=== PATIENT | male | born 1940 | race Caucasian/White ===

== ENCOUNTER 2023-02-11 08:00 | Outpatient (OUT) | payer OTHER, SELFPAY ==
[2023-02-11 08:20] VITALS: BP 144/79; PULSE 82; RESP 18; TEMP 36.8; O2SAT 98
[2023-02-11] MEDS: MITOMYCIN 40 MG in WATER FOR INJECTION,STERILE 20 ML 20 MG INTRAVESIC (08:45)
--- NOTE | 2023-02-11 09:05 | PC.NURSE ---
0820: Pt. to amb. for bladder instillation of Mitomycin. Denies any adverse reactions from previous instillations. Relays voiding without difficulty and no burning or irritation. VSS. Using sterile technique, #16Fr lutz catheter inserted into bladder with immediate return of clear yellow urine. Pt. tolerated with minimal c/o pain. 300cc clear yellow urine drained from bladder. 0845: Drainage bag removed from lutz. CSTD plug placed into catheter. Mitomycin, 40mg instilled into bladder via lutz cath. after dual verification with Jessica Sanchez RN. Instructed pt. to turn side to side and front to back every 15min x 1.5hrs. Pt. relays understanding.
--- NOTE | 2023-02-11 09:45 | PC.NURSE ---
0930: Pt. cont. to deny c/o or needs. No burning to perineum. Cont. to turn every 15min as instructed.
--- NOTE | 2023-02-11 10:00 | PC.NURSE ---
Patient without c/o. Cont. to deny burning or irritation in perineum.
[2023-02-11 10:38] VITALS: BP 153/80; PULSE 78; RESP 18; TEMP 36.6
--- NOTE | 2023-02-11 10:42 | PC.NURSE ---
1030: Treatment completed. Drainage bag re-connected to lutz cath. 400cc pale purple tinged urine drained from bladder. Lutz cath removed. Pt. tolerated without c/o. No redness or irritation observed to perineum. Pt. without c/o pain, n/v or dyspnea. 1038: VSS. Pt. reminded to follow at home instructions post treatment. Pt. denies questions. D/c'd amb. to home.
== END 2023-02-11 08:01 | disposition home or self-care (01) ==
LOC: INF 02-12 11:45
PROVIDERS: Visit Provider Urology
DX: Z85.51 Personal history of malignant neoplasm of bladder (principal)
CPT/HCPCS: 51700; J9280

== ENCOUNTER 2023-03-11 12:00 | Outpatient (OUT) | payer OTHER, SELFPAY | END 2023-03-11 12:01 | disposition home or self-care (01) | LOC: PST 03-12 19:26 | PROVIDERS: Visit Provider Urology | DX: Z01.818 Encounter for other preprocedural examination (principal); Z85.51 Personal history of malignant neoplasm of bladder ==

== ENCOUNTER 2023-03-12 11:23 | Outpatient (OUT) | payer OTHER, SELFPAY | END 2023-03-12 11:24 | disposition home or self-care (01) | LOC: PST 11:24 | PROVIDERS: Visit Provider Urology | DX: Z01.818 Encounter for other preprocedural examination (principal); Z85.51 Personal history of malignant neoplasm of bladder; D49.4 Neoplasm of unspecified behavior of bladder; K21.9 Gastro-esophageal reflux disease without esophagitis; Z86.73 Personal history of transient ischemic attack (TIA), and cerebral infarction without residual deficits; I10 Essential (primary) hypertension; Z79.01 Long term (current) use of anticoagulants; I25.10 Atherosclerotic heart disease of native coronary artery without angina pectoris ==

== ENCOUNTER 2023-04-01 07:51 | Outpatient (OUT) | payer OTHER, SELFPAY ==
--- NOTE | 2023-04-01 07:59 | XR_ITS ---
[address] [address] Patient Name: GERTRUDIS PÉREZ MRN: [id number] date: 1940 Sex: M Assigned Patient Location: [facility] Current Patient Location: [facility] Accession/Order Number: [id number] Exam Date: 04/01/2023 08:48 Report Date: 04/01/2023 09:04 At the request of: SYLVESTER LOVE Procedure: XR chest 2V EXAM: CHEST 2 VIEWS HISTORY: PRE OP EXAM TECHNIQUE: PA and lateral views chest. COMPARISON: None. FINDINGS: The lungs are clear. There is no focal lung consolidation, pleural effusion or pneumothorax. Pulmonary vasculature is within normal limits. There are coronary artery bypass grafting changes. Heart size within normal limits. XR/XR chest 2V IMPRESSION: 1. No acute cardiopulmonary disease. Electronically authenticated by: MEREDITH DEL CID Date: 04/01/2023 09:04
--- NOTE | 2023-04-01 07:59 | ECG_ITS ---
[facility] Test Date: 2023-04-01 Pat Name: Nilesh Bell Department: Room: - Gender: Male [employer]: : 1940 Requested By: Order Number: [id number] Reading MD: SHANELL PACHECO Measurements Intervals [place] Rate: 68 P: 12 ND: 178 QRS: -5 QRSD: 94 T: 53 QT: 380 QTc: 406 Interpretive Statements SINUS RHYTHM No previous ECG available for comparison Electronically Signed On 04-02-2023 6:57:12 EDT by SHANELL PACHECO
--- NOTE | 2023-04-01 08:45 | PM.PRESUREVA ---
History of Present Illness History of Present Illness Chief complaint: bladder tumor Narrative: Patient presents for preadmission testing. Please see HPI from Dr. Zaldivar dated 03/23/2023. Review of Systems ROS Narrative Please see ROS from Dr. Zaldivar dated 03/23/2023. [facility] Medical History (Updated 04/01/23 @ 08:21 by Shantel Mascorro NP) Surgical History (Updated 04/01/23 @ 08:21 by Shantel Mascorro NP) Social History (Updated 03/12/23 @ 10:26 by Jyoti Malik RN) Previous occupational history: [employer] (RETIRED) Known occupational exposures/hazards: No Highest level of school completed/degree received: high school graduate Meds Home Medications and Allergies Home Medications Medication Instructions Recorded Confirmed Type ACETAMINOPHEN/ASPIRIN/CAFFIENE 1 cap PO BID PRN headache 03/11/23 04/01/23 History aspirin 81 mg chewable tablet 81 mg PO DAILY 03/11/23 04/01/23 History atorvastatin 80 mg tablet 80 mg PO QPM 03/11/23 04/01/23 History famotidine 20 mg tablet 20 mg PO DAILY 03/11/23 04/01/23 History finasteride 5 mg tablet 5 mg PO DAILY 03/11/23 04/01/23 History lisinopril 20 1 tab PO DAILY 03/11/23 History mg-hydrochlorothiazide 12.5 mg tablet montelukast 10 mg tablet 10 mg PO DAILY 03/11/23 04/01/23 History olopatadine 0.1 % eye drops 1 drp ophthalmic (eye) BID 03/11/23 04/01/23 History solifenacin 10 mg tablet 10 mg PO DAILY 03/11/23 History tamsulosin 0.4 mg capsule 0.4 mg PO DAILY 03/11/23 04/01/23 History celecoxib 200 mg capsule (Celebrex) 200 mg PO BID 04/01/23 04/01/23 History multivitamin (Multiple Vitamins 1 tab PO DAILY 04/01/23 04/01/23 History tablet) Allergies Allergy/AdvReac Type Severity Reaction Status Date / Time metoprolol Allergy Intermediate ITCHING Verified 03/11/23 12:43 Exam Narrative Exam Narrative: Constitutional: Awake, alert, comfortable, well-appearing, nontoxic, interactive, vital signs as charted Head: Normocephalic, atraumatic Neck: Supple, normal appearance, normal range of motion, no meningeal signs, no lymphadenopathy Respiratory: No respiratory distress, breath sounds clear Cardiovascular: Regular rate and rhythm, strong and regular heart tones Abdomen: Nontender, normal bowel sounds, soft, no CVA tenderness Musculoskeletal: Normal gait, no swelling or edema Skin: No rashes or induration, scattered multiple mole-like lesions, only visible skin inspected Neuro: No neurological deficits, normal sensation Psychiatric: Oriented ?3, normal affect Assessment and Plan Assessment and Plan (1) Bladder cancer: (2) Bladder tumor: Plan Cystoscopy, TURBT scheduled with Dr. Zaldivar 04/08/2023.
[2023-04-01 09:01] LABS: INR 0.97; Partial Thromboplastin Time 27.5 sec (22.3-36.2); Prothrombin Time 10.3 sec (9.0-11.6)
[2023-04-01 09:06] LABS: Anion Gap 12.8; BUN Creatinine Ratio 10.4; Calcium 9.2 mg/dL (8.5-10.1); Carbon Dioxide 27.2 mmol/L (21.0-32.0); Chloride 104 mmol/L (98-107); Estimated GFR (African America 57 (>=60); Estimated GFR (Non-African Ame 47 (>=60); Glucose 122 mg/dL (74-106); Sodium 140 mmol/L (136-145)
[2023-04-01 09:31] LABS: Basophils Percent Auto 0.5 % (0.2-2.0); Eosinophils Absolute Auto 0.3 10^3/uL (0.0-0.7); Eosinophils Percent Auto 4.5 % (0.9-7.0); Hematocrit 44.5 % (42.0-54.0); Immature Granulocytes Abs Auto 0.01 10^3/uL (0.00-0.03); Immature Granulocytes Pct Auto 0.2 % (0.0-0.5); Lymphocytes Absolute Auto 0.8 10^3/uL (1.2-3.8); Lymphocytes Percent Auto 13.6 % (20.5-60.0); Mean Corpuscular HGB Conc 33.7 g/dL (29.9-35.2); Mean Corpuscular Hemoglobin 30.1 pg (25.9-34.0); Mean Corpuscular Volume 89.2 fL (80.0-94.0); Mean Platelet Volume 12.4 fL (9.5-13.5); Monocytes Absolute Auto 0.7 10^3/uL (0.3-0.8); Monocytes Percent Auto 11.9 % (1.7-12.0); Neutrophils Absolute Auto 3.8 10^3/uL (1.4-6.5); Neutrophils Percent Auto 69.3 % (43.0-75.0); Platelet Count 154 10^3/uL (150-450); Red Blood Count 4.99 10^6/uL (4.70-6.10); Red Cell Distribution Width 13.2 % (11.0-15.0); White Blood Count 5.5 10^3/uL (4.0-11.0)
== END 2023-04-01 07:52 | disposition home or self-care (01) ==
PROVIDERS: Visit Provider Urology
DX: Z01.810 Encounter for preprocedural cardiovascular examination (principal); Z01.812 Encounter for preprocedural laboratory examination; D49.4 Neoplasm of unspecified behavior of bladder; Z85.51 Personal history of malignant neoplasm of bladder; K21.9 Gastro-esophageal reflux disease without esophagitis; I10 Essential (primary) hypertension; Z86.73 Personal history of transient ischemic attack (TIA), and cerebral infarction without residual deficits; Z79.01 Long term (current) use of anticoagulants; I25.10 Atherosclerotic heart disease of native coronary artery without angina pectoris
CPT/HCPCS: 71046; 80048; 85025; 85610; 85730; 93005; G0463

== ENCOUNTER 2023-04-08 12:30 | Day surgery (SDC) | payer OTHER, SELFPAY ==
[2023-04-01 08:39] VITALS: BP 127/71; PULSE 79; RESP 14; TEMP 36.3; O2SAT 97; BMI 28.0
[2023-04-08] VITALS (14 sets, daily range): BP systolic 127–166; BP diastolic 55–92; PULSE 74–90; RESP 10–23; TEMP 36.4–36.5; O2SAT 96–99
[2023-04-08] MEDS: LACTATED RINGER'S SOLUTION 1,000 ML 50 ML IV (13:14)
[2023-04-08] MEDS: CEFAZOLIN SODIUM/DEXTROSE,ISO 1 GM/50 ML IV.SOLN IV (16:53)
--- NOTE | 2023-04-08 17:45 | PM.URSON ---
Urology Surgery Operative Note Operative Note Procedure Date: 04/08/23 Time Out Performed: yes Pre-op Diagnosis: bladder lesions Post-op Diagnosis: same as pre-op Procedures performed: #1. Cystoscopy. #2. Transurethral resection of bladder lesions approximately 3 cm. Anesthesia: GETA Primary Surgeon: Everton Zaldivar Complications: non- Estimated blood loss (mL): 5 Findings: several raised fleshy lesions adjacent to prior resection site floor and near the left ureter. Specimens: bladder lesions. 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 Due to the world shortage of bacille Calmette-Andry treatments he underwent several mitomycin-C intravesical treatments. On recent surveillance cystoscopy some fleshy raised tumors were noted adjacent to prior resection site. his recent fish and cytology were negative.He now presents for transurethral resection of tthese lesions. He has signed an informed consent for these procedures after all the risks were explained to him in great detail. Detailed description of Procedure: The patient was brought to the operating room and placed on the operating room table in the supine position. SCDs were placed on the lower extremities and turned on and functioning during the entire case. Timeout was done by all parties in the room. We all agreed upon the patient's identification and the planned procedures for this patient. Genn. anesthesia was then administered. The patient was then repositioned into the modified dorsal lithotomy position. All pressure points were satisfactorily padded. Genitalia were sterilely prepped and draped in usual fashion.I started by passing the 26 [place] Olympus resectoscope with the standard bipolar loop electrode per urethra and into the bladder. He had a penile urethral stricture but I was able to get the scope through this. Panendoscopy in the bladder revealed the previously noted fleshy raised lesions on the floor of the bladder lateral and proximal to the left UO. I uniformly and deeply resected these and the tissue was sent for permanent sections. The resection beds were then fulgurated with the bipolar loop. On the back wall there were several mucosal abnormalities with the vascular components. These were not raised. I simply coagulated these. The rest of the bladder looked fine. There was no bleeding from the resection sites. All the tumor pieces were removed and sent for permanent sections. The scope was then removed. I elected not to place a Ingram catheter due to the patient's strong desire not to go home with 1. The anesthetic was then reversed. He was then transferred to a [facility] bed and wheeled to PACU in stable condition.
== END 2023-04-08 18:47 | disposition home or self-care (01) ==
PROVIDERS: Visit Provider Urology
PROC: (CPT 52235; principal; 2023-04-08 13:50)
DX: N32.9 Bladder disorder, unspecified (principal); Z85.51 Personal history of malignant neoplasm of bladder; K21.9 Gastro-esophageal reflux disease without esophagitis; Z86.73 Personal history of transient ischemic attack (TIA), and cerebral infarction without residual deficits; I10 Essential (primary) hypertension; Z79.01 Long term (current) use of anticoagulants; I25.10 Atherosclerotic heart disease of native coronary artery without angina pectoris; N30.90 Cystitis, unspecified without hematuria; I71.40 Abdominal aortic aneurysm, without rupture, unspecified; E78.5 Hyperlipidemia, unspecified; R35.1 Nocturia; R33.9 Retention of urine, unspecified; R39.198 Other difficulties with micturition; N40.1 Benign prostatic hyperplasia with lower urinary tract symptoms; Z95.1 Presence of aortocoronary bypass graft; Z79.82 Long term (current) use of aspirin; Z79.899 Other long term (current) drug therapy; R39.11 Hesitancy of micturition; N35.919 Unspecified urethral stricture, male, unspecified site
CPT/HCPCS: 52235; 36415; 88307; J2704

== ENCOUNTER 2023-09-07 07:48 | Outpatient (OUT) | payer OTHER, SELFPAY ==
--- NOTE | 2023-09-07 08:47 | PM.PRESUREVA ---
History of Present Illness History of Present Illness Chief complaint: bladder tumor, history of bladder cancer Narrative: Patient presents for preadmission testing. The patient states he has a history of bladder cancer and a bladder tumor, he had a TURBT done here and March. He states he does have nocturia and incomplete emptying with difficulty starting stream. He denies abdominal pain, nausea, vomiting, fever, or any other complaints. Review of Systems ROS Narrative REVIEW OF SYSTEMS: Negative except as stated in HPI, ten or more systems reviewed. Constitutional: No fever , chills, weakness ENT: No sore throat or epistaxis Cardiovascular: No edema, chest pain, palpitations, or activity intolerance Respiratory: No shortness of breath, cough, or wheezing Musculoskeletal: No joint pain or swelling Gastrointestinal: No abdominal pain, constipation, diarrhea, or vomiting Genitourinary: No dysuria or hematuria Neurological: No numbness, tingling, weakness, or headache Psychiatric: No mood changes PFSH PFSH Medical History (Updated 04/08/23 @ 12:53 by Jade Plaza) Bladder tumor ?D49.4 - Neoplasm of unspecified behavior of bladder (ICD-10) High cholesterol ?E78.00 - Pure hypercholesterolemia, unspecified (ICD-10) Urinary hesitancy ?R39.11 - Hesitancy of micturition (ICD-10) Nocturia ?R35.1 - Nocturia (ICD-10) Coronary arteriosclerosis ?I25.10 - Atherosclerotic heart disease of [place] coronary artery without angina pectoris (ICD-10) AAA (abdominal aortic aneurysm) ?I71.40 - Abdominal aortic aneurysm, without rupture, unspecified (ICD-10) BPH (benign prostatic hyperplasia) ?N40.0 - Benign prostatic hyperplasia without lower urinary tract symptoms (ICD-10) GERD (gastroesophageal reflux disease) ?K21.9 - Gastro-esophageal reflux disease without esophagitis (ICD-10) HTN (hypertension) ?I10 - Essential (primary) hypertension (ICD-10) CAD (coronary artery disease) ?I25.10 - Atherosclerotic heart disease of [place] coronary artery without angina pectoris (ICD-10) TIA (transient ischemic attack) ?G45.9 - Transient cerebral ischemic attack, unspecified (ICD-10) Bladder cancer ?C67.9 - Malignant neoplasm of bladder, unspecified (ICD-10) Surgical History (Updated 09/07/23 @ 08:21 by Shantel Mascorro NP) H/O cystoscopy (04/08/23) ?Z98.890 - Other specified postprocedural states (ICD-10) S/P cataract extraction and insertion of intraocular lens ?Z98.49 - Cataract extraction status, unspecified eye (ICD-10) ?Z96.1 - Presence of intraocular lens (ICD-10) History of colonoscopy ?Z98.890 - Other specified postprocedural states (ICD-10) H/O cystoscopy ?Z98.890 - Other specified postprocedural states (ICD-10) Hx of CABG ?Z95.1 - Presence of aortocoronary bypass graft (ICD-10) History of transurethral resection of bladder tumor (TURBT) ?Z98.890 - Other specified postprocedural states (ICD-10) ?Z86.03 - Personal history of neoplasm of uncertain behavior (ICD-10) Social History (Updated 04/08/23 @ 12:52 by Jade Plaza) Within the past year, how often did you have a drink containing alcohol: never Score interpretation: A score less than 4 is consistent with normal alcohol consumption. Smoking status: Former smoker Non-prescribed substance use: denies use Previous occupational history: [employer] (RETIRED) Known occupational exposures/hazards: No Highest level of school completed/degree received: high school graduate Meds Home Medications and Allergies Home Medications Medication Instructions Recorded Confirmed Type aspirin 81 mg chewable tablet 81 mg PO DAILY 03/11/23 09/07/23 History atorvastatin 80 mg tablet 80 mg PO QPM 03/11/23 09/07/23 History famotidine 20 mg tablet 20 mg PO DAILY 03/11/23 09/07/23 History finasteride 5 mg tablet 5 mg PO DAILY 03/11/23 09/07/23 History montelukast 10 mg tablet 10 mg PO DAILY 03/11/23 09/07/23 History tamsulosin 0.4 mg capsule 0.4 mg PO DAILY 03/11/23 09/07/23 History multivitamin (Multiple Vitamins 1 tab PO DAILY 04/01/23 09/07/23 History tablet) lisinopril 20 mg tablet 20 mg PO DAILY 04/08/23 09/07/23 History prednisone 20 mg tablet mg 09/07/23 History Allergies Allergy/AdvReac Type Severity Reaction Status Date / Time metoprolol Allergy Intermediate ITCHING Verified 09/07/23 08:22 Exam Narrative Exam Narrative: Constitutional: Awake, alert, comfortable, well-appearing, nontoxic, interactive, vital signs as charted Head: Normocephalic, atraumatic Neck: Supple, normal appearance, normal range of motion, no meningeal signs, no lymphadenopathy Respiratory: No respiratory distress, breath sounds clear Cardiovascular: Regular rate and rhythm, strong and regular heart tones Abdomen: Nontender, normal bowel sounds, soft, no CVA tenderness Musculoskeletal: Normal gait, no swelling or edema Skin: No rashes or induration, multiple scattered mole-like lesions, only visible skin inspected Neuro: No neurological deficits, normal sensation Psychiatric: Oriented ?3, normal affect Assessment and Plan Assessment and Plan (1) Bladder tumor: (2) Bladder cancer: Plan Cystoscopy, bilateral ureteroscopy, TURBT scheduled with Dr. Zaldivar 09/16/2023.
[2023-09-07 09:03] LABS: Basophils Absolute Auto 0.1 10^3/uL (0.0-0.1); Basophils Percent Auto 0.5 % (0.2-2.0); Eosinophils Absolute Auto 0.3 10^3/uL (0.0-0.7); Eosinophils Percent Auto 3.3 % (0.9-7.0); Hematocrit 37.6 % (42.0-54.0); Hemoglobin 12.1 g/dL (14.0-18.0); Immature Granulocytes Abs Auto 0.04 10^3/uL (0.00-0.03); Immature Granulocytes Pct Auto 0.4 % (0.0-0.5); Lymphocytes Absolute Auto 0.8 10^3/uL (1.2-3.8); Mean Corpuscular HGB Conc 32.2 g/dL (29.9-35.2); Mean Corpuscular Hemoglobin 29.7 pg (25.9-34.0); Mean Corpuscular Volume 92.4 fL (80.0-94.0); Mean Platelet Volume 11.7 fL (9.5-13.5); Monocytes Absolute Auto 1.1 10^3/uL (0.3-0.8); Monocytes Percent Auto 11.8 % (1.7-12.0); Neutrophils Absolute Auto 7.3 10^3/uL (1.4-6.5); Platelet Count 199 10^3/uL (150-450); Red Blood Count 4.07 10^6/uL (4.70-6.10); Red Cell Distribution Width 13.3 % (11.0-15.0); White Blood Count 9.6 10^3/uL (4.0-11.0)
[2023-09-07 09:29] LABS: INR 0.95; Partial Thromboplastin Time 25.7 sec (22.3-36.2); Prothrombin Time 10.1 sec (9.0-11.6)
[2023-09-07 12:12] LABS: Anion Gap 12.3; BUN Creatinine Ratio 16.2; Calcium 8.9 mg/dL (8.5-10.1); Carbon Dioxide 29.3 mmol/L (21.0-32.0); Chloride 103 mmol/L (98-107); Estimated GFR (African America >60 (>=60); Estimated GFR (Non-African Ame 50 (>=60); Glucose 116 mg/dL (74-106); Potassium 3.6 mmol/L (3.5-5.1); Sodium 141 mmol/L (136-145)
== END 2023-09-07 07:49 | disposition home or self-care (01) ==
LOC: PST 07:48
PROVIDERS: Visit Provider Urology
DX: Z01.812 Encounter for preprocedural laboratory examination (principal); Z01.818 Encounter for other preprocedural examination
CPT/HCPCS: 80048; 85025; 85610; 85730; G0463

== ENCOUNTER 2023-09-16 07:07 | Day surgery (SDC) | payer OTHER, SELFPAY ==
[2023-09-07 08:33] VITALS: BP 129/65; PULSE 76; RESP 16; TEMP 36.3; O2SAT 100; BMI 28.5
[2023-09-16] VITALS (11 sets, daily range): BP systolic 88–148; BP diastolic 49–76; PULSE 77–90; RESP 9–21; TEMP 36.2–36.4; O2SAT 96–100; BMI 28.7
--- OUTSIDE RECORDS SUMMARY | 2023-09-16 07:09 | XMS_ITS | CCD ---
Author Name Unknown Address [address] [place] [address] Organization [facility] Care Team Providers Care Counter Helper Name Role Phone BRIANASHAYLEE ANDERSON Primary Care Physician ZALDIVAR ., DR PHAN Admitting Unavailable ZALDIVAR ., DR PHAN Attending Unavailable MISC, DR AVILA Primary Care Unavailable ZALDIVAR ., DR PHAN Consulting Unavailable ZALDIVAR ., DR PHAN Admitting Unavailable ZALDIVAR ., DR PHAN Attending Unavailable REQUEST, NONE LISTED Primary Care Unavaila ble ZALDIVAR ., DR PHAN Consulting Unavailable REQUEST, NONE LISTED Primary Care Unavaila ble KADEN ., LILY Admitting Unavailable KADEN ., LILY Attending Unavailable SNEADS, DR JESSENIA Voss Consulting Unavailable BROWN, JESSENIA Consulting Unavailable KADEN ., LILY Consulting Unavailable ANKUR, WENDY Consulting Unavailable ZALDIVAR ., DR PHAN Admitting Unavailable ZALDIVAR ., DR PHAN Attending Unavailable REQUEST, NONE LISTED Primary Care Unavaila ble ZALDIVAR ., DR PHAN Consulting Unavailable COOPER, MARLENE Consulting Unavailable BROWN, JESSENIA Consulting Unavailable ZALDIVAR ., DR PHAN Admitting Unavailable ZALDIVAR ., DR PHAN Attending Unavailable REQUEST, NONE LISTED Primary Care Unavaila ble ZALDIVAR ., DR PHAN Consulting Unavailable HIGUERA, ALAN Consulting Unavailable GEMBUS, NICOLAS Consulting Unavailable ZALDIVAR ., DR PHAN Admitting Unavailable ZALDIVAR ., DR PHAN Attending Unavailable ZALDIVAR ., DR PHAN Consulting Unavailable MISC, DR AVILA Primary Care Unavailable ZALDIVAR, Everton White Attending Unavailable ZALDIVAR, Everton White Admitting Unavailable LURDESKAREN LACKEY Attending Unavailable LURDESKAREN Admitting Unavailable ZALDIVAR, Everton White Attending Unavailable LURDES, KAREN Chris Attending Unavailable LURDES, KAREN Chris Attending Unavailable ZALDIVAR, Everton White Attending Unavailable ZALDIVAR, Everton White Attending Unavailable ZALDIVARSHANELL Attending Unavailable ZALDIVAR, Everton White Attending Unavailable ZALDIVAR, Everton White Attending Unavailable ZALDIVAR, Everton White Attending Unavailable ZALDIVAR, Everton R Attending Unavailable ZALDIVAR, Everton R Attending Unavailable ZALDIVAR, Everton R Admitting Unavailable ZALDIVAR, Everton R Attending Unavailable ZALDIVAR, Everton R Attending Unavailable ZALDIVAR, Everton R Attending Unavailable ZALDIVAR, Everton R Attending Unavailable ZALDIVAR, Everton R Attending Unavailable ZALDIVAR, Everton R Attending Unavailable LURDES, KAREN E Attending Unavailable LURDES, KAREN E Attending Unavailable LURDES, KAREN E Attending Unavailable ZALDIVAR, Everton R Attending Unavailable ZALDIVAR, Everton R Attending Unavailable LURDES, KAREN E Attending Unavailable LURDES, KAREN E Attending Unavailable LURDES, KAREN E Attending Unavailable LURDES, KAREN E Attending Unavailable ZALDIVAR, Everton R Attending Unavailable ZALDIVAR, Everton R Attending Unavailable LURDES, AKREN E Admitting Unavailable LURDES, KAREN E Attending Unavailable Allergies Allergy Classification Reported Allergen(s) Allergy Type Date of Onset Reaction(s) Facility (18 sources) Metoprolol; Translations: [metoprolol] Drug Allergy 0 Itching (finding) [facility] (1 source) Metoprolol Drug Allergy [facility] Rep[facility] Medications Current Medications Medication Drug Class(es) Dates Sig (Normalized) Sig (Original) acetaminophen 194 mg / aspirin 227 mg / caffeine 33 mg oral tablet (10 sources) Platelet Aggregation Inhibitor, Nonsteroidal Anti-inflammatory Drug, Central Nervous System Stimulant, Methylxanthine Start: 07-20-2022 acetaminophen/a spirin/caffeine 194 mg-227 mg-33 mg oral tablet Refill(s) 0, ORAL Start Date: 07/20/22 Status: Ordered aspirin 81 mg chewable tablet (17 sources) Platelet Aggregation Inhibitor, Nonsteroidal Anti-inflammatory Drug Start: 07-20-2022 cephalexin 500 mg oral capsule (2 sources) Cephalosporin Antibacterial Start: 09-22-2022 End: 10-02-2022 take 1 capsule by mouth every twelve hours Keflex 500 mg Cap 500 mg = 1 cap(s), Oral, q12hr, X 10 day(s), # 20 cap(s), Refills(s) 0, Pharmacy: [id number], 167, cm, 08/31/22 15:00:00 EST, Height/Length Dosing, 84, kg, 08/31/22 15:00:00 EST, Weight Dosing Start Date: 09/22/22 Stop Date: 2/10/23 Status: Ordered famotidine 20 mg oral tablet (17 sources) Histamine-2 Receptor Antagonist Start: 07-20-2022 finasteride 5 mg oral tablet (17 sources) 5-alpha Reductase Inhibitor Start: 07-20-2022 hydroCHLOROthiazide 12.5 mg / lisinopril 20 mg oral tablet (17 sources) Thiazide Diuretic, Angiotensin Converting Enzyme Inhibitor Start: 07-20-2022 hydrochlorothia zide-lisinopril 12.5 mg-20 mg Tab Refill(s) 0, ORAL, 3 Refill(s) Start Date: 07/20/22 Status: Ordered montelukast 10 mg oral tablet (17 sources) Leukotriene Receptor Antagonist Start: 07-20-2022 olopatadine 1 mg/ml ophthalmic solution (17 sources) Histamine-1 Receptor Inhibitor Start: 07-20-2022 olopatadine ophthalmic 0.1% solution Refill(s) 0, BOTH EYES, 11 Refill(s) Start Date: 07/20/22 Status: Ordered solifenacin succinate 10 mg oral tablet (7 sources) Cholinergic Muscarinic Antagonist Start: 08-31-2022 solifenacin 10 mg Tab Refills(s) 0 Start Date: 08/31/22 Status: Ordered tamsulosin hydrochloride 0.4 mg oral capsule (17 sources) alpha-Adrenergic Kenji Start: 07-20-2022 Completed/Discontinued Medications Medication Drug Class(es) Dates Sig (Normalized) Sig (Original) atorvastatin 80 mg oral tablet (17 sources) HMG-CoA Reductase Inhibitor Start: 07-20-2022 ciprofloxacin 500 mg oral tablet (12 sources) Quinolone Antimicrobial Start: 06-29-2023 take 1 tablet by mouth once daily Cipro 500 mg Tab 500 mg = 1 tab(s), Oral, Daily, Take 1 tablet the day before the procedure and 1 tablet after the procedure, # 7 tab(s), Refills(s) 0, Pharmacy: [id number], 167, cm, 06/29/23 9:15:00 EST, Height/Length Dosing, 83, kg, 06/29/23 9:15:00 EST, Weight Dosing Start Date: 06/29/23 Status: Ordered Start: 03-12-2023 take 1 tablet by marylin th once daily Cipro 500 mg Tab 500 mg = 1 tab(s), Oral, Daily, Take 1 tablet the day before the procedure and 1 tablet after the procedure, # 6 tab(s), Refills(s) 0, Pharmacy: [id number], 167, cm, 08/31/22 15:00:00 EST, Height/Length Dosing, 84, kg, 08/31/22 15:00:0... Start Date: 03/12/23 Status: Ordered Start: 11-13-2022 take 1 tablet by marylin once daily Cipro 500 mg Tab 500 mg = 1 tab(s), Oral, Daily, Take 1 tablet the day before the procedure and 1 tablet after the procedure, # 6 tab(s), Refills(s) 0, Pharmacy: [id number], 167, cm, 08/31/22 15:00:00 EST, Height/Length Dosing, 84, kg, 08/31/22 15:00:0... Start Date: 11/13/22 Status: Ordered Start: 07-20-2022 take 1 tablet by [facility] daily Cipro 500 mg Tab 500 mg = 1 tab(s), Oral, Daily, Take 1 tablet the day before the procedure and 1 tablet after the procedure, # 2 tab(s), Refills(s) 0, Pharmacy: [id number], 172, cm, 07/20/22 14:37:00 EST, Height/Length Dosing, 84, kg, 07/20/22 14:37:0... 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] Onset: 04-23-2022 07-20-2022 Chronic Cancer of bladder (14 sources) Malignant neoplasm of bladder, unspecified; Translations: [Malignant tumor of urinary bladder] Onset: 09-02-2022 Chronic Cancer of bladder (11 sources) History of malignant neoplasm of bladder; Translations: [Personal history of malignant neoplasm of bladder] Onset: 09-29-2022 Episodic Cancer; other and unspecified primary (11 sources) H/O: malignant neoplasm 11-23-2022 Episodic Coronary atherosclerosis and other heart disease (18 sources) Coronary arteriosclerosis; Translations: [Atherosclerotic heart disease of [place] coronary artery without angina pectoris] Onset: 12-01-2022 07-20-2022 Chronic Disorders of lipid metabolism (20 sources) Hyperlipidemia; Translations: [Hyperlipidemia, unspecified] Onset: 12-01-2022 07-20-2022 Chronic Esophageal disorders (18 sources) Gastroesophageal reflux disease; Translations: [Gastro-esophageal reflux disease without esophagitis] Onset: 12-01-2022 07-20-2022 Chronic Essential hypertension (18 sources) Hypertensive disorder; Translations: [Essential (primary) hypertension] Onset: 12-01-2022 07-20-2022 Chronic Genitourinary symptoms and ill-defined conditions (4 sources) Encounter for fitting and adjustment of urinary device; Translations: [END FITTING AND ADJUST URINARY DEVICE] Onset: 09-28-2022 Chronic Genitourinary symptoms and ill-defined conditions (20 sources) Splitting of urinary stream; Translations: [Splitting of urinary stream] Onset: 07-20-2022 Episodic Hyperplasia of prostate (20 sources) Benign prostatic hypertrophy without outflow obstruction; Translations: [Benign prostatic hyperplasia without lower urinary tract symptoms] Onset: 07-20-2022 Chronic Neoplasms of unspecified nature or uncertain behavior (7 sources) Neoplasm of unspecified behavior of bladder; Translations: [Neoplasm of uncertain behavior of bladder] Onset: 08-20-2022 Episodic Occlusion or stenosis of precerebral arteries (17 sources) Carotid artery stenosis 07-20-2022 Chronic Other aftercare (1 source) 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; Translations: [HALF-WAY CURRENT USE OF ASPIRIN] Onset: 12-01-2022 Episodic Other aftercare (1 source) 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) 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 therapy; Translations: [OTH HALF-WAY CURRENT DRUG THERAPY] Onset: 12-01-2022 Episodic Other circulatory disease (1 source) Personal history of transient ischemic attack (TIA), and cerebral infarction without residual deficits; Translations: [PERS HX TIA AND CI NO RESID DEFICIT] Onset: 12-01-2022 Episodic Other diseases of bladder and urethra (1 source) Other specified disorders of bladder; Translations: [OTHER SPECIFIED DISORDERS BLADDER] Onset: 09-29-2022 Chronic Other diseases of bladder and urethra (4 sources) Male urethral stricture; Translations: [Unspecified urethral stricture, male, unspecified site] Onset: 03-23-2023 Episodic Other diseases of bladder and urethra (9 sources) Urethral stricture 03-23-2023 Episodic Screening and history of mental health and substance abuse codes (1 source) Personal history of nicotine dependence; Translations: [PERSONAL HISTORY OF NICOTINE DEPEND] Onset: 12-01-2022 Episodic Transient cerebral ischemia (17 sources) Transient cerebral ischemia 07-20-2022 Chronic Unclassified (1 source) CONTACT W/AND (SUSP) EXPOS COVID-19; Translations: [CONTACT W/AND (SUSP) EXPOS COVID-19] Onset: 08-20-2022 Urinary tract infections (8 sources) Urinary tract infectious disease; Translations: [Urinary tract infection, site not specified] Onset: 06-08-2023 Episodic Past or Other Problems Problem Classification Problem Date Documented Da te Episodic/Chronic Abdominal pain (3 sources) Unspecified abdominal pain; Translations: [UNSPECIFIED ABDOMINAL PAIN] Onset: 04-22-2022 Episodic Coronary atherosclerosis and other heart disease (1 source) Presence of aortocoronary bypass graft; Translations: [PRESENCE AORTOCORONARY BYPASS GRAFT] Onset: 09-29-2022 Episodic Other aftercare (1 source) [facility] (current) use of anticoagulants; Translations: [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 USE ANTICOAGULANTS] Onset: 08-20-2022 Episodic Other diseases of bladder and urethra (1 source) Unspecified urethral stricture, male, meatal; Translations: [UNSP URETHRAL STRICTURE MALE MEATAL] Onset: 09-02-2022 Episodic Other diseases of kidney and ureters (1 source) Cyst of kidney, acquired; Translations: [CYST OF KIDNEY ACQUIRED] Onset: 04-23-2022 Episodic Pancreatic disorders (not diabetes) (1 source) Acute pancreatitis without necrosis or infection, unspecified; Translations: [ACUTE PANCREATITIS WO NECRS/INF UNS] Onset: 04-23-2022 Episodic Results Test Name Value Interpretation Reference Range Facil ity Consent for Procedure/Surger yon 08-26-2023 Consent for Procedure/Surger y [id number]. [id number] [facility] Physician Referralon 023 Physician Referral [id number] 0TIFF Normal [facility] UroVysion Fish and Urine Cyt o ([facility])on 08-06-2023 [facility] UC Revision Information Invalid Interpretation Code [facility] Comment on above: Result Comment: Correction Reason -[ Carter Sharma, 08/06/23 - 07:54 ] Corrected report issued to update PMS/PWS. The diagnosis remains unchanged. Correction Notes - Performed By: #### [id number] ####[facility] [id number] [place] [address] Reminderson 08-03-2023 Reminders - From: Brianna Rivero To: FIDELINA - Hola Zaldivar; Cc: Brianna Rivero; Sent: 08/03/2023 09:40:42 EST Show up: 10/22/2023 09:40:00 EST Subject: cysto/fish/cytol Due Date/Time: 11/08/2023 09:40:00 EDT Reminder/Recall Patient is having TURBT/Ureter on 09/16/23. He will be due in November 2023 for cysto/fish/cytol (3 mo bt ck) Normal [facility] Consent for Procedure/Surger yon 07-29-2023 Consent for Procedure/Surger y [id number] 0TIFF Normal [facility] Ambulatory Visit Summaryon 1 09-28-2022 Ambulatory Visit Summary GERTRUDIS PÉREZ :1940 Visit Date:07/28/2023 Ambulatory Visit Instructions Your Diagnosis History of bladder cancer Bladder neoplasm of uncertain malignant potential BPH with urinary obstruction Incomplete bladder emptying Urethral stricture Your Care Team Attending Physician - IVAN GAO, Everton White Primary Care Physician - SHAYLEE WARREN MD This Is Your Medications List Contact prescribing physician if questions or concerns aspirin (aspirin 81 mg Chew Tab) atorvastatin (atorvastatin 80 mg Tab) ciprofloxacin (Cipro 500 mg Tab) famotidine (famotidine 20 mg Tab) finasteride (finasteride 5 mg Tab) hydrochlorothiazide-li sinopril (hydrochlorothiazide-l isinopril 12.5 mg-20 mg Tab) montelukast (montelukast 10 mg Tab) olopatadine ophthalmic (olopatadine ophthalmic 0.1% solution) tamsulosin (tamsulosin 0.4 mg Cap) Procedures Performed Cystoscopy (07/28/2023), TURBT - Transurethral resection of bladder tumor (04/08/2023), Cystoscopy (03/23/2023), 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 (08/20/2022), CABG - Coronary artery bypass graft (2017). Discharge Vitals Heart Rate (Peripheral) 70 Respiratory Rate 16 Blood Pressure 129/78 Height 167 cm Height 66 in Weight 83 kg Weight 182.6 lb BMI 29.76 What to do next You Need to Schedule the Following Appointments Follow Up with IVAN GAO, COLLINS De When: Where: [facility] [address], [place] [address]- Medications What How Much When Instructions Unchanged aspirin (aspirin 81 mg Chew Tab) 81 Unknown, CHEWABLE/ ORAL Contact prescribing physician if questions or concerns Unchanged atorvastatin (atorvastatin 80 mg Tab) 80 Unknown, ORAL, 3 Refill(s) Contact prescribing physician if questions or concerns Unchanged ciprofloxacin (Cipro 500 mg Tab) 1 Tablets By Mouth Every day Take 1 tablet the day before the procedure and 1 tablet after the procedure Contact prescribing physician if questions or concerns Unchanged famotidine (famotidine 20 mg Tab) 20 Unknown, ORAL, 3 Refill(s) Contact prescribing physician if questions or concerns Unchanged finasteride (finasteride 5 mg Tab) 5 Unknown, ORAL, 3 Refill(s) Contact prescribing physician if questions or concerns Unchanged hydrochlorothiazide-li sinopril (hydrochlorothiazide-l isinopril 12.5 mg-20 mg Tab) ORAL, 3 Refill(s) Contact prescribing physician if questions or concerns Unchanged montelukast (montelukast 10 mg Tab) 10 Unknown, ORAL, 3 Refill(s) Contact prescribing physician if questions or concerns Unchanged olopatadine ophthalmic (olopatadine ophthalmic 0.1% solution) BOTH EYES, 11 Refill(s) Contact prescribing physician if questions or concerns Unchanged tamsulosin (tamsulosin 0.4 mg Cap) 0.8 Unknown, ORAL, 3 Refill(s) Contact prescribing physician if questions or concerns Medications and Immunizations Administered Given lidocaine Top 2% Gel w/Appl 6 mL, 6 mL, Topical. For: History of bladder cancer, BPH with urinary obstruction, Incomplete bladder emptying, Urethral stricture Allergies metoprolol (Itching) Problems Ongoing - Any problem that you are currently receiving treatment for. Abdominal aortic aneurysm Bladder cancer Bladder neoplasm of uncertain malignant potential BPH with urinary obstruction Carotid artery stenosis Coronary arteriosclerosis Difficulty urinating Gastroesophageal reflux disease History of bladder cancer Hyperlipidemia Hyperlipidemia Hypertensive disorder Incomplete bladder emptying Intermittent urinary stream Nocturia Transient cerebral ischemia Urethral stricture Urinary hesitancy UTI (urinary tract infection) Patient Survey You may receive a survey via text or e-mail asking about your office visit. Please share your experience with us by completing your survey. We appreciate your feedback and thank you for choosing us for your care. Education Materials Cancer Screening for Men A cancer screening is a test or exam that checks for cancer. Your health care provider will recommend specific cancer screenings based on your age, medical history (including risk factors), and family history of cancer. Work with your health care provider to create a cancer screening schedule that protects your health. Who should have screening? All men should be considered for screening of certain cancers, including colorectal cancer, prostate cancer, lung cancer, and skin cancer. Your health care provider may recommend screenings for other types of cancer if: ? You had cancer before. ? You have a family member with cancer. ? You have abnormal genes that could increase the risk of cancer. ? You have risk factors for certain cancers, such as current or past use of tobacco products, or being overweight. When you should be screened for cancer depends on: ? Your age. ? Your medical history and your family's medical history. ? Certain lifes (more content not included)... Normal [facility] Patient Educationon 07-28-20 Patient Education Oncology Cancer Screening for Men A cancer screening is a test or exam that checks for cancer. Your health care provider will recommend specific cancer screenings based on your age, medical history (including risk factors), and family history of cancer. Work with your health care provider to create a cancer screening schedule that protects your health. Who should have screening? All men should be considered for screening of certain cancers, including colorectal cancer, prostate cancer, lung cancer, and skin cancer. Your health care provider may recommend screenings for other types of cancer if: ? You had cancer before. ? You have a family member with cancer. ? You have abnormal genes that could increase the risk of cancer. ? You have risk factors for certain cancers, such as current or past use of tobacco products, or being overweight. When you should be screened for cancer depends on: ? Your age. ? Your medical history and your family's medical history. ? Certain lifestyle factors, such as smoking or other use of tobacco products. ? Environmental exposure, such as to asbestos. How is screening done? Colorectal cancer All adults should have screenings starting at age 45 and continuing until age 75. Your health care provider may recommend screening before age 45. You will have tests every 1?10 years, depending on your results and the type of screening test. People at increased risk should start screening at an earlier age. Talk with your health care provider about which screening test is right for you and how often you should be screened. Colorectal cancer screening looks for cancer or for growths called polyps that often form before cancer starts. Tests to look for cancer or polyps include: ? Colonoscopy or flexible sigmoidoscopy. For these procedures, a flexible tube with a small camera is inserted into the rectum. ? CT colonography. This test uses X-rays and a contrast dye to check the colon for polyps. If a polyp is found, you may need to have a colonoscopy so the polyp can be located and removed. Tests to look for cancer in the stool (feces) include: ? Guaiac-based fecal occult blood test (FOBT). This test can find blood in stool. It can be done at home with a kit. ? Fecal immunochemical test (FIT). This test can find blood in stool. For this test, you will need to collect stool samples at home. ? Stool DNA test. This test looks for blood in stool and any changes in DNA that can lead to colon cancer. For this test, you will need to collect a stool sample at home and send it to a lab. Prostate cancer Prostate cancer screening for men with average risk may start at age 50. Men with risk factors may need to be screened earlier, at ages 40?45. Talk with your health care provider about whether screening is right for you and, if so, how often you should be screened. Prostate cancer screening is done with blood tests and a digital rectal exam. During this exam, a health care provider uses a gloved finger to check prostate size. You may need to be screened for prostate cancer if: ? You have risk factors for prostate cancer, such as being or having a close family member with prostate cancer. ? You have had gene changes or a genetic condition that was passed on to you from a parent (inherited). These gene changes or genetic conditions include BRCA1 or BRCA2 gene mutations or Damon syndrome. ? You have symptoms of prostate cancer, such as problems urinating or problems getting or keeping an erection (erectile dysfunction). When you have been screened for prostate cancer, future screening may be recommended based on the results of your blood tests. Lung cancer Lung cancer screening is done with a CT scan that looks for abnormal changes in the lungs. Discuss lung cancer screening with your health care provider if you are 50?80 years old and if any of the following apply to you: ? You currently smoke. ? You used to smoke heavily. ? You have a smoking history of 1 pack of cigarettes a day for 20 years or 2 packs a day for 10 years. ? You have quit smoking within the past 15 years. You may need to be screened every year if you smoke heavily or if you used to smoke. Skin cancer Skin cancer screening is done by checking the skin for unusual moles or spots and any changes in existing moles. Your health care provider should check your skin for signs of skin cancer at every physical exam. You should check your skin every month and tell your health care provider right away if anything looks unusual. Men with a [id number] risk for skin cancer may want to see a senior quality assurance specialist (environmental projects advisor) for an annual body check. What are the benefits of screening? Cancer screening is done to look for cancer in the very early stages, before it spreads and becomes harder to treat and before you would start to notice symptoms. Finding cancer early improves the chances of successful treatment. It ma (more content not included)... Normal [facility] Reminderson 07-28-2023 Reminders - From: Brianna Rivero To: FIDELINA - Hola Zaldivar; Sent: 10/05/2022 09:54:26 EST Show up: 05/23/2023 09:54:00 EDT Subject: Cysto/ureter Due Date/Time: 06/14/2023 09:54:00 EDT Reminder/Recall Pt will need Cysto, Ureter Jul 2023 Patient sched for 09/16/23 Cysto/Ureter/TURBT (gen) at [facility] Normal [facility] UroVysion Fish and Urine Cyt o ([facility])on 07-28-2023 [facility] Method of Extraction Voided Normal [facility] Comment on above: Performed By: #### [id number] ####[facility] [id number] [place] [address] [facility] Number of Jars 1 Invalid Interpretation Code [facility] Comment on above: Performed By: #### [id number] ####[facility] [id number] [facility] [place] [address] [facility] Specimen Urine Normal [facility] Comment on above: Performed By: #### [id number] ####[facility] [address] [place] [address] UVUC Type of Service Technical Only Normal [facility] Comment on above: Performed By: #### [id number] ####[facility] [id number] [facility] [place] [address] Urology Office/Clinic Noteon 07-28-2023 Urology Office/Clinic Note Chief Complaint personal hx of bladder cancer HPI Staff Cysto ABX TAKEN, fish/cytol History of Present Illness Tests reviewed: reviewed I have reviewed the previous health record information and history for this patient from Dr. Zaldivar. I have reviewed and verified the staff HPI to be accurate for this encounter. There have been no associated fever, chills, flank pain, or blood in the urine. Denies any urinary infections since last encounter. Review of Systems PHQ Score Initial Depression Screen Score: 0 SCORE ROS - Provider Constitutional: denies weight loss, denies hot flashes. Eyes: denies eye problems. Gastrointestinal: denies nausea, denies vomiting. Cardiovascular: denies chest pain or angina. Integumentary: no dryness Musculoskeletal: denies musculoskeletal symptoms. ENMT: denies otolaryngeal symptoms. Respiratory: no shortness of breath. Heme/Lymph: denies easy bleeding tendency, denies easy bruising tendency. Psychiatric: no confusion, no anxiety. Genitourinary: See HPI. Physical Exam Vitals & Measurements HR: 70(Peripheral) RR: 16 BP: 129/78 HT: 66 in HT: 167 cm WT: 83 kg WT: 182.6 lb BMI: 29.76 General Appearance: alert, no distress, well nourished, well developed male. Genitourinary: normal scrotum, normal testes, normal urethra, normal epididymis, normal vas deferens/spermatic cord. Flank Pain: none. Bladder: nonpalpable. Procedure Operative Information Anesthesia Type: Local Procedure: Local Cystoscopy Complications: None Surgical risks, benefits, details of the procedure have been explained to the patient. Full informed consent has been obtained. Intraoperative Information Prepped: Patient is brought back to the endoscopy suite. Patient is placed in supine position. Patient prepped in the usual fashion with Betadine solution. 2% Xylocaine Jelly is placed per Urethra. After waiting several minutes, the Cystoscope is introduced. The Urethra is: Normal The Prostatic Urethra is: _Trilobar obstruction, large high median lobe. The Bladder: _On the anterior wall and R wall are sheets of red raised lesions >4 cm. L side good. Trabeculated: Moderate (2) The Ureteral orifices: Show efflux of clear urine Specimens Removed: Voided specimen sent for FISH and Cytology test Removal: Cystoscope is removed. The patient tolerated it well. Postoperative Information Patient is discharged home with antibiotic coverage. Follow up arranged. Assessment/Plan 1. History of bladder cancer (Z85.51: Personal history of malignant neoplasm of bladder) Original TURBT 08/20/22 - High-grade, noninvasive papillary urothelial carcinoma. S/P Mitomycin 09/28/22 and 10/26/22, 01/14/23 and 02/11/23. Cysto 03/23/23 - Several tiny minimally raised peach colored lesions on the lateral floors bilaterally adjacent to prior resection sites plus there is a 2 cm sheet of small papillary TCC tumors on the back L wall. S/P TURBT 04/08/23 - Bladder mucosa with cystitis and reactive atypia. Neg for malignancy. S/P BCG #6/6 07/05/23. Pt had IO cysto to check for bladder tumor recurrence without complications today. Pt took prophylactic abx prior to procedure. Will send voided specimen for FISH/cytol and call pt if positive. Cysto today was positive for bladder tumor recurrence. 2. Bladder neoplasm of uncertain malignant potential (D41.4: Neoplasm of uncertain behavior of bladder) See procedure section. Will schedule Cysto, URS with TURBT. The procedure risks, benefits, details, and treatment alternatives have been discussed with the patient. These include bleeding -- sometimes to the point of hemorrhaging, infection, risk of bladder perforation, recurrence of bladder tumor in 60-70% of patients, need for indwelling catheter for a variable amount of time, as well as the rare risk of needing an open operation to repair the bladder, among others. Additional therapy as well as follow-up bladder evaluation will most likely be required. Full informed consent has been obtained. Will order General anesthesia. 3. BPH with urinary obstruction (N40.1: Benign prostatic hyperplasia with lower urinary tract symptoms) Cysto 03/23/23 - Trilobar obstruction, large high median lobe. Moderate trabeculation. Taking Tamsulosin and Finasteride 5 mg qd. 4. Incomplete bladder emptying (R33.9: Retention of urine, unspecified) PVR (cc): 07/20/22 - 173 09/14/22 - 179 04/20/23 - 201 5. Urethral stricture (N35.919: Unspecified urethral stricture, male, unspecified site) Cysto 03/23/23 - Minor stricture in penile urethra. Follow-up With When Contact Information Everton ZALDIVAR MD, URL [facility] [address], [place] [address]- Additional Instructions: schedule Cysto, URS with TURBT Patient Education Cancer Screening for Men I, Mayra Moy, personally scribed for Dr. Zaldivar on 07/28/2023 08:08:56. . Documentation recorded by the scribe (more content not included)... Normal [facility] Comment on above: Result Comment: Electronically Signed By : Everton ZALDIVAR MD\.br\Date and Time Signed: 07/28/23 08:11 EST\.br\Electronically Co-Signed By: Mayra Moy\.br\Date and Time Co-Signed: 07/28/23 08:09 EST Urology Office/Clinic Noteon 07-06-2023 Urology Office/Clinic Note Chief Complaint BCG #6 of 6 HPI Staff PRW pt Here today for BCG #6 of 6 (FULL DOSE) DX: Hx of Bladder Cancer, BPH & Incomplete Bladder Emptying S/p TURBT 04/08/23 *Taking Tamsulosin 0.4 mg BID and Finasteride 5 mg QD History of Present Illness staff HPI reviewed and agree. Review of Systems PHQ Score Initial Depression Screen Score: 0 no fever, chills, malaise, myalgia. no rash/lesions. no chest pain, palpitations, or SOB. no abdominal pain, nausea, vomiting. no unilateral calf swelling, redness, pain Physical Exam Vitals & Measurements HT: 66 in HT: 167 cm WT: 83 kg WT: 182.6 lb BMI: 29.76 General: nontoxic, NAD Mouth: moist mucosa Lungs: normal respiratory effort Cardio: regular rate, good distal perfusion Abdomen: nondistended, no suprapubic distention or tenderness, no CVA tenderness Neurologic: Grossly normal Skin: No rashes or suspicious lesions Procedure The patient was placed in the appropriate position and under sterile conditions, the urethra is catheterized with a 14 Fr straight catheter and the bladder is emptied. 60 cc of sterile 0.9 NS with one vial of ROMY BCG was placed into the bladder and the straight catheter was removed. The patient will hold the solution in the bladder for two hours, turning every fifteen minutes 1/4 turn to allow coating of the bladder surface. The patient should call the office or present to the Emergency Department for development of fever, chills, or flu-like symptoms. Symptoms such as urinary frequency, urgency, and other bladder irritation symptoms are expected. Assessment/Plan Dr. Zaldivar pt 1. History of bladder cancer (Z85.51: Personal history of malignant neoplasm of bladder) Original TURBT 08/20/22 - High-grade, noninvasive papillary urothelial carcinoma. Mitomycin 09/28/22 and 10/26/22, 01/14/23 and 02/11/23. Cysto 11/30/22 - neg, minor stricture in penile urethra. FISH/cytol 03/12/23 - neg. Cysto 03/23/23 - Several tiny minimally raised peach colored lesions on the lateral floors bilaterally adjacent to prior resection sites plus there is a 2 cm sheet of small papillary TCC tumors on the back L wall. S/p TURBT 04/08/23 - bladder mucosa with cystitis and reactive atypia. Neg for malignancy. [1] UA today negative for blood and infection (trace leuks). Denies UTI sxs. Pt received BCG #6 of 6 (full dose) today wo complications. 2. BPH with urinary obstruction (N40.1: Benign prostatic hyperplasia with lower urinary tract symptoms) Cysto 03/23/23 - Trilobar obstruction, large high median lobe. Moderate trabeculation. [2] Taking Tamsulosin 0.4 mg BID and Finasteride 5 mg QD. [3] 3. Incomplete bladder emptying (R33.9: Retention of urine, unspecified) PVR (cc): 07/20/22 - 173 09/14/22 - 179 04/20/23 - 201 [4] 4. Urethral stricture (N35.919: Unspecified urethral stricture, male, unspecified site) Cysto 03/23/23 - Minor stricture in penile urethra. [5] Follow up for cysto 08/02/23 or sooner if needed. Pt understands and agrees with plan. Follow-up With When Contact Information LURDES ROBISON, KAREN Chris, URL [address] [place] [address] [phone] Additional Instructions: has cysto 08/02/23 Patient Education Bladder Cancer Documentation recorded by the ariane Rick accurately reflects the services(s) I performed and decisions made by me. Authenticated by Karen Chatman PA-C on 07/05/2023 22:21:40. ICassi, personally scribed for Karen Chatman PA-C on 06/29/2023 09:21:13. . Problem List/Past Medical History Ongoing Abdominal aortic aneurysm Bladder cancer BPH with urinary obstruction Carotid artery stenosis Coronary arteriosclerosis Difficulty urinating Gastroesophageal reflux disease History of bladder cancer Hyperlipidemia Hyperlipidemia Hypertensive disorder Incomplete bladder emptying Intermittent urinary stream Nocturia Transient cerebral ischemia Urethral stricture Urinary hesitancy UTI (urinary tract infection) Historical No qualifying data Procedure/Surgical History TURBT - Transurethral resection of bladder tumor (04/08/2023), Cystoscopy (03/23/2023), 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 (08/20/2022), CABG - Coronary artery bypass graft (2016). Medications aspirin 81 mg Chew Tab atorvastatin 80 mg Tab famotidine 20 mg Tab finasteride 5 mg Tab hydrochlorothiazide-li sinopril 12.5 mg-20 mg Tab montelukast 10 mg Tab olopatadine ophthalmic 0.1% solution tamsulosin 0.4 mg Cap Allergies metoprolol (Itching) Social History Tobacco Never (less than 100 in lifetime) Tobacco Use:. Never Smokeless Tobacco Use:. Cigarettes, Stopped age 71 Years. Household tobacco concerns: No. Yes, 06/15/2023 Family History Family history is negative Immunizations Vaccine Date Status Comments BCG 06/29/2023 Given BCG 06/29/2023 Given BCG 06/29/2023 Given BCG 06/22/2023 Given BC (more content not included)... Normal [facility] Comment on above: Result Comment: Electronically Signed By : KAREN CHATMAN PA-C\.br\Date and Time Signed: 07/05/23 22:21 EST\.br\Electronically Co-Signed By: Cassi Rick\.br\Date and Time Co-Signed: 06/29/23 09:22 EST Ambulatory Visit Summaryon 1 08-29-2022 Ambulatory Visit Summary GERTRUDIS PÉREZ :1940 Visit Date:06/29/2023 Ambulatory Visit Instructions Your Diagnosis History of bladder cancer BPH with urinary obstruction Incomplete bladder emptying Urethral stricture Tests Performed Urnls Dip Stick Auto w/o Microscopy POC 52619 Your Care Team Attending Physician - KAREN CHATMAN PA-C Primary Care Physician - SHAYLEE WARREN MD This Is Your Medications List Contact prescribing physician if questions or concerns aspirin (aspirin 81 mg Chew Tab) atorvastatin (atorvastatin 80 mg Tab) famotidine (famotidine 20 mg Tab) finasteride (finasteride 5 mg Tab) hydrochlorothiazide-li sinopril (hydrochlorothiazide-l isinopril 12.5 mg-20 mg Tab) montelukast (montelukast 10 mg Tab) olopatadine ophthalmic (olopatadine ophthalmic 0.1% solution) tamsulosin (tamsulosin 0.4 mg Cap) Procedures Performed TURBT - Transurethral resection of bladder tumor (04/08/2023), Cystoscopy (03/23/2023), 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 (08/20/2022), CABG - Coronary artery bypass graft (2017). Discharge Vitals Height 167 cm Height 66 in Weight 83 kg Weight 182.6 lb BMI 29.76 What to do next Scheduled Follow-Up Appointments Wednesday 7:45 AM EST With: IVAN GAO, Everton White Where: [facility] Sal[facility] Patient Educationon 06-29-20 Patient Education Oncology Bladder Cancer Bladder cancer is a condition where abnormal tissue (a tumor) grows in the bladder. The bladder is the organ that holds urine. Two tubes (ureters) carry urine from the kidneys to the bladder. The bladder wall is made of layers of tissue. Cancer that spreads through these layers of the bladder wall becomes more difficult to treat. What increases the risk? The following factors may make you more likely to develop this condition: ? Smoking. ? Working where there are risks (occupational exposures), such as working with rubber, leather, clothing fabric, dyes, chemicals, or paint. ? Being 55 years of age or older. ? Being male. ? Having long-term bladder inflammation. ? Having a history of cancer. This includes: ? A family history of bladder cancer. ? Having had bladder cancer before. ? Having had certain treatments for cancer before, such as: ? Medicines to kill cancer cells (chemotherapy). ? Strong X-ray beams or high-energy capsules to kill cancer cells and shrink tumors (radiation therapy). ? Having been exposed to arsenic. This is a poisonous substance. What are the signs or symptoms? Early symptoms of this condition include: ? Blood in your urine. ? Pain when urinating. ? Infections of your urinary system (urinary tract infections or UTIs) that happen often. ? Having to urinate sooner or more often than normal. Late symptoms of this condition include: ? Not being able to urinate. ? Pain on one side of your lower back. ? Loss of appetite. ? Weight loss. ? Tiredness (fatigue). ? Swelling in your feet. ? Bone pain. How is this diagnosed? This condition is diagnosed based on: ? Your medical history. ? A physical exam. ? Lab tests, such as urine tests. ? Imaging tests. ? Your symptoms. You may also have other tests or procedures, such as: ? A cystoscopy. This involves putting a narrow tube into your urethra. The urethra is the organ that carries urine from your bladder to the outside of your body. This procedure is done to view the lining of your bladder for tumors. ? A biopsy. This involves removing a tissue sample to look at under a microscope to check for cancer. Blood tests or imaging tests may be needed. These show how far into the bladder wall cancer has grown, and if cancer has spread to any other parts of your body. Tests may include: ? CT scan. ? MRI. ? Bone scan. ? X-ray. How is this treated? Your health care provider may recommend one or more types of treatment based on the stage of your cancer. The most common treatments are: ? Surgery to remove the cancer. Types of surgeries include: ? Removing a tumor on the inside wall of the bladder (transurethral resection). ? Removing the bladder (cystectomy). ? Radiation therapy. This is often combined with chemotherapy. ? Chemotherapy. ? Immunotherapy. This uses medicines to help your body's disease-fighting system (immune system) destroy cancer cells. Follow these instructions at home: ? Take uymh-eqm-prkdybh and prescription medicines only as told by your health care provider. ? If you were prescribed an antibiotic medicine, take it as told by your health care provider. Do not stop using the antibiotic even if you start to feel better. ? Eat a healthy diet. Some treatments might affect your appetite. ? Do not use any products that contain nicotine or tobacco. These products include cigarettes, chewing tobacco, and vaping devices, such as e-cigarettes. If you need help quitting, ask your health care provider. ? Consider joining a support group. This may help you learn to deal with the stress of having bladder cancer. ? Tell your cancer care team if you develop side effects. Your team may be able to recommend ways to get relief. ? Keep all follow-up visits. This is important. Where to find more information ? [place] [employer] (ACS): cancer.org ? National Cancer [place] (NCI): cancer.gov Contact a health care provider if: ? You have symptoms of a UTI. These include: ? Fever. ? Chills. ? Weakness. ? Muscle aches. ? Pain in your abdomen. ? Urge to urinate that is stronger and happens more often than normal. ? Burning in the bladder or urethra when you urinate. Get help right away if: ? There is blood in your urine. ? You cannot urinate. ? You have severe pain or other symptoms that do not go away. Summary ? Bladder cancer is a condition where tumors grow in the bladder. ? Diagnosis is based on your medical history, a physical exam, lab tests, imaging tests, and your symptoms. ? Your health care provider may recommend one or more types of treatment based on the stage of your cancer. ? Consider joining a support group. This may help you learn to deal with the stress of having bladder cancer. This information is not intended to replace advice given to you by your health care provider. Make sure you discuss any questions you have wi (more content not included)... Normal [facility] Ambulatory Visit Summaryon 1 Ambulatory Visit Summary GERTRUDIS PÉREZ :1940 Visit Date:06/22/2023 Ambulatory Visit Instructions Your Diagnosis Bladder cancer Tests Performed Urnls Dip Stick Auto w/o Microscopy POC 29622 Your Care Team Attending Physician - KAREN CHATMAN PA-C Primary Care Physician - SHAYLEE WARREN MD This Is Your Medications List Contact prescribing physician if questions or concerns aspirin (aspirin 81 mg Chew Tab) atorvastatin (atorvastatin 80 mg Tab) famotidine (famotidine 20 mg Tab) finasteride (finasteride 5 mg Tab) hydrochlorothiazide-li sinopril (hydrochlorothiazide-l isinopril 12.5 mg-20 mg Tab) montelukast (montelukast 10 mg Tab) olopatadine ophthalmic (olopatadine ophthalmic 0.1% solution) tamsulosin (tamsulosin 0.4 mg Cap) Procedures Performed TURBT - Transurethral resection of bladder tumor (04/08/2023), Cystoscopy (03/23/2023), 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 (08/20/2022), CABG - Coronary artery bypass graft (2016). Discharge Vitals Heart Rate (Peripheral) 72 Respiratory Rate 16 Blood Pressure 146/70 Height 167 cm Height 66 in Weight 83 kg Weight 182.6 lb BMI 29.76 What to do next Scheduled Follow-Up Appointments Wednesday 9:15 AM EST With: KAREN CHATMAN PA-C Where: [facility] [place] [address] [place] [address]- \.br\ You Need to Schedule the Following Appointments\.br\ Follow Up with KAREN CHATMAN PA-C, URL When: \.br\ Comments:\.br\ BCG #6/6 on 06/29/23\.br\ Where:\.br\ [address]br\ [place] [address]\.br\ [id number]\.br\ Medications\.br\ What When Instructions\.br\ Unchanged aspirin (aspirin 81 mg Chew Tab) 81 Unknown, CHEWABLE/ ORAL Contact prescribing physician if questions or concerns \.br\ Unchanged atorvastatin (atorvastatin 80 mg Tab) 80 Unknown, ORAL, 3 Refill(s) Contact prescribing physician if questions or concerns \.br\ Unchanged famotidine (famotidine 20 mg Tab) 20 Unknown, ORAL, 3 Refill(s) Contact prescribing physician if questions or concerns \.br\ Unchanged finasteride (finasteride 5 mg Tab) 5 Unknown, ORAL, 3 Refill(s) Contact prescribing physician if questions or concerns \.br\ Unchanged hydrochlorothiazide -lisinopril (hydrochlorothiazid e-lisinopril 12.5 mg-20 mg Tab) ORAL, 3 Refill(s) Contact prescribing physician if questions or concerns \.br\ Unchanged montelukast (montelukast 10 mg Tab) 10 Unknown, ORAL, 3 Refill(s) Contact prescribing physician if questions or concerns \.br\ Unchanged olopatadine ophthalmic (olopatadine ophthalmic 0.1% solution) BOTH EYES, 11 Refill(s) Contact prescribing physician if questions or concerns \.br\ Unchanged tamsulosin (tamsulosin 0.4 mg Cap) 0.8 Unknown, ORAL, 3 Refill(s) Contact prescribing physician if questions or concerns \.br\ Test Results\.br\ Urnls Dip Stick Auto w/o Microscopy POC 95994 (06/22/2023)\.br\ Bilirubin Urine Dipstick - Negative\.br\ Blood Urine Dipstick - Negative\.br\ Glucose Urine Dipstick - Negative\.br\ Ketones Urine Dipstick - Negative\.br\ Leukocytes Urine Dipstick - Trace\.br\ Nitrite Urine Dipstick - Negative\.br\ Protein Urine Dipstick - Negative\.br\ Specific Vale Urine Dipstick - 1.015\.br\ Urine Appearance Urine Dipstick - Clear\.br\ Urine Color Urine Dipstick - Yellow\.br\ Urobilinogen Urine Dipstick - Normal 0.2-1 EU/dl\.br\ pH Urine Dipstick - 7\.br\ Medications and Immunizations Administered\.br\ Given\.br\ Romy BCG Live (for intravesical use), 50 mg, IntraVesical. For: Bladder cancer\.br\ BCG, IntraVesical\.br\ Allergies\.br\ metoprolol (Itching)\.br\ Problems\.br\ Ongoing - Any problem that you are currently receiving treatment for.\.br\ Abdominal aortic aneurysm\.br\ Bladder cancer\.br\ BPH with urinary obstruction\.br\ Carotid artery stenosis\.br\ Coronary arteriosclerosis\.b r\ Difficulty urinating\.br\ Gastroesophageal reflux disease\.br\ History of bladder cancer\.br\ Hyperlipidemia\.br\ Hyperlipidemia\.br\ Hypertensive disorder\.br\ Incomplete bladder emptying\.br\ Intermittent urinary stream\.br\ Nocturia\.br\ Transient cerebral ischemia\.br\ Urethral stricture\.br\ Urinary hesitancy\.br\ UTI (urinary tract infection)\.br\ Patient Survey\.br\ You may receive a survey via text or e-mail asking about your office visit. Please share your experience with us by completing your survey. We appreciate your feedback and thank you for choosing us for your care.\.br\ Education Materials\.br\ Bladder Cancer\.br\ \.br\ Bladder cancer is a condition where abnormal tissue (a tumor) grows in the bladder. The bladder is the organ that holds urine. Two tubes (ureters) carry urine from the kidneys to the bladder.\.br\ The bladder wall is made of layers of tissue. Cancer that spreads through these layers of the bladder wall becomes more difficult to treat.\.br\ What increases the risk?\.br\ The following factors may make you more likely to develop this condition:\.br\ ? \.br\ Smoking.\.br\ ? \.br\ Working where there are risks (occupational exposures), such as working with rubber, leather, clothing fabric, dyes, chemicals, or paint.\.br\ ? \.br\ Being 55 years of age or older.\.br\ ? \.br\ Being male.\.br\ ? \.br\ Having long-term bladder inflammation.\.br\ ? \.br\ Having a history of cancer. This includes:\.br\ ? \.br\ A family history of bladder cancer.\.br\ ? \.br\ Having had bladder cancer before.\.br\ ? \.br\ Having had certain treatments for cancer before, such as:\.br\ ? \.br\ Medicines to kill cancer cells (chemotherapy).\.br \ ? \.br\ Strong X-ray beams or high-energy capsules to kill cancer cells and shrink tumors (radiation therapy).\.br\ ? \.br\ Having been exposed to arsenic. This is a poisonous substance.\.br\ What are the signs or symptoms?\.br\ Early symptoms of this condition include:\.br\ ? \.br\ Blood in your urine.\.br\ ? \.br\ Pain when urinating.\.br\ ? \.br\ Infections of your urinary system (urinary tract infections or UTIs) that happen often.\.br\ ? \.br\ Having to urinate sooner or more often than normal.\.br\ Late symptoms of this condition include:\.br\ ? \.br\ Not being able to urinate.\.br\ ? \.br\ Pain on one side of your lower back.\.br\ ? \.br\ Loss of appetite.\.br\ ? \.br\ Weight loss.\.br\ ? \.br\ Tiredness (fatigue).\.br\ ? \.br\ Swelling in your feet.\.br\ ? \.br\ Bone pain.\.br\ How is this diagnosed?\.br\ This condition is diagnosed based on:\.br\ ? \.br\ Your medical history.\.br\ ? \.br\ A physical exam.\.br\ ? \.br\ Lab tests, such as urine tests.\.br\ ? \.br\ Imaging tests.\.br\ ? \.br\ Your symptoms.\.br\ You may also have other tests or procedures, such as:\.br\ ? \.br\ A cystoscopy. This involves putting a narrow tube into your urethra. The urethra is the organ that carries urine from your bladder to the outside of your body. This procedure is done to view the lining of your bladder for tumors.\.br\ ? \.br\ A biopsy. This involves removing a tissue sample to look at under a microscope to check for cancer.\.br\ Blood tests or imaging tests may be needed. These show how far into the bladder wall cancer has grown, and if cancer has spread to any other parts of your body. Tests may include:\.br\ ? \.br\ CT scan.\.br\ ? \.br\ MRI.\.br\ ? \.br\ Bone scan.\.br\ ? \.br\ X-ray.\.br\ How is this treated?\.br\ Your health care provider may recommend one or more types of treatment based on the stage of your cancer. The most common treatments are:\.br\ ? \.br\ Surgery to remove the cancer. Types of surgeries include:\.br\ ? \.br\ Removing a tumor on the inside wall of the bladder (transurethral resection).\.br\ ? \.br\ Removing the bladder (cystectomy).\.br\ ? \.br\ Radiation therapy. This is often combined with chemotherapy.\.br\ ? \.br\ Chemotherapy.\.br\ ? \.br\ Immunotherapy. This uses medicines to help your body's disease-fighting system (immune system) destroy cancer cells.\.br\ Follow these instructions at home:\.br\ ? \.br\ Take cdgz-ohm-ljjdnde and prescription medicines only as told by your health care provider.\.br\ ? \.br\ If you were prescribed an antibiotic medicine, take it as told by your health care provider. Do not stop using the antibiotic even if you start to feel better.\.br\ ? \.br\ Eat a healthy diet. Some treatments might affect your appetite.\.br\ ? \.br\ Do not use any products that contain nicotine or tobacco. These products include cigarettes, chewing tobacco, and vaping devices, such as e-cigarettes. If you need help quitting, [facility] Patient Educationon 06-22-20 23 Patient Education Oncology Bladder Cancer Bladder cancer is a condition where abnormal tissue (a tumor) grows in the bladder. The bladder is the organ that holds urine. Two tubes (ureters) carry urine from the kidneys to the bladder. The bladder wall is made of layers of tissue. Cancer that spreads through these layers of the bladder wall becomes more difficult to treat. What increases the risk? The following factors may make you more likely to develop this condition: ? Smoking. ? Working where there are risks (occupational exposures), such as working with rubber, leather, clothing fabric, dyes, chemicals, or paint. ? Being 55 years of age or older. ? Being male. ? Having long-term bladder inflammation. ? Having a history of cancer. This includes: ? A family history of bladder cancer. ? Having had bladder cancer before. ? Having had certain treatments for cancer before, such as: ? Medicines to kill cancer cells (chemotherapy). ? Strong X-ray beams or high-energy capsules to kill cancer cells and shrink tumors (radiation therapy). ? Having been exposed to arsenic. This is a poisonous substance. What are the signs or symptoms? Early symptoms of this condition include: ? Blood in your urine. ? Pain when urinating. ? Infections of your urinary system (urinary tract infections or UTIs) that happen often. ? Having to urinate sooner or more often than normal. Late symptoms of this condition include: ? Not being able to urinate. ? Pain on one side of your lower back. ? Loss of appetite. ? Weight loss. ? Tiredness (fatigue). ? Swelling in your feet. ? Bone pain. How is this diagnosed? This condition is diagnosed based on: ? Your medical history. ? A physical exam. ? Lab tests, such as urine tests. ? Imaging tests. ? Your symptoms. You may also have other tests or procedures, such as: ? A cystoscopy. This involves putting a narrow tube into your urethra. The urethra is the organ that carries urine from your bladder to the outside of your body. This procedure is done to view the lining of your bladder for tumors. ? A biopsy. This involves removing a tissue sample to look at under a microscope to check for cancer. Blood tests or imaging tests may be needed. These show how far into the bladder wall cancer has grown, and if cancer has spread to any other parts of your body. Tests may include: ? CT scan. ? MRI. ? Bone scan. ? X-ray. How is this treated? Your health care provider may recommend one or more types of treatment based on the stage of your cancer. The most common treatments are: ? Surgery to remove the cancer. Types of surgeries include: ? Removing a tumor on the inside wall of the bladder (transurethral resection). ? Removing the bladder (cystectomy). ? Radiation therapy. This is often combined with chemotherapy. ? Chemotherapy. ? Immunotherapy. This uses medicines to help your body's disease-fighting system (immune system) destroy cancer cells. Follow these instructions at home: ? Take kmtp-coz-bpknpxd and prescription medicines only as told by your health care provider. ? If you were prescribed an antibiotic medicine, take it as told by your health care provider. Do not stop using the antibiotic even if you start to feel better. ? Eat a healthy diet. Some treatments might affect your appetite. ? Do not use any products that contain nicotine or tobacco. These products include cigarettes, chewing tobacco, and vaping devices, such as e-cigarettes. If you need help quitting, ask your health care provider. ? Consider joining a support group. This may help you learn to deal with the stress of having bladder cancer. ? Tell your cancer care team if you develop side effects. Your team may be able to recommend ways to get relief. ? Keep all follow-up visits. This is important. Where to find more information ? [place] [employer] (ACS): cancer.org ? National Cancer [place] (NCI): cancer.gov Contact a health care provider if: ? You have symptoms of a UTI. These include: ? Fever. ? Chills. ? Weakness. ? Muscle aches. ? Pain in your abdomen. ? Urge to urinate that is stronger and happens more often than normal. ? Burning in the bladder or urethra when you urinate. Get help right away if: ? There is blood in your urine. ? You cannot urinate. ? You have severe pain or other symptoms that do not go away. Summary ? Bladder cancer is a condition where tumors grow in the bladder. ? Diagnosis is based on your medical history, a physical exam, lab tests, imaging tests, and your symptoms. ? Your health care provider may recommend one or more types of treatment based on the stage of your cancer. ? Consider joining a support group. This may help you learn to deal with the stress of having bladder cancer. This information is not intended to replace advice given to you by your health care provider. Make sure you discuss any questions you have wi (more content not included)... Normal Mohamud [facility] Urology Office/Clinic Noteon 06-22-2023 Urology Office/Clinic Note Chief Complaint BCG #5 of 6 HPI Staff PRW pt Here today for BCG #5 of 6 (FULL DOSE) DX: Hx of Bladder Cancer, BPH & Incomplete Bladder Emptying S/p TURBT 04/08/23 *Taking Tamsulosin 0.4 mg BID and Finasteride 5 mg QD History of Present Illness staff HPI reviewed and agree. Review of Systems PHQ Score Initial Depression Screen Score: 0 no fever, chills, malaise, myalgia. no rash/lesions. no chest pain, palpitations, or SOB. no abdominal pain, nausea, vomiting. no unilateral calf swelling, redness, pain Physical Exam Vitals & Measurements HR: 72(Peripheral) RR: 16 BP: 146/70 HT: 66 in HT: 167 cm WT: 83 kg WT: 182.6 lb BMI: 29.76 General: nontoxic, NAD Mouth: moist mucosa Lungs: normal respiratory effort Cardio: regular rate, good distal perfusion Abdomen: nondistended, no suprapubic distention or tenderness, no CVA tenderness Neurologic: Grossly normal Skin: No rashes or suspicious lesions Procedure The patient was placed in the appropriate position and under sterile conditions, the urethra is catheterized with a 14 Fr straight catheter and the bladder is emptied. 60 cc of sterile 0.9 NS with one vial of ROMY BCG was placed into the bladder and the straight catheter was removed. The patient will hold the solution in the bladder for two hours, turning every fifteen minutes 1/4 turn to allow coating of the bladder surface. The patient should call the office or present to the Emergency Department for development of fever, chills, or flu-like symptoms. Symptoms such as urinary frequency, urgency, and other bladder irritation symptoms are expected. Assessment/Plan Dr. Zaldivar pt 1. Bladder cancer (C67.9: Malignant neoplasm of bladder, unspecified) Original TURBT 08/20/22 - High-grade, noninvasive papillary urothelial carcinoma. Mitomycin 09/28/22 and 10/26/22, 01/14/23 and 02/11/23. Cysto 11/30/22 - neg, minor stricture in penile urethra. FISH/cytol 03/12/23 - neg. Cysto 03/23/23 - Several tiny minimally raised peach colored lesions on the lateral floors bilaterally adjacent to prior resection sites plus there is a 2 cm sheet of small papillary TCC tumors on the back L wall. S/p TURBT 04/08/23 - bladder mucosa with cystitis and reactive atypia. Neg for malignancy. UA today negative for blood and infection (trace leuks). Denies UTI sxs. Pt received BCG #5 of 6 (full dose) today wo complications. Follow up for BCG #6/6 in 1 wk or sooner if needed. Pt understands and agrees with plan. Follow-up With When Contact Information LURDES ROBISON, KAREN Chris, URL [address] [place] [address] [phone] Additional Instructions: BCG #6/6 on 06/29/23 Patient Education Bladder Cancer Documentation recorded by the ariane Rick accurately reflects the services(s) I performed and decisions made by me. Authenticated by Karen Chatman PA-C on 06/22/2023 09:51:04. Cassi Whitten, personally scribed for Karen Chatman PA-C on 06/22/2023 09:44:39. . Problem List/Past Medical History Ongoing Abdominal aortic aneurysm Bladder cancer BPH with urinary obstruction Carotid artery stenosis Coronary arteriosclerosis Difficulty urinating Gastroesophageal reflux disease History of bladder cancer Hyperlipidemia Hyperlipidemia Hypertensive disorder Incomplete bladder emptying Intermittent urinary stream Nocturia Transient cerebral ischemia Urethral stricture Urinary hesitancy UTI (urinary tract infection) Historical No qualifying data Procedure/Surgical History TURBT - Transurethral resection of bladder tumor (04/08/2023), Cystoscopy (03/23/2023), 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 (08/20/2022), CABG - Coronary artery bypass graft (2017). Medications aspirin 81 mg Chew Tab atorvastatin 80 mg Tab famotidine 20 mg Tab finasteride 5 mg Tab hydrochlorothiazide-li sinopril 12.5 mg-20 mg Tab montelukast 10 mg Tab olopatadine ophthalmic 0.1% solution tamsulosin 0.4 mg Cap Allergies metoprolol (Itching) Social History Tobacco Never (less than 100 in lifetime) Tobacco Use:. Never Smokeless Tobacco Use:. Cigarettes, Stopped age 71 Years. Household tobacco concerns: No. Yes, 06/15/2023 Family History Family history is negative Immunizations Vaccine Date Status Comments BCG 06/22/2023 Given BCG 06/15/2023 Given BCG 06/08/2023 Given BCG 05/25/2023 Given influenza virus vaccine, inactivated 05/22/2023 Recorded BCG 05/18/2023 Given SARS-CoV-2 (COVID-19) [id number] 08/29/2022 Recorded SARS-CoV-2 (COVID-19) mRNA-1273 vaccine 02/14/2022 Recorded SARS-CoV-2 (COVID-19) mRNA-1273 vaccine 08/05/2021 Recorded SARS-CoV-2 (COVID-19) mRNA-1273 vaccine 11/18/2020 Recorded 2022-07-20: [id number] SARS-CoV-2 (COVID-19) mRNA-1273 vaccine 10/18/2020 Recorded 2022-07-20: [id number] Lab Results Ambulatory Point of Care Results Bilirubin Urine Dipstick: Negative (06/22/23 09:02 (more content not included)... Normal [facility] Comment on above: Result Comment: Electronically Signed By : KAREN CHATMAN PA-C\.br\Date and Time Signed: 06/22/23 09:51 EDT\.br\Electronically Co-Signed By: Cassi Rick\.br\Date and Time Co-Signed: 06/22/23 09:45 EDT Ambulatory Visit Summaryon 1 Ambulatory Visit Summary GERTRUDIS PÉREZ :1940 Visit Date:06/15/2023 Ambulatory Visit Instructions Your Diagnosis Bladder cancer UTI (urinary tract infection) Tests Performed Urnls Dip Stick Auto w/o Microscopy POC 20341 Your Care Team Attending Physician - KAREN CHATMAN PA-C Primary Care Physician - SHAYLEE WARREN MD This Is Your Medications List Contact prescribing physician if questions or concerns aspirin (aspirin 81 mg Chew Tab) atorvastatin (atorvastatin 80 mg Tab) famotidine (famotidine 20 mg Tab) finasteride (finasteride 5 mg Tab) hydrochlorothiazide-li sinopril (hydrochlorothiazide-l isinopril 12.5 mg-20 mg Tab) montelukast (montelukast 10 mg Tab) olopatadine ophthalmic (olopatadine ophthalmic 0.1% solution) tamsulosin (tamsulosin 0.4 mg Cap) Procedures Performed TURBT - Transurethral resection of bladder tumor (04/08/2023), Cystoscopy (03/23/2023), 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 (08/20/2022), CABG - Coronary artery bypass graft (2016). Discharge Vitals Heart Rate (Peripheral) 82 Respiratory Rate 16 Blood Pressure 130/82 Height 167 cm Height 66 in Weight 83 kg Weight 182.6 lb BMI 29.76 What to do next Scheduled Follow-Up Appointments Wednesday 9:00 AM EDT With: KAREN CHATMAN PA-C Where: [facility] Invalid Interpretation Code [address] [place] [address] [place] [address]- \.br\ Wednesday 9:00 AM EST \.br\ With:\.br\ Where: [facility] Patient Educationon 06-15-20 Patient Education Oncology Bladder Cancer Bladder cancer is a condition where abnormal tissue (a tumor) grows in the bladder. The bladder is the organ that holds urine. Two tubes (ureters) carry urine from the kidneys to the bladder. The bladder wall is made of layers of tissue. Cancer that spreads through these layers of the bladder wall becomes more difficult to treat. What increases the risk? The following factors may make you more likely to develop this condition: ? Smoking. ? Working where there are risks (occupational exposures), such as working with rubber, leather, clothing fabric, dyes, chemicals, or paint. ? Being 55 years of age or older. ? Being male. ? Having long-term bladder inflammation. ? Having a history of cancer. This includes: ? A family history of bladder cancer. ? Having had bladder cancer before. ? Having had certain treatments for cancer before, such as: ? Medicines to kill cancer cells (chemotherapy). ? Strong X-ray beams or high-energy capsules to kill cancer cells and shrink tumors (radiation therapy). ? Having been exposed to arsenic. This is a poisonous substance. What are the signs or symptoms? Early symptoms of this condition include: ? Blood in your urine. ? Pain when urinating. ? Infections of your urinary system (urinary tract infections or UTIs) that happen often. ? Having to urinate sooner or more often than normal. Late symptoms of this condition include: ? Not being able to urinate. ? Pain on one side of your lower back. ? Loss of appetite. ? Weight loss. ? Tiredness (fatigue). ? Swelling in your feet. ? Bone pain. How is this diagnosed? This condition is diagnosed based on: ? Your medical history. ? A physical exam. ? Lab tests, such as urine tests. ? Imaging tests. ? Your symptoms. You may also have other tests or procedures, such as: ? A cystoscopy. This involves putting a narrow tube into your urethra. The urethra is the organ that carries urine from your bladder to the outside of your body. This procedure is done to view the lining of your bladder for tumors. ? A biopsy. This involves removing a tissue sample to look at under a microscope to check for cancer. Blood tests or imaging tests may be needed. These show how far into the bladder wall cancer has grown, and if cancer has spread to any other parts of your body. Tests may include: ? CT scan. ? MRI. ? Bone scan. ? X-ray. How is this treated? Your health care provider may recommend one or more types of treatment based on the stage of your cancer. The most common treatments are: ? Surgery to remove the cancer. Types of surgeries include: ? Removing a tumor on the inside wall of the bladder (transurethral resection). ? Removing the bladder (cystectomy). ? Radiation therapy. This is often combined with chemotherapy. ? Chemotherapy. ? Immunotherapy. This uses medicines to help your body's disease-fighting system (immune system) destroy cancer cells. Follow these instructions at home: ? Take vjui-rhp-tpqfohk and prescription medicines only as told by your health care provider. ? If you were prescribed an antibiotic medicine, take it as told by your health care provider. Do not stop using the antibiotic even if you start to feel better. ? Eat a healthy diet. Some treatments might affect your appetite. ? Do not use any products that contain nicotine or tobacco. These products include cigarettes, chewing tobacco, and vaping devices, such as e-cigarettes. If you need help quitting, ask your health care provider. ? Consider joining a support group. This may help you learn to deal with the stress of having bladder cancer. ? Tell your cancer care team if you develop side effects. Your team may be able to recommend ways to get relief. ? Keep all follow-up visits. This is important. Where to find more information ? [place] [employer] (ACS): cancer.org ? National Cancer [place] (NCI): cancer.gov Contact a health care provider if: ? You have symptoms of a UTI. These include: ? Fever. ? Chills. ? Weakness. ? Muscle aches. ? Pain in your abdomen. ? Urge to urinate that is stronger and happens more often than normal. ? Burning in the bladder or urethra when you urinate. Get help right away if: ? There is blood in your urine. ? You cannot urinate. ? You have severe pain or other symptoms that do not go away. Summary ? Bladder cancer is a condition where tumors grow in the bladder. ? Diagnosis is based on your medical history, a physical exam, lab tests, imaging tests, and your symptoms. ? Your health care provider may recommend one or more types of treatment based on the stage of your cancer. ? Consider joining a support group. This may help you learn to deal with the stress of having bladder cancer. This information is not intended to replace advice given to you by your health care provider. Make sure you discuss any questions you have wi (more content not included)... Normal [facility] Urology Office/Clinic Noteon 06-15-2023 Urology Office/Clinic Note Chief Complaint BCG #4 of 6 HPI Staff PRW pt Here today for BCG #4 of 6 (FULL DOSE) DX: Hx of Bladder Cancer, BPH & Incomplete Bladder Emptying S/p TURBT 04/08/23 *Taking Tamsulosin 0.4 mg BID and Finasteride 5 mg QD Denies any urinary symptoms at this time. History of Present Illness staff HPI reviewed and agree. Review of Systems PHQ Score Initial Depression Screen Score: 0 no fever, chills, malaise, myalgia. no rash/lesions. no chest pain, palpitations, or SOB. no abdominal pain, nausea, vomiting. no unilateral calf swelling, redness, pain Physical Exam Vitals & Measurements HR: 82(Peripheral) RR: 16 BP: 130/82 HT: 66 in HT: 167 cm WT: 83 kg WT: 182.6 lb BMI: 29.76 General: nontoxic, NAD Mouth: moist mucosa Lungs: normal respiratory effort Cardio: regular rate, good distal perfusion Abdomen: nondistended, no suprapubic distention or tenderness, no CVA tenderness Neurologic: Grossly normal Skin: No rashes or suspicious lesions Procedure The patient was placed in the appropriate position and under sterile conditions, the urethra is catheterized with a 14 Fr straight catheter and the bladder is emptied. 30 cc of sterile 0.9 NS with one vial of ROMY BCG was placed into the bladder and the straight catheter was removed. The patient will hold the solution in the bladder for two hours, turning every fifteen minutes 1/4 turn to allow coating of the bladder surface. The patient should call the office or present to the Emergency Department for development of fever, chills, or flu-like symptoms. Symptoms such as urinary frequency, urgency, and other bladder irritation symptoms are expected. Assessment/Plan Dr. Zaldivar pt 1. Bladder cancer (C67.9: Malignant neoplasm of bladder, unspecified) Original TURBT 08/20/22 - High-grade, noninvasive papillary urothelial carcinoma. Mitomycin 09/28/22 and 10/26/22, 01/14/23 and 02/11/23. Cysto 11/30/22 - neg, minor stricture in penile urethra. FISH/cytol 03/12/23 - neg. Cysto 03/23/23 - Several tiny minimally raised peach colored lesions on the lateral floors bilaterally adjacent to prior resection sites plus there is a 2 cm sheet of small papillary TCC tumors on the back L wall. S/p TURBT 04/08/23 - bladder mucosa with cystitis and reactive atypia. Neg for malignancy. Pt received BCG #4 of 6 (full dose) today w/o complications. Follow up in 1 week for BCG #5 of 6. 2. UTI (urinary tract infection) (N39.0: Urinary tract infection, site not specified) UA today negative for infection, trace leuks. Denies any UTI sx. Follow-up With When Contact Information LURDES ROBISON, KAREN Chris, URL [address] [place] [address] Additional Instructions: 1 week for BCG #5 of 6 Patient Education Bladder Cancer Documentation recorded by the ariane Glovre accurately reflects the services(s) I performed and decisions made by me. Authenticated by Karen Chatman PA-C on 06/15/2023 09:33:21. I, Amy Glover, personally scribed for Karen Chatman PA-C on 06/15/2023 09:23:39. . Problem List/Past Medical History Ongoing Abdominal aortic aneurysm Bladder cancer BPH with urinary obstruction Carotid artery stenosis Coronary arteriosclerosis Difficulty urinating Gastroesophageal reflux disease History of bladder cancer Hyperlipidemia Hyperlipidemia Hypertensive disorder Incomplete bladder emptying Intermittent urinary stream Nocturia Transient cerebral ischemia Urethral stricture Urinary hesitancy UTI (urinary tract infection) Historical No qualifying data Procedure/Surgical History TURBT - Transurethral resection of bladder tumor (04/08/2023), Cystoscopy (03/23/2023), 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 (08/20/2022), CABG - Coronary artery bypass graft (2016). Medications aspirin 81 mg Chew Tab atorvastatin 80 mg Tab famotidine 20 mg Tab finasteride 5 mg Tab hydrochlorothiazide-li sinopril 12.5 mg-20 mg Tab montelukast 10 mg Tab olopatadine ophthalmic 0.1% solution tamsulosin 0.4 mg Cap Allergies metoprolol (Itching) Social History Tobacco Never (less than 100 in lifetime) Tobacco Use:. Never Smokeless Tobacco Use:. Cigarettes, Stopped age 71 Years. Household tobacco concerns: No. Yes, 06/15/2023 Family History Family history is negative Immunizations Vaccine Date Status Comments BCG 06/15/2023 Given BCG 06/08/2023 Given BCG 05/25/2023 Given influenza virus vaccine, inactivated 05/22/2023 Recorded BCG 05/18/2023 Given SARS-CoV-2 (COVID-19) [id number].[id number] 08/29/2022 Recorded SARS-CoV-2 (COVID-19) mRNA-1273 vaccine 02/14/2022 Recorded SARS-CoV-2 (COVID-19) mRNA-1273 vaccine 08/05/2021 Recorded SARS-CoV-2 (COVID-19) mRNA-1273 vaccine 11/18/2020 Recorded 2022-07-20: [id number] SARS-CoV-2 (COVID-19) mRNA-1273 vaccine 10/18/2020 Recorded 2022-07-20: [id number] Lab Results Ambulatory Point of C (more content not included)... Normal [facility] Comment on above: Result Comment: Electronically Signed By : KAREN CHATMAN PA-C\.br\Date and Time Signed: 06/15/23 09:33 EDT\.br\Electronically Co-Signed By: Amy Glover\.br\Date and Time Co-Signed: 06/15/23 09:23 EDT Ambulatory Visit Summaryon 1 Ambulatory Visit Summary GERTRUDIS PÉREZ :1940 Visit Date:06/08/2023 Ambulatory Visit Instructions Your Diagnosis Bladder cancer Tests Performed Urnls Dip Stick Auto w/o Microscopy POC 26934 Your Care Team Attending Physician - KAREN CHATMAN PA-C Primary Care Physician - SHAYLEE WARREN MD This Is Your Medications List Contact prescribing physician if questions or concerns aspirin (aspirin 81 mg Chew Tab) atorvastatin (atorvastatin 80 mg Tab) famotidine (famotidine 20 mg Tab) finasteride (finasteride 5 mg Tab) hydrochlorothiazide-li sinopril (hydrochlorothiazide-l isinopril 12.5 mg-20 mg Tab) montelukast (montelukast 10 mg Tab) olopatadine ophthalmic (olopatadine ophthalmic 0.1% solution) tamsulosin (tamsulosin 0.4 mg Cap) Procedures Performed TURBT - Transurethral resection of bladder tumor (04/08/2023), Cystoscopy (03/23/2023), 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 (08/20/2022), CABG - Coronary artery bypass graft (2017). Discharge Vitals Height 167 cm Height 66 in Weight 83 kg Weight 182.6 lb BMI 29.76 What to do next Scheduled Follow-Up Appointments Wednesday 9:15 AM EDT With: KAREN CHATMAN PA-C [facility]: [facility] [facility] Invalid Interpretation Code [address] [place] [address] [place] [address]- \.br\ Wednesday 9:15 AM EST \.br\ With: KAREN CHATMAN PA-C\.br\ Where: [facility] Nurse Consultation Noteon Nurse Consultation Note Reason for Visit BCG #3 of 6 (FULL DOSE)167 Physical Exam Vitals & Measurements HT: 66 in HT: 167 cm WT: 83 kg WT: 182.6 lb BMI: 29.76 Assessment/Plan 1. Bladder cancer (C67.9: Malignant neoplasm of bladder, unspecified) Medications aspirin 81 mg Chew Tab atorvastatin 80 mg Tab famotidine 20 mg Tab finasteride 5 mg Tab hydrochlorothiazide-li sinopril 12.5 mg-20 mg Tab montelukast 10 mg Tab olopatadine ophthalmic 0.1% solution tamsulosin 0.4 mg Cap Allergies metoprolol (Itching) Immunizations Vaccine Date Status Comments BCG 06/08/2023 Given BCG 05/25/2023 Given BCG 05/18/2023 Given SARS-CoV-2 (COVID-19) [id number] 08/29/2022 Recorded SARS-CoV-2 (COVID-19) mRNA-1273 vaccine 02/14/2022 Recorded SARS-CoV-2 (COVID-19) mRNA-1273 vaccine 08/05/2021 Recorded SARS-CoV-2 (COVID-19) mRNA-1273 vaccine 11/18/2020 Recorded 2022-07-20: [id number] SARS-CoV-2 (COVID-19) mRNA-1273 vaccine 10/18/2020 Recorded 2022-07-20: [id number] Lab Results Ambulatory Point of Care Results Bilirubin Urine Dipstick: Negative (06/08/23 09:17:00) Blood Urine Dipstick: Negative (06/08/23 09:17:00) Glucose Urine Dipstick: Negative (06/08/23 09:17:00) Ketones Urine Dipstick: Negative (06/08/23 09:17:00) Leukocytes Urine Dipstick: Negative (06/08/23 09:17:00) Nitrite Urine Dipstick: Negative (06/08/23 09:17:00) Protein Urine Dipstick: Negative (06/08/23 09:17:00) Specific Vale Urine Dipstick: 1.020 (06/08/23 09:17:00) Urine Appearance Urine Dipstick: Clear (06/08/23 09:17:00) Urine Color Urine Dipstick: Yellow (06/08/23 09:17:00) Urobilinogen Urine Dipstick: Normal 0.2-1 EU/dl (06/08/23:17:00) pH Urine Dipstick: 7 (06/08/23 09:17:00) Normal [facility] Patient Educationon 06-08-20 Patient Education Oncology Bladder Cancer Bladder cancer is a condition where abnormal tissue (a tumor) grows in the bladder. The bladder is the organ that holds urine. Two tubes (ureters) carry urine from the kidneys to the bladder. The bladder wall is made of layers of tissue. Cancer that spreads through these layers of the bladder wall becomes more difficult to treat. What increases the risk? The following factors may make you more likely to develop this condition: ? Smoking. ? Working where there are risks (occupational exposures), such as working with rubber, leather, clothing fabric, dyes, chemicals, or paint. ? Being 55 years of age or older. ? Being male. ? Having long-term bladder inflammation. ? Having a history of cancer. This includes: ? A family history of bladder cancer. ? Having had bladder cancer before. ? Having had certain treatments for cancer before, such as: ? Medicines to kill cancer cells (chemotherapy). ? Strong X-ray beams or high-energy capsules to kill cancer cells and shrink tumors (radiation therapy). ? Having been exposed to arsenic. This is a poisonous substance. What are the signs or symptoms? Early symptoms of this condition include: ? Blood in your urine. ? Pain when urinating. ? Infections of your urinary system (urinary tract infections or UTIs) that happen often. ? Having to urinate sooner or more often than normal. Late symptoms of this condition include: ? Not being able to urinate. ? Pain on one side of your lower back. ? Loss of appetite. ? Weight loss. ? Tiredness (fatigue). ? Swelling in your feet. ? Bone pain. How is this diagnosed? This condition is diagnosed based on: ? Your medical history. ? A physical exam. ? Lab tests, such as urine tests. ? Imaging tests. ? Your symptoms. You may also have other tests or procedures, such as: ? A cystoscopy. This involves putting a narrow tube into your urethra. The urethra is the organ that carries urine from your bladder to the outside of your body. This procedure is done to view the lining of your bladder for tumors. ? A biopsy. This involves removing a tissue sample to look at under a microscope to check for cancer. Blood tests or imaging tests may be needed. These show how far into the bladder wall cancer has grown, and if cancer has spread to any other parts of your body. Tests may include: ? CT scan. ? MRI. ? Bone scan. ? X-ray. How is this treated? Your health care provider may recommend one or more types of treatment based on the stage of your cancer. The most common treatments are: ? Surgery to remove the cancer. Types of surgeries include: ? Removing a tumor on the inside wall of the bladder (transurethral resection). ? Removing the bladder (cystectomy). ? Radiation therapy. This is often combined with chemotherapy. ? Chemotherapy. ? Immunotherapy. This uses medicines to help your body's disease-fighting system (immune system) destroy cancer cells. Follow these instructions at home: ? Take gmwv-qtx-zpiiler and prescription medicines only as told by your health care provider. ? If you were prescribed an antibiotic medicine, take it as told by your health care provider. Do not stop using the antibiotic even if you start to feel better. ? Eat a healthy diet. Some treatments might affect your appetite. ? Do not use any products that contain nicotine or tobacco. These products include cigarettes, chewing tobacco, and vaping devices, such as e-cigarettes. If you need help quitting, ask your health care provider. ? Consider joining a support group. This may help you learn to deal with the stress of having bladder cancer. ? Tell your cancer care team if you develop side effects. Your team may be able to recommend ways to get relief. ? Keep all follow-up visits. This is important. Where to find more information ? [place] [employer] (ACS): cancer.org ? National Cancer [place] (NCI): cancer.gov Contact a health care provider if: ? You have symptoms of a UTI. These include: ? Fever. ? Chills. ? Weakness. ? Muscle aches. ? Pain in your abdomen. ? Urge to urinate that is stronger and happens more often than normal. ? Burning in the bladder or urethra when you urinate. Get help right away if: ? There is blood in your urine. ? You cannot urinate. ? You have severe pain or other symptoms that do not go away. Summary ? Bladder cancer is a condition where tumors grow in the bladder. ? Diagnosis is based on your medical history, a physical exam, lab tests, imaging tests, and your symptoms. ? Your health care provider may recommend one or more types of treatment based on the stage of your cancer. ? Consider joining a support group. This may help you learn to deal with the stress of having bladder cancer. This information is not intended to replace advice given to you by your health care provider. Make sure you discuss any questions you have wi (more content not included)... Normal [facility] Urology Office/Clinic Noteon 06-08-2023 Urology Office/Clinic Note Chief Complaint BCG #3 of 6 (FULL DOSE)167 HPI Staff PRW pt Here today for BCG #3 of 6 (FULL DOSE) DX: Hx of Bladder Cancer, BPH & Incomplete Bladder Emptying S/p TURBT 04/08/23 *Taking Tamsulosin 0.4 mg BID and Finasteride 5 mg QD Last weeks dose was postponed due to UTI. Pt was started on Keflex therapy. When finalized results came back pt was switched to Levaquin 250mg x5days therapy. Took last pill this morning. History of Present Illness staff HPI reviewed and agree. Review of Systems PHQ Score Initial Depression Screen Score: 0 no fever, chills, malaise, myalgia. no rash/lesions. no chest pain, palpitations, or SOB. no abdominal pain, nausea, vomiting. no unilateral calf swelling, redness, pain Physical Exam Vitals & Measurements HT: 66 in HT: 167 cm WT: 83 kg WT: 182.6 lb BMI: 29.76 General: nontoxic, NAD Mouth: moist mucosa Lungs: normal respiratory effort Cardio: regular rate, good distal perfusion Abdomen: nondistended, no suprapubic distention or tenderness, no CVA tenderness Neurologic: Grossly normal Skin: No rashes or suspicious lesions Procedure The patient was placed in the appropriate position and under sterile conditions, the urethra is catheterized with a 14 Fr straight catheter and the bladder is emptied. 30 cc of sterile 0.9 NS with one vial of ROMY BCG was placed into the bladder and the straight catheter was removed. The patient will hold the solution in the bladder for two hours, turning every fifteen minutes 1/4 turn to allow coating of the bladder surface. The patient should call the office or present to the Emergency Department for development of fever, chills, or flu-like symptoms. Symptoms such as urinary frequency, urgency, and other bladder irritation symptoms are expected. Assessment/Plan Dr. Zaldivar pt 1. Bladder cancer (C67.9: Malignant neoplasm of bladder, unspecified) Original TURBT 08/20/22 - High-grade, noninvasive papillary urothelial carcinoma. Mitomycin 09/28/22 and 10/26/22, 01/14/23 and 02/11/23. Cysto 11/30/22 - neg, minor stricture in penile urethra. FISH/cytol 03/12/23 - neg. Cysto 03/23/23 - Several tiny minimally raised peach colored lesions on the lateral floors bilaterally adjacent to prior resection sites plus there is a 2 cm sheet of small papillary TCC tumors on the back L wall. S/p TURBT 04/08/23 - bladder mucosa with cystitis and reactive atypia. Neg for malignancy. Pt received BCG #3 of 6 (full dose) today wo complications. Ordered: BCG, 50 mg, IntraVesical, Once, Stop date 06/08/23 9:46:00 EDT, Routine, Start date 06/08/23 9:46:00 EDT, 06/08/23 9:46:00 EDT E&M of Est. Patient Low 20-29 Min 38887 Urnls Dip Stick Auto w/o Microscopy POC 85039 2. UTI (urinary tract infection) (N39.0: Urinary tract infection, site not specified) Last weeks dose was postponed due to UTI. Pt was started on Keflex therapy. When finalized results came back pt was switched to Levaquin 250mg x5days therapy. Took last pill this morning. UA today negative for infection. Denies any UTI sx. Ordered: E&M of Est. Patient Low 20-29 Min 90988 Orders: levofloxacin, 250 mg = 1 tab(s), Oral, q24hr, X 5 day(s), # 5 tab(s), Refills(s) 0, Pharmacy: [facility], 167, cm, 06/01/23 9:14:00 EDT, Height/Length Dosing, 83, kg, 06/01/23 9:14:00 EDT, Weight Dosing Follow up for BCG #4/6 in 1 week or sooner if needed. Pt understands and agrees with plan. Follow-up With When Contact Information LURDES ROBISON, KAREN Chris, URL [address] [facility] [place] [address] [phone] Additional Instructions: BCG #4/6 on 06/15/23 Patient Education Bladder Cancer Documentation recorded by the ariane Rick accurately reflects the services(s) I performed and decisions made by me. Authenticated by Karen Chatman PA-C on 06/08/2023 10:27:24. ICassi, personally scribed for Karen Chatman PA-C on 06/08/2023 09:51:17. . Problem List/Past Medical History Ongoing Abdominal aortic aneurysm Bladder cancer BPH with urinary obstruction Carotid artery stenosis Coronary arteriosclerosis Difficulty urinating Gastroesophageal reflux disease History of bladder cancer Hyperlipidemia Hyperlipidemia Hypertensive disorder Incomplete bladder emptying Intermittent urinary stream Nocturia Transient cerebral ischemia Urethral stricture Urinary hesitancy UTI (urinary tract infection) Historical No qualifying data Procedure/Surgical History TURBT - Transurethral resection of bladder tumor (04/08/2023), Cystoscopy (03/23/2023), 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 (08/20/2022), CABG - Coronary artery bypass graft (2017). Medications aspirin 81 mg Chew Tab atorvastatin 80 mg Tab famotidine 20 mg Tab finasteride 5 mg Tab hydrochlorothiazide-li sinopril 12.5 mg-20 mg Tab montelukast 10 mg Tab olopatadine ophthalmic 0.1% solution tamsulosin 0 (more content not included)... Normal [facility] Comment on above: Result Comment: Electronically Signed By : KAREN CHATMAN PA-C\.br\Date and Time Signed: 06/08/23 10:27 EDT\.br\Electronically Co-Signed By: Cassi Rick\.br\Date and Time Co-Signed: 06/08/23 09:51 EDT C Urineon 06-03-2023 Bacteria identified Cx Nom (U) Microbiology PROCEDURE: Urine Culture [R1] SOURCE: U CleanCatch BODY SITE: COLLECTED DATE/TIME: 06/01/2023 09:36 EDT RECEIVED DATE/TIME: 06/01/2023 19:39 EDT START DATE/TIME: 06/01/2023 19:39 EDT FREE TEXT SOURCE: KAREN CHATMAN PA-C, PA-C, JENNIFER E FINAL REPORTS Final Report [] Verified Date/Time: 06/03/2023 10:41 EDT >100,000 cfu/ml Enterococcus faecalis SUSCEPTIBILITY RESULTS __ LEGEND: S=Susceptible, N/R=Not Reported, Blank=Data not available, or drug not advisable or tested, I=Intermediate, ESBL=Extended spectrum beta-lactamase, R=Resistant, TFG=Thymidine-dependen t strain, MYLA=Beta-lactamase positive, ROSANNA=mcg/m;(mg/L), S*=Predicted susceptible interp, R*=Predicted resistant interp Entfaeca Antibiotic ROSANNA Dilutn ROSANNA Interp Ampicillin <=2 S Ciprofloxacin <=1 S Daptomycin <=1 S Levofloxacin <=1 S Linezolid <=2 S Nitrofurantoin <=32 S Penicillin 2 S Rifampin <=1 S Tetracycline >8 R Vancomycin 1 S Performing Locations R1: This test was performed at: [facility], [address] [place] [address], [facility]- , , [facility] Comment on above: Performed By: #### [id number] #### [facility] [address] [place] [address] Ambulatory Visit Summaryon 1 Ambulatory Visit Summary GERTRUDIS PÉREZ :1940 Visit Date:06/01/2023 Ambulatory Visit Instructions Your Diagnosis UTI (urinary tract infection) Bladder cancer Tests Performed Urnls Dip Stick Auto w/o Microscopy POC 93713 Your Care Team Attending Physician - KAREN CHATMAN PA-C Primary Care Physician - SHAYLEE WARREN MD This Is Your Medications List cephalexin (Keflex 500 mg Cap) Contact prescribing physician if questions or concerns aspirin (aspirin 81 mg Chew Tab) atorvastatin (atorvastatin 80 mg Tab) famotidine (famotidine 20 mg Tab) finasteride (finasteride 5 mg Tab) hydrochlorothiazide-li sinopril (hydrochlorothiazide-l isinopril 12.5 mg-20 mg Tab) montelukast (montelukast 10 mg Tab) olopatadine ophthalmic (olopatadine ophthalmic 0.1% solution) tamsulosin (tamsulosin 0.4 mg Cap) Procedures Performed TURBT - Transurethral resection of bladder tumor (04/08/2023), Cystoscopy (03/23/2023), 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 (08/20/2022), CABG - Coronary artery bypass graft (2017). Discharge Vitals Height 167 cm Height 66 in Weight 83 kg Weight 182.6 lb BMI 29.76 What to do next Scheduled Follow-Up Appointments Wednesday 9:15 AM EDT With: KRAEN CHATMAN PA-C Where: [facility] Invalid Interpretation Code [address] [place] [address]- \.br\ Wednesday 9:00 AM EDT \.br\ With: KAREN CHATMAN PA-C\.br\ Where: [facility] Patient Educationon 06-01-20 23 Patient Education Oncology Bladder Cancer Bladder cancer is a condition where abnormal tissue (a tumor) grows in the bladder. The bladder is the organ that holds urine. Two tubes (ureters) carry urine from the kidneys to the bladder. The bladder wall is made of layers of tissue. Cancer that spreads through these layers of the bladder wall becomes more difficult to treat. What increases the risk? The following factors may make you more likely to develop this condition: ? Smoking. ? Working where there are risks (occupational exposures), such as working with rubber, leather, clothing fabric, dyes, chemicals, or paint. ? Being 55 years of age or older. ? Being male. ? Having long-term bladder inflammation. ? Having a history of cancer. This includes: ? A family history of bladder cancer. ? Having had bladder cancer before. ? Having had certain treatments for cancer before, such as: ? Medicines to kill cancer cells (chemotherapy). ? Strong X-ray beams or high-energy capsules to kill cancer cells and shrink tumors (radiation therapy). ? Having been exposed to arsenic. This is a poisonous substance. What are the signs or symptoms? Early symptoms of this condition include: ? Blood in your urine. ? Pain when urinating. ? Infections of your urinary system (urinary tract infections or UTIs) that happen often. ? Having to urinate sooner or more often than normal. Late symptoms of this condition include: ? Not being able to urinate. ? Pain on one side of your lower back. ? Loss of appetite. ? Weight loss. ? Tiredness (fatigue). ? Swelling in your feet. ? Bone pain. How is this diagnosed? This condition is diagnosed based on: ? Your medical history. ? A physical exam. ? Lab tests, such as urine tests. ? Imaging tests. ? Your symptoms. You may also have other tests or procedures, such as: ? A cystoscopy. This involves putting a narrow tube into your urethra. The urethra is the organ that carries urine from your bladder to the outside of your body. This procedure is done to view the lining of your bladder for tumors. ? A biopsy. This involves removing a tissue sample to look at under a microscope to check for cancer. Blood tests or imaging tests may be needed. These show how far into the bladder wall cancer has grown, and if cancer has spread to any other parts of your body. Tests may include: ? CT scan. ? MRI. ? Bone scan. ? X-ray. How is this treated? Your health care provider may recommend one or more types of treatment based on the stage of your cancer. The most common treatments are: ? Surgery to remove the cancer. Types of surgeries include: ? Removing a tumor on the inside wall of the bladder (transurethral resection). ? Removing the bladder (cystectomy). ? Radiation therapy. This is often combined with chemotherapy. ? Chemotherapy. ? Immunotherapy. This uses medicines to help your body's disease-fighting system (immune system) destroy cancer cells. Follow these instructions at home: ? Take dhuu-dpa-tcbikgn and prescription medicines only as told by your health care provider. ? If you were prescribed an antibiotic medicine, take it as told by your health care provider. Do not stop using the antibiotic even if you start to feel better. ? Eat a healthy diet. Some treatments might affect your appetite. ? Do not use any products that contain nicotine or tobacco. These products include cigarettes, chewing tobacco, and vaping devices, such as e-cigarettes. If you need help quitting, ask your health care provider. ? Consider joining a support group. This may help you learn to deal with the stress of having bladder cancer. ? Tell your cancer care team if you develop side effects. Your team may be able to recommend ways to get relief. ? Keep all follow-up visits. This is important. Where to find more information ? [place] [employer] (ACS): cancer.org ? National Cancer [place] (NCI): cancer.gov Contact a health care provider if: ? You have symptoms of a UTI. These include: ? Fever. ? Chills. ? Weakness. ? Muscle aches. ? Pain in your abdomen. ? Urge to urinate that is stronger and happens more often than normal. ? Burning in the bladder or urethra when you urinate. Get help right away if: ? There is blood in your urine. ? You cannot urinate. ? You have severe pain or other symptoms that do not go away. Summary ? Bladder cancer is a condition where tumors grow in the bladder. ? Diagnosis is based on your medical history, a physical exam, lab tests, imaging tests, and your symptoms. ? Your health care provider may recommend one or more types of treatment based on the stage of your cancer. ? Consider joining a support group. This may help you learn to deal with the stress of having bladder cancer. This information is not intended to replace advice given to you by your health care provider. Make sure you discuss any questions you have wi (more content not included)... Normal [facility] Urology Office/Clinic Noteon 06-01-2023 Urology Office/Clinic Note Chief Complaint BCG #3 of 6 HPI Staff PRW pt Here today for BCG #3 of 6 (FULL DOSE) DX: Hx of Bladder Cancer, BPH & Incomplete Bladder Emptying S/p TURBT 04/08/23 *Taking Tamsulosin 0.4 mg BID and Finasteride 5 mg QD Dysuria: Pt. states having mild burning with urination Incomplete bladder emptying: no Hematuria: UA shows trace today Frequency: no Urgency: not at this time Nocturia: 2-3x's Stream: Pt .states stream is so,so Post void dripping: Wearing pads/ Depends: no Urge incontinence: no Stress incontinence: no Incontinence without Sensory Awareness: no Abdominal pain:no Flank pain: Pt. states he has a bad back History of Present Illness staff HPI reviewed and agree. Review of Systems PHQ Score Initial Depression Screen Score: 0 no fever, chills, malaise, myalgia. no rash/lesions. no chest pain, palpitations, or SOB. no abdominal pain, nausea, vomiting. no unilateral calf swelling, redness, pain Physical Exam Vitals & Measurements HT: 66 in HT: 167 cm WT: 83 kg WT: 182.6 lb BMI: 29.76 General: nontoxic, NAD Mouth: moist mucosa Lungs: normal respiratory effort Cardio: regular rate, good distal perfusion Abdomen: nondistended, no suprapubic distention or tenderness, no CVA tenderness Neurologic: Grossly normal Skin: No rashes or suspicious lesions Assessment/Plan 1. UTI (urinary tract infection) (N39.0: Urinary tract infection, site not specified) Pt was to receive BCG #3 of 6 today, did not due to having burning while voiding and cloudy urine since last injection. Burning has not improved over the week and UA today shows large leuks compared to small last week. Will post pone BCG #3 of 6 for next week. Advised pt that we will send his UA for culture and send abx to his pharm today. Advised pt that if the culture requires a different abx then we will call him to inform him of switching the abx. -Will send UA for culture. -Will sched new appt for BCG #3 of 6. -Will send abx. Ordered: E&M of Est. Patient Low 20-29 Min [id number] 2. Bladder cancer (C67.9: Malignant neoplasm of bladder, unspecified) Original TURBT 08/20/22 - High-grade, noninvasive papillary urothelial carcinoma. Mitomycin 09/28/22 and 10/26/22. Cysto 11/30/22 neg. Minor stricture in penile urethra. Mitomycin 01/14/23 and 02/11/23. FISH/cytol 03/12/23 both neg. Cysto 03/23/23 - Several tiny minimally raised peach colored lesions on the lateral floors bilaterally adjacent to prior resection sites plus there is a 2 cm sheet of small papillary TCC tumors on the back L wall. S/p TURBT 04/08/23 - Path showed bladder mucosa with cystitis and reactive atypia. Neg for malignancy. Pt received BCG#2 of 6 on 05/25/23. Return next week for BCG #3. Ordered: E&M of Est. Patient Low 20-29 Min 71422 Urine Culture Urnls Dip Stick Auto w/o Microscopy POC 08316 Orders: cephalexin, 500 mg = 1 cap(s), Oral, q12hr, X 7 day(s), # 14 cap(s), Refills(s) 0, Pharmacy: [facility], 167, cm, 06/01/23 9:14:00 EDT, Height/Length Dosing, 83, kg, 06/01/23 9:14:00 EDT, Weight Dosing Follow up in 1 wk for BCG #3 of 6. All questions/concerns were discussed. Pt to call the office if _ encounters any issues prior. Pt acknowledges understanding. Follow-up With When Contact Information KAREN CHATMAN PA-C, URL In 1 week [address] [place] [address] Additional Instructions: for BCG #3 of 6 Patient Education Bladder Cancer I, Galina Urbano, personally scribed for Karen Chatman PA-C on 06/01/2023 09:39:57. . Documentation recorded by the scribgeorges Urbano accurately reflects the services(s) I performed and decisions made by me. Authenticated by Karen Chatman PA-C on 06/01/2023 09:49:34. Problem List/Past Medical History Ongoing Abdominal aortic aneurysm Bladder cancer BPH with urinary obstruction Carotid artery stenosis Coronary arteriosclerosis Difficulty urinating Gastroesophageal reflux disease History of bladder cancer Hyperlipidemia Hyperlipidemia Hypertensive disorder Incomplete bladder emptying Intermittent urinary stream Nocturia Transient cerebral ischemia Urethral stricture Urinary hesitancy Historical No qualifying data Procedure/Surgical History TURBT - Transurethral resection of bladder tumor (04/08/2023), Cystoscopy (03/23/2023), 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 (08/20/2022), CABG - Coronary artery bypass graft (2017). Medications aspirin 81 mg Chew Tab atorvastatin 80 mg Tab famotidine 20 mg Tab finasteride 5 mg Tab hydrochlorothiazide-li sinopril 12.5 mg-20 mg Tab montelukast 10 mg Tab olopatadine ophthalmic 0.1% solution tamsulosin 0.4 mg Cap Allergies metoprolol (Itching) Social History Tobacco Never (less than 100 in lifetime) Tobacco Use:. Never Smokeless Tobacco Use:. Cigarettes, Stopped age 71 Years. Household (more content not included)... [facility] Comment on above: Result Comment: Electronically Signed By : KAREN CHATMAN PA-C\.br\Date and Time Signed: 06/01/23 09:49 EDT\.br\Electronically Co-Signed By: Galina Urbano\.br\Date and Time Co-Signed: 06/01/23 09:40 EDT Reminderson 05-28-2023 Reminders - From: Brianna Rivero To: EU - Recalls [place]al[place]ar; Cc: Brianna Rivero; Sent: 09/14/2022 12:27:44 EST Show up: 10/21/2022 12:27:00 EST Subject: Cysto/FISH/cytol Due Date/Time: 11/09/2022 12:27:00 EDT Reminder/Recall Pt is due in November 2022 for 3 month cysto/FISH/cytol (bt ck) L/m on home machine.LG Patient scheduled for 11/30/22 at [facility]. he will be due in February 2023.LG Patient scheduled for 03/15/23. He will be due in May 2023.LG Patient getting BCG tx, LG Patient sched for cystp Aug 02 at [facility].LG Normal [facility] Patient Educationon 05-25-20 Patient Education Oncology Bladder Cancer Bladder cancer is a condition where abnormal tissue (a tumor) grows in the bladder. The bladder is the organ that holds urine. Two tubes (ureters) carry urine from the kidneys to the bladder. The bladder wall is made of layers of tissue. Cancer that spreads through these layers of the bladder wall becomes more difficult to treat. What increases the risk? The following factors may make you more likely to develop this condition: ? Smoking. ? Working where there are risks (occupational exposures), such as working with rubber, leather, clothing fabric, dyes, chemicals, or paint. ? Being 55 years of age or older. ? Being male. ? Having long-term bladder inflammation. ? Having a history of cancer. This includes: ? A family history of bladder cancer. ? Having had bladder cancer before. ? Having had certain treatments for cancer before, such as: ? Medicines to kill cancer cells (chemotherapy). ? Strong X-ray beams or high-energy capsules to kill cancer cells and shrink tumors (radiation therapy). ? Having been exposed to arsenic. This is a poisonous substance. What are the signs or symptoms? Early symptoms of this condition include: ? Blood in your urine. ? Pain when urinating. ? Infections of your urinary system (urinary tract infections or UTIs) that happen often. ? Having to urinate sooner or more often than normal. Late symptoms of this condition include: ? Not being able to urinate. ? Pain on one side of your lower back. ? Loss of appetite. ? Weight loss. ? Tiredness (fatigue). ? Swelling in your feet. ? Bone pain. How is this diagnosed? This condition is diagnosed based on: ? Your medical history. ? A physical exam. ? Lab tests, such as urine tests. ? Imaging tests. ? Your symptoms. You may also have other tests or procedures, such as: ? A cystoscopy. This involves putting a narrow tube into your urethra. The urethra is the organ that carries urine from your bladder to the outside of your body. This procedure is done to view the lining of your bladder for tumors. ? A biopsy. This involves removing a tissue sample to look at under a microscope to check for cancer. Blood tests or imaging tests may be needed. These show how far into the bladder wall cancer has grown, and if cancer has spread to any other parts of your body. Tests may include: ? CT scan. ? MRI. ? Bone scan. ? X-ray. How is this treated? Your health care provider may recommend one or more types of treatment based on the stage of your cancer. The most common treatments are: ? Surgery to remove the cancer. Types of surgeries include: ? Removing a tumor on the inside wall of the bladder (transurethral resection). ? Removing the bladder (cystectomy). ? Radiation therapy. This is often combined with chemotherapy. ? Chemotherapy. ? Immunotherapy. This uses medicines to help your body's disease-fighting system (immune system) destroy cancer cells. Follow these instructions at home: ? Take otpw-hxm-erdgwgn and prescription medicines only as told by your health care provider. ? If you were prescribed an antibiotic medicine, take it as told by your health care provider. Do not stop using the antibiotic even if you start to feel better. ? Eat a healthy diet. Some treatments might affect your appetite. ? Do not use any products that contain nicotine or tobacco. These products include cigarettes, chewing tobacco, and vaping devices, such as e-cigarettes. If you need help quitting, ask your health care provider. ? Consider joining a support group. This may help you learn to deal with the stress of having bladder cancer. ? Tell your cancer care team if you develop side effects. Your team may be able to recommend ways to get relief. ? Keep all follow-up visits. This is important. Where to find more information ? [place] [employer] (ACS): cancer.org ? National Cancer [place] (NCI): cancer.gov Contact a health care provider if: ? You have symptoms of a UTI. These include: ? Fever. ? Chills. ? Weakness. ? Muscle aches. ? Pain in your abdomen. ? Urge to urinate that is stronger and happens more often than normal. ? Burning in the bladder or urethra when you urinate. Get help right away if: ? There is blood in your urine. ? You cannot urinate. ? You have severe pain or other symptoms that do not go away. Summary ? Bladder cancer is a condition where tumors grow in the bladder. ? Diagnosis is based on your medical history, a physical exam, lab tests, imaging tests, and your symptoms. ? Your health care provider may recommend one or more types of treatment based on the stage of your cancer. ? Consider joining a support group. This may help you learn to deal with the stress of having bladder cancer. This information is not intended to replace advice given to you by your health care provider. Make sure you discuss any questions you have wi (more content not included)... Normal [facility] Urology Office/Clinic Noteon 05-25-2023 Urology Office/Clinic Note Chief Complaint BCG #2 of 6 HPI Staff PRW pt Here today for BCG #2 of 3 (FULL DOSE) DX: Hx of Bladder Cancer, BPH & Incomplete Bladder Emptying S/p TURBT 04/08/23 *Taking Tamsulosin 0.4 mg BID and Finasteride 5 mg QD. * Pt. states not changes since last visit. History of Present Illness staff HPI reviewed and agree. Review of Systems PHQ Score Initial Depression Screen Score: 0 no fever, chills, malaise, myalgia. no rash/lesions. no chest pain, palpitations, or SOB. no abdominal pain, nausea, vomiting. no unilateral calf swelling, redness, pain Physical Exam Vitals & Measurements HR: 70(Peripheral) RR: 16 BP: 133/66 HT: 66 in HT: 167 cm WT: 83 kg WT: 182.6 lb BMI: 29.76 General: nontoxic, NAD Mouth: moist mucosa Lungs: normal respiratory effort Cardio: regular rate, good distal perfusion Abdomen: nondistended, no suprapubic distention or tenderness, no CVA tenderness Neurologic: Grossly normal Skin: No rashes or suspicious lesions Procedure The patient was placed in the appropriate position and under sterile conditions, the urethra is catheterized with a 14 Fr straight catheter and the bladder is emptied. 30 cc of sterile 0.9 NS with one vial of ROMY BCG was placed into the bladder and the straight catheter was removed. The patient will hold the solution in the bladder for two hours, turning every fifteen minutes 1/4 turn to allow coating of the bladder surface. The patient should call the office or present to the Emergency Department for development of fever, chills, or flu-like symptoms. Symptoms such as urinary frequency, urgency, and other bladder irritation symptoms are expected. Assessment/Plan Prior Dr. Jaimes pt. 1. Bladder cancer (C67.9: Malignant neoplasm of bladder, unspecified) Original TURBT 08/20/22 - High-grade, noninvasive papillary urothelial carcinoma. Mitomycin 09/28/22 and 10/26/22. Cysto 11/30/22 neg. Minor stricture in penile urethra. Mitomycin 01/14/23 and 02/11/23. FISH/cytol 03/12/23 both neg. Cysto 03/23/23 - Several tiny minimally raised peach colored lesions on the lateral floors bilaterally adjacent to prior resection sites plus there is a 2 cm sheet of small papillary TCC tumors on the back L wall. S/p TURBT 04/08/23 - Path showed bladder mucosa with cystitis and reactive atypia. Neg for malignancy. UA today shows trace-intact blood and small leukocytes. Denies UTI sxs. Actually reports absolutely no sx since tx #1 last week. Advised that may change this week. Pt received BCG #2 of 6 (full dose) today wo complications. Orders: BCG, 50 mg, IntraVesical, Once, Stop date 05/25/23 9:25:00 EDT, Routine, Start date 05/25/23 9:25:00 EDT, 05/25/23 9:25:00 EDT Urnls Dip Stick Auto w/o Microscopy POC 61146 Follow up with BCG #3/6 in 1 week or sooner if needed. Pt understands and agrees with plan. Follow-up With When Contact Information LURDES ROBISON, KAREN Chris, URL [address] [place] [address] [phone] Additional Instructions: BCG #3/6 on 06/01/23 Patient Education Bladder Cancer Documentation recorded by the ariane Rick accurately reflects the services(s) I performed and decisions made by me. Authenticated by Karen Chatman PA-C on 05/25/2023 09:56:39. I, Cassi Rick, personally scribed for Karen Chatman PA-C on 05/25/2023 09:46:38. . Problem List/Past Medical History Ongoing Abdominal aortic aneurysm BPH with urinary obstruction Carotid artery stenosis Coronary arteriosclerosis Difficulty urinating Gastroesophageal reflux disease History of bladder cancer Hyperlipidemia Hyperlipidemia Hypertensive disorder Incomplete bladder emptying Intermittent urinary stream Nocturia Transient cerebral ischemia Urethral stricture Urinary hesitancy Historical No qualifying data Procedure/Surgical History TURBT - Transurethral resection of bladder tumor (04/08/2023), Cystoscopy (03/23/2023), 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 (08/20/2022), CABG - Coronary artery bypass graft (2017). Medications aspirin 81 mg Chew Tab atorvastatin 80 mg Tab famotidine 20 mg Tab finasteride 5 mg Tab hydrochlorothiazide-li sinopril 12.5 mg-20 mg Tab montelukast 10 mg Tab olopatadine ophthalmic 0.1% solution tamsulosin 0.4 mg Cap Allergies metoprolol (Itching) Social History Tobacco Never (less than 100 in lifetime) Tobacco Use:. Never Smokeless Tobacco Use:. Cigarettes, Stopped age 71 Years. Household tobacco concerns: No. Yes, 05/18/2023 Family History Family history is negative Immunizations Vaccine Date Status Comments BCG 05/25/2023 Given BCG 05/18/2023 Given SARS-CoV-2 (COVID-19) mRNAMUL.ORD![id number] 08/29/2022 Recorded SARS-CoV-2 (COVID-19) mRNA-1273 vaccine 02/14/2022 Recorded SARS-CoV-2 (COVID-19) mRNA-1273 vaccine 08/05/2021 Recorded SARS-CoV-2 (COVID-19) mRNA-1273 vaccine 11/18/2020 Recorded 2022-07-20: [id number] (more content not included)... [facility] Comment on above: Result Comment: Electronically Signed By : KAREN CHATMAN PA-C\.br\Date and Time Signed: 05/25/23 09:56 EDT\.br\Electronically Co-Signed By: Cassi Rick\.br\Date and Time Co-Signed: 05/25/23 09:46 EDT Consent for Procedure/Surger yon 05-20-2023 Consent for Procedure/Surger y [id number] 0CD:127 [facility] Ambulatory Visit Summaryon 0 05-18-2023 Ambulatory Visit Summary GERTRUDIS PÉREZ :1940 Visit Date:05/18/2023 Ambulatory Visit Instructions Your Diagnosis History of bladder cancer BPH with urinary obstruction Incomplete bladder emptying Urethral stricture Tests Performed Urnls Dip Stick Auto w/o Microscopy POC 10927 Your Care Team Attending Physician - KAREN CHATMAN PA-C Primary Care Physician - SHAYLEE WARREN MD This Is Your Medications List Contact prescribing physician if questions or concerns aspirin (aspirin 81 mg Chew Tab) atorvastatin (atorvastatin 80 mg Tab) famotidine (famotidine 20 mg Tab) finasteride (finasteride 5 mg Tab) hydrochlorothiazide-li sinopril (hydrochlorothiazide-l isinopril 12.5 mg-20 mg Tab) montelukast (montelukast 10 mg Tab) olopatadine ophthalmic (olopatadine ophthalmic 0.1% solution) tamsulosin (tamsulosin 0.4 mg Cap) Procedures Performed TURBT - Transurethral resection of bladder tumor (04/08/2023), Cystoscopy (03/23/2023), 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 (08/20/2022), CABG - Coronary artery bypass graft (2017). Discharge Vitals Heart Rate (Peripheral) 76 Respiratory Rate 16 Blood Pressure 135/67 Height 167 cm Height 66 in Weight 83 kg Weight 182.6 lb BMI 29.76 What to do next Scheduled Follow-Up Appointments Wednesday 9:15 AM EDT With: KAREN CHATMAN PA-C Where: [facility] Invalid Interpretation Code [address] [place] [address] [place] [address]- \.br\ Wednesday 9:15 AM EDT \.br\ With: KAREN CHATMAN PA-C\.br\ Where: [facility] Patient Educationon 05-18-20 Patient Education Urology Benign Prostatic Hyperplasia Benign prostatic hyperplasia (BPH) is an enlarged prostate gland that is caused by the normal aging process. The prostate may get bigger as a man gets older. The condition is not caused by cancer. The prostate is a walnut-sized gland that is involved in the production of semen. It is located in front of the rectum and below the bladder. The bladder stores urine. The urethra carries stored urine out of the body. An enlarged prostate can press on the urethra. This can make it harder to pass urine. The buildup of urine in the bladder can cause infection. Back pressure and infection may progress to bladder damage and kidney (renal) failure. What are the causes? This condition is part of the normal aging process. However, not all men develop problems from this condition. If the prostate enlarges away from the urethra, urine flow will not be blocked. If it enlarges toward the urethra and compresses it, there will be problems passing urine. What increases the risk? This condition is more likely to develop in men older than 50 years. What are the signs or symptoms? Symptoms of this condition include: ? Getting up often during the night to urinate. ? Needing to urinate frequently during the day. ? Difficulty starting urine flow. ? Decrease in size and strength of your urine stream. ? Leaking (dribbling) after urinating. ? Inability to pass urine. This needs immediate treatment. ? Inability to completely empty your bladder. ? Pain when you pass urine. This is more common if there is also an infection. ? Urinary tract infection (UTI). How is this diagnosed? This condition is diagnosed based on your medical history, a physical exam, and your symptoms. Tests will also be done, such as: ? A post-void bladder scan. This measures any amount of urine that may remain in your bladder after you finish urinating. ? A digital rectal exam. In a rectal exam, your health care provider checks your prostate by putting a lubricated, gloved finger into your rectum to feel the back of your prostate gland. This exam detects the size of your gland and any abnormal lumps or growths. ? An exam of your urine (urinalysis). ? A prostate specific antigen (PSA) screening. This is a blood test used to screen for prostate cancer. ? An ultrasound. This test uses sound waves to electronically produce a picture of your prostate gland. Your health care provider may refer you to a specialist in kidney and prostate diseases (urologist). How is this treated? Once symptoms begin, your health care provider will monitor your condition (active surveillance or watchful waiting). Treatment for this condition will depend on the severity of your condition. Treatment may include: ? Observation and yearly exams. This may be the only treatment needed if your condition and symptoms are mild. ? Medicines to relieve your symptoms, including: ? Medicines to shrink the prostate. ? Medicines to relax the muscle of the prostate. ? Surgery in severe cases. Surgery may include: ? Prostatectomy. In this procedure, the prostate tissue is removed completely through an open incision or with a laparoscope or robotics. ? Transurethral resection of the prostate (TURP). In this procedure, a tool is inserted through the opening at the tip of the penis (urethra). It is used to cut away tissue of the inner core of the prostate. The pieces are removed through the same opening of the penis. This removes the blockage. ? Transurethral incision (TUIP). In this procedure, small cuts are made in the prostate. This lessens the prostate's pressure on the urethra. ? Transurethral microwave thermotherapy (TUMT). This procedure uses microwaves to create heat. The heat destroys and removes a small amount of prostate tissue. ? Transurethral needle ablation (TUNA). This procedure uses radio frequencies to destroy and remove a small amount of prostate tissue. ? Interstitial laser coagulation (ILC). This procedure uses a laser to destroy and remove a small amount of prostate tissue. ? Transurethral electrovaporization (TUVP). This procedure uses electrodes to destroy and remove a small amount of prostate tissue. ? Prostatic urethral lift. This procedure inserts an implant to push the lobes of the prostate away from the urethra. Follow these instructions at home: ? Take ljec-fot-xxkmwgb and prescription medicines only as told by your health care provider. ? Monitor your symptoms for any changes. Contact your health care provider with any changes. ? Avoid drinking large amounts of liquid before going to bed or out in public. ? Avoid or reduce how much caffeine or alcohol you drink. ? Give yourself time when you urinate. ? Keep all follow-up visits. This is important. Contact a health care provider if: ? You have unexplained back pain. ? Your symptoms do not get better with treatment. ? You develop side effects from the medicine (more content not included)... Normal [facility] Urology Office/Clinic Noteon 05-18-2023 Urology Office/Clinic Note Chief Complaint BCG #1 of 6 HPI Staff PRW pt Here today for BCG #1 of 3 Consent has been signed. Pt has received instructions. History of bladder cancer S/p TURBT 04/08/23 BPH with urinary obstruction *Taking Tamsulosin 0.4 mg BID and Finasteride 5 mg QD. * Incompletely emptying bladder Denies pain/burning and blood in urine. History of Present Illness staff HPI reviewed and agree. Review of Systems PHQ Score Initial Depression Screen Score: 0 no fever, chills, malaise, myalgia. no rash/lesions. no chest pain, palpitations, or SOB. no abdominal pain, nausea, vomiting. no unilateral calf swelling, redness, pain Physical Exam Vitals & Measurements HR: 76(Peripheral) RR: 16 BP: 135/67 HT: 66 in HT: 167 cm WT: 83 kg WT: 182.6 lb BMI: 29.76 General: nontoxic, NAD Mouth: moist mucosa Lungs: normal respiratory effort Cardio: regular rate, good distal perfusion Abdomen: nondistended, no suprapubic distention or tenderness, no CVA tenderness Neurologic: Grossly normal Skin: No rashes or suspicious lesions Assessment/Plan PRW pt. 1. History of bladder cancer (Z85.51: Personal history of malignant neoplasm of bladder) Original TURBT 08/20/22 - High-grade, noninvasive papillary urothelial carcinoma. Mitomycin 09/28/22 and 10/26/22. Cysto 11/30/22 neg. Minor stricture in penile urethra. Mitomycin 01/14/23 and 02/11/23. FISH/cytol 03/12/23 both neg. Cysto 03/23/23 - Several tiny minimally raised peach colored lesions on the lateral floors bilaterally adjacent to prior resection sites plus there is a 2 cm sheet of small papillary TCC tumors on the back L wall. S/p TURBT 04/08/23 - Path showed bladder mucosa with cystitis and reactive atypia. Neg for malignancy. Pt received #1 BCG of 6 - full dose, today without complications. The patient was placed in the appropriate position and under sterile conditions, the urethra is catheterized with a 14 Fr straight catheter and the bladder is emptied. 50 cc of sterile 0.9 NS with one vial of ROMY BCG was placed into the bladder and the straight catheter was removed. The patient will hold the solution in the bladder for two hours, turning every fifteen minutes 1/4 turn to allow coating of the bladder surface. The patient should call the office or present to the Emergency Department for development of fever, chills, or flu-like symptoms. Symptoms such as urinary frequency, urgency, and other bladder irritation symptoms are expected. 2. BPH with urinary obstruction (N40.1: Benign prostatic hyperplasia with lower urinary tract symptoms) Cysto 03/23/23 - Trilobar obstruction, large high median lobe. Moderate trabeculation. Taking Tamsulosin 0.4 mg BID and Finasteride 5 mg QD. IPSS 14. UA today is negative for blood and infection. 3. Incomplete bladder emptying (R33.9: Retention of urine, unspecified) PVR (cc): 07/20/22 - 173 09/14/22 - 179 04/20/23 - 201 4. Urethral stricture (N35.919: Unspecified urethral stricture, male, unspecified site) Cysto 03/23/23 - Minor stricture in penile urethra. Follow-up With When Contact Information KAREN CHATMAN PA-C, URL In 1 week [address] [place] [address] Additional Instructions: #2 BCG of 6 - Full Dose Patient Education Benign Prostatic Hyperplasia I, Galina Urbano, personally scribed for Karen Chatman PA-C on 05/18/2023 10:37:03. . Documentation recorded by the scribgeorges Urbano accurately reflects the services(s) I performed and decisions made by me. Authenticated by Karen Chatman PA-C on 05/18/2023 11:11:15. Problem List/Past Medical History Ongoing Abdominal aortic aneurysm BPH with urinary obstruction Carotid artery stenosis Coronary arteriosclerosis Difficulty urinating Gastroesophageal reflux disease History of bladder cancer Hyperlipidemia Hyperlipidemia Hypertensive disorder Incomplete bladder emptying Intermittent urinary stream Nocturia Transient cerebral ischemia Urethral stricture Urinary hesitancy Historical No qualifying data Procedure/Surgical History TURBT - Transurethral resection of bladder tumor (04/08/2023), Cystoscopy (03/23/2023), 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 (08/20/2022), CABG - Coronary artery bypass graft (2017). Medications aspirin 81 mg Chew Tab atorvastatin 80 mg Tab famotidine 20 mg Tab finasteride 5 mg Tab hydrochlorothiazide-li sinopril 12.5 mg-20 mg Tab montelukast 10 mg Tab olopatadine ophthalmic 0.1% solution tamsulosin 0.4 mg Cap Allergies metoprolol (Itching) Social History Tobacco Never (less than 100 in lifetime) Tobacco Use:. Never Smokeless Tobacco Use:. Cigarettes, Stopped age 71 Years. Household tobacco concerns: No. Yes, 05/18/2023 Family History Family history is negative Immunizations Vaccine Date Status Comments BCG 05/18/2023 Given SARS-CoV-2 (COVID-19) mRNAMUL.ORD![id number] (more content not included)... [facility] Comment on above: Result Comment: Electronically Signed By : KAREN CHATMAN PA-Cbr\Date and Time Signed: 05/18/23 11:11 EDT\.br\Electronically Co-Signed By: Galina Urbanobr\Date and Time Co-Signed: 05/18/23 10:37 EDT Auth for Release of Medical Recordson 05-12-2023 Auth for Release of Medical Records [id number] CD:127 [facility] Screenson 04-22-2023 Screens [id number] 0CD:127 [facility] Pathology Noteon 04-21-2023 Pathology Note [id number] 0CD:127 [facility] Ambulatory Visit Summaryon 0 04-20-2023 Ambulatory Visit Summary GERTRUDIS PÉREZ :1940 Visit Date:04/20/2023 Ambulatory Visit Instructions Your Diagnosis History of bladder cancer BPH with urinary obstruction Incomplete bladder emptying Urethral stricture Tests Performed Urnls Dip Stick Auto w/o Microscopy POC 06594 Your Care Team Attending Physician - IVAN GAO, Everton White Primary Care Physician - SHAYLEE WARREN MD This Is Your Medications List Contact prescribing physician if questions or concerns APAP/ASA/caffeine (acetaminophen/aspirin /caffeine 194 mg-227 mg-33 mg oral tablet) aspirin (aspirin 81 mg Chew Tab) atorvastatin (atorvastatin 80 mg Tab) famotidine (famotidine 20 mg Tab) finasteride (finasteride 5 mg Tab) hydrochlorothiazide-li sinopril (hydrochlorothiazide-l isinopril 12.5 mg-20 mg Tab) montelukast (montelukast 10 mg Tab) olopatadine ophthalmic (olopatadine ophthalmic 0.1% solution) solifenacin (solifenacin 10 mg Tab) tamsulosin (tamsulosin 0.4 mg Cap) [Image Removed: STOP]Stop taking these medications ciprofloxacin (Cipro 500 mg Tab) Procedures Performed TURBT - Transurethral resection of bladder tumor (04/08/2023), Cystoscopy (03/23/2023), 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 (08/20/2022), CABG - Coronary artery bypass graft (2017). Discharge Vitals Temperature (Temporal Artery) 37.1 ?C Heart Rate (Peripheral) 78 Blood Pressure 132/88 Height 167 cm Height 66 in Weight 83.0 kg Weight 182.6 lb BMI 29.76 What to do next You Need to Schedule the Following Appointments Follow Up with IVAN GAO, COLLINS De When: Where: [facility] [address], [place] [address]- Medications What When Instructions Unchanged APAP/ ASA/ caffeine (acetaminophen/ aspirin/ caffeine 194 mg-227 mg-33 mg oral tablet) ORAL Contact prescribing physician if questions or concerns Unchanged aspirin (aspirin 81 mg Chew Tab) 81 Unknown, CHEWABLE/ ORAL Contact prescribing physician if questions or concerns Unchanged atorvastatin (atorvastatin 80 mg Tab) 80 Unknown, ORAL, 3 Refill(s) Contact prescribing physician if questions or concerns Unchanged famotidine (famotidine 20 mg Tab) 20 Unknown, ORAL, 3 Refill(s) Contact prescribing physician if questions or concerns Unchanged finasteride (finasteride 5 mg Tab) 5 Unknown, ORAL, 3 Refill(s) Contact prescribing physician if questions or concerns Unchanged hydrochlorothiazide-li sinopril (hydrochlorothiazide-l isinopril 12.5 mg-20 mg Tab) ORAL, 3 Refill(s) Contact prescribing physician if questions or concerns Unchanged montelukast (montelukast 10 mg Tab) 10 Unknown, ORAL, 3 Refill(s) Contact prescribing physician if questions or concerns Unchanged olopatadine ophthalmic (olopatadine ophthalmic 0.1% solution) BOTH EYES, 11 Refill(s) Contact prescribing physician if questions or concerns Unchanged solifenacin (solifenacin 10 mg Tab) Contact prescribing physician if questions or concerns Unchanged tamsulosin (tamsulosin 0.4 mg Cap) 0.8 Unknown, ORAL, 3 Refill(s) Contact prescribing physician if questions or concerns What How Much When Comments Stop Taking ciprofloxacin (Cipro 500 mg Tab) 1 Tablets By Mouth Every day Take 1 tablet the day before the procedure and 1 tablet after the procedure Test Results Urnls Dip Stick Auto w/o Microscopy POC 97125 (04/20/2023) Bilirubin Urine Dipstick - Negative Blood Urine Dipstick - 1+ Small Glucose Urine Dipstick - Negative Ketones Urine Dipstick - Negative Leukocytes Urine Dipstick - Trace Nitrite Urine Dipstick - Negative Protein Urine Dipstick - Negative Specific Vale Urine Dipstick - 1.010 Urine Appearance Urine Dipstick - Clear Urine Color Urine Dipstick - Yellow Urobilinogen Urine Dipstick - Normal 0.2-1 EU/dl pH Urine Dipstick - 6 Allergies metoprolol (Itching) Problems Ongoing - Any problem that you are currently receiving treatment for. Abdominal aortic aneurysm BPH with urinary obstruction Carotid artery stenosis Coronary arteriosclerosis Difficulty urinating Gastroesophageal reflux disease History of bladder cancer Hyperlipidemia Hyperlipidemia Hypertensive disorder Incomplete bladder emptying Intermittent urinary stream Nocturia Transient cerebral ischemia Urethral stricture Urinary hesitancy Education Materials Cancer Screening for Men A cancer screening is a test or exam that checks for cancer. Your health care provider will recommend specific cancer screenings based on your age, medical history (including risk factors), and family history of cancer. Work with your health care provider to create a cancer screening schedule that protects your health. Who should have screening? All men should be considered for screening of certain cancers, including colorectal cancer, prostate cancer, lung cancer, and skin cancer. Your health care provider may recommend screenings for other types of cancer if: ? You had can (more content not included)... Normal [facility] Ambulatory Visit Summary GERTRUDIS PÉREZ :1940 Visit Date:04/20/2023 Ambulatory Visit Instructions Your Diagnosis History of bladder cancer BPH with urinary obstruction Incomplete bladder emptying Urethral stricture Tests Performed Urnls Dip Stick Auto w/o Microscopy POC 03476 Your Care Team Attending Physician - IVAN GAO, Everton White Primary Care Physician - SHAYLEE WARREN MD This Is Your Medications List ciprofloxacin (Cipro 500 mg Tab) Contact prescribing physician if questions or concerns APAP/ASA/caffeine (acetaminophen/aspirin /caffeine 194 mg-227 mg-33 mg oral tablet) aspirin (aspirin 81 mg Chew Tab) atorvastatin (atorvastatin 80 mg Tab) famotidine (famotidine 20 mg Tab) finasteride (finasteride 5 mg Tab) hydrochlorothiazide-li sinopril (hydrochlorothiazide-l isinopril 12.5 mg-20 mg Tab) montelukast (montelukast 10 mg Tab) olopatadine ophthalmic (olopatadine ophthalmic 0.1% solution) solifenacin (solifenacin 10 mg Tab) tamsulosin (tamsulosin 0.4 mg Cap) Procedures Performed TURBT - Transurethral resection of bladder tumor (04/08/2023), Cystoscopy (03/23/2023), 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 (08/20/2022), CABG - Coronary artery bypass graft (2017). Discharge Vitals Temperature (Temporal Artery) 37.1 ?C Heart Rate (Peripheral) 78 Blood Pressure 132/88 Height 167 cm Height 66 in Weight 83.0 kg Weight 182.6 lb BMI 29.76 What to do next You Need to Schedule the Following Appointments Follow Up with IVAN GAO, COLLINS De When: Where: [facility] [address], [place] [address]- Medications What How Much When Instructions Unchanged ciprofloxacin (Cipro 500 mg Tab) 1 Tablets By Mouth Every day Take 1 tablet the day before the procedure and 1 tablet after the procedure Unchanged APAP/ ASA/ caffeine (acetaminophen/ aspirin/ caffeine 194 mg-227 mg-33 mg oral tablet) ORAL Contact prescribing physician if questions or concerns Unchanged aspirin (aspirin 81 mg Chew Tab) 81 Unknown, CHEWABLE/ ORAL Contact prescribing physician if questions or concerns Unchanged atorvastatin (atorvastatin 80 mg Tab) 80 Unknown, ORAL, 3 Refill(s) Contact prescribing physician if questions or concerns Unchanged famotidine (famotidine 20 mg Tab) 20 Unknown, ORAL, 3 Refill(s) Contact prescribing physician if questions or concerns Unchanged finasteride (finasteride 5 mg Tab) 5 Unknown, ORAL, 3 Refill(s) Contact prescribing physician if questions or concerns Unchanged hydrochlorothiazide-li sinopril (hydrochlorothiazide-l isinopril 12.5 mg-20 mg Tab) ORAL, 3 Refill(s) Contact prescribing physician if questions or concerns Unchanged montelukast (montelukast 10 mg Tab) 10 Unknown, ORAL, 3 Refill(s) Contact prescribing physician if questions or concerns Unchanged olopatadine ophthalmic (olopatadine ophthalmic 0.1% solution) BOTH EYES, 11 Refill(s) Contact prescribing physician if questions or concerns Unchanged solifenacin (solifenacin 10 mg Tab) Contact prescribing physician if questions or concerns Unchanged tamsulosin (tamsulosin 0.4 mg Cap) 0.8 Unknown, ORAL, 3 Refill(s) Contact prescribing physician if questions or concerns Test Results Urnls Dip Stick Auto w/o Microscopy POC 04392 (04/20/2023) Bilirubin Urine Dipstick - Negative Blood Urine Dipstick - 1+ Small Glucose Urine Dipstick - Negative Ketones Urine Dipstick - Negative Leukocytes Urine Dipstick - Trace Nitrite Urine Dipstick - Negative Protein Urine Dipstick - Negative Specific Vale Urine Dipstick - 1.010 Urine Appearance Urine Dipstick - Clear Urine Color Urine Dipstick - Yellow Urobilinogen Urine Dipstick - Normal 0.2-1 EU/dl pH Urine Dipstick - 6 Allergies metoprolol (Itching) Problems Ongoing - Any problem that you are currently receiving treatment for. Abdominal aortic aneurysm BPH with urinary obstruction Carotid artery stenosis Coronary arteriosclerosis Difficulty urinating Gastroesophageal reflux disease History of bladder cancer Hyperlipidemia Hyperlipidemia Hypertensive disorder Incomplete bladder emptying Intermittent urinary stream Nocturia Transient cerebral ischemia Urethral stricture Urinary hesitancy Education Materials Cancer Screening for Men A cancer screening is a test or exam that checks for cancer. Your health care provider will recommend specific cancer screenings based on your age, medical history (including risk factors), and family history of cancer. Work with your health care provider to create a cancer screening schedule that protects your health. Who should have screening? All men should be considered for screening of certain cancers, including colorectal cancer, prostate cancer, lung cancer, and skin cancer. Your health care provider may recommend screenings for other types of cancer if: ? You had cancer before. ? You have a family member with cancer. ? You have abnorma (more content not included)... Normal [facility] Patient Educationon 04-20-20 Patient Education Oncology Cancer Screening for Men A cancer screening is a test or exam that checks for cancer. Your health care provider will recommend specific cancer screenings based on your age, medical history (including risk factors), and family history of cancer. Work with your health care provider to create a cancer screening schedule that protects your health. Who should have screening? All men should be considered for screening of certain cancers, including colorectal cancer, prostate cancer, lung cancer, and skin cancer. Your health care provider may recommend screenings for other types of cancer if: ? You had cancer before. ? You have a family member with cancer. ? You have abnormal genes that could increase the risk of cancer. ? You have risk factors for certain cancers, such as current or past use of tobacco products, or being overweight. When you should be screened for cancer depends on: ? Your age. ? Your medical history and your family's medical history. ? Certain lifestyle factors, such as smoking or other use of tobacco products. ? Environmental exposure, such as to asbestos. How is screening done? Colorectal cancer All adults should have screenings starting at age 45 and continuing until age 75. Your health care provider may recommend screening before age 45. You will have tests every 1?10 years, depending on your results and the type of screening test. People at increased risk should start screening at an earlier age. Talk with your health care provider about which screening test is right for you and how often you should be screened. Colorectal cancer screening looks for cancer or for growths called polyps that often form before cancer starts. Tests to look for cancer or polyps include: ? Colonoscopy or flexible sigmoidoscopy. For these procedures, a flexible tube with a small camera is inserted into the rectum. ? CT colonography. This test uses X-rays and a contrast dye to check the colon for polyps. If a polyp is found, you may need to have a colonoscopy so the polyp can be located and removed. Tests to look for cancer in the stool (feces) include: ? Guaiac-based fecal occult blood test (FOBT). This test can find blood in stool. It can be done at home with a kit. ? Fecal immunochemical test (FIT). This test can find blood in stool. For this test, you will need to collect stool samples at home. ? Stool DNA test. This test looks for blood in stool and any changes in DNA that can lead to colon cancer. For this test, you will need to collect a stool sample at home and send it to a lab. Prostate cancer Prostate cancer screening for men with average risk may start at age 50. Men with risk factors may need to be screened earlier, at ages 40?45. Talk with your health care provider about whether screening is right for you and, if so, how often you should be screened. Prostate cancer screening is done with blood tests and a digital rectal exam. During this exam, a health care provider uses a gloved finger to check prostate size. You may need to be screened for prostate cancer if: ? You have risk factors for prostate cancer, such as being or having a close family member with prostate cancer. ? You have had gene changes or a genetic condition that was passed on to you from a parent (inherited). These gene changes or genetic conditions include BRCA1 or BRCA2 gene mutations or Damon syndrome. ? You have symptoms of prostate cancer, such as problems urinating or problems getting or keeping an erection (erectile dysfunction). When you have been screened for prostate cancer, future screening may be recommended based on the results of your blood tests. Lung cancer Lung cancer screening is done with a CT scan that looks for abnormal changes in the lungs. Discuss lung cancer screening with your health care provider if you are 50?80 years old and if any of the following apply to you: ? You currently smoke. ? You used to smoke heavily. ? You have a smoking history of 1 pack of cigarettes a day for 20 years or 2 packs a day for 10 years. ? You have quit smoking within the past 15 years. You may need to be screened every year if you smoke heavily or if you used to smoke. Skin cancer Skin cancer screening is done by checking the skin for unusual moles or spots and any changes in existing moles. Your health care provider should check your skin for signs of skin cancer at every physical exam. You should check your skin every month and tell your health care provider right away if anything looks unusual. Men with a axycwp-wjpa-wlhubp risk for skin cancer may want to see a senior quality assurance specialist (environmental projects advisor) for an annual body check. What are the benefits of screening? Cancer screening is done to look for cancer in the very early stages, before it spreads and becomes harder to treat and before you would start to notice symptoms. Finding cancer early improves the chances of successful treatment. It ma (more content not included)... Normal [facility] Urology Office/Clinic Noteon 04-20-2023 Urology Office/Clinic Note Chief Complaint S/p TURBT HPI Staff PO TURBT 04/08/23, review pathology report. Previous DX: BPH, difficulty urinating, HX of bladder cancer, incomplete bladder emptying, nocturia, urethral stricture, urinary hesitancy. *Tamsulosin 0.4mg BID not working at all and Finasteride 5mg qd. works well PVR today 201 IPSS today 14 Dysuria: _still l a little pain Incomplete bladder emptying: _he is not sure Hematuria: _denies visible blood Frequency: 6 times a day Urgency: _denies Nocturia: _3 times nightly Stream: start and stop, been off and on for a year and a half Leaking: _denies Post void dripping: denies Wearing pads/ Depends: denies Urge incontinence: denies Stress incontinence: denies Incontinence without Sensory Awareness: denies Abdominal pain: denies Flank pain: denies Sexual complaints: denies History of Present Illness Tests reviewed: reviewed UA, op note, path I have reviewed the previous health record information and history for this patient from Dr. Zaldivar. I have reviewed and verified the staff HPI to be accurate for this encounter. There have been no associated fever, chills, flank pain, or blood in the urine. Denies any urinary infections since last encounter. Review of Systems PHQ Score Initial Depression Screen Score: 0 ROS - Provider Constitutional: denies weight loss, denies hot flashes. Eyes: denies eye problems. Gastrointestinal: denies nausea, denies vomiting. Cardiovascular: denies chest pain or angina. Integumentary: no dryness Musculoskeletal: denies musculoskeletal symptoms. ENMT: denies otolaryngeal symptoms. Respiratory: no shortness of breath. Heme/Lymph: denies easy bleeding tendency, denies easy bruising tendency. Psychiatric: no confusion, no anxiety. Genitourinary: See HPI. Physical Exam Vitals & Measurements T: 37.1 ?C(Temporal Artery) HR: 78(Peripheral) BP: 132/88 HT: 66 in HT: 167 cm WT: 83.0 kg WT: 182.6 lb BMI: 29.76 General Appearance: alert, no distress, well nourished, well developed male. Genitourinary: normal scrotum, normal testes, normal urethra, normal epididymis, normal vas deferens/spermatic cord. Flank Pain: none. Bladder: nonpalpable. Assessment/Plan 1. History of bladder cancer (Z85.51: Personal history of malignant neoplasm of bladder) Original TURBT 08/20/22 - High-grade, noninvasive papillary urothelial carcinoma. Mitomycin 09/28/22 and 10/26/22. Last cysto 11/30/22 neg. Minor stricture in penile urethra. Mitomycin 01/14/23 and 02/11/23. FISH/cytol 03/12/23 both neg. Cysto 03/23/23 - Several tiny minimally raised peach colored lesions on the lateral floors bilaterally adjacent to prior resection sites plus there is a 2 cm sheet of small papillary TCC tumors on the back L wall. [1] S/p TURBT 04/08/23 - Path showed bladder mucosa with cystitis and reactive atypia. Neg for malignancy. UA today shows small blood and trace leuks. Expected after procedure, will cont to monitor for resolution with time and healing. Reviewed path with pt, no recurrence. Discussed maintenance BCG, has not had BCG before. Follow up after BCG below or sooner if needed. Pt understands and agrees with plan. -Schedule three BCGs. Then surveillance cysto in 3 mos, then another three BCGs. 2. BPH with urinary obstruction (N40.1: Benign prostatic hyperplasia with lower urinary tract symptoms) Cysto 03/23/23 - Trilobar obstruction, large high median lobe. [3] Moderate trabeculation. Taking Tamsulosin 0.4 mg BID and Finasteride 5 mg QD. IPSS 14. 3. Incomplete bladder emptying (R33.9: Retention of urine, unspecified) PVR (cc): 07/20/22 - 173 09/14/22 - 179 04/20/23 - 201 4. Urethral stricture (N35.919: Unspecified urethral stricture, male, unspecified site) Cysto 03/23/23 - Minor stricture in penile urethra. [2] Follow-up With When Contact Information IVAN GAO, Everton White, URL [facility] [address], [place] [address]- Additional Instructions: schedule three BCGs Patient Education Cancer Screening for Men I, Mayra Moy, personally scribed for Dr. Zaldivar on 04/20/2023 10:13:54. . Documentation recorded by the scribe, Mayra Moy, accurately reflects the services(s) I performed and decisions made by me. Authenticated by Dr. Zaldivar on 04/20/2023 10:18:46. Problem List/Past Medical History Ongoing Abdominal aortic aneurysm BPH with urinary obstruction Carotid artery stenosis Coronary arteriosclerosis Difficulty urinating Gastroesophageal reflux disease History of bladder cancer Hyperlipidemia Hyperlipidemia Hypertensive disorder Incomplete bladder emptying Intermittent urinary stream Nocturia Transient cerebral ischemia Urethral stricture Urinary hesitancy Historical No qualifying data Procedure/Surgical History TURBT - Transurethral resection of bladder tumor (04/08/2023), Cystoscopy (03/23/2023), Cystoscopy and (more content not included)... Normal [facility] Comment on above: Result Comment: Electronically Signed By : IVAN GAO, Everton White\.br\Date and Time Signed: 04/20/23 10:18 EDT\.br\Electronically Co-Signed By: Mayra Moy\.br\Date and Time Co-Signed: 04/20/23 10:14 EDT Pathology Noteon 04-16-2023 Pathology Note [id number] 0CD:127 [facility] Operative Reporton Operative Report [id number] 0CD:127 [facility] RAD - MISCon 04-05-2023 RAD - MISC [id number] 0CD:127 [facility] Consent for Procedure/Surger yon 03-24-2023 Consent for Procedure/Surger y [id number] 0CD:127 [facility] Consent for Procedure/Surger y [id number] 0CD:127 [facility] Ambulatory Visit Summaryon 0 03-23-2023 Ambulatory Visit Summary GERTRUDIS PÉREZ [place] :1940 Visit Date:03/23/2023 Ambulatory Visit Instructions Your Diagnosis Bladder cancer BPH (benign prostatic hyperplasia) Nocturia Urinary hesitancy Incomplete bladder emptying Urethral stricture Your Care Team Attending Physician - IVAN GAO, Everton White Primary Care Physician - SHAYLEE WARREN MD This Is Your Medications List ciprofloxacin (Cipro 500 mg Tab) Contact prescribing physician if questions or concerns APAP/ASA/caffeine (acetaminophen/aspirin /caffeine 194 mg-227 mg-33 mg oral tablet) aspirin (aspirin 81 mg Chew Tab) atorvastatin (atorvastatin 80 mg Tab) famotidine (famotidine 20 mg Tab) finasteride (finasteride 5 mg Tab) hydrochlorothiazide-li sinopril (hydrochlorothiazide-l isinopril 12.5 mg-20 mg Tab) montelukast (montelukast 10 mg Tab) olopatadine ophthalmic (olopatadine ophthalmic 0.1% solution) solifenacin (solifenacin 10 mg Tab) tamsulosin (tamsulosin 0.4 mg Cap) Procedures Performed Cystoscopy (03/23/2023), 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 (08/20/2022), CABG - Coronary artery bypass graft (2017). Discharge Vitals Heart Rate (Peripheral) 80 Respiratory Rate 16 Blood Pressure 129/81 Height 167 cm Height 66 in Weight 84.2 kg Weight 185.24 lb BMI 30.19 What to do next Scheduled Follow-Up Appointments Wednesday 8:00 AM EDT Where: [facility] Patient Educationon 03-23-20 Patient Education Oncology Transurethral Resection of Bladder Tumor, Care After The following information offers guidance on how to care for yourself after your procedure. Your health care provider may also give you more specific instructions. If you have problems or questions, contact your health care provider. What can I expect after the procedure? After the procedure, it is common to have: ? A small amount of blood or small blood clots in your urine for up to 2 weeks. ? Soreness or mild pain from your catheter. After your catheter is removed, you may have mild soreness, especially when urinating. ? A need to urinate often. ? Pain in your lower abdomen. Follow these instructions at home: Medicines ? Take gqus-[id number] and prescription medicines only as told by your health care provider. ? If you were prescribed an antibiotic medicine, take it as told by your health care provider. Do not stop taking the antibiotic even if you start to feel better. ? Ask your health care provider if the medicine prescribed to you: ? Requires you to avoid driving or using machinery. ? Can cause constipation. You may need to take these actions to prevent or treat constipation: ? Drink enough fluid to keep your urine pale yellow. ? Take [id number] or prescription medicines. ? Eat foods that are high in fiber, such as beans, whole grains, and fresh fruits and vegetables. ? Limit foods that are high in fat and processed sugars, such as fried or sweet foods. Activity ? If you were given a sedative during the procedure, it can affect you for several hours. Do not drive or operate machinery until your health care provider says that it is safe. ? Rest as told by your health care provider. ? Avoid sitting for a long time without moving. Get up to take short walks every 1?2 hours. This is important to improve blood flow and breathing. Ask for help if you feel weak or unsteady. ? Do not lift anything that is heavier than 10 lb (4.5 kg), or the limit that you are told, until your health care provider says that it is safe. ? Avoid intense physical activity for as long as told by your health care provider. ? Do not have sex until your health care provider approves. ? Return to your normal activities as told by your health care provider. Ask your health care provider what activities are safe for you. General instructions ? If you have a catheter, follow instructions from your health care provider about caring for your catheter and your drainage bag. ? Do not drink alcohol for as long as told by your health care provider. This is especially important if you are taking prescription pain medicines. ? Do not use any products that contain nicotine or tobacco. These products include cigarettes, chewing tobacco, and vaping devices, such as e-cigarettes. If you need help quitting, ask your health care provider. ? Wear compression stockings as told by your health care provider. These stockings help to prevent blood clots and reduce swelling in your legs. ? Keep all follow-up visits. This is important. ? You will need to be followed closely with regular checks of your bladder and urethra (cystoscopies) to make sure that the cancer does not come back. Contact a health care provider if: ? You have blood in your urine for more than 2 weeks. ? You become constipated. Signs of constipation may include: ? Having fewer than three bowel movements in a week. ? Difficulty having a bowel movement. ? Stools that are dry, hard, or larger than normal. ? You have a urinary catheter in place, and you have: ? Spasms or pain. ? Problems with your catheter or your catheter is blocked. ? Your catheter has been taken out but you are unable to urinate. ? You have signs of infection, such as: ? Fever or chills. ? Cloudy or bad-smelling urine. Get help right away if: ? You have severe abdominal pain that gets worse or does not improve with medicine. ? You have a lot of large blood clots in your urine. ? You develop swelling or pain in your leg. ? You have difficulty breathing. These symptoms may be an emergency. Get help right away. Call 911. ? Do not wait to see if the symptoms will go away. ? Do not drive yourself to the hospital. Summary ? After your procedure, it is common to have a small amount of blood or small blood clots in your urine, soreness or mild pain from your catheter, and pain in your lower abdomen. ? Take hrid-tlp-ukahkzs and prescription medicines only as told by your health care provider. ? Rest as told by your health care provider. Follow your health care provider's instructions about returning to normal activities. Ask what activities are safe for you. ? If you have a catheter, follow instructions from your health care provider about caring for your catheter and your drainage bag. This information is not intended to replace advice given to you by your health care pr (more content not included)... Normal [facility] Urology Office/Clinic Noteon 03-23-2023 Urology Office/Clinic Note Chief Complaint cysto HPI Staff Pt is here today for an IO Cysto. History of Present Illness Tests reviewed: reviewed FISH/cytol. I have reviewed the previous health record information and history for this patient from Dr. Zaldivar. I have reviewed and verified the staff HPI to be accurate for this encounter. There have been no associated fever, chills, flank pain, or blood in the urine. Denies any urinary infections since last encounter. Review of Systems PHQ Score Initial Depression Screen Score: 0 ROS - Provider Constitutional: denies weight loss, denies hot flashes. Eyes: denies eye problems. Gastrointestinal: denies nausea, denies vomiting. Cardiovascular: denies chest pain or angina. Integumentary: no dryness Musculoskeletal: denies musculoskeletal symptoms. ENMT: denies otolaryngeal symptoms. Respiratory: no shortness of breath. Heme/Lymph: denies easy bleeding tendency, denies easy bruising tendency. Psychiatric: no confusion, no anxiety. Genitourinary: See HPI. Physical Exam Vitals & Measurements HR: 80(Peripheral) RR: 16 BP: 129/81 HT: 66 in HT: 167 cm WT: 84.2 kg WT: 185.24 lb BMI: 30.19 General Appearance: alert, no distress, well nourished, well developed male. Genitourinary: normal scrotum, normal testes, normal urethra, normal epididymis, normal vas deferens/spermatic cord. Flank Pain: none. Bladder: nonpalpable. Procedure Operative Information Anesthesia Type: Local Procedure: Local Cystoscopy Complications: None Surgical risks, benefits, details of the procedure have been explained to the patient. Full informed consent has been obtained. Intraoperative Information Prepped: Patient is brought back to the endoscopy suite. Patient is placed in supine position. Patient prepped in the usual fashion with Betadine solution. 2% Xylocaine Jelly is placed per Urethra. After waiting several minutes, the Cystoscope is introduced. The Urethra is: _Minor stricture in penile urethra. The Prostatic Urethra is: _Trilobar obstruction, large high median lobe. The Bladder: _Several tiny minimally raised peach colored lesions on the lateral floors bilaterally adjacent to prior resection sites plus there is a 2 cm sheet of small papillary TCC tumors on the back L wall. Trabeculated: Moderate (2) The Ureteral orifices: Show efflux of clear urine Specimens Removed: None Removal: Cystoscope is removed. The patient tolerated it well. Postoperative Information Patient is discharged home with antibiotic coverage. Follow up arranged. Assessment/Plan 1. Bladder cancer (C67.9: Malignant neoplasm of bladder, unspecified) First TURBT 08/20/22 - High-grade, noninvasive papillary urothelial carcinoma. Mitomycin 09/28/22 and 10/26/22. Last cysto 11/30/22 neg. Minor stricture in penile urethra. Mitomycin 01/14/23 and 02/11/23. FISH/cytol 03/12/23 both neg. Pt had IO cysto to check for bladder tumor recurrence without complications today. Cysto today was positive for recurrence. -Will schedule Cysto with TURBT. The procedure risks, benefits, details, and treatment alternatives have been discussed with the patient. These include bleeding -- sometimes to the point of hemorrhaging, infection, risk of bladder perforation, recurrence of bladder tumor in 60-70% of patients, need for indwelling catheter for a variable amount of time, as well as the rare risk of needing an open operation to repair the bladder, among others. Additional therapy as well as follow-up bladder evaluation will most likely be required. Full informed consent has been obtained. Will order General anesthesia. -Six BCG txs after TURBT. 2. BPH (benign prostatic hyperplasia) (N40.0: Benign prostatic hyperplasia without lower urinary tract symptoms) Taking Tamsulosin 0.4 mg BID and Finasteride 5 mg QD. 3. Nocturia (R35.1: Nocturia) Stopped Vesicare at prior OV due to #4. 4. Urinary hesitancy (R39.11: Hesitancy of micturition) 5. Incomplete bladder emptying (R33.9: Retention of urine, unspecified) PVR (cc): 07/20/22 - 173 09/14/22 - 179 6. Urethral stricture (N35.919: Unspecified urethral stricture, male, unspecified site) Follow-up With When Contact Information Everton ZALDIVAR MD, [facility] [address], [place] [address]- Additional Instructions: schedule TURBT Patient Education Transurethral Resection of Bladder Tumor, Care After Transurethral Resection of Bladder Tumor IMayra, personally scribed for Dr. Zaldivar on 03/23/2023 08:18:29. . Documentation recorded by the scribe, Mayra Moy, accurately reflects the services(s) I performed and decisions made by me. Authenticated by Dr. Zaldivar on 03/23/2023 08:22:40. Problem List/Past Medical History Ongoing Abdominal aortic aneurysm Bladder cancer BPH (benign prostatic hyperplasia) Carotid artery stenosis Coronary arteriosclerosis Difficulty urinating Gas (more content not included)... Normal [facility] Comment on above: Result Comment: Electronically Signed By : Everton ZALDIVAR MD\.br\Date and Time Signed: 03/23/23 08:22 EDT\.br\Electronically Co-Signed By: Mayra Moy\.br\Date and Time Co-Signed: 03/23/23 08:18 EDT [facility] Fish and Urine Cyt o ([facility])on 03-19-2023 [facility] Diagnosis Info Invalid Interpretation Code [facility] Comment on above: Result Comment: A:Urine,Urine:Voided Diagnosis Summary - No evidence of high grade urothelial carcinoma identified. Adequate cellularity for evaluation. Diagnosis Summary - The [facility] FISH study detected normal copy numbers for chromosomes 3, 7, 17, and 9p21. 174 cells were analyzed in this evaluation. No evidence of aneuploidy for chromosomes 3, 7, or 17 or deletion of the 9p21 locus was found in cells present in this specimen. This test does not rule out the possibility of a low grade non-invasive papillary urothelial carcinoma. These findings should be correlated with cytology and cystoscopy results.* CPT 62326, 07536. Microscopic Notes - Microscopic Notes - Abnormal cells 9p21 deletions: Abnormal cells aneploid events: Total cells analyzed: 174 Hematuria: Gross Description Site ID:A color Yellow fixative Alcohol Received 90 mls of clear yellow fluid with the patient's name and, Urine on the vial. Electronically signed by : on: 03/18/2023 20:29:01 Performed By: #### [id number] #### [facility] [address] [place] [address] Ambulatory Visit Summaryon 0 03-12-2023 Ambulatory Visit Summary GERTRUDIS PÉREZ Salvador :1940 Visit Date:06/22/2022 Ambulatory Visit Instructions Your Care Team Primary Care Physician - SHAYLEE WARREN MD This Is Your Medications List APAP/ASA/caffeine (acetaminophen/aspirin /caffeine 194 mg-227 mg-33 mg oral tablet) aspirin (aspirin 81 mg Chew Tab) atorvastatin (atorvastatin 80 mg Tab) ciprofloxacin (Cipro 500 mg Tab) famotidine (famotidine 20 mg Tab) finasteride (finasteride 5 mg Tab) hydrochlorothiazide-li sinopril (hydrochlorothiazide-l isinopril 12.5 mg-20 mg Tab) montelukast (montelukast 10 mg Tab) olopatadine ophthalmic (olopatadine ophthalmic 0.1% solution) solifenacin (solifenacin 10 mg Tab) tamsulosin (tamsulosin 0.4 mg Cap) Procedures Performed 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 (08/20/2022), CABG - Coronary artery bypass graft (2017). Medications What How Much When Instructions New ciprofloxacin (Cipro 500 mg Tab) 1 Tablets By Mouth Every day Take 1 tablet the day before the procedure and 1 tablet after the procedure Pickup at [facility] Unchanged APAP/ ASA/ caffeine (acetaminophen/ aspirin/ caffeine 194 mg-227 mg-33 mg oral tablet) ORAL Unchanged aspirin (aspirin 81 mg Chew Tab) 81 Unknown, CHEWABLE/ ORAL Unchanged atorvastatin (atorvastatin 80 mg Tab) 80 Unknown, ORAL, 3 Refill(s) Unchanged famotidine (famotidine 20 mg Tab) 20 Unknown, ORAL, 3 Refill(s) Unchanged finasteride (finasteride 5 mg Tab) 5 Unknown, ORAL, 3 Refill(s) Unchanged hydrochlorothiazide-li sinopril (hydrochlorothiazide-l isinopril 12.5 mg-20 mg Tab) ORAL, 3 Refill(s) Unchanged montelukast (montelukast 10 mg Tab) 10 Unknown, ORAL, 3 Refill(s) Unchanged olopatadine ophthalmic (olopatadine ophthalmic 0.1% solution) BOTH EYES, 11 Refill(s) Unchanged solifenacin (solifenacin 10 mg Tab) Unchanged tamsulosin (tamsulosin 0.4 mg Cap) 0.8 Unknown, ORAL, 3 Refill(s) Pharmacy Information [facility]: [address] [place] [place] [id number] [phone] Allergies metoprolol (Itching) Problems Ongoing - Any problem that you are currently receiving treatment for. Abdominal aortic aneurysm BPH (benign prostatic hyperplasia) Carotid artery stenosis Coronary arteriosclerosis Difficulty urinating Gastroesophageal reflux disease History of bladder cancer Hyperlipidemia Hyperlipidemia Hypertensive disorder Incomplete bladder emptying Intermittent urinary stream Nocturia Transient cerebral ischemia Urinary hesitancy Normal [facility] Fish and Urine Cyt o ([facility])on 03-12-2023 [facility] Method of Extraction Voided Normal [facility] Comment on above: Performed By: #### [id number] #### [facility] [address] [place] [address] [facility] Number of Jars 1 Invalid Interpretation Code [facility] Comment on above: Performed By: #### [id number] #### [facility] [address] [place] [address] [facility] Specimen Urine Normal [facility] Comment on above: Performed By: #### [id number] #### [facility] [address] [place] [address] [facility] Type of Service Technical Only Normal [facility] Comment on above: Performed By: #### [id number] #### [facility] [address] [place] [address] Pre-Certification Formon Pre-Certificatio n Form [id number] CD:127 Normal [facility] Consent for Procedure/Surger yon 02-09-2023 Consent for Procedure/Surger y [id number]#1.0 0CD:127 [facility] Ambulatory Visit Summaryon 0 02-08-2023 Ambulatory Visit Summary GERTRUDIS PÉREZ Salvador :1940 Visit Date:02/08/2023 Ambulatory Visit Instructions Your Care Team Attending Physician - IVAN GAO, Everton White Primary Care Physician - BRIANA GAO, SHAYLEE This Is Your Medications List APAP/ASA/caffeine (acetaminophen/aspirin /caffeine 194 mg-227 mg-33 mg oral tablet) aspirin (aspirin 81 mg Chew Tab) atorvastatin (atorvastatin 80 mg Tab) ciprofloxacin (Cipro 500 mg Tab) famotidine (famotidine 20 mg Tab) finasteride (finasteride 5 mg Tab) hydrochlorothiazide-li sinopril (hydrochlorothiazide-l isinopril 12.5 mg-20 mg Tab) montelukast (montelukast 10 mg Tab) olopatadine ophthalmic (olopatadine ophthalmic 0.1% solution) solifenacin (solifenacin 10 mg Tab) tamsulosin (tamsulosin 0.4 mg Cap) Procedures Performed 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 (08/20/2022), CABG - Coronary artery bypass graft (2017). Medications What How Much When Instructions Unchanged APAP/ ASA/ caffeine (acetaminophen/ aspirin/ caffeine 194 mg-227 mg-33 mg oral tablet) ORAL Unchanged aspirin (aspirin 81 mg Chew Tab) 81 Unknown, CHEWABLE/ ORAL Unchanged atorvastatin (atorvastatin 80 mg Tab) 80 Unknown, ORAL, 3 Refill(s) Unchanged ciprofloxacin (Cipro 500 mg Tab) 1 Tablets By Mouth Every day Take 1 tablet the day before the procedure and 1 tablet after the procedure Unchanged famotidine (famotidine 20 mg Tab) 20 Unknown, ORAL, 3 Refill(s) Unchanged finasteride (finasteride 5 mg Tab) 5 Unknown, ORAL, 3 Refill(s) Unchanged hydrochlorothiazide-li sinopril (hydrochlorothiazide-l isinopril 12.5 mg-20 mg Tab) ORAL, 3 Refill(s) Unchanged montelukast (montelukast 10 mg Tab) 10 Unknown, ORAL, 3 Refill(s) Unchanged olopatadine ophthalmic (olopatadine ophthalmic 0.1% solution) BOTH EYES, 11 Refill(s) Unchanged solifenacin (solifenacin 10 mg Tab) Unchanged tamsulosin (tamsulosin 0.4 mg Cap) 0.8 Unknown, ORAL, 3 Refill(s) Allergies metoprolol (Itching) Problems Ongoing - Any problem that you are currently receiving treatment for. Abdominal aortic aneurysm BPH (benign prostatic hyperplasia) Carotid artery stenosis Coronary arteriosclerosis Difficulty urinating Gastroesophageal reflux disease History of bladder cancer Hyperlipidemia Hyperlipidemia Hypertensive disorder Incomplete bladder emptying Intermittent urinary stream Nocturia Transient cerebral ischemia Urinary hesitancy [facility] Ambulatory Visit Summaryon 0 01-12-2023 Ambulatory Visit Summary GERTRUDIS PÉREZ :1940 Visit Date:01/12/2023 Ambulatory Visit Instructions Your Diagnosis History of bladder cancer Tests Performed Urnls Dip Stick Auto w/o Microscopy POC 63542 Your Care Team Attending Physician - Everton ZALDIVAR MD Primary Care Physician - SHAYLEE WARREN MD This Is Your Medications List APAP/ASA/caffeine (acetaminophen/aspirin /caffeine 194 mg-227 mg-33 mg oral tablet) aspirin (aspirin 81 mg Chew Tab) atorvastatin (atorvastatin 80 mg Tab) ciprofloxacin (Cipro 500 mg Tab) famotidine (famotidine 20 mg Tab) finasteride (finasteride 5 mg Tab) hydrochlorothiazide-li sinopril (hydrochlorothiazide-l isinopril 12.5 mg-20 mg Tab) montelukast (montelukast 10 mg Tab) olopatadine ophthalmic (olopatadine ophthalmic 0.1% solution) solifenacin (solifenacin 10 mg Tab) tamsulosin (tamsulosin 0.4 mg Cap) Procedures Performed 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 (08/20/2022), CABG - Coronary artery bypass graft (2017). Medications What How Much When Instructions Unchanged APAP/ ASA/ caffeine (acetaminophen/ aspirin/ caffeine 194 mg-227 mg-33 mg oral tablet) ORAL Unchanged aspirin (aspirin 81 mg Chew Tab) 81 Unknown, CHEWABLE/ ORAL Unchanged atorvastatin (atorvastatin 80 mg Tab) 80 Unknown, ORAL, 3 Refill(s) Unchanged ciprofloxacin (Cipro 500 mg Tab) 1 Tablets By Mouth Every day Take 1 tablet the day before the procedure and 1 tablet after the procedure Unchanged famotidine (famotidine 20 mg Tab) 20 Unknown, ORAL, 3 Refill(s) Unchanged finasteride (finasteride 5 mg Tab) 5 Unknown, ORAL, 3 Refill(s) Unchanged hydrochlorothiazide-li sinopril (hydrochlorothiazide-l isinopril 12.5 mg-20 mg Tab) ORAL, 3 Refill(s) Unchanged montelukast (montelukast 10 mg Tab) 10 Unknown, ORAL, 3 Refill(s) Unchanged olopatadine ophthalmic (olopatadine ophthalmic 0.1% solution) BOTH EYES, 11 Refill(s) Unchanged solifenacin (solifenacin 10 mg Tab) Unchanged tamsulosin (tamsulosin 0.4 mg Cap) 0.8 Unknown, ORAL, 3 Refill(s) Test Results Urnls Dip Stick Auto w/o Microscopy POC 54612 (01/12/2023) Bilirubin Urine Dipstick - Negative Blood Urine Dipstick - Negative Glucose Urine Dipstick - Negative Ketones Urine Dipstick - Negative Leukocytes Urine Dipstick - Negative Nitrite Urine Dipstick - Negative Protein Urine Dipstick - Negative Specific Vale Urine Dipstick - <=1.005 Urine Appearance Urine Dipstick - Clear Urine Color Urine Dipstick - Yellow Urobilinogen Urine Dipstick - Normal 0.2-1 EU/dl pH Urine Dipstick - 5 Allergies metoprolol (Itching) Problems Ongoing - Any problem that you are currently receiving treatment for. Abdominal aortic aneurysm BPH (benign prostatic hyperplasia) Carotid artery stenosis Coronary arteriosclerosis Difficulty urinating Gastroesophageal reflux disease History of bladder cancer Hyperlipidemia Hyperlipidemia Hypertensive disorder Incomplete bladder emptying Intermittent urinary stream Nocturia Transient cerebral ischemia Urinary hesitancy Normal [facility] Consent for Procedure/Surger yon 01-11-2023 Consent for Procedure/Surger y [id number] 0CD:127 Normal [facility] Consent for Procedure/Surger y [id number] 0CD:127 Normal [facility] Operative Reporton Operative Report [id number] 0CD:127 Normal [facility] Fish and Urine Cyt o ([facility])on 11-30-2022 [facility] Diagnosis Info Invalid Interpretation Code [facility] Comment on above: Result Comment: A:Urine,Urine:Voided Diagnosis Summary - No evidence of high grade urothelial carcinoma identified. Adequate cellularity for evaluation. Diagnosis Summary - The [facility] FISH study detected normal copy numbers for chromosomes 3, 7, 17, and 9p21. 193 cells were analyzed in this evaluation. No evidence of aneuploidy for chromosomes 3, 7, or 17 or deletion of the 9p21 locus was found in cells present in this specimen. This test does not rule out the possibility of a low grade non-invasive papillary urothelial carcinoma. These findings should be correlated with cytology and cystoscopy results.* Microscopic Notes - Microscopic Notes - Abnormal cells 9p21 deletions: Abnormal cells aneploid events: Total cells analyzed: 193 Hematuria: Gross Description Site ID:A color Yellow fixative Alcohol Received 90 mls of clear yellow fluid with the patient's name and, Urine on the vial. Electronically signed by : on: 11/30/2022 09:12:13 Performed By: #### [id number] #### [facility] [address] [place] [address] Ambulatory Visit Summaryon 0 11-23-2022 Ambulatory Visit Summary GERTRUDIS PÉREZ :1940 Visit Date:11/23/2022 Ambulatory Visit Instructions Your Diagnosis History of bladder cancer Tests Performed Urnls Dip Stick Auto w/o Microscopy POC 08815 Your Care Team Attending Physician - SHANELL ZALDIVAR MD Primary Care Physician - SHAYLEE WARREN MD This Is Your Medications List APAP/ASA/caffeine (acetaminophen/aspirin /caffeine 194 mg-227 mg-33 mg oral tablet) aspirin (aspirin 81 mg Chew Tab) atorvastatin (atorvastatin 80 mg Tab) ciprofloxacin (Cipro 500 mg Tab) famotidine (famotidine 20 mg Tab) finasteride (finasteride 5 mg Tab) hydrochlorothiazide-li sinopril (hydrochlorothiazide-l isinopril 12.5 mg-20 mg Tab) montelukast (montelukast 10 mg Tab) olopatadine ophthalmic (olopatadine ophthalmic 0.1% solution) solifenacin (solifenacin 10 mg Tab) tamsulosin (tamsulosin 0.4 mg Cap) Procedures Performed 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 (08/20/2022), CABG - Coronary artery bypass graft (2017). Medications What How Much When Instructions Unchanged APAP/ ASA/ caffeine (acetaminophen/ aspirin/ caffeine 194 mg-227 mg-33 mg oral tablet) ORAL Unchanged aspirin (aspirin 81 mg Chew Tab) 81 Unknown, CHEWABLE/ ORAL Unchanged atorvastatin (atorvastatin 80 mg Tab) 80 Unknown, ORAL, 3 Refill(s) Unchanged ciprofloxacin (Cipro 500 mg Tab) 1 Tablets By Mouth Every day Take 1 tablet the day before the procedure and 1 tablet after the procedure Unchanged famotidine (famotidine 20 mg Tab) 20 Unknown, ORAL, 3 Refill(s) Unchanged finasteride (finasteride 5 mg Tab) 5 Unknown, ORAL, 3 Refill(s) Unchanged hydrochlorothiazide-li sinopril (hydrochlorothiazide-l isinopril 12.5 mg-20 mg Tab) ORAL, 3 Refill(s) Unchanged montelukast (montelukast 10 mg Tab) 10 Unknown, ORAL, 3 Refill(s) Unchanged olopatadine ophthalmic (olopatadine ophthalmic 0.1% solution) BOTH EYES, 11 Refill(s) Unchanged solifenacin (solifenacin 10 mg Tab) Unchanged tamsulosin (tamsulosin 0.4 mg Cap) 0.8 Unknown, ORAL, 3 Refill(s) Test Results Urnls Dip Stick Auto w/o Microscopy POC 79731 (11/23/2022) Bilirubin Urine Dipstick - Negative Blood Urine Dipstick - Negative Glucose Urine Dipstick - Negative Ketones Urine Dipstick - Negative Leukocytes Urine Dipstick - Negative Nitrite Urine Dipstick - Negative Protein Urine Dipstick - Negative Specific Vale Urine Dipstick - <=1.005 Urine Appearance Urine Dipstick - Clear Urine Color Urine Dipstick - Yellow Urobilinogen Urine Dipstick - Normal 0.2-1 EU/dl pH Urine Dipstick - 5.5 Allergies metoprolol (Itching) Problems Ongoing - Any problem that you are currently receiving treatment for. Abdominal aortic aneurysm BPH (benign prostatic hyperplasia) Carotid artery stenosis Coronary arteriosclerosis Difficulty urinating Gastroesophageal reflux disease History of bladder cancer Hyperlipidemia Hyperlipidemia Hypertensive disorder Incomplete bladder emptying Intermittent urinary stream Nocturia Transient cerebral ischemia Urinary hesitancy Normal [facility] Fish and Urine Cyt o ([facility])on 11-23-2022 [facility] Method of Extraction Voided Normal [facility] Comment on above: Performed By: #### [id number] #### [facility] [address] [place] [address] [facility] Number of Jars 1 Invalid Interpretation Code [facility] Comment on above: Performed By: #### [id number] #### [facility] [address] [place] [address] [facility] Specimen Urine Normal [facility] Comment on above: Performed By: #### [id number] #### [facility] [address] [place] [address] [facility] Type of Service Technical Only Normal [facility] Comment on above: Performed By: #### [id number] #### [facility] [address] [place] [address] Consent for Procedure/Surger yon 11-13-2022 Consent for Procedure/Surger y [id number] CD:127 Normal [facility] Operative Reporton 3 Operative Report [id number] 0CD:127 Normal [facility] C Urineon 09-24-2022 Bacteria identified Cx Nom (U) Microbiology PROCEDURE: Urine Culture [R1] SOURCE: U Random BODY SITE: COLLECTED DATE/TIME: 09/22/2022 15:54 EST RECEIVED DATE/TIME: 09/22/2022 18:24 EST START DATE/TIME: 09/22/2022 18:24 EST FREE TEXT SOURCE: IVAN GAO, Everton ZALDIVAR MD, Everton White FINAL REPORTS Final Report [] Verified Date/Time: 09/24/2022 11:24 EST 50,000 cfu/ml Pseudomonas aeruginosa SUSCEPTIBILITY RESULTS __ LEGEND: S=Susceptible, N/R=Not Reported, Blank=Data not available, or drug not advisable or tested, I=Intermediate, ESBL=Extended spectrum beta-lactamase, R=Resistant, TFG=Thymidine-dependen t strain, MYLA=Beta-lactamase positive, ROSANNA=mcg/m;(mg/L), S*=Predicted susceptible interp, R*=Predicted resistant interp PA Antibiotic ROSANNA Dilutn ROSANNA Interp Amikacin <=16 S Aztreonam <=4 S Cefepime <=2 S Ceftazidime <=1 S Ceftazidime/ <=8 S Avibactam Ciprofloxacin <=1 S Gentamicin <=4 S Levofloxacin <=2 S Meropenem <=1 S Piperacillin/ <=16 S Tazobactam Tobramycin <=4 S Performing Locations R1: This test was performed at: [facility], [address] [place] [address], [id number] , [place], Normal [facility] Comment on above: Performed By: #### [id number] ####[facility] [address] [place] [id number] Coding Summary.on 09-24-2022 Coding Summary. [id number] Gh 0bWw+PGhlYWQ+WG6UKDUaI 97ffHScnE7AK5wCXU9SOFX MUICBIB5LYS5cnLT4VYxqE 2VybiAv ApodyTUjRN70ZDm6TJO6jG nvMWekhJ8tmBFaP0b1SrZo MS81jS96QFzmSHZsLqT1Cb ZpbjsgbWFy M4liGjSrtTYcXjr+PHRhYm xlIHdpZHRoPScxMDAlJyBz pPacRG5wYb4tOLYcYYKxbD xhcHNlOiBj t7shSUYhGKxfTJ4phSayV0 TqzKH4VXWcj6h3Ak15cAD+ QBDyNFQ0zHehBAsri592Cp Tzk0nbXCO9 uKRsRXcdMMI2D74ho4J5ZL IrIQUcDOQ1eNE6vK7nmYkp biyqW5LziLTbSaY2WPM3qT OuyY1glZnz ccbaeM3pOfc+N08GMB5JGK PIYF2LMcm8G1BkPpkitEO+ ZY87MFIoYC79pSShkUAov4 zyiWv1EvTw UOKuSPE3sNvhZWqvp3HnPV JqX47phSTrr4Y2ATQguMey hEWfEfGotWX5lJ6jQMwxhe gxj5hywgbe Ipmug1amkb59dB57E48qDT krXWWiYES3YXHcPOYdpAtn lm0sbC2iJx6+OVljr6kee5 urzUz0NhWp ESOnjfPwdMbtHNF6b2ZjRo 93Y3ItfOqjq6XrObm0iq84 lCVkc5D4mSA6YVxiDUFqaR 1yPCscLsP1 BAQyTfVezP50bPZvEOiuKy 3mgJnqyZmvTE9jVDGiwzta RDJqzQ7wHRLsbQWqvGntWA 4wNTBpbjtm r488WpNeVMD7VGHyaIOmV6 QqbC6qWkFaISHzPFJgO7Hw aYAhQIqjJ640PFqaFfF8WJ KvuxXsE0Kn EVSzdVlsVoJ1b7H0Tf6Zf9 JevzyoARP5XBcuUGIaFmBp IeZbHgU8K4LqTjl0PQIggQ qfKK2sM0Ai FEAmdwrtxlhhoRO4AMUwYL KheH04bLBqBOexVc4ey6W4 u691NOCiWQTgvE91Ws2nyG ogMTBwdCBU sB1mttbrg1jrppyvEmMhCF NoUAm9CTl4CTPlfVnfTtVg YJL9YvX6TRM3gFPgmK9jgN jqbxogfH9j Oyc+C09xbV0wAKM7XND4fc xlPPAthgTpPC63YT34N4Ow PjwvdGFibGU+PGRpdiBzdH tcBJ9gIaNw z4vmt3HbXHfpT2PmAJFaLJ ogLha5KSIsROU2uBB1sH4l BJSyFPdte8W5qGD6X6Irzs Ndab8fz3rm NWAmOCpeS22ryRXhs8P4ZE YwqBG5EGUrbGxtFmCpyR87 Oyc+GCKuvNdws2NvOghvf4 cba1anxVy3 CdGiJTZhtvLdgZhiBVW8i4 XxVy64R77pGRifATBeNHNy QODkUYAkeBsoky0knU6yTh 8+PGNvbCB3 wPX3yV3lTZLiSiC0GIizL4 53VsMcxLOtCabfm3eem4po cBb1HlKqJIVoqeDhdHivVQ N3q8QvYc55 C75oODftVTWmZREfYOUrGU HgbDsqmm0ykL3dMp4+PC9j v2owbr82gA71cYM+PHRkIH Q1sTuyMTiy ELVowY5kVSqjEjT7MKDcMu XglD84jMBhTOxjFo6nuTis vYwxXT2tQZXsdioie759Hd Xml1gaQDTu aXQfUYviMAN5M47el5Z8XZ MqNBDhBNX3vQJ9fQ1qeXxj bjogbGVmdDsgdmVydGljYW qpTBfoQ899 IHRvcDsnPlBhdGllbnQgTm VcNPi9K4WaKok3NRKgqHmc OQ6tyTWfXMcaIu8zaQzhpH gkUU0qRQRq sebdx255QvQzb8tcYWMknT TzEPwqTMU2H96qx2W3ZSBt SJAwUWE7xUX3eI8udUoege ogbGVmdDsg rsVfvHfrBYbiTZijU084ZV RvcDsnPkJpcnRoIERhdGU6 JM11FI64uNMxo4W5bAZ5Z4 BhZGRpbmct osqngLM2QHEnRLOpgF99Lo 2kmUwmZb3wDHMaQOG8VVGe wHLwJ1VwbH9jCsWfPFAnON QfK1FbkUKj FEnmF318CUxoRvJ0WBZlie HqI1VgMZNxoWmrTkM6u4R0 Vw1WM5W3FD74FC53rDJpu2 W9iOO1V3Qs LTOullelhlqthAM1FIHtJR ImeX63Gc1vgWtvAx4aLYMw KHJ3LNRktAOlN6VgrV8tHf AjMDAwMDAw Z3SeiXXsDTqpO853OWphOy J1QBNjpiZrW7JpVEXmdKkr GdS9r5R5Wc0PWRx2CV99KX 82sCHdg3D8 fGZ7N4MrCBMrwynqqfxldC F8WERiVNBuiP82Oz8qyObh Rr2oLNVkCUM9PDDsiKIkZ2 VyxC8aRyAn NKUiDHCjJ5FipJCrSBcoW6 52XAmgQpC3YHSesbReX7Cn NJOkrZtrKaH3y7Q8Qc1OFF ByVZ49TPI3 oBE8QC54RR37G7DeWexaiD FibGU+PHRhYmxlIHdpZHRo ZTkqDBSyCcArpCeyGB2sHk 9yZGVyLWNv sZsybHOiGzCby9guNXVtCM ooXZ5ojSdsY6HwfWL5BVRi o1l4Si85Z70hT1SmdPN+PG LttCA7mMY9 aU3nCeYhYzW2WYbuX629Gh EtuDOsUmiyy0qgu8trpVx8 FpW0UOKrmeMjaDnvDTC7m5 QpHx66O76m IHdpZHRoPSIxNSUiIHZhbG rayb2ntC2dZv6+PGNvbCB3 zBV0fB5zBbKlOcB3ZVysP5 49InRvcCIv Hsokw8kvp5jhrVv9ZaAnUC OyppHcaJxgUAG9r2SeQa79 E8JboFzbe6XyJfi4pt98lE Aec5Z9uCG7 Z8IxPJBdefrlfKDssQjzSW 2aKEZmefveAUPeeK2kGYNm B8i2DtBqNvG1ZXlyV2Mhrb H7BPHvcXRe SIlvVOR8L46zy2Z5UKTkLE RuHGD8oDH9qS4xcXvjrcxu bGVmdDsgdmVydGljYWwtYW siU394SEUe rNgwZUFokM1vRQTjmGIddA dnLF0tBJBsscidDm3SNCEK FGKFBCnEDRASZVL7N9MfEj d2ILMtuIzy EX5asZMkJPgzSc2imBsxrV waYL7pHEUsxekoIBVghH4o VGPdcPQgvLukMS4bZIShvw tau989ZpNc XUL0XHCswDRdE6PziY1jYp AgOZUsUCUkG0SfrBOhMPwc S704ZXhrPvI3RZEnszVrC5 FsLWFsaWdu NiT4m3N6Lf4jCW6jHj7dWJ DkLD42MI08zUTpi7R7kGW9 D9WqHTYuldbzraexeDU1EJ YoOLPnmN99 zDCpYSodJf5xl6B1k313VH UxPGDqoZ06Pp2prPksKWWd oMNKyZ4czilwb5nyjjluTe AwMDAwMDt0 XVy8CIKkfMeqZnDvJFX0Hk K9OQO6xDQjdE0fxHpvhddt sZ9iAow+CHXiDNNjupJ7C2 MdMtz1LRPx xCiuGM5nxCWhLJciZm8yrC sghJunGP7zIRKgmkrlUKXf tX5cSYDyvKFdzRdpWS0iFV Thbulwy770 YiHmENU6BIDksVWaW4OqxP 1iZdEuNDZaHVLqB8EjcHYb LHtqL729GTunEnM3DEGmsm AkE0MjYLJd gWloDtJ2y3P6Jt6OXIcsUP 85NE02eBZru0B8tTW9S8Wm GJEmfwsoovqxvFW5ASTfEC TptM88rXQy VOstIr0gp8M8j757PAQdNS XgkG40Jq5bhOloXIKkkVCA vR3aujolg8lybmnhVcUfAR SmOHd3JBf2 LBUeaTenNwEmKIL6AfA0VR F0yPSmxM7hdVwyoycgpY2a Oyc+VGWlGAGqt4Mwq3FrBJ 34UH20Y4Ha PjwvdGFibGU+PHRhYmxlIH dpZHRoPScxMDAlJyBzdHls OC8wRn6dKMLgMYMdbMlqmX ZxEpHxb1zy NBDqSPjeJW5eaSolH7MthF J2DPMwo5o1Dz44U52lW4Pw dXA+WNVdjRK3xJE5pB1yAg JmFjA9HIpm P446JgLnyFXqDybyz1oar1 rbjSg7XvLnWALtpuWsiXpu ZOD7x5TpUj59I40gYWjhGY RoPSIyMCUi AEDglJxfcq1vwC2tQz4+PG KmiDJ5uWV1dR4wRfMgWpS9 OOmhP629YlGlcIWeVlkoK4 7lH1PsgSN+ KCDhMiq2BTZodNrnQB8anK KlSTmgUi1pKYM5NsAnCvNx SVdsH9FuJPLykzqtwkcsjQ O5CWGaXXTe yR47Gs5baFtrGe5yRUMdLX W9PVEorITaE2XfhP3kZnSy ZYVwTDZcW3YysHRyORfrA7 52LPlaYkY7 ZRGnxvFhO0PkBMIelFghHy K9c2Q2Vd3CiTmesMJwVD5n OuRkGAw1G4WdXwk1AWMsjE znEH0rmMDy FXufTf8zvQryaAiyLC2wCS Xnrzbsd741SgWnp3kxOPVb rPRoUBtfLMD3W71ft8G0QB MwMDAwMDA7 jNN9mN1gwJohouwtxLBhwI qlfiXkrZbkDVmcSXxxL921 FVUljLjhIdKOTaz7X3VqMc x1TEGjnAzw AA3mrSCfAFimHp7rgEslzL tnKD2kEALnodbzd742MlSx z5ljMMTkbBZeFTvySCT4O9 5bd2Q7GIYg MWAxHZM8nHT8fD8ulOofjs ogbGVmdDsgdmVydGljYWwt SOhzO412FMBunYkpIz8PZc t0P9KwHpv0 UBKkoIodIV7ydULaNSfiUs 2shEmplKmiYC6zMTFhoong e622OcIzy7roLQNjlEFrJL dfEPU8I82u t7S6XPWaMEYnPYC3oWQ1aA 1hbGlnbjogbGVmdDsgdmVy kTlkADucXQgoT514UUIimR snPlBheWVy OjwvdGQ+IK52ay27C6IcVy qlNmp6ARHeRYB6tVG9qW4f XMKeXIqvw5S4wFG0G0Zurb Iyuh9tl1xo YXBz (more content not included)... Normal [facility] Consent for Procedure/Surger yon 09-15-2022 Consent for Procedure/Surger y [id number] 0CD:127 [facility] Consent for Procedure/Surger y [id number] 0CD:127 Normal [facility] Consent for Procedure/Surger y [id number] 0CD:127 [facility] Urology Office/Clinic Noteon 09-14-2022 Urology Office/Clinic Note Chief Complaint S/P TURBT HPI Staff S/P TURBT done 08/20/22 Post Op catheter removed 08/27/22 in our office. Pt is here today to review pathology report. Has been having difficulty voiding since catheter was removed. Pain during urination. Gets the urge to void, then has to strain to get stream started. PVR today is 179ml States he is still taking Vesicare that was given after procedure. History of Present Illness Tests reviewed: reviewed UA I have reviewed the previous health record information and history for this patient from Dr. Zaldivar. I have reviewed and verified the staff HPI to be accurate for this encounter. There have been no associated fever, chills, flank pain, or blood in the urine. Denies any urinary infections since last encounter. Review of Systems PHQ Score Initial Depression Screen Score: 0 ROS - Provider Constitutional: denies weight loss, denies hot flashes. Eyes: denies eye problems. Gastrointestinal: denies nausea, denies vomiting. Cardiovascular: denies chest pain or angina. Integumentary: no dryness Musculoskeletal: denies musculoskeletal symptoms. ENMT: denies otolaryngeal symptoms. Respiratory: no shortness of breath. Heme/Lymph: denies easy bleeding tendency, denies easy bruising tendency. Psychiatric: no confusion, no anxiety. Genitourinary: denies dysuria, denies hematuria, denies discharge, denies urinary frequency, denies urinary hesitancy, denies nocturia, denies incontinence, denies genital sores, denies decreased libido, and denies erectile dysfunction. Physical Exam Vitals & Measurements HT: 66 in HT: 167 cm WT: 84 kg WT: 184.8 lb BMI: 30.12 General Appearance: alert, no distress, well nourished, well developed male. Genitourinary: normal scrotum, normal testes, normal urethra, normal epididymis, normal vas deferens/spermatic cord. Flank Pain: none. Bladder: nonpalpable. Assessment/Plan 1. BPH (benign prostatic hyperplasia) (N40.0: Benign prostatic hyperplasia without lower urinary tract symptoms) S/p Cysto done 08/20/2022 S/p TURBT done 08/20/2022 showed high-grade, noninvasive papillary urothelial carcinoma. The pathology report was reviewed with the patient in detail today. There is no evidence of malignancy and no further evaluation of the tissue removed is planned. All questions were answered and the report discussed in terms that the patient could understand. Pt to begin Mitomycin treatments for 2 months, every month. Pt to get a Cysto every 3 months for 2 yrs. Will schedule a stent removal. Pt is on Tamsulosin 0.4mg BID & Finasteride 5mg QD therapy. The risks and benefits for cystoscopy have been discussed. The risks include bleeding, infection, and irritation of the bladder and urinary channel, among others. The patient, after being informed of procedural details and after questions have been answered, wishes to proceed. Full informed consent has been obtained. Will order Local anesthesia. 2. Nocturia (R35.1: Nocturia) Gets up 3x/night to void. 3. Urinary hesitancy (R39.11: Hesitancy of micturition) Pt reports painful urination at night, difficulty starting stream. Pt to stop VESIcare. 4. Intermittent urinary stream (R39.13: Splitting of urinary stream) Pt reports intermittent stream. 5. Incomplete bladder emptying (R33.9: Retention of urine, unspecified) PVR today is 179mL. Pt reports having to walk around after voiding to be able to empty more. Follow-up With When Contact Information IVAN GAO, Everton White, [facility] [address], [place] [phone] Additional Instructions: schedule cysto Patient Education Benign Prostatic Hyperplasia I, Cassi Rick, personally scribed for Dr. Zaldivar on 08/31/2022 16:38:13. . Documentation recorded by the scribe, Cassi Rick, accurately reflects the services(s) I performed and decisions made by me. Authenticated by Dr. Zaldivar on 08/31/2022 16:41:02. Problem List/Past Medical History Ongoing Abdominal aortic aneurysm BPH (benign prostatic hyperplasia) Carotid artery stenosis Coronary arteriosclerosis Difficulty urinating Gastroesophageal reflux disease Hyperlipidemia Hyperlipidemia Hypertensive disorder Incomplete bladder emptying Intermittent urinary stream Nocturia Transient cerebral ischemia Urinary hesitancy Historical No qualifying data Procedure/Surgical History 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 (08/20/2022), CABG - Coronary artery bypass graft (2017). Medications acetaminophen/aspirin/ caffeine 194 mg-227 mg-33 mg oral tablet aspirin 81 mg Chew Tab atorvastatin 80 mg Tab famotidine 20 mg Tab finasteride 5 mg Tab hydrochlorothiazide-li sinopril 12.5 mg-20 mg Tab montelukast 10 mg Tab olopatadine ophthalmic 0.1% solution solifenacin 10 mg Tab tamsulosin 0.4 mg Cap Allergies metoprolol (Itching) Social History Tobacco Never (less than (more content not included)... Normal [facility] Comment on above: Result Comment: Electronically Signed By : Brianna Rivero\Date and Time Signed: 09/14/22 12:29 EST Ambulatory Visit Summaryon 0 08-31-2022 Ambulatory Visit Summary GERTRUDIS PÉREZ :1940 Visit Date:08/31/2022 Ambulatory Visit Instructions Your Diagnosis BPH (benign prostatic hyperplasia) Nocturia Urinary hesitancy Intermittent urinary stream Incomplete bladder emptying Tests Performed Urnls Dip Stick Auto w/o Microscopy POC 95620 Your Care Team Attending Physician - Everton ZALDIVAR MD Primary Care Physician - SHAYLEE WARREN MD This Is Your Medications List Contact prescribing physician if questions or concerns APAP/ASA/caffeine (acetaminophen/aspirin /caffeine 194 mg-227 mg-33 mg oral tablet) aspirin (aspirin 81 mg Chew Tab) atorvastatin (atorvastatin 80 mg Tab) famotidine (famotidine 20 mg Tab) finasteride (finasteride 5 mg Tab) hydrochlorothiazide-li sinopril (hydrochlorothiazide-l isinopril 12.5 mg-20 mg Tab) montelukast (montelukast 10 mg Tab) olopatadine ophthalmic (olopatadine ophthalmic 0.1% solution) solifenacin (solifenacin 10 mg Tab) tamsulosin (tamsulosin 0.4 mg Cap) Procedures Performed 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 (08/20/2022), CABG - Coronary artery bypass graft (2017). Discharge Vitals Height 167 cm Height 66 in Weight 84 kg Weight 184.8 lb BMI 30.12 What to do next You Need to Schedule the Following Appointments Follow Up with IVAN GAO, Everton White, [place] When: Comments: schedule cysto Where: [facility] [address] , [place] [phone] Medications What When Instructions Unchanged APAP/ ASA/ caffeine (acetaminophen/ aspirin/ caffeine 194 mg-227 mg-33 mg oral tablet) ORAL Contact prescribing physician if questions or concerns Unchanged aspirin (aspirin 81 mg Chew Tab) 81 Unknown, CHEWABLE/ ORAL Contact prescribing physician if questions or concerns Unchanged atorvastatin (atorvastatin 80 mg Tab) 80 Unknown, ORAL, 3 Refill(s) Contact prescribing physician if questions or concerns Unchanged famotidine (famotidine 20 mg Tab) 20 Unknown, ORAL, 3 Refill(s) Contact prescribing physician if questions or concerns Unchanged finasteride (finasteride 5 mg Tab) 5 Unknown, ORAL, 3 Refill(s) Contact prescribing physician if questions or concerns Unchanged hydrochlorothiazide-li sinopril (hydrochlorothiazide-l isinopril 12.5 mg-20 mg Tab) ORAL, 3 Refill(s) Contact prescribing physician if questions or concerns Unchanged montelukast (montelukast 10 mg Tab) 10 Unknown, ORAL, 3 Refill(s) Contact prescribing physician if questions or concerns Unchanged olopatadine ophthalmic (olopatadine ophthalmic 0.1% solution) BOTH EYES, 11 Refill(s) Contact prescribing physician if questions or concerns Unchanged solifenacin (solifenacin 10 mg Tab) Contact prescribing physician if questions or concerns Unchanged tamsulosin (tamsulosin 0.4 mg Cap) 0.8 Unknown, ORAL, 3 Refill(s) Contact prescribing physician if questions or concerns Test Results Urnls Dip Stick Auto w/o Microscopy POC 88121 (08/31/2022) Bilirubin Urine Dipstick - Negative Blood Urine Dipstick - 3+ Large Glucose Urine Dipstick - Negative Ketones Urine Dipstick - Negative Leukocytes Urine Dipstick - 3+ Large Nitrite Urine Dipstick - Positive Protein Urine Dipstick - 2+ (100 mg/dl) Specific Vale Urine Dipstick - 1.015 Urine Appearance Urine Dipstick - Cloudy Urine Color Urine Dipstick - Yellow Urobilinogen Urine Dipstick - Normal 0.2-1 EU/dl pH Urine Dipstick - 6 Allergies metoprolol (Itching) Problems Ongoing - Any problem that you are currently receiving treatment for. Abdominal aortic aneurysm BPH (benign prostatic hyperplasia) Carotid artery stenosis Coronary arteriosclerosis Difficulty urinating Gastroesophageal reflux disease Hyperlipidemia Hyperlipidemia Hypertensive disorder Incomplete bladder emptying Intermittent urinary stream Nocturia Transient cerebral ischemia Urinary hesitancy Education Materials Benign Prostatic Hyperplasia Benign prostatic hyperplasia (BPH) is an enlarged prostate gland that is caused by the normal aging process and not by cancer. The prostate is a walnut-sized gland that is involved in the production of semen. It is located in front of the rectum and below the bladder. The bladder stores urine and the urethra is the tube that carries the urine out of the body. The prostate may get bigger as a man gets older. An enlarged prostate can press on the urethra. This can make it harder to pass urine. The build-up of urine in the bladder can cause infection. Back pressure and infection may progress to bladder damage and kidney (renal) failure. What are the causes? This condition is part of a normal aging process. However, not all men develop problems from this condition. If the prostate enlarges away from the urethra, urine flow will not be blocked. If it enlarges toward the urethra and compresses it, there will be problems passing urine. What increases the risk? This condition is more (more content not included)... Normal [facility] Patient Educationon 08-31-19 Patient Education Urology Benign Prostatic Hyperplasia Benign prostatic hyperplasia (BPH) is an enlarged prostate gland that is caused by the normal aging process and not by cancer. The prostate is a walnut-sized gland that is involved in the production of semen. It is located in front of the rectum and below the bladder. The bladder stores urine and the urethra is the tube that carries the urine out of the body. The prostate may get bigger as a man gets older. An enlarged prostate can press on the urethra. This can make it harder to pass urine. The build-up of urine in the bladder can cause infection. Back pressure and infection may progress to bladder damage and kidney (renal) failure. What are the causes? This condition is part of a normal aging process. However, not all men develop problems from this condition. If the prostate enlarges away from the urethra, urine flow will not be blocked. If it enlarges toward the urethra and compresses it, there will be problems passing urine. What increases the risk? This condition is more likely to develop in men over the age of 50 years. What are the signs or symptoms? Symptoms of this condition include: ? Getting up often during the night to urinate. ? Needing to urinate frequently during the day. ? Difficulty starting urine flow. ? Decrease in size and strength of your urine stream. ? Leaking (dribbling) after urinating. ? Inability to pass urine. This needs immediate treatment. ? Inability to completely empty your bladder. ? Pain when you pass urine. This is more common if there is also an infection. ? Urinary tract infection (UTI). How is this diagnosed? This condition is diagnosed based on your medical history, a physical exam, and your symptoms. Tests will also be done, such as: ? A post-void bladder scan. This measures any amount of urine that may remain in your bladder after you finish urinating. ? A digital rectal exam. In a rectal exam, your health care provider checks your prostate by putting a lubricated, gloved finger into your rectum to feel the back of your prostate gland. This exam detects the size of your gland and any abnormal lumps or growths. ? An exam of your urine (urinalysis). ? A prostate specific antigen (PSA) screening. This is a blood test used to screen for prostate cancer. ? An ultrasound. This test uses sound waves to electronically produce a picture of your prostate gland. Your health care provider may refer you to a specialist in kidney and prostate diseases (urologist). How is this treated? Once symptoms begin, your health care provider will monitor your condition (active surveillance or watchful waiting). Treatment for this condition will depend on the severity of your condition. Treatment may include: ? Observation and yearly exams. This may be the only treatment needed if your condition and symptoms are mild. ? Medicines to relieve your symptoms, including: ? Medicines to shrink the prostate. ? Medicines to relax the muscle of the prostate. ? Surgery in severe cases. Surgery may include: ? Prostatectomy. In this procedure, the prostate tissue is removed completely through an open incision or with a laparoscope or robotics. ? Transurethral resection of the prostate (TURP). In this procedure, a tool is inserted through the opening at the tip of the penis (urethra). It is used to cut away tissue of the inner core of the prostate. The pieces are removed through the same opening of the penis. This removes the blockage. ? Transurethral incision (TUIP). In this procedure, small cuts are made in the prostate. This lessens the prostate's pressure on the urethra. ? Transurethral microwave thermotherapy (TUMT). This procedure uses microwaves to create heat. The heat destroys and removes a small amount of prostate tissue. ? Transurethral needle ablation (TUNA). This procedure uses radio frequencies to destroy and remove a small amount of prostate tissue. ? Interstitial laser coagulation (ILC). This procedure uses a laser to destroy and remove a small amount of prostate tissue. ? Transurethral electrovaporization (TUVP). This procedure uses electrodes to destroy and remove a small amount of prostate tissue. ? Prostatic urethral lift. This procedure inserts an implant to push the lobes of the prostate away from the urethra. Follow these instructions at home: ? Take kwtn-oie-dxqxuna and prescription medicines only as told by your health care provider. ? Monitor your symptoms for any changes. Contact your health care provider with any changes. ? Avoid drinking large amounts of liquid before going to bed or out in public. ? Avoid or reduce how much caffeine or alcohol you drink. ? Give yourself time when you urinate. ? Keep all follow-up visits as told by your health care provider. This is important. Contact a health care provider if: ? You have unexplained back pain. ? Your symptoms do not get better with treatment. ? You d (more content not included)... Normal [facility] CBC AUTO DIFFon 08-13-2022 BASO # 0.1 103/ul Normal 0.0-0.1 [facility] Comment on above: Performed By: #### CBC #### [facility] [address] [place] [address] Dr. Nina Jackson Basophils/100 WBC (Bld) 0.7 % Normal 0.2-2.0 [facility] Comment on above: Performed By: #### CBC #### [facility] [address] [place] [address] Dr. Nina Jackson EO # 0.4 103/ul Normal 0.0-0.7 [facility] Comment on above: Performed By: #### CBC #### [facility] [address] [place] [address] Dr. Nina Jackson Eosinophils/100 WBC (Bld) 5.0 % Normal 0.9-7.0 [facility] Comment on above: Performed By: #### CBC #### [facility] [address] [place] [address] Dr. Nina Jackson Erythrocyte distribution width (RBC) [Ratio] 13.0 % Normal 11.0-15.0 [facility] Comment on above: Performed By: #### CBC #### [facility] [address] [place] [address] Dr. Nina Jackson Hematocrit (Bld) [Volume fraction] 37.7 % Critically low 42.0-54.0 [facility] Comment on above: Performed By: #### CBC #### [facility] [address] [place] [address] Dr. Nina Jackson Hemoglobin (Bld) [Mass/Vol] 12.5 g/dL Critically low 14.0-18.0 [facility] Comment on above: Performed By: #### CBC #### [facility] [address] [place] [address] Dr. Nina Jackson IG # 0.02 10e3/ul Normal 0.00-0.03 [facility] Comment on above: Performed By: #### CBC #### [facility] [address] [place] [address] Dr. Nina Jackson IG % 0.3 % Normal 0.0-0.5 [facility] Comment on above: Performed By: #### CBC #### [facility] [address] [place] [address] Dr. Nina Jackson LYMPH # 1.2 103/ul Normal 1.2-3.8 [facility] Comment on above: Performed By: #### CBC #### [facility] [address] [place] [address] Dr. Nina Jackson Lymphocytes/100 WBC (Bld) 16.3 % Critically low 20.5-60.0 [facility] Comment on above: Performed By: #### CBC #### [facility] [address] [place] [address] Dr. Nina Jackson MANUAL DIFF REQ NO Normal [facility] Comment on above: Performed By: #### CBC #### [facility] [address] [place] [address] Dr. Nina Jackson MCH (RBC) [Entitic mass] 29.7 pg Normal 25.9-34.0 [facility] Comment on above: Performed By: #### CBC #### [facility] [address] [place] [address] Dr. Nina Jackson MCHC (RBC) [Mass/Vol] 33.2 g/dL Normal 29.9-35.2 [facility] Comment on above: Performed By: #### CBC #### [facility] [address] [address] [address] Nina Jackson MCV (RBC) [Entitic vol] 89.5 fL Normal 80.0-94.0 [facility] Comment on above: Performed By: #### CBC #### [facility] [address] [address] [address] Nina Jackson MONO # 0.9 103/ul Critically high 0.3-0.8 [facility] Comment on above: Performed By: #### CBC #### [facility] [address] [address] [address] Nina Jackson Monocytes/100 WBC (Bld) 12.2 % Critically high 1.7-12.0 [facility] Comment on above: Performed By: #### CBC #### [facility] [address] [place] [address] Dr. Nina Jackson NEUT # 4.7 103/ul Normal 1.4-6.5 [facility] Comment on above: Performed By: #### CBC #### [facility] [address] [place] [address] Dr. Nina Jackson Neutrophils/100 WBC (Bld) 65.5 % Normal 43.0-75.0 [facility] Comment on above: Performed By: #### CBC #### [facility] [address] [place] [address] Dr. Nina Jackson Platelet mean volume (Bld) [Entitic vol] 11.3 fL Normal 9.5-13.5 [facility] Comment on above: Performed By: #### CBC #### [facility] [address] [place] [address] Dr. Nina Jackson PLT 184 103/ul Normal 150-450 [facility] Comment on above: Performed By: #### CBC #### [facility] [address] [place] [address] Dr. Nina Jackson RBC 4.21 106/ul Critically low 4.70-6.10 [facility] Comment on above: Performed By: #### CBC #### [facility] [address] [place] [address] Dr. Nina Jackson WBC 7.2 103/ul Normal 4.0-11.0 [facility] Comment on above: Performed By: #### CBC #### [facility] [address] [place] [address] Dr. Nina Jackson Covid-19 PCR ([facility])on 07-24 SARS-CoV-2 (COVID-19) RNA CAROLINE+probe Ql (Unsp spec) Not detected Normal NOT DETECTED [facility] Comment on above: Result Comment: This test is not yet chuy roved or cleared by the [place] FDA. When there are no FDA-approved or cleared tests available, and other criteria are met, FDA can make tests available under an emergency access mechanism called an Emergency Use Authorization (EUA). The EUA for this test is supported by the [place] of Health and Human Service's (HHS's) declaration that circumstances exist to justify the emergency use of in vitro diagnostics for the detection and/or diagnosis of the virus that causes COVID-19. This EUA will remain in effect (meaning this test can be used) for the duration of the COVID-19 declaration justifying emergency of IVDs, unless it is terminated or revoked by FDA (after which the test may no longer be used). When diagnostic testing is negative, the possibility of a false negative should be considered in the context of a patient's recent exposures and the presence of clinical signs and symptoms consistent with SARS-CoV-2. Performed By: #### C VDTB #### [facility] [address] [place] [address] Dr. Nina Jackson PROF 14(COMP METB)on 022 Albumin [Mass/Vol] 3.5 g/dL Normal 3.4-5.0 [facility] Comment on above: Performed By: #### CMP #### [facility] [address] [place] [address] Dr. Nina Jackson Albumin/Globulin [Mass ratio] 1.0 {ratio} Normal [facility] Comment on above: Performed By: #### CMP #### [facility] [address] [place] [address] Dr. Nina Jackson ALP [Catalytic activity/Vol] 75 U/L Normal 46-116 [facility] Comment on above: Performed By: #### CMP #### [facility] [address] [place] [address] Dr. Nina Jackson ALT [Catalytic activity/Vol] 34 U/L Normal 16-63 [facility] Comment on above: Performed By: #### CMP #### [facility] [address] [place] [address] Dr. Nina Jackson Anion gap [Moles/Vol] 10.6 mmol/L Normal [facility] Comment on above: Performed By: #### CMP #### [facility] [address] [place] [address] Dr. Nina Jackson AST [Catalytic activity/Vol] 34 U/L Normal 15-37 [facility] Comment on above: Performed By: #### CMP #### [facility] [address] [place] [address] Dr. Nina Jackson Bilirubin [Mass/Vol] 0.3 mg/dL Normal 0.2-1.0 [facility] Comment on above: Performed By: #### CMP #### [facility] [address] [place] [address] Dr. Nina Jackson Calcium [Mass/Vol] 8.9 mg/dL Normal 8.5-10.1 [facility] Comment on above: Performed By: #### CMP #### [facility] [address] [place] [address] Dr. Nina Jackson Chloride [Moles/Vol] 102 mmol/L Normal 98-107 [facility] Comment on above: Performed By: #### CMP #### [facility] [address] [place] [address] Dr. Nina Jackson CO2 [Moles/Vol] 29.4 mmol/L Normal 21.0-32.0 [facility] Comment on above: Performed By: #### CMP #### [facility] [address] [place] [address] Dr. Nina Jackson Creatinine [Mass/Vol] 1.32 mg/dL Critically high 0.70-1.30 [facility] Comment on above: Performed By: #### CMP #### [facility] [address] [address] [address] Nina Jackson EGFR-AF ISRAELI >60 Normal >=60 [facility] Comment on above: Performed By: #### CMP #### [facility] [address] [place] [address] Dr. Nina Jackson EGFR-NON AF ISRAELI 52 mL/min/1.73m2 Critically low >=60 [facility] Comment on above: Performed By: #### CMP #### [facility] [address] [place] [address] Dr. Nina Jackson Globulin (S) [Mass/Vol] 3.6 g/dL Normal [facility] Comment on above: Performed By: #### CMP #### [facility] [address] [place] [address] Dr. Nina Jackson Glucose [Mass/Vol] 119 mg/dL Critically high 74-106 [facility] Comment on above: Performed By: #### CMP #### [facility] [address] [place] [address] Dr. Nina Jackson Potassium [Moles/Vol] 4.0 mmol/L Normal 3.5-5.1 [facility] Comment on above: Performed By: #### CMP #### [facility] [address] [place] [address] Dr. Nina Jackson Protein [Mass/Vol] 7.1 g/dL Normal 6.4-8.2 [facility] Comment on above: Performed By: #### CMP #### [facility] [address] [place] [address] Dr. Nina Jackson Sodium [Moles/Vol] 138 mmol/L Normal 136-145 [facility] Comment on above: Performed By: #### CMP #### [facility] [address] [place] [address] Dr. Nina Jackson Urea nitrogen [Mass/Vol] 17.0 mg/dL Normal 7.0-18.0 [facility] Comment on above: Performed By: #### CMP #### [facility] [address] [place] [address] Dr. Nina Jackson Urea nitrogen/Creatin ine [Mass ratio] 12.9 mg/mg Normal [facility] Comment on above: Performed By: #### CMP #### [facility] [address] [place] [address] Dr. Nina Jackson PROTIMEon 08-13-2022 INR Coag (PPP) [Relative time] 1.01 {INR} Normal [facility] Comment on above: Performed By: #### PT, PTT #### [facility] [address] [place] [address] Dr. Nina Jackson INR GUIDELINES SEE BELOW Normal [facility] Comment on above: Result Comment: DESIRED INR: 2.0 - 3.0 C ONDITIONS NOT LISTED BELOW 2.5 - 3.5 FOR PROSTHETIC HEART VALVE REPLACEMENT 2.5 - 3.5 RECURRENT THROMBOSIS Performed By: #### P T, PTT #### [facility] [address] [place] [address] Dr. Nina Jackson PT Coag (PPP) [Time] 10.9 s Normal 9.0-11.6 [facility] Comment on above: Performed By: #### PT, PTT #### [facility] [address] [place] [address] Dr. Nina Jackson PTTon 08-13-2022 aPTT Coag (Bld) [Time] 27.1 s Normal 22.3-36.2 [facility] Comment on above: Performed By: #### PT, PTT #### [facility] [address] [place] [address] Dr. Nina Jackson AMYLASEon 04-22-2022 Amylase [Catalytic activity/Vol] 38 U/L Normal 25-115 [facility] [place] Comment on above: Performed By: #### ERUR #### [facility] [address] [place] [address] Dr. Nina Jackson CARDIAC VIRAL ADMITon 022 CK [Catalytic activity/Vol] 160 U/L Normal 39-308 [facility] Comment on above: Performed By: #### ERUR #### [facility] [address] [place] [address] Dr. Nina Jackson CK.MB [Mass/Vol] 1.75 ng/mL Normal <=3.60 [facility] Comment on above: Performed By: #### ERUR #### [facility] [address] [place] [address] Dr. Nina Jackson HSTROP 11.7 pg/mL Normal 4.0-76.1 [facility] Comment on above: Result Comment: CUT-OFF POINTS HAVE BEEN ESTABLISHED BASED ON THE FOURTH UNIVERSAL DEFINITIONS OF MYOCARDIAL INFARCTION. THE UPPER REFERENCE LIMIT (URL) OF TROPONIN, DEFINED THE 99TH PERCENTILE OF cTnI DISTRIBUTION IN A REFERENCE POPULATION, HAS BEEN CONFIRMED THE DECISION THRESHOLD FOR CA DIAGNOSIS. Performed By: #### E RUR #### [facility] [address] [place] [address] Dr. Nina Jackson SHI 266 ng/mL Critically high 16-96 [facility] Comment on above: Performed By: #### ERUR #### [facility] [address] [place] [address] Dr. Nina Jackson CBC W MANUAL DIFFon 04-22-20 22 ATYPICAL LYMPH # Normal [facility] Comment on above: Performed By: #### ERUR #### [facility] [address] [place] [address] Dr. Nina Jackson ATYPICAL LYMPH % Normal [facility] Comment on above: Performed By: #### ERUR #### [facility] [address] [place] [address] Dr. Nina Jackson BAND # Normal 0.0-0.3 [facility] Comment on above: Performed By: #### ERUR #### [facility] [address] [place] [address] Dr. Nina Jackson BAND % Normal 0-5 [facility] Comment on above: Performed By: #### ERUR #### [facility] [address] [place] [address] Dr. Nina Jackson BASOM # 0.00 103/ul Normal 0.00-0.10 [facility] Comment on above: Performed By: #### ERUR #### [facility] [address] [place] [address] Dr. Nina Jackson BASOM % 0.0 % Critically low 0.2-2.0 [facility] Comment on above: Performed By: #### ERUR #### [facility] [address] [place] [address] Dr. Nina Jackson BLAST # Normal [facility] Comment on above: Performed By: #### ERUR #### [facility] [address] [place] [address] Dr. Nina Jackson BLAST % Normal [facility] Comment on above: Performed By: #### ERUR #### [facility] [address] [place] [address] Dr. Nina Jackson CORRECTED WBC Normal 4.0-11.0 [facility] Comment on above: Performed By: #### ERUR #### [facility] [address] [place] [address] Dr. Nina Jackson EOS # 0.00 103/ul Normal 0.00-0.70 [facility] Comment on above: Performed By: #### ERUR #### [facility] [address] [place] [address] Dr. Nina Jakcson EOS% 0.0 % Critically low 0.9-7.0 [facility] Comment on above: Performed By: #### ERUR #### [facility] [address] [place] [address] Dr. Nina Jackson HCT 38.7 % Critically low 42.0-54.0 [facility] Comment on above: Performed By: #### ERUR #### [facility] [address] [place] [address] Dr. Nina Jackson HGB 13.2 g/dl Critically low 14.0-18.0 [facility] Comment on above: Performed By: #### ERUR #### [facility] [address] [place] [address] Dr. Nina Jackson LYMPHM # 0.74 103/ul Critically low 1.20-3.80 [facility] Comment on above: Performed By: #### ERUR #### [facility] [address] [place] [address] Dr. Nina Jackson LYMPHM% 4.0 % Critically low 20.5-60.0 [facility] Comment on above: Performed By: #### ERUR #### [facility] [address] [place] [address] Dr. Nina Jackson MCH 30.8 pg Normal 25.9-34.0 [facility] Comment on above: Performed By: #### ERUR #### [facility] [address] [place] [address] Dr. Nina Jackson MCHC 34.1 g/dl Normal 29.9-35.2 [facility] Comment on above: Performed By: #### ERUR #### [facility] [address] [place] [address] Dr. Nina Jackson MCV 90.2 fL Normal 80.0-94.0 [facility] Comment on above: Performed By: #### ERUR #### [facility] [address] [place] [address] Dr. Nina Jackson METAMYELOCYTE # Normal [facility] Comment on above: Performed By: #### ERUR #### [facility] [address] [place] [address] Dr. Nina Jackson METAMYELOCYTE % Normal [facility] Comment on above: Performed By: #### ERUR #### [facility] [address] [place] [address] Dr. Nina Jackson MONOM# 1.84 103/ul Critically high 0.30-0.80 [facility] Comment on above: Performed By: #### ERUR #### [facility] [address] [place] [address] Dr. Nina Jackson MONOM% 10.0 % Normal 1.7-12.0 [facility] [place] Comment on above: Performed By: #### ERUR #### [facility] [address] [place] [address] Dr. Nina Jackson MPV 11.4 fL Normal 9.5-13.5 [facility] Comment on above: Performed By: #### ERUR #### [facility] [address] [place] [address] Dr. Nina Jackson MYELOCYTE # Normal [facility] Comment on above: Performed By: #### ERUR #### [facility] [address] [place] [address] Dr. Nina Jackson MYELOCYTE % Normal [facility] Comment on above: Performed By: #### ERUR #### [facility] [address] [place] [address] Dr. Nina Jackson NRBC Normal [facility] Comment on above: Performed By: #### ERUR #### [facility] [address] [place] [address] Dr. Nina Jackson PLT 172 103/ul Normal 150-450 [facility] Comment on above: Performed By: #### ERUR #### [facility] [address] [place] [address] Dr. Nina Jackson RBC 4.29 106/ul Critically low 4.70-6.10 [facility] Comment on above: Performed By: #### ERUR #### [facility] [address] [place] [address] Dr. Nina Jackson RDW 13.0 % Normal 11.0-15.0 [facility] Comment on above: Performed By: #### ERUR #### [facility] [address] [place] [address] Dr. Nina Jackson SEG # 15.82 103/ul Critically high 1.40-6.50 [facility] Comment on above: Performed By: #### ERUR #### [facility] [address] [place] [address] Dr. Nina Jackson SEG % 86.0 % Critically high 43.0-75.0 [facility] Comment on above: Performed By: #### ERUR #### [facility] [address] [place] [address] Dr. Nina Jackson WBC 18.4 103/ul Critically high 4.0-11.0 [facility] Comment on above: Performed By: #### ERUR #### [facility] [address] [place] [address] ABD/PELV W CONon 04-22-[address] ABD/PELV W CON EXAMINATION: CT ABD/PELV W CON HISTORY: UNSPECIFIED ABDOMINAL PAIN COMPARISON: None. TECHNIQUE: Axial CT images were obtained of the abdomen and pelvis without and with intravenous contrast. Multiplanar reconstructions were performed. Dose reduction techniques were achieved by using automated exposure control and/or adjustment of mA and/or kV according to patient size and/or use of iterative reconstruction technique. ABDOMEN/PELVIS FINDINGS: Lower Chest: Unremarkable. Liver: Normal enhancement and contour. Biliary/Gallbladder: Unremarkable. Pancreas: Mild fat stranding is present about the head of pancreas. There is no pancreatic ductal dilatation. No fluid collection is identified. Spleen: Unremarkable. Adrenal Glands: Unremarkable. Kidneys: Multiple small cysts are present in the kidneys bilaterally. No hydronephrosis identified. Calcifications at the renal hilum are likely vascular. Gastrointestinal/Perit oneum: No dilated loops of bowel. Moderate colonic diverticulosis is present. The appendix is unremarkable. No free air or free fluid. Vascular: Moderate scattered atherosclerotic calcifications are present. There is an infrarenal aortic aneurysm measuring 3.3 cm in diameter. Lymph Nodes: No enlarged lymph nodes by CT size criteria. Pelvic Organs: Unremarkable. Bladder: Unremarkable. Bones: No acute osseous abnormality. Moderate multilevel degenerative changes are present in the visualized spine. Soft tissues: Unremarkable. IMPRESSION: 1. Fat stranding present about the head of the pancreas, consistent with acute pancreatitis without complication. 2. Moderate colonic diverticulosis. 3. Infrarenal aortic aneurysm measuring 3.3 cm. Electronically authenticated by: WENDY PASCUAL Date: 2022-04-22 09:07 Normal [facility] ER URINE PROFILEon 2 Bilirubin Ql (U) Negative Normal NEGATIVE [facility] Comment on above: Performed By: #### ERUR #### [facility] [address] [place] [address] Dr. Nina Jackson Clarity (U) CLEAR Normal CLEAR [facility] Comment on above: Performed By: #### ERUR #### [facility] [address] [address] [address] Nina Jackson Color (U) LT. YELLOW Normal YELLOW [facility] Comment on above: Performed By: #### ERUR #### [facility] [address] [address] [address] Nina Jackson ERUAHD A micrscopic examination will be performed if indicated. Normal [facility] Comment on above: Performed By: #### ERUR #### [facility] [address] [place] [address] Dr. Nina Jackson Glucose Ql (U) Negative Normal NEGATIVE [facility] Comment on above: Performed By: #### ERUR #### [facility] [address] [place] [address] Dr. Nina Jackson Hemoglobin Ql (U) Negative Normal NEGATIVE [facility] Comment on above: Performed By: #### ERUR #### [facility] [address] [place] [address] Dr. Nina Jackson Ketones Ql (U) Negative Normal NEGATIVE [facility] Comment on above: Performed By: #### ERUR #### [facility] [address] [place] [address] Dr. Nina Jackson LEUKOCYTES Negative Normal NEGATIVE [facility] Comment on above: Performed By: #### ERUR #### [facility] [address] [place] [address] Dr. Nina Jackson Nitrite Ql (U) Negative Normal NEGATIVE [facility] Comment on above: Performed By: #### ERUR #### [facility] [address] [place] [address] Dr. Nina Jackson pH (U) 7.5 [pH] Normal 5-9 [facility] Comment on above: Performed By: #### ERUR #### [facility] [address] [place] [address] Dr. Nina Jackson SPEC GRAVITY 1.010 Normal 1.005-<=1.025 [facility] Comment on above: Performed By: #### ERUR #### [facility] [address] [place] [address] Dr. Nina Jackson UA PROTEIN Negative Normal NEGATIVE/ TRACE [facility] Comment on above: Performed By: #### ERUR #### [facility] [address] [place] [address] Dr. Nina Jackson UR MICRO IND NOT INDICATED Normal [facility] Comment on above: Performed By: #### ERUR #### [facility] [address] [place] [address] Dr. Nina Jackson Urobilinogen Qn (U) 0.2 {Kurtis'U}/dL Normal 0.2 - 1.0 [facility] Comment on above: Performed By: #### ERUR #### [facility] [address] [place] [address] Dr. Nina Jackson LACTATE/LACTIC ACIDon 2021 Lactate [Moles/Vol] 1.0 mmol/L Normal 0.4-1.9 [facility] Comment on above: Performed By: #### ERUR #### [facility] [address] [place] [address] Dr. Nina Jackson LIPASEon 04-22-2022 Lipase [Catalytic activity/Vol] 189.0 U/L Normal 73.0-393.0 [facility] Comment on above: Performed By: #### ERUR #### [facility] [address] [place] [address] Dr. Nina Jackson PROF 14(COMP METB)on 022 Albumin [Mass/Vol] 3.5 g/dL Normal 3.4-5.0 [facility] Comment on above: Performed By: #### ERUR #### [facility] [address] [place] [address] Dr. Nina Jackson Albumin/Globulin [Mass ratio] 0.9 {ratio} Normal [facility] Comment on above: Performed By: #### ERUR #### [facility] [address] [place] [address] Dr. Nina Jackson ALP [Catalytic activity/Vol] 79 U/L Normal 46-116 [facility] Comment on above: Performed By: #### ERUR #### [facility] [address] [place] [address] Dr. Nina Jackson ALT [Catalytic activity/Vol] 28 U/L Normal 16-63 [facility] Comment on above: Performed By: #### ERUR #### [facility] [address] [place] [address] Dr. Nina Jackson Anion gap [Moles/Vol] 13.8 mmol/L Normal [facility] Comment on above: Performed By: #### ERUR #### [facility] [address] [address] [address] Nina Jackson AST [Catalytic activity/Vol] 26 U/L Normal 15-37 [facility] Comment on above: Performed By: #### ERUR #### [facility] [address] [address] [address] Nina Jackson Bilirubin [Mass/Vol] 0.6 mg/dL Normal 0.2-1.0 [facility] Comment on above: Performed By: #### ERUR #### [facility] [address] [address] [address] Nina Jackson Calcium [Mass/Vol] 9.1 mg/dL Normal 8.5-10.1 [facility] Comment on above: Performed By: #### ERUR #### [facility] [address] [address] [address] Nina Jackson Chloride [Moles/Vol] 100 mmol/L Normal 98-107 [facility] Comment on above: Performed By: #### ERUR #### [facility] [address] [address] [address] Nina Jackson CO2 [Moles/Vol] 26.9 mmol/L Normal 21.0-32.0 [facility] Comment on above: Performed By: #### ERUR #### [facility] [address] [address] [address] Nina Jackson Creatinine [Mass/Vol] 1.34 mg/dL Critically high 0.70-1.30 [facility] Comment on above: Performed By: #### ERUR #### [facility] [address] [address] [address] Nina Jackson EGFR-AF ISRAELI >60 Normal >=60 [facility] Comment on above: Performed By: #### ERUR #### [facility] [address] [address] [address] Nina Jackson EGFR-NON AF ISRAELI 51 mL/min/1.73m2 Critically low >=60 [facility] Comment on above: Performed By: #### ERUR #### [facility] [address] [address] [address] Nina Jackson Globulin (S) [Mass/Vol] 3.9 g/dL Normal [facility] Comment on above: Performed By: #### ERUR #### [facility] [address] [address] [address] Nina Jackson Glucose [Mass/Vol] 140 mg/dL Critically high 74-106 [facility] Comment on above: Performed By: #### ERUR #### [facility] [address] [address] [address] Nina Jackson Potassium [Moles/Vol] 3.7 mmol/L Normal 3.5-5.1 [facility] Comment on above: Performed By: #### ERUR #### [facility] [address] [place] [address] Dr. Nina Jackson Protein [Mass/Vol] 7.4 g/dL Normal 6.4-8.2 [facility] Comment on above: Performed By: #### ERUR #### [facility] [address] [place] [address] Dr. Nina Jackson Sodium [Moles/Vol] 137 mmol/L Normal 136-145 [facility] Comment on above: Performed By: #### ERUR #### [facility] [address] [place] [address] Dr. Nina Jackson Urea nitrogen [Mass/Vol] 15.0 mg/dL Normal 7.0-18.0 [facility] Comment on above: Performed By: #### ERUR #### [facility] [address] [address] [address] Nina Jackson Urea nitrogen/Creatin ine [Mass ratio] 11.2 mg/mg Normal [facility] Comment on above: Performed By: #### ERUR #### [facility] [address] [place] [address] Dr. Nina Jackson US SINGLE QUAD RT UPPERon US SINGLE QUAD RT UPPER EXAMINATION: US SINGLE QUAD RT UPPER HISTORY: UNSPECIFIED ABDOMINAL PAIN COMPARISON: No relevant comparison available. FINDINGS: The visualized increase is prominent in size and slightly hyperechoic with no focal mass. The liver is normal in size, contour and echotexture. No focal solid mass. Hepatopedal flow in the main portal vein The gallbladder is normal in size. The wall measures 2.8 mm. 4 mm layering echogenic focus likely gallstone. Negative sonographic Cerda sign. Common bile duct measures 5 mm, normal. The right kidney measures 10.1 x 5.3 x 5.0 cm. Area of anechoic echogenicity measuring 2.7 cm, simple cyst. No hydronephrosis. IMPRESSION: Prominent echogenic pancreas, consider pancreatitis 4 mm gallstone without evidence of cholecystitis Electronically authenticated by: JESSENIA CORTES Date: 2022-04-22 10:55 Normal [facility] XR CHEST 1 Von 04-22-2022 XR CHEST 1 V EXAM: Chest x-ray. HISTORY: . UNSPECIFIED ABDOMINAL PAIN . COMPARISON: None. TECHNIQUE: Single view of the chest FINDINGS: Heart and vascularity are unremarkable. Lungs are expanded and free of focal infiltrates. Median sternotomy sutures are noted. IMPRESSION: No acute heart or lung disease identified. Electronically authenticated by: JESSENIA CUTLER Date: 2022-04-22 08:57 Normal [facility] Vital Signs Date Time Vital Sign Value Performing Clinician Facility 07-28-2023 07:42-0500 Blood Pressure Location Everton ZALDIVAR [facility] 07-28-2023 07:42-0500 Diastolic blood pressure 78 mm[Hg] Everton ZALDIVAR [facility] 07-28-2023 07:42-0500 Heart rate 70 /min Everton ZALDIVAR [facility] 07-28-2023 07:42-0500 Respiratory rate 16 /min Everton ZALDIVAR [facility] 07-28-2023 07:42-0500 Systolic blood pressure 129 mm[Hg] Everton ZALDIVAR [facility] 06-22-2023 08:53-0400 Blood Pressure Location KAREN LURDES [facility] 06-22-2023 08:53-0400 Diastolic blood pressure 70 mm[Hg] KAREN LURDES [facility] 06-22-2023 08:53-0400 Heart rate 72 /min KAREN LURDES [facility] 06-22-2023 08:53-0400 Respiratory rate 16 /min KAREN LURDES [facility] 06-22-2023 08:53-0400 Systolic blood pressure 146 mm[Hg] KAREN LURDES [facility] 06-15-2023 09:16-0400 Blood Pressure Location KAREN LURDES [facility] 06-15-2023 09:16-0400 Diastolic blood pressure 82 mm[Hg] KAREN LURDES [facility] 06-15-2023 09:16-0400 Heart rate 82 /min KAREN LURDES [facility] 06-15-2023 09:16-0400 Respiratory rate 16 /min KAREN LURDES [facility] 06-15-2023 09:16-0400 Systolic blood pressure 130 mm[Hg] KAREN LURDES [facility] 05-25-2023 09:03-0400 Blood Pressure Location KAREN LURDES [facility] 05-25-2023 09:03-0400 Diastolic blood pressure 66 mm[Hg] KAREN ORTEZRY [facility] 05-25-2023 09:03-0400 Heart rate 70 /min KAREN CHATMAN [facility] 05-25-2023 09:03-0400 Respiratory rate 16 /min KAREN CHATMAN [facility] 05-25-2023 09:03-0400 Systolic blood pressure 133 mm[Hg] KAREN LURDES [facility] 04-20-2023 09:26-0400 Blood Pressure Location Everton ZALDIVAR [facility] 04-20-2023 09:26-0400 Body temperature 98.78 [degF] Everton ZALDIVAR [facility] 04-20-2023 09:26-0400 Diastolic blood pressure 88 mm[Hg] Everton ZALDIVAR [facility] 04-20-2023 09:26-0400 Heart rate 78 /min Everton ZALDIVAR [facility] 04-20-2023 09:26-0400 Systolic blood pressure 132 mm[Hg] Everton ZALDIVAR [facility] 03-23-2023 07:21-0400 Blood Pressure Location Everton ZALDIVAR [facility] 03-23-2023 07:21-0400 Diastolic blood pressure 81 mm[Hg] Everton ZALDIVAR [facility] 03-23-2023 07:21-0400 Heart rate 80 /min Evertonmichelle ZALDIVAR [facility] 03-23-2023 07:21-0400 Respiratory rate 16 /min Everton ZALDIVAR [facility] 03-23-2023 07:21-0400 Systolic blood pressure 129 mm[Hg] Everton ZALDIVAR [facility] 07-20-2022 14:35-0500 Blood Pressure Location Evertonmichelle ZALDIVAR [facility] 07-20-2022 14:35-0500 Diastolic blood pressure 78 mm[Hg] Everton ZALDIVAR [facility] 07-20-2022 14:35-0500 Heart rate 68 /min Evertonmichelle ZALDIVAR [facility] 07-20-2022 14:35-0500 Respiratory rate 16 /min Everton ZALDIVAR [facility] 07-20-2022 14:35-0500 Systolic blood pressure 128 mm[Hg] Everton ZALDIVAR [facility] Encounters Encounter Date Encounter Type Care Provider Facility Start: 09-24-2023 ambulatory Everton Fraseri ty:[facility] [place] Start: 09-16-2023 ambulatory Everton Fraseri ty:[id number] Start: 07-28-2023 End: 07-29-2023 ambulatory Everton ZALDIVAR Facility:[facility] Start: 07-28-2023 End: 07-28-2023 Lab Drop off Everton ZALDIVAR [facility] Start: 07-28-2023 End: 07-29-2023 ambulatory Everton ZALDIVAR Facility:[facility] [place] Start: 07-28-2023 End: 07-28-2023 Patient encounter procedure Everton ZALDIVAR [facility] Start: 07-26-2023 ambulatory Everton ZALDIVAR Facili ty:[facility] [place] Start: 06-29-2023 End: 06-30-2023 ambulatory KAREN E LURDES Facility:[facility] Start: 06-29-2023 End: 06-29-2023 Patient encounter procedure KAREN E LURDES [facility] Start: 06-22-2023 End: 06-23-2023 ambulatory KAREN E LURDES Facility:[facility] Start: 06-22-2023 End: 06-22-2023 Patient encounter procedure KAREN E LURDES [facility] Start: 06-15-2023 End: 06-16-2023 ambulatory KAREN E LURDES [facility] Start: 06-15-2023 End: 06-15-2023 Patient encounter procedure [facility]AREN E LURDES [facility] Start: 06-08-2023 End: 06-09-2023 ambulatory KAREN E LURDES Facility:[facility] Start: 06-08-2023 End: 06-08-2023 Patient encounter procedure KAREN E LURDES [facility] Start: 06-01-2023 End: 06-02-2023 ambulatory KAREN E LURDES Facility:[facility] Start: 05-25-2023 End: 05-26-2023 ambulatory KAREN CHATMAN Facility:[facility] Start: 05-25-2023 End: 05-25-2023 Patient encounter procedure [facility]AREN CHATMAN [facility] Start: 05-18-2023 End: 05-19-2023 ambulatory KAREN CHATMAN Facility:[facility] Start: 05-11-2023 End: 05-12-2023 ambulatory KAREN E LURDES Facility:[facility] Start: 04-20-2023 End: 04-21-2023 ambulatory Everton White ZALDIVAR Facility:[facility] [place] Start: 04-20-2023 End: 04-20-2023 Patient encounter procedure Everton R ZALDIVAR [facility] Start: 04-14-2023 ambulatory Everton R ZALDIVAR Facili ty:[facility] [place] Start: 04-08-2023 End: 04-09-2023 ambulatory Everton R ZALDIVAR Facility:[id number] Start: 03-23-2023 End: 03-24-2023 ambulatory Everton R ZALDIVAR Facility:[facility] [place] Start: 03-23-2023 End: 03-23-2023 Patient encounter procedure Everton R ZALDIVAR [facility] Start: 03-15-2023 ambulatory Everton R ZALDIVAR Facili ty:[id number] Start: 03-12-2023 End: 03-13-2023 ambulatory Everton R ZALDIVAR Facility:[facility] Start: 03-12-2023 End: 03-13-2023 ambulatory Everton R ZALDIVAR Facility:[facility] [place] Start: 02-08-2023 End: 02-09-2023 ambulatory Everton R ZALDIVAR Facility:[facility] [place] Start: 02-08-2023 End: 02-08-2023 Patient encounter procedure Everton R ZALDIVAR [facility] Start: 01-12-2023 End: 01-13-2023 ambulatory Everton ZALDIVAR Facility:[facility] Start: 11-30-2022 End: 12-01-[address] EVERTON ZALDIVAR . Facility: Start: 11-23-2022 End: 11-24-2022 ambulatory SHANELL ZALDIVAR Facility:[facility] Start: 11-23-2022 End: 11-23-2022 Patient encounter procedure SHANELL ZALDIVAR [facility] Start: 10-26-2022 End: 10-26-[address] EVERTON ZALDIVAR . Facility: Start: 10-20-2022 End: 10-21-2022 ambulatory Everton ZALDIVAR Facility:[facility] Start: 10-20-2022 End: 10-20-2022 Patient encounter procedure [facility] Start: 09-28-2022 End: 09-29-[address] EVERTON ZALDIVAR . Facility: Start: 09-22-2022 End: 09-23-2022 ambulatory KAREN CHATMAN Facility:[facility] Start: 09-22-2022 End: 09-22-2022 Lab Drop off KAREN CHATMAN [facility] Start: 09-22-2022 End: 09-23-2022 ambulatory KAREN CHATMAN Facility:[facility] Start: 09-22-2022 End: 09-22-2022 Patient encounter procedure KAREN CHATMAN [facility] Start: 08-31-2022 End: 09-01-2022 ambulatory Everton ZALDIVAR Facility:[facility] Start: 08-27-2022 End: 08-27-2022 Patient encounter procedure Everton ZALDIVAR [facility] Start: 08-20-2022 Encounter for preprocedural laboratory examination DR EVERTON ZALDIVAR . [facility] Start: 08-20-2022 End: 08-20-[address] EVERTON ZALDIVAR . Facility:[facility] Start: 08-13-2022 End: 08-14-[address] EVERTON ZALDIVAR . Facility:[facility] Start: 08-13-2022 End: 08-14-2022 Encounter for preprocedural laboratory examination DR EVERTON ZALDIVAR . Facility:[facility] Start: 07-28-2022 End: 07-28-2022 Patient encounter procedure Everton ZALDIVAR [facility] Start: 07-20-2022 End: 07-20-2022 Patient encounter procedure Everton ZALDIVAR [facility] Start: 04-22-2022 End: 04-22-2022 ambulatory NONE LISTED REQUEST Facility:[facility] Procedures Date Procedure Procedure Detail Performing Clinician Start: 07-28-2023 Transurethral cystoscopy Everton ZALDIVAR Start: 04-08-2023 Transurethral resect ion of bladder neoplasm Everton ZALDIVAR Start: 03-23-2023 Cystoscopy Everton NELSON Start: 08-20-2022 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 KAREN CHATMAN Start: 08-23-2016 Coronary artery bypa ss graft Everton ZALDIVAR Immunizations Immunization Date Immunization Notes Care Provider Fa aj 06-29-2023 bacillus calmette-mookie vaccine KAREN CHATMAN [facility] 06-29-2023 bacillus calmette-mookie vaccine KAREN LURDES [facility] 06-22-2023 bacillus calmette-mookie vaccine KAREN LURDES [facility] 06-15-2023 bacillus calmette-mookie vaccine KAREN LURDES [facility] 06-08-2023 bacillus calmette-mookie vaccine KAREN LURDES [facility] 05-25-2023 bacillus calmette-mookie vaccine KAREN LURDES [facility] 05-22-2023 influenza virus vaccine, unspecified formulation KAREN LURDES [facility] 05-18-2023 bacillus calmette-mookie vaccine KAREN LURDES [facility] 08-29-2022 SARS-CoV-2 (COVID-19 ) [id number] Evertonmichelle ZALDIVAR [facility] 02-14-2022 SARS-CoV-2 (COVID-19 ) mRNA-1273 vaccine Everton ZALDIVAR [facility] 08-05-2021 SARS-CoV-2 (COVID-19 ) mRNA-1273 vaccine Everton ZALDIVAR [facility] 11-18-2020 SARS-CoV-2 (COVID-19 ) mRNA-1273 vaccine Everton ZALDIVAR [facility] Comment on above: Result Comment: 2021: [id number] 10-18-2020 SARS-CoV-2 (COVID-19 ) mRNA-9926 vaccine Everton ZALDIVAR [facility] Comment on above: Result Comment: 2021: [id number] Payers Date Payer Category Payer Unknown [id number] 1940 Unknown [id number] 2.16.84 0.1.538680.3.579.2.593 1940 Unknown [id number] 2.16.84 0.1.562997.3.579.2.593 1942 Unknown [id number] 2.16.84 0.1.670666.3.579.2.593 1942 Unknown [id number] 2.16.84 0.1.398625.3.579.2.593 1942 Unknown [id number] 2.16.84 0.1.808089.3.579.2.593 1942 Unknown [id number] 2.16.84 0.1.959321.3.579.2.593 1942 Unknown [id number] 2.16.8 40.1.849872.3.579.2.727 1942 Unknown [id number] 2.16.8 40.1.113871.3.579.2.727 1942 Unknown [id number] 2.16.8 40.1.494848.3.579.2.727 1942 Unknown [id number] 2.16.8 40.1.119817.3.579.2.727 1942 Unknown [id number] 2.16.8 40.1.431030.3.579.2.727 1942 Unknown [id number] 2.16.8 40.1.120351.3.579.2.727 1942 Unknown [id number] 2.16.8 40.1.451795.3.579.2.727 1942 Unknown [id number] 2.16.8 40.1.565612.3.579.2 1942 Unknown [id number] 2.16.8 40.1.175509.3.579.2 1942 Unknown [id number] 2.16.8 40.1.195800.3.579.2 1942 Unknown [id number] 2.16.8 40.1.899571.3.579.2 1942 Unknown [id number] 2.16.8 40.1.213942.3.579.2 1942 Unknown [id number] 2.16.8 40.1.632127.3.579.2 1942 Unknown [id number] 2.16.8 40.1.738543.3.579.2 1942 Unknown [id number] 2.16.8 40.1.222451.3.579.2 1942 Unknown [id number] 2.16.8 40.1.461006.3.579.2 1942 Unknown [id number] 2.16.8 40.1.573583.3.579.2 1942 Unknown [id number] 2.16.8 40.1.794355.3.579.2 1942 Unknown [id number] 2.16.8 40.1.264177.3.579.2 1942 Unknown [id number] 2.16.8 40.1.549259.3.579.2 1942 Unknown [id number] 2.16.8 40.1.671104.3.579.2 1942 Unknown [id number] 2.16.8 40.1.769857.3.579.2 1942 Unknown [id number] 2.16.8 40.1.635399.3.579.2.727 1942 Unknown [id number] 2.16.8 40.1.631997.3.579.2.727 1942 Unknown [id number] 2.16.8 40.1.593847.3.579.2.727 1942 Unknown [id number] 2.16.8 40.1.827665.3.579.2.727 1942 Unknown [id number] 2.16.8 40.1.095205.3.579.2.727 1942 Unknown [id number] 2.16.8 40.1.417687.3.579.2.727 1942 Unknown [id number] 2.16.8 40.1.600078.3.579.2.727 1942 Unknown [id number] 2.16.8 40.1.365587.3.579.2.727 Social History Date Type Detail Facility Start: 07-20-2022 End: 06-15-2023 Tobacco smoking status Never smoked tobacco (finding) [facility] Sex Assigned At Male [facility] Tobacco smoking status Never [facility] Functional Status Date Assessment Result Facility 07-28-2023 Functional Status N/A [facility] 06-29-2023 Functional Status N/A [facility] 06-22-2023 Functional Status N/A [facility] 06-15-2023 Functional Status N/A [facility] 06-08-2023 Functional Status N/A [facility] 05-25-2023 Functional Status N/A [facility] 04-20-2023 Functional Status N/A [facility] 03-23-2023 Functional Status N/A [facility] 07-20-2022 Functional Status N/A [facility] Clinical Notes 07-20-2022 to 07-28-2023 Note Date & Type Note Facility 07-28-2023 Evaluation + Plan note Diagnostic Tests [facility] 07/28/23 [facility] 07-28-2023 Hospital Discharge instructions Patient Education 07/28/2023 07:40:16 Cancer Screening for Men Cancer Screening for Men A cancer screening is a test or exam that checks for cancer. Your health care provider will recommend specific cancer screenings based on your age, medical history (including risk factors), and family history of cancer. Work with your health care provider to create a cancer screening schedule that protects your health. Who should have screening? All men should be considered for screening of certain cancers, including colorectal cancer, prostate cancer, lung cancer, and skin cancer. Your health care provider may recommend screenings for other types of cancer if: You had cancer before. You have a family member with cancer. You have abnormal genes that could increase the risk of cancer. You have risk factors for certain cancers, such as current or past use of tobacco products, or being overweight. When you should be screened for cancer depends on: Your age. Your medical history and your family's medical history. Certain lifestyle factors, such as smoking or other use of tobacco products. Environmental exposure, such as to asbestos. How is screening done? Colorectal cancer All adults should have screenings starting at age 45 and continuing until age 75. Your health care provider may recommend screening before age 45. You will have tests every 1 10 years, depending on your results and the type of screening test. People at increased risk should start screening at an earlier age. Talk with your health care provider about which screening test is right for you and how often you should be screened. Colorectal cancer screening looks for cancer or for growths called polyps that often form before cancer starts. Tests to look for cancer or polyps include: Colonoscopy or flexible sigmoidoscopy. For these procedures, a flexible tube with a small camera is inserted into the rectum. CT colonography. This test uses X-rays and a contrast dye to check the colon for polyps. If a polyp is found, you may need to have a colonoscopy so the polyp can be located and removed. Tests to look for cancer in the stool (feces) include: Guaiac-based fecal occult blood test (FOBT). This test can find blood in stool. It can be done at home with a kit. Fecal immunochemical test (FIT). This test can find blood in stool. For this test, you will need to collect stool samples at home. Stool DNA test. This test looks for blood in stool and any changes in DNA that can lead to colon cancer. For this test, you will need to collect a stool sample at home and send it to a lab. Prostate cancer Prostate cancer screening for men with average risk may start at age 50. Men with risk factors may need to be screened earlier, at ages 40 45. Talk with your health care provider about whether screening is right for you and, if so, how often you should be screened. Prostate cancer screening is done with blood tests and a digital rectal exam. During this exam, a health care provider uses a gloved finger to check prostate size. You may need to be screened for prostate cancer if: You have risk factors for prostate cancer, such as being or having a close family member with prostate cancer. You have had gene changes or a genetic condition that was passed on to you from a parent (inherited). These gene changes or genetic conditions include BRCA1 or BRCA2 gene mutations or Damon syndrome. You have symptoms of prostate cancer, such as problems urinating or problems getting or keeping an erection (erectile dysfunction). When you have been screened for prostate cancer, future screening may be recommended based on the results of your blood tests. Lung cancer Lung cancer screening is done with a CT scan that looks for abnormal changes in the lungs. Discuss lung cancer screening with your health care provider if you are 50 80 years old and if any of the following apply to you: You currently smoke. You used to smoke heavily. You have a smoking history of 1 pack of cigarettes a day for 20 years or 2 packs a day for 10 years. You have quit smoking within the past 15 years. You may need to be screened every year if you smoke heavily or if you used to smoke. Skin cancer Skin cancer screening is done by checking the skin for unusual moles or spots and any changes in existing moles. Your health care provider should check your skin for signs of skin cancer at every physical exam. You should check your skin every month and tell your health care provider right away if anything looks unusual. Men with a hyvsel-zpco-kahqiu risk for skin cancer may want to see a senior quality assurance specialist (environmental projects advisor) for an annual body check. What are the benefits of screening? Cancer screening is done to look for cancer in the very early stages, before it spreads and becomes harder to treat and before you would start to notice symptoms. Finding cancer early improves the chances of successful treatment. It may save your life. Where to find more information [place] [employer]: www.cancer.org Centers for Disease Control and Prevention: www.cdc.gov National Cancer [place]: www.cancer.gov Contact a health care provider if: You have concerns about any signs or symptoms of cancer. These may include: Skin problems. You may have: ?Moles of an unusual shape or color. ?Changes in existing moles. ?A sore on your skin that does not heal. Tiredness (fatigue) that does not go away. Losing weight without trying. Blood in your urine or stool. Problems with urination. You may have: ?Changes in urination habits. ?Painful urination. Painful ejaculation. Problems with coughing or breathing. These may include: ?Coughing or trouble breathing that does not go away. ?Coughing up blood. Frequent pain or cramping in your abdomen. Summary Your health care provider will recommend specific cancer screenings based on your age, medical history, and family history of cancer. Work with your health care provider to create a cancer screening schedule that protects your health. Finding cancer early improves the chances of successful treatment. It may save your life. Contact a health care provider if you have concerns about any signs or symptoms of cancer. This information is not intended to replace advice given to you by your health care provider. Make sure you discuss any questions you have with your health care provider. Document Revised: 01/05/2022 Document Reviewed: 07/05/2020 Else[employer] Patient Education 2022 [employer]. Follow Up Care 06/29/2023 13:41:58 With:IVAN GAO, Everton White, URL Address: [facility] [address] , [place] [address]- When: Unknown [facility] 06-29-2023 Hospital Discharge instructions Patient Education 06/29/2023 09:12:20 Bladder Cancer Bladder Cancer Bladder cancer is a condition where abnormal tissue (a tumor) grows in the bladder. The bladder is the organ that holds urine. Two tubes (ureters) carry urine from the kidneys to the bladder. The bladder wall is made of layers of tissue. Cancer that spreads through these layers of the bladder wall becomes more difficult to treat. What increases the risk? The following factors may make you more likely to develop this condition: Smoking. Working where there are risks (occupational exposures), such as working with rubber, leather, clothing fabric, dyes, chemicals, or paint. Being 55 years of age or older. Being male. Having long-term bladder inflammation. Having a history of cancer. This includes: ?A family history of bladder cancer. ?Having had bladder cancer before. ?Having had certain treatments for cancer before, such as: ?Medicines to kill cancer cells (chemotherapy). ?Strong X-ray beams or high-energy capsules to kill cancer cells and shrink tumors (radiation therapy). Having been exposed to arsenic. This is a poisonous substance. What are the signs or symptoms? Early symptoms of this condition include: Blood in your urine. Pain when urinating. Infections of your urinary system (urinary tract infections or UTIs) that happen often. Having to urinate sooner or more often than normal. Late symptoms of this condition include: Not being able to urinate. Pain on one side of your lower back. Loss of appetite. Weight loss. Tiredness (fatigue). Swelling in your feet. Bone pain. How is this diagnosed? This condition is diagnosed based on: Your medical history. A physical exam. Lab tests, such as urine tests. Imaging tests. Your symptoms. You may also have other tests or procedures, such as: A cystoscopy. This involves putting a narrow tube into your urethra. The urethra is the organ that carries urine from your bladder to the outside of your body. This procedure is done to view the lining of your bladder for tumors. A biopsy. This involves removing a tissue sample to look at under a microscope to check for cancer. Blood tests or imaging tests may be needed. These show how far into the bladder wall cancer has grown, and if cancer has spread to any other parts of your body. Tests may include: CT scan. MRI. Bone scan. X-ray. How is this treated? Your health care provider may recommend one or more types of treatment based on the stage of your cancer. The most common treatments are: Surgery to remove the cancer. Types of surgeries include: ?Removing a tumor on the inside wall of the bladder (transurethral resection). ?Removing the bladder (cystectomy). Radiation therapy. This is often combined with chemotherapy. Chemotherapy. Immunotherapy. This uses medicines to help your body's disease-fighting system (immune system) destroy cancer cells. Follow these instructions at home: Take dzco-cdj-pvobyjc and prescription medicines only as told by your health care provider. If you were prescribed an antibiotic medicine, take it as told by your health care provider. Do not stop using the antibiotic even if you start to feel better. Eat a healthy diet. Some treatments might affect your appetite. Do not use any products that contain nicotine or tobacco. These products include cigarettes, chewing tobacco, and vaping devices, such as e-cigarettes. If you need help quitting, ask your health care provider. Consider joining a support group. This may help you learn to deal with the stress of having bladder cancer. Tell your cancer care team if you develop side effects. Your team may be able to recommend ways to get relief. Keep all follow-up visits. This is important. Where to find more information [place] [employer] (ACS): cancer.org National Cancer [place] (NCI): cancer.gov Contact a health care provider if: You have symptoms of a UTI. These include: ?Fever. ?Chills. ?Weakness. ?Muscle aches. ?Pain in your abdomen. ?Urge to urinate that is stronger and happens more often than normal. ?Burning in the bladder or urethra when you urinate. Get help right away if: There is blood in your urine. You cannot urinate. You have severe pain or other symptoms that do not go away. Summary Bladder cancer is a condition where tumors grow in the bladder. Diagnosis is based on your medical history, a physical exam, lab tests, imaging tests, and your symptoms. Your health care provider may recommend one or more types of treatment based on the stage of your cancer. Consider joining a support group. This may help you learn to deal with the stress of having bladder cancer. This information is not intended to replace advice given to you by your health care provider. Make sure you discuss any questions you have with your health care provider. Document Revised: 07/20/2022 Document Reviewed: 07/20/2022 [employer] Patient Education 2022 [employer]. Follow Up Care 06/01/2023 09:37:12 With:KAREN CHATMAN PA-C, URL Address: [address] [place] [address] [phone] When: Unknown Comments:has cysto 08/02/23 [facility] 06-22-2023 Hospital Discharge instructions Patient Education 06/22/2023 09:44:20 Bladder Cancer Bladder Cancer Bladder cancer is a condition where abnormal tissue (a tumor) grows in the bladder. The bladder is the organ that holds urine. Two tubes (ureters) carry urine from the kidneys to the bladder. The bladder wall is made of layers of tissue. Cancer that spreads through these layers of the bladder wall becomes more difficult to treat. What increases the risk? The following factors may make you more likely to develop this condition: Smoking. Working where there are risks (occupational exposures), such as working with rubber, leather, clothing fabric, dyes, chemicals, or paint. Being 55 years of age or older. Being male. Having long-term bladder inflammation. Having a history of cancer. This includes: ?A family history of bladder cancer. ?Having had bladder cancer before. ?Having had certain treatments for cancer before, such as: ?Medicines to kill cancer cells (chemotherapy). ?Strong X-ray beams or high-energy capsules to kill cancer cells and shrink tumors (radiation therapy). Having been exposed to arsenic. This is a poisonous substance. What are the signs or symptoms? Early symptoms of this condition include: Blood in your urine. Pain when urinating. Infections of your urinary system (urinary tract infections or UTIs) that happen often. Having to urinate sooner or more often than normal. Late symptoms of this condition include: Not being able to urinate. Pain on one side of your lower back. Loss of appetite. Weight loss. Tiredness (fatigue). Swelling in your feet. Bone pain. How is this diagnosed? This condition is diagnosed based on: Your medical history. A physical exam. Lab tests, such as urine tests. Imaging tests. Your symptoms. You may also have other tests or procedures, such as: A cystoscopy. This involves putting a narrow tube into your urethra. The urethra is the organ that carries urine from your bladder to the outside of your body. This procedure is done to view the lining of your bladder for tumors. A biopsy. This involves removing a tissue sample to look at under a microscope to check for cancer. Blood tests or imaging tests may be needed. These show how far into the bladder wall cancer has grown, and if cancer has spread to any other parts of your body. Tests may include: CT scan. MRI. Bone scan. X-ray. How is this treated? Your health care provider may recommend one or more types of treatment based on the stage of your cancer. The most common treatments are: Surgery to remove the cancer. Types of surgeries include: ?Removing a tumor on the inside wall of the bladder (transurethral resection). ?Removing the bladder (cystectomy). Radiation therapy. This is often combined with chemotherapy. Chemotherapy. Immunotherapy. This uses medicines to help your body's disease-fighting system (immune system) destroy cancer cells. Follow these instructions at home: Take cxrz-fuy-jzmoipk and prescription medicines only as told by your health care provider. If you were prescribed an antibiotic medicine, take it as told by your health care provider. Do not stop using the antibiotic even if you start to feel better. Eat a healthy diet. Some treatments might affect your appetite. Do not use any products that contain nicotine or tobacco. These products include cigarettes, chewing tobacco, and vaping devices, such as e-cigarettes. If you need help quitting, ask your health care provider. Consider joining a support group. This may help you learn to deal with the stress of having bladder cancer. Tell your cancer care team if you develop side effects. Your team may be able to recommend ways to get relief. Keep all follow-up visits. This is important. Where to find more information [place] [employer] (ACS): cancer.org National Cancer [place] (NCI): cancer.gov Contact a health care provider if: You have symptoms of a UTI. These include: ?Fever. ?Chills. ?Weakness. ?Muscle aches. ?Pain in your abdomen. ?Urge to urinate that is stronger and happens more often than normal. ?Burning in the bladder or urethra when you urinate. Get help right away if: There is blood in your urine. You cannot urinate. You have severe pain or other symptoms that do not go away. Summary Bladder cancer is a condition where tumors grow in the bladder. Diagnosis is based on your medical history, a physical exam, lab tests, imaging tests, and your symptoms. Your health care provider may recommend one or more types of treatment based on the stage of your cancer. Consider joining a support group. This may help you learn to deal with the stress of having bladder cancer. This information is not intended to replace advice given to you by your health care provider. Make sure you discuss any questions you have with your health care provider. Document Revised: 07/20/2022 Document Reviewed: 07/20/2022 [employer] Patient Education 2022 [employer]. Follow Up Care 05/10/2023 10:08:09 With:KAREN CHATAMN PA-C, URL Address: [address] [place] [place] [address] [phone] When: Unknown Comments:BCG #/ on 06/29/23 [facility] 06-15-2023 Hospital Discharge instructions Patient Education 06/15/2023 09:07:50 Bladder Cancer Bladder Cancer Bladder cancer is a condition where abnormal tissue (a tumor) grows in the bladder. The bladder is the organ that holds urine. Two tubes (ureters) carry urine from the kidneys to the bladder. The bladder wall is made of layers of tissue. Cancer that spreads through these layers of the bladder wall becomes more difficult to treat. What increases the risk? The following factors may make you more likely to develop this condition: Smoking. Working where there are risks (occupational exposures), such as working with rubber, leather, clothing fabric, dyes, chemicals, or paint. Being 55 years of age or older. Being male. Having long-term bladder inflammation. Having a history of cancer. This includes: ?A family history of bladder cancer. ?Having had bladder cancer before. ?Having had certain treatments for cancer before, such as: ?Medicines to kill cancer cells (chemotherapy). ?Strong X-ray beams or high-energy capsules to kill cancer cells and shrink tumors (radiation therapy). Having been exposed to arsenic. This is a poisonous substance. What are the signs or symptoms? Early symptoms of this condition include: Blood in your urine. Pain when urinating. Infections of your urinary system (urinary tract infections or UTIs) that happen often. Having to urinate sooner or more often than normal. Late symptoms of this condition include: Not being able to urinate. Pain on one side of your lower back. Loss of appetite. Weight loss. Tiredness (fatigue). Swelling in your feet. Bone pain. How is this diagnosed? This condition is diagnosed based on: Your medical history. A physical exam. Lab tests, such as urine tests. Imaging tests. Your symptoms. You may also have other tests or procedures, such as: A cystoscopy. This involves putting a narrow tube into your urethra. The urethra is the organ that carries urine from your bladder to the outside of your body. This procedure is done to view the lining of your bladder for tumors. A biopsy. This involves removing a tissue sample to look at under a microscope to check for cancer. Blood tests or imaging tests may be needed. These show how far into the bladder wall cancer has grown, and if cancer has spread to any other parts of your body. Tests may include: CT scan. MRI. Bone scan. X-ray. How is this treated? Your health care provider may recommend one or more types of treatment based on the stage of your cancer. The most common treatments are: Surgery to remove the cancer. Types of surgeries include: ?Removing a tumor on the inside wall of the bladder (transurethral resection). ?Removing the bladder (cystectomy). Radiation therapy. This is often combined with chemotherapy. Chemotherapy. Immunotherapy. This uses medicines to help your body's disease-fighting system (immune system) destroy cancer cells. Follow these instructions at home: Take gbvg-hbv-mprrxdi and prescription medicines only as told by your health care provider. If you were prescribed an antibiotic medicine, take it as told by your health care provider. Do not stop using the antibiotic even if you start to feel better. Eat a healthy diet. Some treatments might affect your appetite. Do not use any products that contain nicotine or tobacco. These products include cigarettes, chewing tobacco, and vaping devices, such as e-cigarettes. If you need help quitting, ask your health care provider. Consider joining a support group. This may help you learn to deal with the stress of having bladder cancer. Tell your cancer care team if you develop side effects. Your team may be able to recommend ways to get relief. Keep all follow-up visits. This is important. Where to find more information [place] [employer] (ACS): cancer.org National Cancer [place] (NCI): cancer.gov Contact a health care provider if: You have symptoms of a UTI. These include: ?Fever. ?Chills. ?Weakness. ?Muscle aches. ?Pain in your abdomen. ?Urge to urinate that is stronger and happens more often than normal. ?Burning in the bladder or urethra when you urinate. Get help right away if: There is blood in your urine. You cannot urinate. You have severe pain or other symptoms that do not go away. Summary Bladder cancer is a condition where tumors grow in the bladder. Diagnosis is based on your medical history, a physical exam, lab tests, imaging tests, and your symptoms. Your health care provider may recommend one or more types of treatment based on the stage of your cancer. Consider joining a support group. This may help you learn to deal with the stress of having bladder cancer. This information is not intended to replace advice given to you by your health care provider. Make sure you discuss any questions you have with your health care provider. Document Revised: 07/20/2022 Document Reviewed: 07/20/2022 [employer] Patient Education 2022 [employer]. Follow Up Care 05/03/2023 14:47:16 With:KAREN CHATMAN PA-C, URL Address: [address] [place] [address] When: Unknown [facility] 06-08-2023 Hospital Discharge instructions Patient Education 06/08/2023 09:50:47 Bladder Cancer Bladder Cancer Bladder cancer is a condition where abnormal tissue (a tumor) grows in the bladder. The bladder is the organ that holds urine. Two tubes (ureters) carry urine from the kidneys to the bladder. The bladder wall is made of layers of tissue. Cancer that spreads through these layers of the bladder wall becomes more difficult to treat. What increases the risk? The following factors may make you more likely to develop this condition: Smoking. Working where there are risks (occupational exposures), such as working with rubber, leather, clothing fabric, dyes, chemicals, or paint. Being 55 years of age or older. Being male. Having long-term bladder inflammation. Having a history of cancer. This includes: ?A family history of bladder cancer. ?Having had bladder cancer before. ?Having had certain treatments for cancer before, such as: ?Medicines to kill cancer cells (chemotherapy). ?Strong X-ray beams or high-energy capsules to kill cancer cells and shrink tumors (radiation therapy). Having been exposed to arsenic. This is a poisonous substance. What are the signs or symptoms? Early symptoms of this condition include: Blood in your urine. Pain when urinating. Infections of your urinary system (urinary tract infections or UTIs) that happen often. Having to urinate sooner or more often than normal. Late symptoms of this condition include: Not being able to urinate. Pain on one side of your lower back. Loss of appetite. Weight loss. Tiredness (fatigue). Swelling in your feet. Bone pain. How is this diagnosed? This condition is diagnosed based on: Your medical history. A physical exam. Lab tests, such as urine tests. Imaging tests. Your symptoms. You may also have other tests or procedures, such as: A cystoscopy. This involves putting a narrow tube into your urethra. The urethra is the organ that carries urine from your bladder to the outside of your body. This procedure is done to view the lining of your bladder for tumors. A biopsy. This involves removing a tissue sample to look at under a microscope to check for cancer. Blood tests or imaging tests may be needed. These show how far into the bladder wall cancer has grown, and if cancer has spread to any other parts of your body. Tests may include: CT scan. MRI. Bone scan. X-ray. How is this treated? Your health care provider may recommend one or more types of treatment based on the stage of your cancer. The most common treatments are: Surgery to remove the cancer. Types of surgeries include: ?Removing a tumor on the inside wall of the bladder (transurethral resection). ?Removing the bladder (cystectomy). Radiation therapy. This is often combined with chemotherapy. Chemotherapy. Immunotherapy. This uses medicines to help your body's disease-fighting system (immune system) destroy cancer cells. Follow these instructions at home: Take grwj-ukm-tzitkbt and prescription medicines only as told by your health care provider. If you were prescribed an antibiotic medicine, take it as told by your health care provider. Do not stop using the antibiotic even if you start to feel better. Eat a healthy diet. Some treatments might affect your appetite. Do not use any products that contain nicotine or tobacco. These products include cigarettes, chewing tobacco, and vaping devices, such as e-cigarettes. If you need help quitting, ask your health care provider. Consider joining a support group. This may help you learn to deal with the stress of having bladder cancer. Tell your cancer care team if you develop side effects. Your team may be able to recommend ways to get relief. Keep all follow-up visits. This is important. Where to find more information [place] [employer] (ACS): cancer.org National Cancer [place] (NCI): cancer.gov Contact a health care provider if: You have symptoms of a UTI. These include: ?Fever. ?Chills. ?Weakness. ?Muscle aches. ?Pain in your abdomen. ?Urge to urinate that is stronger and happens more often than normal. ?Burning in the bladder or urethra when you urinate. Get help right away if: There is blood in your urine. You cannot urinate. You have severe pain or other symptoms that do not go away. Summary Bladder cancer is a condition where tumors grow in the bladder. Diagnosis is based on your medical history, a physical exam, lab tests, imaging tests, and your symptoms. Your health care provider may recommend one or more types of treatment based on the stage of your cancer. Consider joining a support group. This may help you learn to deal with the stress of having bladder cancer. This information is not intended to replace advice given to you by your health care provider. Make sure you discuss any questions you have with your health care provider. Document Revised: 07/20/2022 Document Reviewed: 07/20/2022 [employer] Patient Education 2022 [employer]. Follow Up Care 05/03/2023 14:45:53 With:LURDES ROBISON, KAREN Chris, URL Address: [address] [place] [address] [phone] When: Unknown Comments:BCG #4/6 on 06/15/23 [facility] 05-25-2023 Hospital Discharge instructions Patient Education 05/25/2023 09:43:33 Bladder Cancer Bladder Cancer Bladder cancer is a condition where abnormal tissue (a tumor) grows in the bladder. The bladder is the organ that holds urine. Two tubes (ureters) carry urine from the kidneys to the bladder. The bladder wall is made of layers of tissue. Cancer that spreads through these layers of the bladder wall becomes more difficult to treat. What increases the risk? The following factors may make you more likely to develop this condition: Smoking. Working where there are risks (occupational exposures), such as working with rubber, leather, clothing fabric, dyes, chemicals, or paint. Being 55 years of age or older. Being male. Having long-term bladder inflammation. Having a history of cancer. This includes: ?A family history of bladder cancer. ?Having had bladder cancer before. ?Having had certain treatments for cancer before, such as: ?Medicines to kill cancer cells (chemotherapy). ?Strong X-ray beams or high-energy capsules to kill cancer cells and shrink tumors (radiation therapy). Having been exposed to arsenic. This is a poisonous substance. What are the signs or symptoms? Early symptoms of this condition include: Blood in your urine. Pain when urinating. Infections of your urinary system (urinary tract infections or UTIs) that happen often. Having to urinate sooner or more often than normal. Late symptoms of this condition include: Not being able to urinate. Pain on one side of your lower back. Loss of appetite. Weight loss. Tiredness (fatigue). Swelling in your feet. Bone pain. How is this diagnosed? This condition is diagnosed based on: Your medical history. A physical exam. Lab tests, such as urine tests. Imaging tests. Your symptoms. You may also have other tests or procedures, such as: A cystoscopy. This involves putting a narrow tube into your urethra. The urethra is the organ that carries urine from your bladder to the outside of your body. This procedure is done to view the lining of your bladder for tumors. A biopsy. This involves removing a tissue sample to look at under a microscope to check for cancer. Blood tests or imaging tests may be needed. These show how far into the bladder wall cancer has grown, and if cancer has spread to any other parts of your body. Tests may include: CT scan. MRI. Bone scan. X-ray. How is this treated? Your health care provider may recommend one or more types of treatment based on the stage of your cancer. The most common treatments are: Surgery to remove the cancer. Types of surgeries include: ?Removing a tumor on the inside wall of the bladder (transurethral resection). ?Removing the bladder (cystectomy). Radiation therapy. This is often combined with chemotherapy. Chemotherapy. Immunotherapy. This uses medicines to help your body's disease-fighting system (immune system) destroy cancer cells. Follow these instructions at home: Take eylm-uei-xahqlun and prescription medicines only as told by your health care provider. If you were prescribed an antibiotic medicine, take it as told by your health care provider. Do not stop using the antibiotic even if you start to feel better. Eat a healthy diet. Some treatments might affect your appetite. Do not use any products that contain nicotine or tobacco. These products include cigarettes, chewing tobacco, and vaping devices, such as e-cigarettes. If you need help quitting, ask your health care provider. Consider joining a support group. This may help you learn to deal with the stress of having bladder cancer. Tell your cancer care team if you develop side effects. Your team may be able to recommend ways to get relief. Keep all follow-up visits. This is important. Where to find more information [place] [employer] (ACS): cancer.org National Cancer [place] (NCI): cancer.gov Contact a health care provider if: You have symptoms of a UTI. These include: ?Fever. ?Chills. ?Weakness. ?Muscle aches. ?Pain in your abdomen. ?Urge to urinate that is stronger and happens more often than normal. ?Burning in the bladder or urethra when you urinate. Get help right away if: There is blood in your urine. You cannot urinate. You have severe pain or other symptoms that do not go away. Summary Bladder cancer is a condition where tumors grow in the bladder. Diagnosis is based on your medical history, a physical exam, lab tests, imaging tests, and your symptoms. Your health care provider may recommend one or more types of treatment based on the stage of your cancer. Consider joining a support group. This may help you learn to deal with the stress of having bladder cancer. This information is not intended to replace advice given to you by your health care provider. Make sure you discuss any questions you have with your health care provider. Document Revised: 07/20/2022 Document Reviewed: 07/20/2022 [employer] Patient Education 2022 [employer]. Follow Up Care 05/03/2023 14:43:06 With:LURDES ROBISON, KAREN Chris, URL Address: [address] [place] [address] [phone] When: Unknown Comments:BCG #3/6 on 06/01/23 [facility] 04-20-2023 Hospital Discharge instructions Patient Education 04/20/2023 10:12:02 Cancer Screening for Men Cancer Screening for Men A cancer screening is a test or exam that checks for cancer. Your health care provider will recommend specific cancer screenings based on your age, medical history (including risk factors), and family history of cancer. Work with your health care provider to create a cancer screening schedule that protects your health. Who should have screening? All men should be considered for screening of certain cancers, including colorectal cancer, prostate cancer, lung cancer, and skin cancer. Your health care provider may recommend screenings for other types of cancer if: You had cancer before. You have a family member with cancer. You have abnormal genes that could increase the risk of cancer. You have risk factors for certain cancers, such as current or past use of tobacco products, or being overweight. When you should be screened for cancer depends on: Your age. Your medical history and your family's medical history. Certain lifestyle factors, such as smoking or other use of tobacco products. Environmental exposure, such as to asbestos. How is screening done? Colorectal cancer All adults should have screenings starting at age 45 and continuing until age 75. Your health care provider may recommend screening before age 45. You will have tests every 1 10 years, depending on your results and the type of screening test. People at increased risk should start screening at an earlier age. Talk with your health care provider about which screening test is right for you and how often you should be screened. Colorectal cancer screening looks for cancer or for growths called polyps that often form before cancer starts. Tests to look for cancer or polyps include: Colonoscopy or flexible sigmoidoscopy. For these procedures, a flexible tube with a small camera is inserted into the rectum. CT colonography. This test uses X-rays and a contrast dye to check the colon for polyps. If a polyp is found, you may need to have a colonoscopy so the polyp can be located and removed. Tests to look for cancer in the stool (feces) include: Guaiac-based fecal occult blood test (FOBT). This test can find blood in stool. It can be done at home with a kit. Fecal immunochemical test (FIT). This test can find blood in stool. For this test, you will need to collect stool samples at home. Stool DNA test. This test looks for blood in stool and any changes in DNA that can lead to colon cancer. For this test, you will need to collect a stool sample at home and send it to a lab. Prostate cancer Prostate cancer screening for men with average risk may start at age 50. Men with risk factors may need to be screened earlier, at ages 40 45. Talk with your health care provider about whether screening is right for you and, if so, how often you should be screened. Prostate cancer screening is done with blood tests and a digital rectal exam. During this exam, a health care provider uses a gloved finger to check prostate size. You may need to be screened for prostate cancer if: You have risk factors for prostate cancer, such as being or having a close family member with prostate cancer. You have had gene changes or a genetic condition that was passed on to you from a parent (inherited). These gene changes or genetic conditions include BRCA1 or BRCA2 gene mutations or Damon syndrome. You have symptoms of prostate cancer, such as problems urinating or problems getting or keeping an erection (erectile dysfunction). When you have been screened for prostate cancer, future screening may be recommended based on the results of your blood tests. Lung cancer Lung cancer screening is done with a CT scan that looks for abnormal changes in the lungs. Discuss lung cancer screening with your health care provider if you are 50 80 years old and if any of the following apply to you: You currently smoke. You used to smoke heavily. You have a smoking history of 1 pack of cigarettes a day for 20 years or 2 packs a day for 10 years. You have quit smoking within the past 15 years. You may need to be screened every year if you smoke heavily or if you used to smoke. Skin cancer Skin cancer screening is done by checking the skin for unusual moles or spots and any changes in existing moles. Your health care provider should check your skin for signs of skin cancer at every physical exam. You should check your skin every month and tell your health care provider right away if anything looks unusual. Men with a cemmuh-hhkd-aofhek risk for skin cancer may want to see a senior quality assurance specialist (environmental projects advisor) for an annual body check. What are the benefits of screening? Cancer screening is done to look for cancer in the very early stages, before it spreads and becomes harder to treat and before you would start to notice symptoms. Finding cancer early improves the chances of successful treatment. It may save your life. Where to find more information [place] [employer]: www.cancer.org Centers for Disease Control and Prevention: www.cdc.gov National Cancer [place]: www.cancer.gov Contact a health care provider if: You have concerns about any signs or symptoms of cancer. These may include: Skin problems. You may have: ?Moles of an unusual shape or color. ?Changes in existing moles. ?A sore on your skin that does not heal. Tiredness (fatigue) that does not go away. Losing weight without trying. Blood in your urine or stool. Problems with urination. You may have: ?Changes in urination habits. ?Painful urination. Painful ejaculation. Problems with coughing or breathing. These may include: ?Coughing or trouble breathing that does not go away. ?Coughing up blood. Frequent pain or cramping in your abdomen. Summary Your health care provider will recommend specific cancer screenings based on your age, medical history, and family history of cancer. Work with your health care provider to create a cancer screening schedule that protects your health. Finding cancer early improves the chances of successful treatment. It may save your life. Contact a health care provider if you have concerns about any signs or symptoms of cancer. This information is not intended to replace advice given to you by your health care provider. Make sure you discuss any questions you have with your health care provider. Document Revised: 01/05/2022 Document Reviewed: 07/05/2020 [employer] Patient Education 2022 [employer]. Follow Up Care 03/23/2023 08:32:37 With:IVAN GAO, Everton White, URL Address: [facility] [address] [place] [address]- When: Unknown [facility] 03-23-2023 Hospital Discharge instructions Patient Education 03/23/2023 08:18:17 Transurethral Resection of Bladder Tumor, Care After Transurethral Resection of Bladder Tumor, Care After The following information offers guidance on how to care for yourself after your procedure. Your health care provider may also give you more specific instructions. If you have problems or questions, contact your health care provider. What can I expect after the procedure? After the procedure, it is common to have: A small amount of blood or small blood clots in your urine for up to 2 weeks. Soreness or mild pain from your catheter. After your catheter is removed, you may have mild soreness, especially when urinating. A need to urinate often. Pain in your lower abdomen. Follow these instructions at home: Medicines Take vxhs-hvu-bmwucwr and prescription medicines only as told by your health care provider. If you were prescribed an antibiotic medicine, take it as told by your health care provider. Do not stop taking the antibiotic even if you start to feel better. Ask your health care provider if the medicine prescribed to you: ?Requires you to avoid driving or using machinery. ?Can cause constipation. You may need to take these actions to prevent or treat constipation: ?Drink enough fluid to keep your urine pale yellow. ?Take nwwh-bss-ortcfoh or prescription medicines. ?Eat foods that are high in fiber, such as beans, whole grains, and fresh fruits and vegetables. ?Limit foods that are high in fat and processed sugars, such as fried or sweet foods. Activity If you were given a sedative during the procedure, it can affect you for several hours. Do not drive or operate machinery until your health care provider says that it is safe. Rest as told by your health care provider. Avoid sitting for a long time without moving. Get up to take short walks every 1 2 hours. This is important to improve blood flow and breathing. Ask for help if you feel weak or unsteady. Do not lift anything that is heavier than 10 lb (4.5 kg), or the limit that you are told, until your health care provider says that it is safe. Avoid intense physical activity for as long as told by your health care provider. Do not have sex until your health care provider approves. Return to your normal activities as told by your health care provider. Ask your health care provider what activities are safe for you. General instructions If you have a catheter, follow instructions from your health care provider about caring for your catheter and your drainage bag. Do not drink alcohol for as long as told by your health care provider. This is especially important if you are taking prescription pain medicines. Do not use any products that contain nicotine or tobacco. These products include cigarettes, chewing tobacco, and vaping devices, such as e-cigarettes. If you need help quitting, ask your health care provider. Wear compression stockings as told by your health care provider. These stockings help to prevent blood clots and reduce swelling in your legs. Keep all follow-up visits. This is important. ?You will need to be followed closely with regular checks of your bladder and urethra (cystoscopies) to make sure that the cancer does not come back. Contact a health care provider if: You have blood in your urine for more than 2 weeks. You become constipated. Signs of constipation may include: ?Having fewer than three bowel movements in a week. ?Difficulty having a bowel movement. ?Stools that are dry, hard, or larger than normal. You have a urinary catheter in place, and you have: ?Spasms or pain. ?Problems with your catheter or your catheter is blocked. Your catheter has been taken out but you are unable to urinate. You have signs of infection, such as: ?Fever or chills. ?Cloudy or bad-smelling urine. Get help right away if: You have severe abdominal pain that gets worse or does not improve with medicine. You have a lot of large blood clots in your urine. You develop swelling or pain in your leg. You have difficulty breathing. These symptoms may be an emergency. Get help right away. Call 911. Do not wait to see if the symptoms will go away. Do not drive yourself to the hospital. Summary After your procedure, it is common to have a small amount of blood or small blood clots in your urine, soreness or mild pain from your catheter, and pain in your lower abdomen. Take ztpk-exy-pbjbzlc and prescription medicines only as told by your health care provider. Rest as told by your health care provider. Follow your health care provider's instructions about returning to normal activities. Ask what activities are safe for you. If you have a catheter, follow instructions from your health care provider about caring for your catheter and your drainage bag. This information is not intended to replace advice given to you by your health care provider. Make sure you discuss any questions you have with your health care provider. Document Revised: 08/14/2022 Document Reviewed: 08/14/2022 [employer] Patient Education 2022 [employer]. 03/23/2023 08:18:15 Transurethral Resection of Bladder Tumor Transurethral Resection of Bladder Tumor Transurethral resection of a bladder tumor is the removal (resection) of cancerous tissue (tumor) from the inside wall of the bladder. The bladder is the organ that holds urine. The tumor is removed through the tube that carries urine out of the body (urethra). In a transurethral resection, a thin telescope with a light, a tiny camera, and an electric cutting edge (resectoscope) is passed through the urethra. In men, the opening of the urethra is at the end of the penis. In women, it is just above the opening of the vagina. Tell a health care provider about: Any allergies you have. All medicines you are taking, including vitamins, herbs, eye drops, creams, and tzlq-mpv-dfugkzj medicines. Any problems you or family members have had with anesthetic medicines. Any bleeding problems you have. Any surgeries you have had. Any medical conditions you have, including recent urinary tract infections. Whether you are or may be . What are the risks? Generally, this is a safe procedure. However, problems may occur, including: Infection. Bleeding. Allergic reactions to medicines. Damage to nearby structures or organs. Difficulty urinating from blockage of the urethra or not being able to urinate (urinary retention). Deep vein thrombosis. This is a blood clot that can develop in your leg. Recurring cancer. What happens before the procedure? When to stop eating and drinking Follow instructions from your health care provider about what you may eat and drink before your procedure. These may include: 8 hours before your procedure ?Stop eating most foods. Do not eat meat, fried foods, or fatty foods. ?Eat only light foods, such as toast or crackers. ?All liquids are okay except energy drinks and alcohol. 6 hours before your procedure ?Stop eating. ?Drink only clear liquids, such as water, clear fruit juice, black coffee, plain tea, and sports drinks. ?Do not drink energy drinks or alcohol. 2 hours before your procedure ?Stop drinking all liquids. ?You may be allowed to take medicines with small sips of water. Medicines Ask your health care provider about: Changing or stopping your regular medicines. This is especially important if you are taking diabetes medicines or blood thinners. Taking medicines such as aspirin and ibuprofen. These medicines can thin your blood. Do not take these medicines unless your health care provider tells you to take them. Taking mktv-avr-crratxz medicines, vitamins, herbs, and supplements. General instructions If you will be going home right after the procedure, plan to have a responsible adult: ?Take you home from the hospital or clinic. You will not be allowed to drive. ?Care for you for the time you are told. Ask your health care provider what steps will be taken to help prevent infection. These steps may include: ? Washing skin with a germ-killing soap. ? Taking antibiotic medicine. Do not use any products that contain nicotine or tobacco for at least 4 weeks before the procedure. These products include cigarettes, chewing tobacco, and vaping devices, such as e-cigarettes. If you need help quitting, ask your health care provider. What happens during the procedure? An IV will be inserted into one of your veins. You will be given one or more of the following: ?A medicine to help you relax (sedative). ?A medicine that is injected into your spine to numb the area below and slightly above the injection site (spinal anesthetic). ?A medicine that is injected into an area of your body to numb everything below the injection site (regional anesthetic). ?A medicine to make you fall asleep (general anesthetic). Your legs will be placed in foot rests (stirrups) to open your legs and bend your knees. The resectoscope will be passed through your urethra and into your bladder. The part of your bladder with the tumor will be resected by the cutting edge of the resectoscope. Fluid will be passed to rinse out the cut tissues (irrigation). The resectoscope will then be taken out. A small, thin tube (catheter) will be passed through your urethra and into your bladder. The catheter will drain urine into a bag outside of your body. The procedure may vary among health care providers and hospitals. What happens after the procedure? Your blood pressure, heart rate, breathing rate, and blood oxygen level will be monitored until you leave the hospital or clinic. You may continue to receive fluids and medicines through an IV. You will be given pain medicine to relieve pain. You will have a catheter to drain your urine. ?The amount of urine will be measured. If you have blood in your urine, your bladder may be rinsed out by passing fluid through your catheter. You will be encouraged to walk as soon as you can. You may have to wear compression stockings. These stockings help to prevent blood clots and reduce swelling in your legs. If you were given a sedative during the procedure, it can affect you for several hours. Do not drive or operate machinery until your health care provider says that it is safe. Summary Transurethral resection of a bladder tumor is the removal (resection) of a cancerous growth (tumor) on the inside wall of the bladder. To do this procedure, your health care provider uses a thin telescope with a light, a tiny camera, and an electric cutting edge (resectoscope) that is guided to your bladder through your urethra. The part of your bladder that is affected by the tumor will be resected by the cutting edge of the resectoscope. A catheter will be passed through your urethra and into your bladder. The catheter will drain urine into a bag outside of your body. If you will be going home right after the procedure, plan to have a responsible adult take you home from the hospital or clinic. You will not be allowed to drive. This information is not intended to replace advice given to you by your health care provider. Make sure you discuss any questions you have with your health care provider. Document Revised: 08/14/2022 Document Reviewed: 08/14/2022 [employer] Patient Education 2022 [employer]. Follow Up Care 03/15/2023 11:06:53 With:IVAN GAO, Everton White, URL Address: [facility] [address] , [place] [address]- When: Unknown [facility] 11-23-2022 Evaluation + Plan note Diagnostic Tests [facility]roVysion Fish [facility] Urine Cyto ([facility]) 11/23/22 [facility] 09-22-2022 Evaluation + Plan note Diagnostic Tests PendingUrine Culture 09/22/22 [facility] 08-14-2022 Note EXAM: XR CHEST 2 V HISTORY: . Pre-surgery evaluation . COMPARISON: 04/22/2022 TECHNIQUE: Frontal and lateral chest FINDINGS: Heart and vascularity are unremarkable. There is hyperexpansion of lungs and flattening in hemidiaphragms suggesting COPD. Lungs are free of focal infiltrates. Median sternotomy sutures are noted. No acute bony normality is appreciated. IMPRESSION: No acute heart or lung disease identified. Electronically authenticated by: JESSENIA CUTLER Date: 2022-08-13 22:42 [facility] [place] 07-28-2022 Hospital Discharge instructions Patient Education 07/28/2022 15:09:58 EU - Cystoscopy Discharge Instructions (CUSTOM) Cystoscopy Voiding after the procedure: there may be some pain, burning, urgency, frequency and blood tinged urine following the procedure. These symptoms usually resolve within 2-5 days. Drink the amount of fluid it takes to keep the urine pink to yellow or clear in color. Drinking enough water and fluids will help to ease any discomfort after your procedure. If you are having problems that seem out of the ordinary, please call. If unable to contact your physician and you feel it is an emergency, go to the nearest emergency room or call 911 Diet you may resume your normal diet. Activity you may resume your normal activities Call if you have a fever over 100 degrees. Follow Up Care 07/20/2022 16:22:07 With:Everton ZALDIVAR Address: [facility] [address], [place] [address]- [facility] (1) When: Unknown Comments:Office will call to schedule follow up [facility] 07-28-2022 Evaluation + Plan note Extrac paulie from: Title:Urology Progress Note Author:Jake ZALDIVAR MD Date:07/28/22 Impression and Plan Impression: #1. This gentleman seems to have bladder lesions which are likely bladder cancer. 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 2. 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 He is obstructed urodynamically and endoscopically. Plan: #1. We will get him scheduled for cystoscopy and transurethral resection of bladder tumors and a subsequent TURP. [facility]11-28-2022 Hospital Discharge instructions Patient Education 07/20/2022 16:09:10 Transurethral Resection of the Prostate Transurethral Resection of the Prostate Transurethral resection of the prostate (TURP) is the removal (resection) of part of the gland thatproduces semen (prostate gland). This procedure is done to treat benign prostatic hyperplasia (BPH). BPH is an abnormal, noncancerous (benign) increase in the number of cells that make up the prostate tissue. BPH causes the prostate to get bigger. The enlarged prostate can push against or block thetube that drains urine from the bladder out of the body (urethra). BPH can affect normal urine flowby causing bladder infections, difficulty controlling bladder function, and difficulty emptying thebladder. The goal of TURP is to remove enough prostate tissue to allow for a normal flow of urine. The procedure will allow you to empty your bladder more completely when you urinate so that you can urinate less often. In a transurethral resection, a thin telescope with a light, a tiny camera, and an electric cuttingedge (resectoscope) is passed through the urethra and into the prostate. The opening of the urethrais at the end of the penis. Tell a health care provider about: Any allergies you have. All medicines you are taking, including vitamins, herbs, eye drops, creams, and jydf-oxl-absswhi medicines. Any problems you or family members have had with anesthetic medicines. Any blood disorders you have. Any surgeries you have had. Any medical conditions you have. Any prostate infections you have had. What are the risks? Generally, this is a safe procedure. However, problems may occur, including: Infection. Bleeding. Allergic reactions to medicines. Damage to other structures or organs, such as: ?The urethra. ?The bladder. ?Muscles that surround the prostate. Difficulty getting an erection. Inability to control when you urinate (incontinence). Scarring, which may cause problems with urine flow. What happens before the procedure? Medicines Ask your health care provider about: Changing or stopping your regular medicines. This is especially important if you are taking diabetes medicines or blood thinners. Taking medicines such as aspirin and ibuprofen. These medicines can thin your blood. Do not take these medicines unless your health care provider tells you to take them. Taking xygl-aiz-lfavmfx medicines, vitamins, herbs, and supplements. Eating and drinking Follow instructions from your health care provider about eating and drinking, which may include: 8 hours before the procedure stop eating heavy meals or foods, such as meat, fried foods, or fatty foods. 6 hours before the procedure stop eating light meals or foods, such as toast or cereal. 6 hours before the procedure stop drinking milk or drinks that contain milk. 2 hours before the procedure stop drinking clear liquids. Staying hydrated Follow instructions from your health care provider about hydration, which may include: Up to 2 hours before the procedure you may continue to drink clear liquids, such as water, clear fruit juice, black coffee, and plain tea. General instructions You may have a physical exam. You may have a blood or urine sample taken. Ask your health care provider what steps will be taken to help prevent infection. These may include: ?Washing skin with a germ-killing soap. ?Taking antibiotic medicine. Plan to have someone take you home from the hospital or clinic. You may not be able to drive for upto 10 days after your procedure. Plan to have a responsible adult care for you for at least 24 hours after you leave the hospital orclinic. This is important. What happens during the procedure? An IV will be inserted into one of your veins. You will be given one or more of the following: ?A medicine to help you relax (sedative). ?A medicine to make you fall asleep (general anesthetic). ?A medicine that is injected into your spine to numb the area below and slightly above the injection site (spinal anesthetic). Your legs will be placed in foot rests (stirrups) so that your legs are apart and your knees are bent. The resectoscope will be passed through your urethra to your prostate. Parts of your prostate will be resected using the cutting edge of the resectoscope. The resectoscope will be removed. A small, thin tube (catheter) will be passed through your urethra and into your bladder. The catheter will drain urine into a bag outside of your body. ?Fluid may be passed through the catheter to keep the catheter open. The procedure may vary among health care providers and hospitals. What happens after the procedure? Your blood pressure, heart rate, breathing rate, and blood oxygen level will be monitored until youleave the hospital or clinic. You may continue to receive fluids and medicines through an IV. You may have some pain. Pain medicine will be available to help you. You will have a catheter draining your urine. ?You may have blood in your urine. Your catheter may be kept in until your urine is clear. ?Your urinary drainage will be monitored. If necessary, your bladder may be rinsed out (irrigated) through your catheter. You will be encouraged to walk around as soon as possible. You may have to wear compression stockings. These stockings help prevent blood clots and reduce swelling in your legs. Do not drive for 24 hours if you were given a sedative during your procedure. Summary Transurethral resection of the prostate (TURP) is the removal (resection) of part of the gland thatproduces semen (prostate gland). The goal of this procedure is to remove enough prostate tissue to allow for a normal flow of urine. Follow instructions from your health care provider about taking medicines and about eating and drinking before the procedure. This information is not intended to replace advice given to you by your health care provider. Make sure you discuss any questions you have with your health care provider. Document Released: 08/09/2006 Document Revised: 11/29/2019 Document Reviewed: 05/10/2019 [employer] Patient Education 2020 [employer]. 07/20/2022 16:09:10 Transurethral Resection of the Prostate Transurethral Resection of the Prostate Transurethral resection of the prostate (TURP) is the removal (resection) of part of the gland thatproduces semen (prostate gland). This procedure is done to treat benign prostatic hyperplasia (BPH). BPH is an abnormal, noncancerous (benign) increase in the number of cells that make up the prostate tissue. BPH causes the prostate to get bigger. The enlarged prostate can push against or block thetube that drains urine from the bladder out of the body (urethra). BPH can affect normal urine flowby causing bladder infections, difficulty controlling bladder function, and difficulty emptying thebladder. The goal of TURP is to remove enough prostate tissue to allow for a normal flow of urine. The procedure will allow you to empty your bladder more completely when you urinate so that you can urinate less often. In a transurethral resection, a thin telescope with a light, a tiny camera, and an electric cuttingedge (resectoscope) is passed through the urethra and into the prostate. The opening of the urethrais at the end of the penis. Tell a health care provider about: Any allergies you have. All medicines you are taking, including vitamins, herbs, eye drops, creams, and sslv-zto-yhhaswu medicines. Any problems you or family members have had with anesthetic medicines. Any blood disorders you have. Any surgeries you have had. Any medical conditions you have. Any prostate infections you have had. What are the risks? Generally, this is a safe procedure. However, problems may occur, including: Infection. Bleeding. Allergic reactions to medicines. Damage to other structures or organs, such as: ?The urethra. ?The bladder. ?Muscles that surround the prostate. Difficulty getting an erection. Inability to control when you urinate (incontinence). Scarring, which may cause problems with urine flow. What happens before the procedure? Medicines Ask your health care provider about: Changing or stopping your regular medicines. This is especially important if you are taking diabetes medicines or blood thinners. Taking medicines such as aspirin and ibuprofen. These medicines can thin your blood. Do not take these medicines unless your health care provider tells you to take them. Taking eihs-rzn-uvergzi medicines, vitamins, herbs, and supplements. Eating and drinking Follow instructions from your health care provider about eating and drinking, which may include: 8 hours before the procedure stop eating heavy meals or foods, such as meat, fried foods, or fatty foods. 6 hours before the procedure stop eating light meals or foods, such as toast or cereal. 6 hours before the procedure stop drinking milk or drinks that contain milk. 2 hours before the procedure stop drinking clear liquids. Staying hydrated Follow instructions from your health care provider about hydration, which may include: Up to 2 hours before the procedure you may continue to drink clear liquids, such as water, clear fruit juice, black coffee, and plain tea. General instructions You may have a physical exam. You may have a blood or urine sample taken. Ask your health care provider what steps will be taken to help prevent infection. These may include: ?Washing skin with a germ-killing soap. ?Taking antibiotic medicine. Plan to have someone take you home from the hospital or clinic. You may not be able to drive for upto 10 days after your procedure. Plan to have a responsible adult care for you for at least 24 hours after you leave the hospital orclinic. This is important. What happens during the procedure? An IV will be inserted into one of your veins. You will be given one or more of the following: ?A medicine to help you relax (sedative). ?A medicine to make you fall asleep (general anesthetic). ?A medicine that is injected into your spine to numb the area below and slightly above the injection site (spinal anesthetic). Your legs will be placed in foot rests (stirrups) so that your legs are apart and your knees are bent. The resectoscope will be passed through your urethra to your prostate. Parts of your prostate will be resected using the cutting edge of the resectoscope. The resectoscope will be removed. A small, thin tube (catheter) will be passed through your urethra and into your bladder. The catheter will drain urine into a bag outside of your body. ?Fluid may be passed through the catheter to keep the catheter open. The procedure may vary among health care providers and hospitals. What happens after the procedure? Your blood pressure, heart rate, breathing rate, and blood oxygen level will be monitored until youleave the hospital or clinic. You may continue to receive fluids and medicines through an IV. You may have some pain. Pain medicine will be available to help you. You will have a catheter draining your urine. ?You may have blood in your urine. Your catheter may be kept in until your urine is clear. ?Your urinary drainage will be monitored. If necessary, your bladder may be rinsed out (irrigated) through your catheter. You will be encouraged to walk around as soon as possible. You may have to wear compression stockings. These stockings help prevent blood clots and reduce swelling in your legs. Do not drive for 24 hours if you were given a sedative during your procedure. Summary Transurethral resection of the prostate (TURP) is the removal (resection) of part of the gland thatproduces semen (prostate gland). The goal of this procedure is to remove enough prostate tissue to allow for a normal flow of urine. Follow instructions from your health care provider about taking medicines and about eating and drinking before the procedure. This information is not intended to replace advice given to you by your health care provider. Make sure you discuss any questions you have with your health care provider. Document Released: 08/09/2006 Document Revised: 11/29/2019 Document Reviewed: 05/10/2019 [employer] Patient Education 2020 [employer] 07/20/2022 15:43:46 Benign Prostatic Hyperplasia Benign Prostatic Hyperplasia Benign prostatic hyperplasia (BPH) is an enlarged prostate gland that is caused by the normal agingprocess and not by cancer. The prostate is a walnut-sized gland that is involved in the production of semen. It is located in front of the rectum and below the bladder. The bladder stores urine and the urethra is the tube that carries the urine out of the body. The prostate may get bigger as a man gets older. An enlarged prostate can press on the urethra. This can make it harder to pass urine. The build-up of urine in the bladder can cause infection. Back pressure and infection may progress to bladder damage and kidney (renal) failure. What are the causes? This condition is part of a normal aging process. However, not all men develop problems from this condition. If the prostate enlarges away from the urethra, urine flow will not be blocked. If it enlarges toward the urethra and compresses it, there will be problems passing urine. What increases the risk? This condition is more likely to develop in men over the age of 50 years. What are the signs or symptoms? Symptoms of this condition include: Getting up often during the night to urinate. Needing to urinate frequently during the day. Difficulty starting urine flow. Decrease in size and strength of your urine stream. Leaking (dribbling) after urinating. Inability to pass urine. This needs immediate treatment. Inability to completely empty your bladder. Pain when you pass urine. This is more common if there is also an infection. Urinary tract infection (UTI). How is this diagnosed? This condition is diagnosed based on your medical history, a physical exam, and your symptoms. Tests will also be done, such as: A post-void bladder scan. This measures any amount of urine that may remain in your bladder after you finish urinating. A digital rectal exam. In a rectal exam, your health care provider checks your prostate by putting a lubricated, gloved finger into your rectum to feel the back of your prostate gland. This exam detects the size of your gland and any abnormal lumps or growths. An exam of your urine (urinalysis). A prostate specific antigen (PSA) screening. This is a blood test used to screen for prostate cancer. An ultrasound. This test uses sound waves to electronically produce a picture of your prostate gland. Your health care provider may refer you to a specialist in kidney and prostate diseases (urologist). How is this treated? Once symptoms begin, your health care provider will monitor your condition (active surveillance or watchful waiting). Treatment for this condition will depend on the severity of your condition. Treatment may include: Observation and yearly exams. This may be the only treatment needed if your condition and symptoms are mild. Medicines to relieve your symptoms, including: ?Medicines to shrink the prostate. ?Medicines to relax the muscle of the prostate. Surgery in severe cases. Surgery may include: ?Prostatectomy. In this procedure, the prostate tissue is removed completely through an open incision or with a laparoscope or robotics. ?Transurethral resection of the prostate (TURP). In this procedure, a tool is inserted through the opening at the tip of the penis (urethra). It is used to cut away tissue of the inner core of the prostate. The pieces are removed through the same opening of the penis. This removes the blockage. ?Transurethral incision (TUIP). In this procedure, small cuts are made in the prostate. This lessens the prostate's pressure on the urethra. ?Transurethral microwave thermotherapy (TUMT). This procedure uses microwaves to create heat. The heat destroys and removes a small amount of prostate tissue. ?Transurethral needle ablation (TUNA). This procedure uses radio frequencies to destroy and remove a small amount of prostate tissue. ?Interstitial laser coagulation (ILC). This procedure uses a laser to destroy and remove a small amount of prostate tissue. ?Transurethral electrovaporization (TUVP). This procedure uses electrodes to destroy and remove a small amount of prostate tissue. ?Prostatic urethral lift. This procedure inserts an implant to push the lobes of the prostate away from the urethra. Follow these instructions at home: Take lccu-eed-mhzqkfs and prescription medicines only as told by your health care provider. Monitor your symptoms for any changes. Contact your health care provider with any changes. Avoid drinking large amounts of liquid before going to bed or out in public. Avoid or reduce how much caffeine or alcohol you drink. Give yourself time when you urinate. Keep all follow-up visits as told by your health care provider. This is important. Contact a health care provider if: You have unexplained back pain. Your symptoms do not get better with treatment. You develop side effects from the medicine you are taking. Your urine becomes very dark or has a bad smell. Your lower abdomen becomes distended and you have trouble passing your urine. Get help right away if: You have a fever or chills. You suddenly cannot urinate. You feel lightheaded, or very dizzy, or you faint. There are large amounts of blood or clots in the urine. Your urinary problems become hard to manage. You develop moderate to severe low back or flank pain. The flank is the side of your body between the ribs and the hip. These symptoms may represent a serious problem that is an emergency. Do not wait to see if the symptoms will go away. Get medical help right away. Call your local emergency services (911 in the [place] Do not drive yourself to the hospital. Summary Benign prostatic hyperplasia (BPH) is an enlarged prostate that is caused by the normal aging process and not by cancer. An enlarged prostate can press on the urethra. This can make it hard to pass urine. This condition is part of a normal aging process and is more likely to develop in men over the age of 50 years. Get help right away if you suddenly cannot urinate. This information is not intended to replace advice given to you by your health care provider. Make sure you discuss any questions you have with your health care provider. Document Released: 08/09/2006 Document Revised: 07/04/2019 Document Reviewed: 09/13/2017 [employer] Patient Education [employer] Follow Up Care 06/22/2022 16:05:07 With:Everton ZALDIVAR MD, URL Address: [facility] [address], [place] [address]- When: Unknown [facility] evaluation + Plan note Future Appointments Appointment Date:07/22/2022 10:45:00 AM Scheduled Provider: Location:[facility] Appointment Type:Urology CALL PAT FT Appointment Date:07/28/2022 02:30:00 PM Scheduled Provider: Location:[facility] Appointment Type:Urology FT Appointment Date:07/29/2022 09:30:00 AM Scheduled Provider: Location:[facility] Appointment Type:Urology FT [facility] evaluation + Plan note Future Appointments Appointment Date:08/31/2022 03:00:00 PM Scheduled Provider:Everton ZALDIVAR MD Location:[facility] Appointment Type:URO Office Visit [facility] Evaluation + Plan note Future Appointments Appointment Date:04/14/2023 08:00:00 AM Scheduled Provider: Location:[facility] Appointment Type:URO Nurse Visit Appointment Date:04/20/2023 09:45:00 AM Scheduled Provider:Everton ZALDIVAR MD Location:[facility] Appointment Type:URO Office Visit [facility] Evaluation + Plan note Future Appointments Appointment Date:06/28/2023 11:45:00 AM Scheduled Provider: Location:[facility] Appointment Type:URO Nurse Visit [facility] Evaluation + Plan note Future Appointments Appointment Date:06/01/2023 09:15:00 AM Scheduled Provider:KAREN CHATMAN PA-C [facility] Appoint[facility] Type:URO Office Visit Appointment Date:06/08/2023 09:15:00 AM Scheduled Provider:KAREN CHATMAN PA-C [facility] Appointment Type:URO Office Visit Appointment Date:06/15/2023 09:15:00 AM Scheduled Provider:KAREN CHATMAN PA-C [facility] Appointment Type:URO Office Visit Appointment Date:06/22/2023 09:00:00 AM Scheduled Provider:KAREN CHATMAN PA-C Location[facility] Appointment Type:URO Office Visit Appointment Date:06/28/2023 11:45:00 AM Scheduled Provider: Location:[facility] Appointment Type:URO Nurse Visit [facility] evaluation + Plan note Future Appointments Appointment Date:06/15/2023 09:15:00 AM Scheduled Provider:KAREN CHATMAN PA-C [facility] Appointment Type:URO Office Visit Appointment Date:06/22/2023 09:00:00 AM Scheduled Provider:KAREN CHATMAN PA-C Location[facility] Appointment Type:URO Office Visit Appointment Date:06/29/2023 09:15:00 AM Scheduled Provider:KAREN CHATMAN PA-C Location:[facility] Appointment Type:URO Office Visit Appointment Date:07/05/2023 09:00:00 AM Scheduled Provider: Location:[facility] Appointment Type:URO Nurse Visit [facility] evaluation + Plan note Future Appointments Appointment Date:06/22/2023 09:00:00 AM Scheduled Provider:KAREN CHATMAN PA-C Location[facility] Appointment Type:URO Office Visit Appointment Date:06/29/2023 09:15:00 AM Scheduled Provider:KAREN CHATMAN PA-C [facility] Appoint[facility] Type:URO Office Visit Appointment Date:07/26/2023 09:00:00 AM Scheduled Provider: Location:[facility] Appointment Type:URO Nurse Visit [facility] evaluation + Plan note Future Appointments Appointment Date:06/29/2023 09:15:00 AM Scheduled Provider:KAREN CHATMAN PA-C [facility] Appointment Type:URO Office Visit Appointment Date:07/26/2023 09:00:00 AM Scheduled Provider: Location:[facility] Appointment Type:URO Nurse Visit [facility] evaluation + Plan note Future Appointments Appointment Date:07/28/2023 07:45:00 AM Scheduled Provider:Everton ZALDIVAR MD Location:[facility] [place] Appointment Type:URO Procedure 15 min [facility] Hospital course Narrative No data available for this section [facility] Hospital Discharge instructions No data available for this section [facility] Progress note No data available for this section [facility] Summary Purpose Family History No Family History Records Found No data available for this section No data available for this section No data available for this section No data available for this section No data available for this section No data available for this section No data available for this section No Family History Records Found Advance Directives No Advanced Directives Records FoundNo Advanced Directives Records Found Additional Source Comments Patient Care team informatio n (unrecognized section and content) Personnel Name: SHAYLEE WARREN MD Address: Address: [address] [facility] [place] [address]- [place] Personnel Name: SHAYLEE WARREN MD Address: Address: [address] [facility] [place] [address]- [place] Personnel Name: SHAYLEE WARREN MD Address: Address: [address] [facility] [place] [address]- [place] Personnel Name: SHAYLEE WARREN MD Address: Address: [address] [place] [place] [address]- [place] Personnel Name: SHAYLEE WARREN MD Address: Address: [address] [place] [place] [address]- [place] Personnel Name: SHAYLEE WARREN MD Address: Address: [address] [place] [place] [address]- [place] Personnel Name: SHAYLEE WARREN MD Address: Address: [address] [place] [place] [address]- [place] Personnel Name: SHAYLEE WARREN MD Address: Address: [address] [place] [place] [address]- [place] Personnel Name: SHAYLEE WARREN MD Address: Address: [address] [place] [place] [address]- [place] Personnel Name: SHAYLEE WARREN MD Address: Address: [address] [facility] [place] [address]- [place] Personnel Name: SHAYLEE WARREN MD Address: Address: [address] [place] [place] [address]- [place] Personnel Name: SHAYLEE WARREN MD Address: Address: [address] [facility] [place] [address]- [place] Personnel Name: SHAYLEE WARREN MD Address: Address: [address] [place] [place] [address]- [place] Personnel Name: SHAYLEE WARREN MD Address: Address: [address] [place] [place] [address]- [place] Personnel Name: HSAYLEE WARREN MD Address: Address: [address] [facility] [place] [address]- [place] Personnel Name: SHAYLEE WARREN MD Address: Address: [address] [place] [address]- Personnel Name: SHAYLEE WARREN MD Address: Address: [address] [place] [address]- (unrecognized sect ion and content) No Status Records FoundNo Status Records Found INFORMATION SOURCE (unrecogn ized section and content) DATE CREATED AUTHOR 01/02/2023 [facility] DATE CREATED AUTHOR AUTHOR'S ORGANIZ ATION 08/27/2023 [facility] FOR RECORDS PERTAINING TO PATIENTS WHO ARE OR HAVE BEEN ENROLLED IN A CHEMICAL DEPENDENCY/SUBSTANCEABUSE PROGRAM, SOME INFORMATION MAY BE OMITTED. This clinical summary was aggregated from multiple sources. Caution should be exercised in using it in the provision of clinical care. This summary normalizes information from multiple sources, and as a consequence, information in this document may materially change the coding, format and clinical context of patient data. In addition, data may be omitted in some cases. CLINICAL DECISIONS SHOULD BE BASED ON THE PRIMARY CLINICAL RECORDS. [employer] provides no warranty or guarantee of the accuracy or completeness of information in this document.
[2023-09-16] MEDS: LACTATED RINGER'S SOLUTION 1,000 ML 50 ML IV (07:53)
[2023-09-16] MEDS: CEFAZOLIN SODIUM/DEXTROSE,ISO 1 GM/50 ML IV.SOLN IV (08:34)
--- NOTE | 2023-09-16 09:43 | FL_ITS ---
[facility] [place] [id number] Patient Name: GERTRUDIS PÉREZ MRN: [id number] date: 1940 Sex: M Assigned Patient Location: [facility] Current Patient Location: [facility] Accession/Order Number: [id number] Exam Date: 09/16/2023 09:00 Report Date: 09/17/2023 13:48 At the request of: SYLVESTER LOVE Procedure: FL fluoroscopy <1hr NON-READ EXAM: FL fluoroscopy <1hr NON-READ HISTORY: TECHNIQUE: FINDINGS: Please see Operative Report. Electronically authenticated by: RADIOLOGIST NO Date: 09/17/2023 13:48
--- NOTE | 2023-09-16 09:44 | PM.URSON ---
Urology Surgery Operative Note Operative Note Procedure Date: 09/16/23 Time Out Performed: yes Pre-op Diagnosis: History of high-grade bladder cancer; recurrent bladder tumors. Post-op Diagnosis: same as pre-op Procedures performed: 1. Cystoscopy. 2. Transurethral resection of bladder tumors approximately 3 cm. 3. Fulguration of sheets of tiny tumors. 4. Bilateral rigid ureteral dilation. 5. Bilateral ureteroscopy. 6. Bilateral pyeloscopy. 7. Bilateral renal washings for cytology. Anesthesia: GETA Primary Surgeon: Everton Zaldivar Complications: None Estimated blood loss (mL): 5 Findings: 1. Sheets of tiny papillary tumors on left lateral wall. 2. No evidence of ureteral or renal tumors. Specimens: 1. Bladder tumors. 2. Bilateral renal washings for cytology Drains: None Indications for Procedures: This gentleman has a history of high-grade TCC of the bladder. He has undergone intravesical BCG and mitomycin. He was found to have recurrences on cystoscopy. He now presents for cystoscopy, TURBT, bilateral ureteroscopy pyeloscopy and possible biopsy. He has signed an informed consent after all risks were explained. Detailed description of Procedure: The patient was brought to the operating room and placed on the operating room table in the supine position. SCDs were placed on the lower extremities and turned on and functioning during the entire case. Timeout was done by all parties in the room. We all agreed upon the patient's identification and the planned procedures for this patient. Genn. anesthesia was then administered. The patient was then repositioned into the modified dorsal lithotomy position. All pressure points were satisfactorily padded. Genitalia were sterilely prepped and draped in usual fashion. I started by passing a 26 [employer] Olympus resectoscope with a standard bipolar loop electrode per urethra and into the bladder. The anterior urethra was normal. Prostatic urethra showed bilobar hypertrophy. Panendoscopy in the bladder showed sheets of tiny papillary tumors on the left wall lateral to the UO and extending towards the bladder neck. I elected to resect some of these and send tissue for pathology. I uniformly and deeply resected a few centimeters of tumor. The resection bed was coagulated. The rest of the sheets of papillary tumors were coagulated with the loop electrode. The tissue was extracted and sent for permanent sections. The rest of the bladder showed no evidence of any tumors or lesions. The resectoscope was removed. I then passed a [address] [employer] Olympus cystoscope per urethra and into the bladder. I then passed a Glidewire through the scope and up the left ureter into the kidney. The distal ureter was rigidly dilated with the 8 [address] Luc[employer] dilator. The scope was then removed. I then passed a flexible ureteroscope over the wire and ascended up the ureter. There is no evidence of tumor within the ureter. I then entered the kidney and did pyeloscopy. The wire was removed. I looked into the upper mid and lower pole calyces. I found no evidence of tumor or stone. I then did a renal wash and the specimen was extracted and sent for cytology. An exact similar maneuver was done on the right side. No evidence of ureteral or renal tumors was found that side either. After the wash was sent the scope was removed. The cystoscope was passed back into the bladder and the bladder was drained of its contents. The scope was then removed. The anesthetic was then reversed. He was then transferred to a [facility] bed and wheeled to PACU in stable condition.
--- NOTE | 2023-09-16 10:49 | PC.NURSE ---
Up to bathroom and voided bloody urine without clots without difficulty
== END 2023-09-16 11:02 | disposition home or self-care (01) ==
PROVIDERS: Visit Provider Urology
PROC: (CPT 52234; principal; 2023-09-16 08:30)
DX: Z85.51 Personal history of malignant neoplasm of bladder (principal); I10 Essential (primary) hypertension; Z79.01 Long term (current) use of anticoagulants; I25.10 Atherosclerotic heart disease of native coronary artery without angina pectoris; I71.40 Abdominal aortic aneurysm, without rupture, unspecified; F41.1 Generalized anxiety disorder; K21.9 Gastro-esophageal reflux disease without esophagitis; Z86.73 Personal history of transient ischemic attack (TIA), and cerebral infarction without residual deficits; Z95.1 Presence of aortocoronary bypass graft; Z79.899 Other long term (current) drug therapy; N40.1 Benign prostatic hyperplasia with lower urinary tract symptoms; R39.14 Feeling of incomplete bladder emptying; R35.1 Nocturia; E78.00 Pure hypercholesterolemia, unspecified; Z87.891 Personal history of nicotine dependence
CPT/HCPCS: 52234; 52351; 36415; 76000; 88305; J0690; J1100; J2405; J2704; J3010

== ENCOUNTER 2024-02-18 07:49 | Outpatient (OUT) | payer OTHER, SELFPAY ==
--- NOTE | 2024-02-18 08:01 | ECG_ITS ---
[facility] Test Date: 2024-02-18 Pat Name: GERTRUDIS PÉREZ Department: Room: - Gender: Male [employer]ist: : 1940 Requested By: SYLVESTER LOVE Order Number: [id number] Reading MD: SHANELL PACHECO Measurements Intervals [place]rigan Rate: 65 P: 35 VT: 168 QRS: -5 QRSD: 105 T: 56 QT: 382 QTc: 397 Interpretive Statements SINUS RHYTHM Compared to ECG 04/01/2023 08:28:53 No significant changes Electronically Signed On 02-19-2024 7:39:15 EDT by SHANELL PACHECO
--- OUTSIDE RECORDS SUMMARY | 2024-02-18 08:08 | XMS_ITS | CCD ---
Author Organization [facility] CliniSyfl Care Team Providers Care Retail Product Advisor Name Role Phone SHAYLEE WARREN Primary Care Physician [phone] IVAN ., DR PHAN Admitting Unavailable ZALDIVAR ., [...] Admitting Unavailable KADEN ., LILY Attending Unavailable WESTON, DR JESSENIA Voss Consulting Unavailable BROWN, JESSENIA Consulting Unavailable KADEN ., LILY Consulting Unavailable ANKUR, WENDY Consulting Unavailable ZALDIVAR ., DR PHAN Admitting Unavailable ZALDIVAR ., DR PHAN Attending Unavailable REQUEST, DR NONE LISTED Primary Care Unavaila ble ZALDIVAR [...] Unavailable MISC, DR AVILA Primary Care Unavailable JR Av Regalado Primary Care Provider MD Sylvester Zaldivar Attending Provider Av Regalado Primary Care Unavailable Sylvester Zaldivar Attending Unavailable Sylvester Zaldivar Admitting Unavailable LURDESKAREN Attending Unavailable LURDES, KAREN Chris Attending Unavailable LURDESKAREN Attending Unavailable LURDES, KAREN Chris Attending Unavailable ZALDIVARSylvester Attending Unavailable ZALDIVAR, Sylvester White Attending Unavailable ZALDIVAR, Sylvester White Attending Unavailable LURDESKAREN Attending Unavailable ZALDIVAR, Sylvester R Attending Unavailable ZALDIVAR, Sylvester R Attending Unavailable LURDES, KAREN Chris Attending Unavailable ZALDIVAR, Sylvester R Attending Unavailable ZALDIVAR, Sylvester R Attending Unavailable ZALDIVAR, Sylvester R Attending Unavailable ZALDIVAR, Sylvester R Attending Unavailable ZALDIVAR, Sylvester R Admitting Unavailable ZALDIVAR, Sylvester R Attending Unavailable ZALDIVAR, Sylvester R Admitting Unavailable ZALDIVAR, Sylvester R Attending Unavailable ZALDIVAR, Sylvester R Attending Unavailable ZALDIVAR, Sylvester R Attending Unavailable LURDES, KAREN Chris Attending Unavailable LURDES, KAREN Chris Admitting Unavailable ZALDIVAR, Sylvester R Attending Unavailable ZALDIVAR, Sylvester R Admitting Unavailable ZALDIVAR, Sylvester R Attending Unavailable ZALDIVAR, Sylvester R Attending Unavailable ZALDIVAR, Sylvester R Attending Unavailable ZALDIVAR, Sylvester R Attending Unavailable LURDES, KAREN Chris Attending Unavailable LURDES, KAREN Chris Attending Unavailable Allergies Allergy Classification Reported Allergen(s) Allergy Type Date of Onset Reaction(s) Facility Metoprolol (1 source) Metoprolol; Translations: [metoprolol] Drug Allergy 0 Itching (finding) [facility] (20 sources) Metoprolol; Translations: [metoprolol] Drug Allergy 0 Itching (finding) [facility] (1 source) Metoprolol Drug Allergy [facility] Repository Medications Current Medications Medication Drug Class(es) Dates Sig (Normalized) Sig (Original) acetaminophen 194 mg / aspirin 227 mg / caffeine 33 mg oral tablet (10 sources) Platelet Aggregation Inhibitor, Nonsteroidal Anti-inflammatory Drug, Central Nervous System Stimulant, Methylxanthine Start: 07-20-2022 acetaminophen/a spirin/caffeine 194 mg-227 mg-33 mg oral tablet Refill(s) 0, ORAL Start Date: 07/20/22 Status: Ordered aspirin 81 mg chewable tablet (20 sources) Platelet Aggregation Inhibitor, Nonsteroidal Anti-inflammatory Drug Start: 07-20-2022 cephalexin 500 mg oral capsule (2 sources) Cephalosporin Antibacterial Start: 09-22-2022 End: 10-02-2022 take 1 capsule by mouth every twelve hours Keflex 500 mg Cap 500 mg = 1 cap(s), Oral, q12hr, X 10 day(s), # 20 cap(s), Refills(s) 0, Pharmacy: [id number], 167, cm, 08/31/22 15:00:00 EST, Height/Length Dosing, 84, kg, 08/31/22 15:00:00 EST, Weight Dosing Start Date: 09/22/22 Stop Date: 10/02/22 Status: Ordered famotidine 20 mg oral tablet (20 sources) Histamine-2 Receptor Antagonist Start: 07-20-2022 finasteride 5 mg oral tablet (20 sources) 5-alpha Reductase Inhibitor Start: 07-20-2022 hydroCHLOROthiazide 12.5 mg / lisinopril 20 mg oral tablet (20 sources) Thiazide Diuretic, Angiotensin Converting Enzyme Inhibitor Start: 07-20-2022 hydrochlorothia zide-lisinopril 12.5 mg-20 mg Tab Refill(s) 0, ORAL, 3 Refill(s) Start Date: 07/20/22 Status: Ordered montelukast 10 mg oral tablet (20 sources) Leukotriene Receptor Antagonist Start: 07-20-2022 olopatadine 1 mg/ml ophthalmic solution (17 sources) Histamine-1 Receptor Inhibitor Start: 07-20-2022 olopatadine ophthalmic 0.1% solution Refill(s) 0, BOTH EYES, 11 Refill(s) Start Date: 07/20/22 Status: Ordered solifenacin succinate 10 mg oral tablet (7 sources) Cholinergic Muscarinic Antagonist Start: 08-31-2022 solifenacin 10 mg Tab Refills(s) 0 Start Date: 08/31/22 Status: Ordered tamsulosin hydrochloride 0.4 mg oral capsule (20 sources) alpha-Adrenergic Kenji Start: 07-20-2022 Completed/Discontinued Medications Medication Drug Class(es) Dates Sig (Normalized) Sig (Original) atorvastatin 80 mg oral tablet (20 sources) HMG-CoA Reductase Inhibitor Start: 07-20-2022 ciprofloxacin 500 mg oral tablet (12 sources) Quinolone Antimicrobial Start: 06-29-2023 take 1 tablet by mouth once daily Cipro 500 mg Tab 500 mg = 1 tab(s), Oral, Daily, Take 1 tablet the day before the procedure and 1 tablet after the procedure, # 7 tab(s), Refills(s) 0, Pharmacy: [id number], 167, cm, 06/29/23 9:15:00 EST, Height/Length Dosing, 83, kg, 06/29/23 9:15:00 EST, Weight Dosing Start Date: 06/29/23 Status: Ordered Start: 03-12-2023 take 1 tablet by marylin once daily Cipro 500 mg Tab 500 mg = 1 tab(s), Oral, Daily, Take 1 tablet the day before the procedure and 1 tablet after the procedure, # 6 tab(s), Refills(s) 0, Pharmacy: [id number], 167, cm, 08/31/22 15:00:00 EST, Height/Length Dosing, 84, kg, 08/31/22 15:00:0... Start Date: 03/12/23 Status: Ordered Start: 11-13-2022 take 1 tablet by marylin once daily Cipro 500 mg Tab 500 mg = 1 tab(s), Oral, Daily, Take 1 tablet the day before the procedure and 1 tablet after the procedure, # 6 tab(s), Refills(s) 0, Pharmacy: [id number], 167, cm, 08/31/22 15:00:00 EST, Height/Length Dosing, 84, kg, 08/31/22 15:00:0... Start Date: 11/13/22 Status: Ordered Start: 07-20-2022 take 1 tablet by [facility] once daily Cipro 500 mg Tab 500 mg = 1 tab(s), Oral, Daily, Take 1 tablet the day before the procedure and 1 tablet after the procedure, # 2 tab(s), Refills(s) 0, Pharmacy: [id number], 172, cm, 07/20/22 14:37:00 EST, Height/Length Dosing, 84, kg, 07/20/22 14:37:0... 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] Onset: 04-23-2022 07-20-2022 Chronic Cancer of bladder (17 sources) Malignant neoplasm of bladder, unspecified; Translations: [Malignant tumor of urinary bladder] Onset: 09-02-2022 Chronic Cancer of bladder (13 sources) History of malignant neoplasm of bladder; Translations: [Personal history of malignant neoplasm of bladder] Onset: 09-29-2022 Episodic Cancer; other and unspecified primary (14 sources) H/O: malignant neoplasm 11-23-2022 Episodic Coronary atherosclerosis and other heart disease (20 sources) Coronary arteriosclerosis; Translations: [Atherosclerotic heart disease of [place] coronary artery without angina pectoris] Onset: 12-01-2022 07-20-2022 Chronic Disorders of lipid metabolism (20 sources) Hyperlipidemia; Translations: [Hyperlipidemia, unspecified] Onset: 12-01-2022 07-20-2022 Chronic Esophageal disorders (20 sources) Gastroesophageal reflux disease; Translations: [Gastro-esophageal reflux disease without esophagitis] Onset: 12-01-2022 07-20-2022 Chronic Essential hypertension (20 sources) Hypertensive disorder; Translations: [Essential (primary) hypertension] [...] Neoplasms of unspecified nature or uncertain behavior (11 sources) Neoplasm of unspecified behavior of bladder; Translations: [Neoplasm of uncertain behavior of bladder] Onset: 08-20-2022 Episodic Occlusion or stenosis of precerebral arteries (20 sources) Carotid artery stenosis 07-20-2022 Chronic Other aftercare (1 source) prison (current) use of aspirin; Translations: [STORE 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 CURRENT USE OF ASPIRIN] Onset: 12-01-2022 Episodic Other aftercare (1 source) Other extermination supervisor (current) drug therapy; Translations: [OTH PENITENTIARY CURRENT DRUG THERAPY] Onset: 12-01-2022 Episodic Other circulatory disease (1 source) Personal history of transient ischemic attack (TIA), and cerebral infarction without residual deficits; Translations: [PERS HX TIA AND CI NO RESID DEFICIT] Onset: 12-01-2022 Episodic Other diseases of bladder and urethra (1 source) Other specified disorders of bladder; Translations: [OTHER SPECIFIED DISORDERS BLADDER] Onset: 09-29-2022 Chronic Other diseases of bladder and urethra (6 sources) Male urethral stricture; Translations: [Unspecified urethral stricture, male, unspecified site] Onset: 03-23-2023 Episodic Other diseases of bladder and urethra (12 sources) Urethral stricture 03-23-2023 Episodic Screening and history of mental health and substance abuse codes (1 source) Personal history of nicotine dependence; Translations: [PERSONAL HISTORY OF NICOTINE DEPEND] Onset: 12-01-2022 Episodic Transient cerebral ischemia (20 sources) Transient cerebral ischemia 07-20-2022 Chronic Unclassified (1 source) CONTACT W/AND (SUSP) EXPOS COVID-19; Translations: [CONTACT W/AND (SUSP) EXPOS COVID-19] Onset: 08-20-2022 Urinary tract infections (11 sources) Urinary tract infectious disease; Translations: [Urinary [...] Onset: 09-29-2022 Episodic Other aftercare (1 source) prison (current) use of anticoagulants; Translations: [STORE TEAM MEMBER CURRNT USE ANTICOAGULANTS] Onset: 08-20-2022 Episodic Other [...] Name Value Interpretation Reference Range Facil ity Physician Referralon 024 Physician Referral [id number] TIFF Normal [facility] UroVysion Fish and Urine Cyt o ([facility])on 02-01-2024 UVFISH & UC Diagnosis Info Invalid Interpretation Code [facility] Comment on above: Result Comment: A:Urine,Urine:Voided Diagnosis Summary - Diagnosis Summary - The UroVysion FISH study detected a positive profile. UroVysion FISH evaluates chromosomes 3, 7, 17, and 9p21 for aneuploid and deletion events associated with urothelial cell carcinoma. 153 cells were analyzed in this evaluation. Evidence of aneuploidy in at least 25 cells were found. These findings should be correlated with cytology and cystoscopy results.* Microscopic Notes - Microscopic Notes - Abnormal cells 9p21 deletions: 0 Abnormal cells aneploid events: 25 Total cells analyzed: 153 Hematuria: Gross Description Site ID:A color Yellow fixative Alcohol Received 100 mls of clear yellow fluid with the patient's name and, Urine on the vial. Electronically signed by : on: 02/01/2024 15:51:27 Performed By: #### 1 [id number] #### [facility] [address] [place] [address] Consent for Procedure/Surger yon 01-28-2024 Consent for Procedure/Surger y [id number] 0TIFF Normal [facility] Consent for Procedure/Surger yon 01-27-2024 Consent for Procedure/Surger y [id number] TIFF Normal [facility] Ambulatory Visit Summaryon 0 01-26-2024 Ambulatory Visit Summary NILESH PÉREZ Marshall :1940 Visit Date:01/26/2024 Ambulatory Visit Instructions Your Diagnosis History of bladder cancer BPH with urinary obstruction Incomplete bladder emptying Urethral stricture Bladder neoplasm of uncertain malignant potential Your Care Team Attending Physician - IVAN GAO, Sylvester White Primary Care Physician - BRIANA GAO, SHAYLEE This Is Your Medications List Contact prescribing physician if questions or concerns aspirin (aspirin 81 mg Chew Tab) atorvastatin (atorvastatin 80 mg Tab) famotidine (famotidine 20 mg Tab) finasteride (finasteride 5 mg Tab) hydrochlorothiazide-li sinopril (hydrochlorothiazide-l isinopril 12.5 mg-20 mg Tab) montelukast (montelukast 10 mg Tab) tamsulosin (tamsulosin 0.4 mg Cap) Procedures Performed Flexible cystoscopy (01/26/2024), TURBT - Transurethral resection of bladder tumor (09/16/2023), Cystoscopy (07/28/2023), TURBT - Transurethral resection of bladder tumor (04/08/2023), Cystoscopy (03/23/2023), 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 (08/20/2022), CABG - Coronary artery bypass graft (2017). Discharge Vitals Temperature (Temporal Artery) 37 ?C Heart Rate (Peripheral) 69 Respiratory Rate 16 Blood Pressure 137/66 Height 167 cm Height 66 in Weight 83 kg Weight 182.6 lb BMI 29.76 What to do next Scheduled Follow-Up Appointments Wednesday 9:45 AM EDT With: IVAN GAO, Sylvester White Where: [facility] Patient Educationon 01-26-20 Patient Education Oncology Cancer Screening for Men [...] if anything looks unusual. Men with a [id number] risk for skin cancer may want to see a retail service specialist (supervisor pre wave) for an annual body check. What are the benefits of screening? Cancer screening is done to look for cancer in the very early stages, before it spreads and becomes harder to treat and before you would start to notice symptoms. Finding cancer early improves the chances of successful treatment. It ma (more content not included)... Normal [facility] UroVysion Fish and Urine Cyt o ([facility])on 01-26-2024 [facility] Method of Extraction Voided Normal [facility] Comment on above: Performed By: #### [id number] #### [facility] [address] [place] [address] [facility] Number of Jars 1 Invalid Interpretation Code [facility] Comment on above: Performed By: #### [id number] #### [facility] [address] [place] [address] [facility] Specimen Urine Normal [facility] Comment on above: Performed By: #### [id number] #### [facility] [address] [place] [address] [facility] Type of Service Technical Only Normal [facility] Comment on above: Performed By: #### [id number] #### [facility] [address] [place] [address] Urology Office/Clinic Noteon 01-26-2024 Urology Office/Clinic Note Chief Complaint personal hx of bladder cancer HPI Staff Cysto ABX TAKEN, fish/cytol History of Present Illness Tests reviewed: reviewed original path I have reviewed the previous health [...] HPI. Physical Exam Vitals & Measurements T: 37 ?C(Temporal Artery) HR: 69(Peripheral) RR: 16 BP: 137/66 HT: 66 in HT: 167 cm WT: [...] obstruction, large high median lobe. The Bladder: _Back L wall there is a patch of 3-4 cm of papillary TCC appearing lesions, red and raised, Trabeculated: Moderate (2), no tics. The Ureteral orifices: Show efflux of clear urine Specimens Removed: Voided specimen sent for FISH and Cytology test Removal: Cystoscope is removed. The patient tolerated it well. Postoperative Information Patient is discharged home with antibiotic coverage. Follow up arranged. Assessment/Plan 1. History of bladder cancer (Z85.51: Personal history of malignant neoplasm of bladder) S/p original TURBT 08/20/22 - High-grade, noninvasive papillary urothelial carcinoma. S/p Mitomycin 09/28/22 and 10/26/22, 01/14/23 and 02/11/23. S/p TURBT 04/08/23 - Neg for malignancy. Bladder mucosa with cystitis and reactive atypia. S/p BCG #6/6 07/05/23. S/p cysto, TURBT and renal washings 09/16/23 - Neg for malignancy. Pt had IO cysto to check for bladder tumor recurrence without complications today. Pt took prophylactic abx prior to procedure. Will send voided specimen for FISH/cytol and call pt if positive. 2. BPH with urinary obstruction (N40.1: Benign prostatic hyperplasia with lower urinary tract symptoms) Taking Tamsulosin 0.8 mg qd and Finasteride 5 mg qd. 3. Incomplete bladder emptying (R33.9: Retention of urine, unspecified) PVR (cc): 07/20/22 - 173 09/14/22 - 179 04/20/23 - 201 4. Urethral stricture (N35.919: Unspecified urethral stricture, male, unspecified site) S/p cysto 03/23/23 - Minor stricture in penile urethra. 5. Bladder neoplasm of uncertain malignant potential (D41.4: Neoplasm of uncertain behavior of bladder) See procedure section. Will schedule Cysto with TURBT. The procedure risks, [...] has been obtained. Will order General anesthesia. Follow-up With When Contact Information IVAN GAO, Sylvester White, URL [facility] [address], [place] [address]- Additional Instructions: schedule TURBT Patient Education Cancer Screening for Men I, Mayra Moy, personally scribed for Dr. Zaldivar on 01/26/2024 07:56:53. . Documentation recorded by the scribe, Mayra Moy, accurately reflects the services(s) I performed and decisions made by me. Authenticated by Dr. Zaldivar on 01/26/2024 08:02:11. Problem List/Past Medical History Ongoing Abdominal aortic aneurysm Bladder cancer Bladd (more content not included)... Normal [facility] Comment on above: Result Comment: Electronically Signed By : Sylvester ZALDIVAR MD R\.br\Date and Time Signed: 01/26/24 08:02 EDT\.br\Electronically Co-Signed By: Mayra Moy\.br\Date and Time Co-Signed: 01/26/24 07:58 EDT Reminderson 12-09-2023 Reminders - From: Brianna Rivero To: [facility] - Recalls Ivan; Sent: 12/09/2023 14:25:15 EDT Show up: 02/21/2024 14:25:00 EDT Subject: Cysto/FISH/cytol Due Date/Time: 03/13/2024 14:25:00 EDT Reminder/Recall Patient needs Cysto/fish/cytol in Apr 2024, 3 month Normal [facility] Reminders - From: Brianna Rivero To: [facility] - Recalldwaine Zaldivar; Cc: Brianna Rivero; Sent: 08/03/2023 09:40:42 EST Show up: 10/22/2023 09:40:00 EST Subject: cysto/fish/cytol Due Date/Time: 11/08/2023 09:40:00 EDT Reminder/Recall Patient is having TURBT/Ureter on 09/16/23. He will be due in November 2023 for cysto/fish/cytol (3 mo bt ck) Patient due in December 2023.LG Patient sched for 6/5/24 in [facility]. LG Normal [facility] Pathology Noteon 10-14-2023 Pathology Note [id number] 0TIFF Normal [facility] Patient Educationon 09-24-19 Patient Education Nutrition BMI for Adults What is BMI? Body mass index (BMI) is a number that is calculated from a person's weight and height. BMI can help estimate how much of a person's weight is composed of fat. BMI does not measure body fat directly. Rather, it is an alternative to procedures that directly measure body fat, which can be difficult and expensive. BMI can help identify people who may be at higher risk for certain medical problems. What are BMI measurements used for? BMI is used as a screening tool to identify possible weight problems. It helps determine whether a person is obese, overweight, a healthy weight, or underweight. BMI is useful for: ? Identifying a weight problem that may be related to a medical condition or may increase the risk for medical problems. ? Promoting changes, such as changes in diet and exercise, to help reach a healthy weight. BMI screening can be repeated to see if these changes are working. How is BMI calculated? BMI involves measuring your weight in relation to your height. Both height and weight are measured, and the BMI is calculated from those numbers. This can be done either in [place] or metric measurements. Note that charts and online BMI calculators are available to help you find your BMI quickly and easily without having to do these calculations yourself. To calculate your BMI in [place] measurements: 1. Measure your weight in pounds (lb). 2. Multiply the number of pounds by 703. ? For example, for a person who weighs 180 lb, multiply that number by 703, which equals 126,540. 3. Measure your height in inches. Then multiply that number by itself to get a measurement called inches squared. ? For example, for a person who is 70 inches tall, the inches squared measurement is 70 inches x 70 inches, which equals 4,900 inches squared. 4. Divide the total from step 2 (number of lb x 703) by the total from step 3 (inches squared): 126,540 ? 4,900 = 25.8. This is your BMI. To calculate your BMI in metric measurements: 1. Measure your weight in kilograms (kg). 2. Measure your height in meters (m). Then multiply that number by itself to get a measurement called meters squared. ? For example, for a person who is 1.75 m tall, the meters squared measurement is 1.75 m x 1.75 m, which is equal to 3.1 meters squared. 3. Divide the number of kilograms (your weight) by the meters squared number. In this example: 70 ? 3.1 = 22.6. This is your BMI. What do the results mean? BMI charts are used to identify whether you are underweight, normal weight, overweight, or obese. The following guidelines will be used: ? Underweight: BMI less than 18.5. ? Normal weight: BMI between 18.5 and 24.9. ? Overweight: BMI between 25 and 29.9. ? Obese: BMI of 30 or above. Keep these notes in mind: ? Weight includes both fat and muscle, so someone with a muscular build, such as an athlete, may have a BMI that is higher than 24.9. In cases like these, BMI is not an accurate measure of body fat. ? To determine if excess body fat is the cause of a BMI of 25 or higher, further assessments may need to be done by a health care provider. ? BMI is usually interpreted in the same way for men and women. Where to find more information For more information about BMI, including tools to quickly calculate your BMI, go to these websites: ? Centers for Disease Control and Prevention: www.cdc.gov ? [place] [employer]: www.heart.org ? National Heart, Lung, and Blood [place]: www.nhlbi.nih.gov Summary ? Body mass index (BMI) is a number that is calculated from a person's weight and height. ? BMI may help estimate how much of a person's weight is composed of fat. BMI can help identify those who may be at higher risk for certain medical problems. ? BMI can be measured using [place] measurements or metric measurements. ? BMI charts are used to identify whether you are underweight, normal weight, overweight, or obese. This information is not intended to replace advice given to you by your health care provider. Make sure you discuss any questions you have with your health care provider. Document Revised: 05/01/2020 Document Reviewed: 03/08/2020 [employer] Patient Education ? 2022 [employer]. Martin Mohamud [facility] Urology Office/Clinic Noteon 09-24-2023 Urology Office/Clinic Note Chief Complaint S/P TURBT HPI Staff S/P TURBT & Renal washings 09/16/23 DX: HX of Bladder Cancer, Bladder Neoplasm, BPH, Incomplete Bladder Emptying & Urethral Stricture *Tamsulosin 0.4mg & Finasteride 5mg qd therapy FISH/Cytology 07/28/23 Recall in for 3m bt ck November 2023. Pt did not give urine specimen. Did have some visible blood in urine a couple days post op. Denies current pain/burning. Denies all urinary complaints at this time. History of Present Illness Tests reviewed: reviewed UA & path. I have reviewed the previous health record [...] HPI. Physical Exam Vitals & Measurements HR: 68(Peripheral) RR: 16 BP: 128/72 HT: 66 in HT: 167 cm WT: 83 kg WT: 182.6 lb BMI: 29.76 General Appearance: alert, no distress, well nourished, well developed male. Assessment/Plan No UA provided today. 1. History of bladder cancer (Z85.51: Personal history of malignant neoplasm of bladder) Original TURBT 08/20/22 - High-grade, noninvasive papillary urothelial carcinoma. S/p Mitomycin 09/28/22 and 10/26/22, 01/14/23 and 02/11/23. Cysto 03/23/23 - Several tiny minimally raised peach colored lesions on the lateral floors bilaterally adjacent to prior resection sites plus there is a 2 cm sheet of small papillary TCC tumors on the back L wall. S/p TURBT 04/08/23 - Bladder mucosa with cystitis and reactive atypia. Neg for malignancy. S/p BCG #6/6 07/05/23. S/p cysto 07/28/23 - on the anterior wall and R wall are sheets of red raised lesions >4 cm. No abnormalities noted on L side. FISH normal, see comments. Cytology atypia, inconclusive. S/p cysto, TURBT and renal washings 09/16/23. Renal washing path: reveals multiple urothelial clusters, compatible with the effect of instrumentation, urinary tract inflammation or infection, stone related injury, or low-grade urothelial neoplasm. However, urothelial neoplasm is favored in this case, because of the often crowded and cellular clusters with occasionally noted urothelial cell atypia. In addition, at least 1 large atypical urothelial cell is also identified, and cannot completely exclude possibility of ioge7domkm malignancy requiring clinical correlations. TURBT path: follicular cystitis with overlying urothelial atypia, reactive vs urothelial dysplasia. Path report findings explained to pt. Neg for recurrence. -Recall placed for 3 months bt check due 11/2023 -BCG #3 in 6 months 2. BPH with urinary obstruction (N40.1: Benign prostatic hyperplasia with lower urinary tract symptoms) Cysto 03/23/23 - Trilobar obstruction, large high median lobe. Moderate trabeculation. Recent Cysto 07/28/23 shows trilobar obstruction, large high median lobe. Taking Tamsulosin and Finasteride 5 mg qd. 3. Incomplete bladder emptying (R33.9: Retention of urine, unspecified) PVR (cc): 07/20/22 - 173 09/14/22 - 179 04/20/23 - 201 4. Urethral stricture (N35.919: Unspecified urethral stricture, male, unspecified site) Cysto 03/23/23 - Minor stricture in penile urethra. Follow-up With When Contact Information IVAN GAO, Sylvester White, URL [address] [place] [address]- Additional Instructions: Bt check 11/2023 Patient Education BMI for Adults I, Amy Glover, personally scribed for Dr. Zaldivar on 09/24/2023 11:24:55. . Documentation recorded by the scribaries, Amy Glover, accurately reflects the services(s) I performed and decisions made by me. Authenticated by Dr. Zaldivar on 09/24/2023 11:27:18. 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 Normal [facility] Comment on above: Result Comment: Electronically Signed By : Sylvester ZALDIVAR MD\.br\Date and Time Signed: 09/24/23 11:27 EST\.br\Electronically Co-Signed By: Amy Glover.br\Date and Time Co-Signed: 09/24/23 11:25 EST Pathology Noteon 09-23-2023 Pathology Note [id number]#1.0 0TIFF Normal [facility] Pathology Note [id number]#1.0 0TIFF [facility] Pathology Note [id number]#1.0 0TIFF Normal [facility] Operative Reporton Operative Report [id number]#1.00 TIFF Normal [facility] Pathology Noteon 09-20-2023 Pathology Note [id number]#1.0 0TIFF [facility] RAD - MISCon 09-20-2023 RAD - MISC [id number]#1.00 TIFF Normal [facility] Branden 09-16-2023 L Specimen: [id number] Received: 09/16/23 Status: MARCELLUS Hooks Num: [id number] Spec Type: Cytology Subm Dr: Sylvester Zaldivar MD Tissues: A WASHING (RIGHT RENAL) B WASHING (LEFT RENAL) Procedures: Gross/Micro L4/2, Cyto Prepstain/2, PAPSTN/2 Age/ Patient Sex Location Account Attending Physician Nilesh Pérez 83/M LABELL [id number] Sylvester Zaldivar MD SPEC NUM: [id number] RECD: 09/16/23 STATUS: MARCELLUS HOOKS NUM: [id number] LEANA: 09/16/[address]: Sylvester Zaldivar MD ENTERED: 09/16/23 [facility] DR: SPEC TYPE: Cytology DEPT: [facility] ENTERED BY: [id number] RECV BY: [id number] ORDERED: Gross/Micro L4/2, Cyto Prepstain/2, PAPSTN/2 ORDERED: Gross/Micro L4/2, Cyto Prepstain/2, PAPSTN/2 Pathological Diagnosis A, Right renal wash fluid, cytology: - Satisfactory for assessment - Multiple urothelial clusters, compatible with the effect of instrumentation, urinary tract inflammation or infection, stone related injury, or low-grade urothelial neoplasm - However, urothelial neoplasm is favored in this case, because of the often crowded and cellular clusters with occasionally noted urothelial cell atypia - In addition, at least 1 large atypical urothelial cell is also identified, and cannot completely exclude possibility of high-grade malignancy requiring clinical correlations A, Left renal wash fluid, cytology: - Satisfactory for assessment - Multiple urothelial clusters, compatible with the effect of instrumentation, urinary tract inflammation or infection, stone related injury, or low-grade urothelial neoplasm - However, urothelial neoplasm is also favored in this case, because of the often crowded and cellular clusters with occasionally noted urothelial cell atypia requiring clinical correlations ---- Specimen: [id number] Received: 09/16/23 Status: TAMMYMatias Hooks Num: [id number] Spec Type: Cytology Subm Dr: Sylvester Zaldivar MD Tissues: A WASHING (RIGHT RENAL) B WASHING (LEFT RENAL) Procedures: Gross/Micro L4/2, Cyto Prepstain/2, PAPSTN/2 ---- Patient: Nilesh Pérez [id number] (Continued) ---- Specimen: [id number] Received: 09/16/23 (Continued) Signed (signature on file) Aron Jackson MD 09/22/23 1359 ---- Specimen: [id number] Received: 09/16/23 Status: TAMMYMatias Langeq Num: [id number] Spec Type: Cytology Subm Dr: Sylvester Zaldivar MD Tissues: A WASHING (RIGHT RENAL) B WASHING (LEFT RENAL) Procedures: Gross/Micro L4/2, Cyto Prepstain/2, PAPSTN/2 ---- Patient: Nilesh Pérez Marshall [id number] (Continued) ---- Specimen: [id number] Received: 09/16/23-2782 (Continued) Clinical Information Bladder tumors and /or lesions Gross Description Received is A.(Right) 5 ml very pale pink slightly cloudy unfixed fluid said to have been obtained as Right renal wash. Thin prep is prepared for microscopic examination.(CC/nh) Received is B. (Left) 5 ml colorless slightly cloudy unfixed fluid said to have been obtained as Left renal wash. ThinPrep is prepared for microscopic examination. (CC/nh) Microscopic Description Microscopic examinations are performed CPT Codes 75383 x 2 ---- ---- Specimen: [id number] Received: 09/16/23 Status: MARCELLUS Hooks Num: [id number] Spec Type: Cytology Subm Dr: Sylvester Zaldivar MD Tissues: A WASHING (RIGHT RENAL) B WASHING (LEFT RENAL) Procedures: Gross/Micro L4/2, Cyto Prepstain/2, PAPSTN/2 ---- Patient: Nilesh Pérez [id number] (Continued) ---- Signed (signature on file) Aron Jackson MD 09/22/23 1359 [facility] L Specimen: [id number] Received: 09/16/23 Status: MARCELLUS Hooks Num: [id number] Spec Type: Surgical Subm Dr: Sylvester Zaldivar MD Tissues: A Urinary Bladder - biopsy (BLADDER TUMOR) Procedures: HE/2, Gross/Micro L4 Age/ Patient Sex Location Account Attending Physician Nilesh Pérez 83/M LABELL [id number] Sylvester Zaldivar MD SPEC NUM: [id number] RECD: 09/16/23 STATUS: MARCELLUS HOOKS NUM: [id number] LEANA: 09/16/[address]: Sylvester Zaldivar MD ENTERED: 09/16/[address]: Ty Mendez SPEC TYPE: Surgical DEPT: [facility] ORDERED: HE/2, Gross/Micro L4 ORDERED: 2, Gross/Micro L4 Pathological Diagnosis Bladder tumor, biopsy: Follicular cystitis with overlying urothelial atypia, reactive vs. urothelial dysplasia. - Follow up is recommended. Clinical Information Bladder tumors and/or lesions Gross Description Received fresh labeled with the patient's name, date of and bladder tumor is one shannon tissue fragment, 0.9 x 0.2 x 0.1 cm. Entirely submitted in one cassette labeled A1. CPT Codes 67737 ---- ---- Specimen: [id number] Received: 09/16/23 Status: MARCELLUS Neva Num: [id number] Spec Type: Surgical Subm Dr: Sylvester Zaldivar MD Tissues: A Urinary Bladder - biopsy (BLADDER TUMOR) Procedures: BECKIE, Gross/Micro L4 ---- Patient: Nilesh Pérez [id number] (Continued) ---- Signed (signature on file) Janessa Castillo MD 09/18/23 1151 [facility] Lab Reportson 09-09-2023 Lab Reports [id number]#1.0 0TIFF Normal [facility] Lab Reports [id number]#1.0 0TIFF Normal [facility] Lab Reports [id number]#1.0 0TIFF [facility] Consent for Procedure/Surger yon 08-26-2023 Consent for Procedure/Surger y [id number]#1. 00TIFF [facility] Physician Referralon 023 Physician Referral [id number]#1.0 0TIFF [facility] UroVysion Fish and Urine Cyt o ([facility])on 08-06-2023 UV[facility] & UC Revision Information Invalid Interpretation Code [facility] Comment on above: Result Comment: Correction Reason -[ Carter Sharma, 08/06/23 - 07:54 ] Corrected report issued to update PMS/PWS. The diagnosis remains unchanged. Correction Notes - Performed By: #### [id number] ####[facility] [address] [place] [address] Consent for Procedure/Surger yon 07-29-2023 Consent for Procedure/Surger y [id number]#1.0 0TIFF [facility] Ambulatory Visit Summaryon 1 09-28-2022 Ambulatory Visit Summary NILESH PÉREZ :1940 Visit Date:07/28/2023 Ambulatory Visit Instructions Your Diagnosis History of bladder cancer Bladder neoplasm of uncertain malignant potential BPH with urinary obstruction Incomplete bladder emptying Urethral stricture Your Care Team Attending Physician - IVAN GAO, Sylvester White Primary Care Physician - SHAYLEE WARREN [...] graft (2016). Discharge Vitals Heart Rate (Peripheral) 70 Respiratory Rate 16 Blood Pressure 129/78 Height 167 cm Height 66 in Weight 83 kg Weight 182.6 lb BMI 29.76 What to do next You Need to Schedule the Following Appointments Follow Up with IVAN GAO, Sylvester White, URL When: Where: [facility] [address], [place] [address]- Medications What How Much When Instructions Unchanged [...] Certain lifes (more content not included)... Normal [facility] Patient Educationon 07-28-20 Patient Education Oncology Cancer [...] if anything looks unusual. Men with a kqnwnz-yenn-dcvkfb risk for skin cancer may want to see a retail service specialist (supervisor pre wave) for an annual body check. What are the benefits of screening? Cancer screening is done to look for cancer in the very early stages, before it spreads and becomes harder to treat and before you would start to notice symptoms. Finding cancer early improves the chances of successful treatment. It ma (more content not included)... Normal [facility] UroVysion Fish and Urine Cyt o ([facility])on 07-28-2023 [facility] Method of Extraction Voided Normal [facility] Comment on above: Performed By: #### [id number] ####[facility] [address] [facility] [place] [address] [facility] Number of Jars 1 Invalid Interpretation Code [facility] Comment on above: Performed By: #### [id number] ####[facility] [address] [place] [address] [facility] Specimen Urine Normal [facility] Comment on above: Performed By: #### [id number] ####[facility] [address] [place] [address] [facility] Type of Service Technical Only Normal [facility] Comment on above: Performed By: #### [id number] ####[facility] [address] [place] [address] Urology Office/Clinic Noteon 07-28-2023 Urology Office/Clinic Note [...] penile urethra. Follow-up With When Contact Information Sylvester ZALDIVAR MD, URL [facility] [address] [place] [address]- Additional Instructions: schedule Cysto, URS with TURBT Patient Education Cancer Screening for Men I, Mayra Moy, personally scribed for Dr. Zaldivar on 07/28/2023 08:08:56. . Documentation recorded by the scribe (more content not included)... Normal [facility] Comment on above: Result Comment: Electronically Signed By : Sylvester ZALDIVAR MD\.br\Date and Time Signed: 07/28/23 08:11 EST\.br\Electronically Co-Signed By: Mayra Moy.br\Date and Time Co-Signed: 07/28/23 08:09 EST Urology Office/Clinic Noteon 07-05-2023 Urology Office/Clinic Note Chief Complaint BCG #6 [...] Contact Information LURDES ROBISON, KAREN Chris, URL [address] [place] [place] [address] [phone] Additional Instructions: has cysto 08/02/23 Patient Education Bladder Cancer Documentation recorded by the ariane Rick accurately reflects the services(s) I performed and decisions made by me. Authenticated by Karen Chatman PA-C on 07/05/2023 22:21:40. Cassi Whitten, personally scribed for Karen Chatman [...] Given BC (more content not included)... Normal [facility] Comment on above: Result Comment: Electronically Signed By : KAREN CHATMAN PA-C\.br\Date and Time Signed: 07/05/23 22:21 EST\.br\Electronically Co-Signed By: Cassi Rick\.br\Date and Time Co-Signed: 06/29/23 09:22 EST Ambulatory Visit Summaryon 1 08-29-2022 Ambulatory Visit Summary NILESH PÉREZ :1940 Visit Date:06/29/2023 Ambulatory Visit Instructions Your Diagnosis History of bladder cancer BPH with urinary obstruction Incomplete bladder emptying Urethral stricture Tests Performed Urnls Dip Stick Auto w/o Microscopy POC 66490 Your Care Team Attending Physician - KAREN [...] Wednesday 7:45 AM EST With: IVAN GAO, Sylvester White Where: [facility] Elbert Salazar [facility] Patient Educationon 06-29-20 23 Patient Education Oncology Bladder Cancer Bladder [...] Follow these instructions at home: ? Take xccq-kcs-lovxtiq and prescription medicines only as told by [...] important. Where to find more information ? [place] [employer] Society (ACS): cancer.org ? National Cancer [place] (NCI): cancer.gov Contact a health care provider [...] have wi (more content not included)... Normal [facility] Ambulatory Visit Summaryon 1 Ambulatory Visit Summary NILESH PÉREZ :1940 Visit Date:06/22/2023 Ambulatory Visit Instructions Your Diagnosis Bladder cancer Tests Performed Urnls Dip Stick Auto w/o Microscopy POC 15742 Your Care Team Attending Physician - LURDES ROBISON, KAREN Chris Primary Care Physician - SHAYLEE WARREN MD [...] KAREN CHATMAN PA-C [facility] [address] [place] [address]- \.br\ You Need to Schedule the Following Appointments\.br\ Follow Up with KAREN CHATMAN PA-C, URL When: \.br\ Comments:\.br\ BCG #6/6 on 06/29/23\.br\ Where:\.br\ [address]br\ [place] [address]\.br\ [id number]\.br\ Medications\.br\ What When Instructions\.br\ Unchanged aspirin (aspirin [...] Urnls Dip Stick Auto w/o Microscopy POC 23693 (06/22/2023)\.br\ Bilirubin Urine Dipstick - Negative\.br\ Blood Urine Dipstick - Negative\.br\ Glucose Urine Dipstick - Negative\.br\ Ketones Urine Dipstick - Negative\.br\ Leukocytes Urine Dipstick - Trace\.br\ Nitrite Urine Dipstick - Negative\.br\ Protein Urine Dipstick - Negative\.br\ Specific Eunice Urine Dipstick - 1.015\.br\ Urine Appearance Urine [...] these instructions at home:\.br\ ? \.br\ Take qpqf-yym-kzptgjw and prescription medicines only as told by [...] as e-cigarettes. If you need help quitting, marshall [facility] Patient Educationon 06-22-20 23 Patient Education Oncology [...] Follow these instructions at home: ? Take gira-rmu-kqnrtdh and prescription medicines only as told by [...] important. Where to find more information ? [place] [employer] (ACS): cancer.org ? National Cancer [place] (NCI): cancer.gov Contact a health care provider [...] wi (more content not included)... Normal [facility] Urology Office/Clinic Noteon 06-22-2023 Urology Office/Clinic Note [...] Contact Information LURDES ROBISON, KAREN Chris, URL [address] [place] [address] [phone] Additional Instructions: BCG #6/6 on 06/29/23 Patient Education Bladder Cancer Documentation recorded by the ariane Rick accurately reflects the services(s) I performed and decisions made by me. Authenticated by Karen Chatman PA-C on 06/22/2023 09:51:04. ICassi, personally scribed for Karen Chatman PA-C [...] 05/22/2023 Recorded BCG 05/18/2023 Given SARS-CoV-2 (COVID-19) mRNAMUL.ORD![id number] 08/29/2022 Recorded SARS-CoV-2 (COVID-19) mRNA-1273 vaccine 02/14/2022 Recorded SARS-CoV-2 (COVID-19) mRNA-1273 vaccine 08/05/2021 Recorded SARS-CoV-2 (COVID-19) mRNA-1273 vaccine 11/18/2020 Recorded 2022-07-20: TPV75 SARS-CoV-2 (COVID-19) mRNA-1273 vaccine 10/18/2020 Recorded 2022-07-20: TPV75 Lab Results Ambulatory Point of Care Results Bilirubin Urine Dipstick: Negative (06/22/23 09:02 (more content not included)... Normal [facility] Comment on above: Result Comment: Electronically Signed By : KAREN CHATMAN PA-C\.br\Date and Time Signed: 06/22/23 09:51 EDT\.br\Electronically Co-Signed By: Cassi Rick\.br\Date and Time Co-Signed: 06/22/23 09:45 EDT Ambulatory Visit Summaryon 1 Ambulatory Visit Summary NILESH PÉREZ :1940 Visit Date:06/15/2023 Ambulatory Visit Instructions Your Diagnosis Bladder cancer UTI (urinary tract infection) Tests Performed Urnls Dip Stick Auto w/o Microscopy POC 32766 Your Care Team Attending Physician - KAREN [...] KAREN CHATMAN PA-C Where: [facility] Invalid Interpretation Code [address] [place] [address]- \.br\ Wednesday 9:00 AM EST \.br\ With:\.br\ Where: [facility] Patient Educationon 06-15-20 Patient Education Oncology Bladder [...] Follow these instructions at home: ? Take rkyy-mnz-xtwxnvc and prescription medicines only as told by [...] important. Where to find more information ? [place] [employer] Cancer Society (ACS): cancer.org ? National Cancer [place] (NCI): cancer.gov Contact a health care provider [...] have wi (more content not included)... Normal [facility] Urology Office/Clinic Noteon 06-15-2023 Urology Office/Clinic [...] Contact Information LURDES ROBISON, KAREN Chris, URL [address] [place] [address] Additional Instructions: 1 week for BCG #5 of 6 Patient Education Bladder Cancer Documentation recorded by the ariane Glover accurately reflects the services(s) I performed and [...] 05/22/2023 Recorded BCG 05/18/2023 Given SARS-CoV-2 (COVID-19) mRNAMUL.ORD![id number] 08/29/2022 Recorded SARS-CoV-2 (COVID-19) mRNA-1273 vaccine 02/14/2022 Recorded SARS-CoV-2 (COVID-19) mRNA-1273 vaccine 08/05/2021 Recorded SARS-CoV-2 (COVID-19) mRNA-1273 vaccine 11/18/2020 Recorded 2022-07-20: TPV75 SARS-CoV-2 (COVID-19) mRNA-1273 vaccine 10/18/2020 Recorded 2022-07-20: TPV75 Lab Results Ambulatory Point of C (more content not included)... Normal [facility] Comment on above: Result Comment: Electronically Signed By : KAREN CHATMAN PA-C\.br\Date and Time Signed: 06/15/23 09:33 EDT\.br\Electronically Co-Signed By: Amy Glover\.br\Date and Time Co-Signed: 06/15/23 09:23 EDT Ambulatory Visit Summaryon 1 Ambulatory Visit Summary NILESH PÉREZ :1940 Visit Date:06/08/2023 Ambulatory Visit Instructions Your Diagnosis Bladder cancer Tests Performed Urnls Dip Stick Auto w/o Microscopy POC 19317 Your Care Team Attending Physician - KAREN [...] KAREN CHATMAN PA-C Where: [facility] Invalid Interpretation Code [address] [place] [address]- \.br\ Wednesday 9:15 AM EST \.br\ With: KAREN CHATMAN PA-C\.br\ Where: [facility] Nurse Consultation Noteon Nurse Consultation Note Reason [...] 05/25/2023 Given BCG 05/18/2023 Given SARS-CoV-2 (COVID-19) mRNAMUL.ORD![id number] 08/29/2022 Recorded SARS-CoV-2 (COVID-19) mRNA-1273 vaccine 02/14/2022 [...] Protein Urine Dipstick: Negative (06/08/23 09:17:00) Specific Eunice Urine Dipstick: 1.020 (06/08/23 09:17:00) Urine Appearance Urine Dipstick: Clear (06/08/23 09:17:00) Urine Color Urine Dipstick: Yellow (06/08/23 09:17:00) Urobilinogen Urine Dipstick: Normal 0.2-1 EU/dl (06/08/23 09:17:00) pH Urine Dipstick: 7 (06/08/23 09:17:00) Normal [facility] Patient Educationon 06-08-20 Patient Education Oncology [...] Follow these instructions at home: ? Take woez-hhj-hhbonit and prescription medicines only as told by [...] important. Where to find more information ? [place] [employer] Society (ACS): cancer.org ? National Cancer [place] (NCI): cancer.gov Contact a health care provider [...] have wi (more content not included)... Normal [facility] Urology Office/Clinic Noteon 06-08-2023 Urology Office/Clinic [...] E&M of Est. Patient Low 20-29 Min 02574 Urnls Dip Stick Auto w/o Microscopy POC 36413 2. UTI (urinary tract infection) (N39.0: Urinary tract infection, site not specified) Last weeks dose was postponed due to UTI. Pt was started on Keflex therapy. When finalized results came back pt was switched to Levaquin 250mg x5days therapy. Took last pill this morning. UA today negative for infection. Denies any UTI sx. Ordered: E&M of Est. Patient Low 20-29 Min 49544 Orders: levofloxacin, 250 mg = 1 tab(s), Oral, q24hr, X 5 day(s), # 5 tab(s), Refills(s) 0, Pharmacy: [facility], 167, cm, 06/01/23 9:14:00 EDT, Height/Length Dosing, 83, kg, 06/01/23 9:14:00 EDT, Weight Dosing Follow up for BCG #4/6 in 1 week or sooner if needed. Pt understands and agrees with plan. Follow-up With When Contact Information LURDES ROBISON, KAREN Chris, URL [address] [facility] [place] [address] [phone] Additional Instructions: BCG #4/6 on 06/15/23 Patient [...] tamsulosin 0 (more content not included)... Normal [facility] Comment on above: Result Comment: Electronically [...] Locations R1: This test was performed at: [facility], [address] [place] [address], [facility]- , , [facility] Comment on above: Performed By: #### [id number] ####[facility] [address] [place] [address] Ambulatory Visit Summaryon 1 Ambulatory Visit Summary NILESH PÉREZ :1940 Visit Date:06/01/2023 Ambulatory Visit Instructions Your Diagnosis UTI (urinary tract infection) Bladder cancer Tests Performed Urnls Dip Stick Auto w/o Microscopy POC 32794 Your Care Team Attending Physician - KAREN [...] KAREN CHATMAN PA-C Where: [facility] Invalid Interpretation Code [address] [place] [address] [place] [address]- \.br\ Wednesday 9:00 AM EDT \.br\ With: KAREN CHATMAN PA-C\.br\ Where: [facility] Patient Educationon 06-01-20 23 Patient Education Oncology [...] Follow these instructions at home: ? Take qvaj-qni-cbdndqm and prescription medicines only as told by [...] important. Where to find more information ? [employer] (ACS): cancer.org ? National Cancer [place] (NCI): cancer.gov Contact a health care provider [...] have wi (more content not included)... Normal [facility] Urology Office/Clinic Noteon 06-01-2023 Urology Office/Clinic [...] E&M of Est. Patient Low 20-29 Min 86416 2. Bladder cancer (C67.9: Malignant neoplasm of [...] E&M of Est. Patient Low 20-29 Min 28431 Urine Culture Urnls Dip Stick Auto w/o Microscopy POC 27649 Orders: cephalexin, 500 mg = 1 cap(s), Oral, q12hr, X 7 day(s), # 14 cap(s), Refills(s) 0, Pharmacy: [facility], 167, cm, 06/01/23 9:14:00 EDT, Height/Length Dosing, 83, kg, 06/01/23 9:14:00 EDT, Weight Dosing Follow up in 1 wk for BCG #3 of 6. All questions/concerns were discussed. Pt to call the office if _ encounters any issues prior. Pt acknowledges understanding. Follow-up With When Contact Information KAREN CHATMAN PA-C, URL In 1 week [address] [place] [address] Additional Instructions: for BCG #3 of 6 Patient Education Bladder Cancer I, Galina Urbano, personally scribed for Karen Chatman PA-C on 06/01/2023 09:39:57. . Documentation recorded by the scribaries Urbano accurately reflects the services(s) I performed [...] Years. Household (more content not included)... Normal [facility] Comment on above: Result Comment: Electronically Signed By : KAREN CHATMAN PA-C\.br\Date and Time Signed: 06/01/23 09:49 EDT\.br\Electronically Co-Signed By: Galina Urbano\.br\Date and Time Co-Signed: 06/01/23 09:40 EDT Patient Educationon 05-25-20 Patient Education Oncology Bladder [...] Follow these instructions at home: ? Take rbhn-zzf-sjlxoxl and prescription medicines only as told by [...] important. Where to find more information ? [place] [employer] (ACS): cancer.org ? National Cancer [place] (NCI): cancer.gov Contact a health care provider [...] wi (more content not included)... Normal [facility] Urology Office/Clinic Noteon 05-25-2023 Urology Office/Clinic Note [...] Urnls Dip Stick Auto w/o Microscopy POC 05772 Follow up with BCG #3/6 in 1 week or sooner if needed. Pt understands and agrees with plan. Follow-up With When Contact Information KAREN CHATMAN PA-C, URL [address] [place] [address] [phone] Additional Instructions: BCG #3/6 on 06/01/23 Patient Education Bladder Cancer Documentation recorded by the ariane Rick accurately reflects the services(s) I performed and decisions made by me. Authenticated by Karen Chatman PA-C on 05/25/2023 09:56:39. ICassi, personally scribed for Karen Chatman PA-C [...] 05/25/2023 Given BCG 05/18/2023 Given SARS-CoV-2 (COVID-19) [id number] 08/29/2022 Recorded SARS-CoV-2 (COVID-19) mRNA-1273 vaccine 02/14/2022 Recorded SARS-CoV-2 (COVID-19) mRNA-1273 vaccine 08/05/2021 Recorded SARS-CoV-2 (COVID-19) mRNA-1273 vaccine 11/18/2020 Recorded 2022-07-20: [id number] (more content not included)... Normal [facility] Comment on above: Result Comment: Electronically Signed By : KAREN CHATMAN PA-C\.br\Date and Time Signed: 05/25/23 09:56 EDT\.br\Electronically Co-Signed By: Cassi Rick\.br\Date and Time Co-Signed: 05/25/23 09:46 EDT Consent for Procedure/Surger yon 05-20-2023 Consent for Procedure/Surger y [id number] 0CD:127 Normal [facility] Ambulatory Visit Summaryon 0 05-18-2023 Ambulatory Visit Summary NILESH PÉREZ :1940 Visit Date:05/18/2023 Ambulatory Visit Instructions Your Diagnosis History of bladder cancer BPH with urinary obstruction Incomplete bladder emptying Urethral stricture Tests Performed Urnls Dip Stick Auto w/o Microscopy POC 59919 Your Care Team Attending Physician - KAREN [...] graft (2016). Discharge Vitals Heart Rate (Peripheral) 76 Respiratory Rate 16 Blood Pressure 135/67 Height 167 cm Height 66 in Weight 83 kg Weight 182.6 lb BMI 29.76 What to do next Scheduled Follow-Up Appointments Wednesday 9:15 AM EDT With: KARNE CHATMAN PA-C Where: [facility] Invalid Interpretation Code [address] [place] [address]- \.br\ Wednesday 9:15 AM EDT \.br\ With: KAREN CHATMAN PA-C\.br\ Where: [facility] Patient Educationon 05-18-20 23 Patient Education Urology Benign Prostatic Hyperplasia Benign [...] Follow these instructions at home: ? Take kzwj-zkf-wqhvkaz and prescription medicines only as told by [...] the medicine (more content not included)... Normal [facility] Urology Office/Clinic Noteon 05-18-2023 Urology Office/Clinic Note [...] CHATMAN PA-C, URL In 1 week [address] [place] [address] Additional Instructions: #2 BCG of 6 - Full Dose Patient Education Benign Prostatic Hyperplasia Galina Whitten, personally scribed for Karen Chatman PA-C on 05/18/2023 10:37:03. . Documentation recorded by the scribaries Urbano accurately reflects the services(s) I performed [...] (COVID-19) [id number] (more content not included)... Normal [facility] Comment on above: Result Comment: Electronically Signed By : KAREN CHATMAN PA-C\.br\Date and Time Signed: 05/18/23 11:11 EDT\.br\Electronically Co-Signed By: Galina Urbano\.br\Date and Time Co-Signed: 05/18/23 10:37 EDT Auth for Release of Medical Recordson 05-12-2023 Auth for Release of Medical Records [id number] CD:127 Normal [facility] Screenson 04-22-2023 Screens [id number] 0CD:127 Normal [facility] Pathology Noteon 04-21-2023 Pathology Note [id number] 0CD:127 [facility] Ambulatory Visit Summaryon 0 04-20-2023 Ambulatory Visit Summary NILESH PÉREZ :1940 Visit Date:04/20/2023 Ambulatory Visit Instructions Your Diagnosis History of bladder cancer BPH with urinary obstruction Incomplete bladder emptying Urethral stricture Tests Performed Urnls Dip Stick Auto w/o Microscopy POC 64077 Your Care Team Attending Physician - Sylvester ZALDIVAR MD Primary Care Physician - SHAYLEE [...] Following Appointments Follow Up with IVAN GAO, Sylvester White, [place] When: Where: [facility] [address] [place] [address]- Medications What When Instructions Unchanged APAP/ ASA/ [...] Urnls Dip Stick Auto w/o Microscopy POC 21128 (04/20/2023) Bilirubin Urine Dipstick - Negative Blood Urine Dipstick - 1+ Small Glucose Urine Dipstick - Negative Ketones Urine Dipstick - Negative Leukocytes Urine Dipstick - Trace Nitrite Urine Dipstick - Negative Protein Urine Dipstick - Negative Specific Eunice Urine Dipstick - 1.010 Urine Appearance Urine [...] had can (more content not included)... Normal [facility] Ambulatory Visit Summary NILESH PÉREZ :1940 Visit Date:04/20/2023 Ambulatory Visit Instructions Your Diagnosis History of bladder cancer BPH with urinary obstruction Incomplete bladder emptying Urethral stricture Tests Performed Urnls Dip Stick Auto w/o Microscopy POC 42165 Your Care Team Attending Physician - Sylvester ZALDIVAR MD Primary Care Physician - SHAYLEE [...] Following Appointments Follow Up with IVAN GAO, Sylvester White, [place] When: Where: [facility] [address], [place] [address]- Medications What How Much When Instructions Unchanged [...] Urnls Dip Stick Auto w/o Microscopy POC 66199 (04/20/2023) Bilirubin Urine Dipstick - Negative Blood Urine Dipstick - 1+ Small Glucose Urine Dipstick - Negative Ketones Urine Dipstick - Negative Leukocytes Urine Dipstick - Trace Nitrite Urine Dipstick - Negative Protein Urine Dipstick - Negative Specific Eunice Urine Dipstick - 1.010 Urine Appearance Urine [...] have abnorma (more content not included)... Normal [facility] Patient Educationon 04-20-20 Patient Education Oncology [...] if anything looks unusual. Men with a yymvkr-ejzm-qhcuud risk for skin cancer may want to see a retail service specialist (supervisor pre wave) for an annual body check. What are the benefits of screening? Cancer screening is done to look for cancer in the very early stages, before it spreads and becomes harder to treat and before you would start to notice symptoms. Finding cancer early improves the chances of successful treatment. It ma (more content not included)... Normal [facility] Urology Office/Clinic Noteon 04-20-2023 Urology Office/Clinic [...] urethra. [2] Follow-up With When Contact Information Sylvester ZALDIVAR MD, URL [facility] [address], [place] [address]- Additional Instructions: schedule three BCGs Patient Education Cancer Screening for Men I, Mayra Moy, personally scribed for Dr. Zaldivar on 04/20/2023 10:13:54. . Documentation recorded by the scribeMyara, accurately reflects the services(s) I performed and [...] (03/23/2023), Cystoscopy and (more content not included)... [facility] Comment on above: Result Comment: Electronically Signed By : Sylvester ZALDIVAR MD\.br\Date and Time Signed: 04/20/23 10:18 EDT\.br\Electronically Co-Signed By: Mayra Moy\.br\Date and Time Co-Signed: 04/20/23 10:14 EDT Pathology Noteon 04-15-2023 Pathology Note [id number] 0CD:127 [facility] Operative Reporton Operative Report [id number] 0CD:127 [facility] RAD - MISCon 04-04-2023 RAD - MISC [id number] 0CD:127 [facility] Consent for Procedure/Surger yon 03-24-2023 Consent for Procedure/Surger y [id number] 0CD:127 Normal [facility] Consent for Procedure/Surger y [id number] 0CD:127 Normal [facility] Ambulatory Visit Summaryon 0 03-23-2023 Ambulatory Visit Summary NILESH PÉREZ :1940 Visit Date:03/23/2023 Ambulatory Visit Instructions Your Diagnosis Bladder cancer BPH (benign prostatic hyperplasia) Nocturia Urinary hesitancy Incomplete bladder emptying Urethral stricture Your Care Team Attending Physician - IVAN GAO, Sylvester White Primary Care Physician - BRIANA GAO, SHAYLEE This Is Your Medications List ciprofloxacin (Cipro [...] graft (2016). Discharge Vitals Heart Rate (Peripheral) 80 Respiratory Rate 16 Blood Pressure 129/81 Height 167 cm Height 66 in Weight 84.2 kg Weight 185.24 lb BMI 30.19 What to do next Scheduled Follow-Up Appointments Wednesday 8:00 AM EDT Where: [facility] Patient Educationon 03-23-20 Patient Education [...] these instructions at home: Medicines ? Take ycak-czq-hpgucij and prescription medicines only as told by [...] keep your urine pale yellow. ? Take ftqe-gda-toevjpv or prescription medicines. ? Eat foods that [...] pain in your lower abdomen. ? Take taws-vyz-fyrcoag and prescription medicines only as told by [...] pr (more content not included)... Normal [facility] Urology Office/Clinic Noteon 03-23-2023 Urology Office/Clinic Note [...] unspecified site) Follow-up With When Contact Information IVAN GAO, Sylvester White, URL [facility] [address], [place] [address]- Additional Instructions: schedule TURBT Patient Education Transurethral [...] urinating Gas (more content not included)... Normal [facility] Comment on above: Result Comment: Electronically Signed By : Sylvester ZALDIVAR MD\.br\Date and Time Signed: 03/23/23 08:22 EDT\.br\Electronically Co-Signed By: Mayra Moy\.br\Date and Time Co-Signed: 03/23/23 08:18 EDT [facility] Fish and Urine Cyt o ([facility])on 03-19-2023 [facility] Diagnosis Info Invalid Interpretation Code [facility] Comment on above: Result Comment: A:Urine,Urine:Voided [...] correlated with cytology and cystoscopy results.* CPT 03746, 56829. Microscopic Notes - Microscopic Notes - Abnormal cells 9p21 deletions: Abnormal cells aneploid events: Total cells analyzed: 174 Hematuria: Gross Description Site ID:A color Yellow fixative Alcohol Received 90 mls of clear yellow fluid with the patient's name and, Urine on the vial. Electronically signed by : on: 03/18/2023 20:29:01 Performed By: #### 1 [id number] #### [facility] [address] [place] [address] Ambulatory Visit Summaryon 0 03-12-2023 Ambulatory Visit Summary NILESH PÉREZ :1940 Visit Date:06/22/2022 Ambulatory Visit Instructions Your [...] 1 tablet after the procedure Pickup at [facility] Unchanged APAP/ ASA/ caffeine (acetaminophen/ aspirin/ [...] 0.8 Unknown, ORAL, 3 Refill(s) Pharmacy Information [facility]: [address] [place] [phone] Allergies metoprolol (Itching) Problems Ongoing - Any problem that you are currently receiving treatment for. Abdominal aortic aneurysm BPH (benign prostatic hyperplasia) Carotid artery stenosis Coronary arteriosclerosis Difficulty urinating Gastroesophageal reflux disease History of bladder cancer Hyperlipidemia Hyperlipidemia Hypertensive disorder Incomplete bladder emptying Intermittent urinary stream Nocturia Transient cerebral ischemia Urinary hesitancy Normal [facility] Fish and Urine Cyt o ([facility])on 03-12-2023 [facility] Method of Extraction Voided Normal [facility] Comment on above: Performed By: #### [id number] #### [facility] [address] [place] [address] [facility] Number of Jars 1 Invalid Interpretation Code [facility] Comment on above: Performed By: #### [id number] #### [facility] [address] [place] [address] [facility] Specimen Urine Normal [facility] Comment on above: Performed By: #### [id number] #### [facility] [address] [place] [address] [facility] Type of Service Technical Only Normal [facility] Comment on above: Performed By: #### [id number] #### [facility] [address] [id number] CBC AUTO DIFFon 08-13-2022 BASO # 0.1 103/ul Normal 0.0-0.1 [facility] Comment on above: Performed By: #### CBC #### [facility] [address] [address] [address] Nina Jackson Basophils/100 WBC (Bld) 0.7 % Normal 0.2-2.0 [facility] Comment on above: Performed By: #### CBC #### [facility] [address] [address] [address] Nina Jackson EO # 0.4 103/ul Normal 0.0-0.7 [facility] Comment on above: Performed By: #### CBC #### [facility] [address] [place] [address] Dr. Nina Jackson Eosinophils/100 WBC (Bld) 5.0 % Normal 0.9-7.0 [facility] Comment on above: Performed By: #### CBC #### [facility] [address] [place] [address] Dr. Nina Jackson Erythrocyte distribution width (RBC) [Ratio] 13.0 % Normal 11.0-15.0 [facility] Comment on above: Performed By: #### CBC #### [facility] [address] [place] [address] Dr. Nina Jackson Hematocrit (Bld) [Volume fraction] 37.7 % Critically low 42.0-54.0 [facility] Comment on above: Performed By: #### CBC #### [facility] [address] [place] [address] Dr. Nina Jackson Hemoglobin (Bld) [Mass/Vol] 12.5 g/dL Critically low 14.0-18.0 [facility] Comment on above: Performed By: #### CBC #### [facility] [address] [place] [address] Dr. Nina Jackson IG # 0.02 10e3/ul Normal 0.00-0.03 [facility] Comment on above: Performed By: #### CBC #### [facility] [address] [place] [address] Dr. Nina Jackson IG % 0.3 % Normal 0.0-0.5 [facility] Comment on above: Performed By: #### CBC #### [facility] [address] [place] [address] Dr. Nian Jackson LYMPH # 1.2 103/ul Normal 1.2-3.8 [facility] Comment on above: Performed By: #### CBC #### [facility] [address] [place] [address] Dr. Nina Jackson Lymphocytes/100 WBC (Bld) 16.3 % Critically low 20.5-60.0 [facility] Comment on above: Performed By: #### CBC #### [facility] [address] [place] [address] Dr. Nina Jackson MANUAL DIFF REQ NO Normal [facility] Comment on above: Performed By: #### CBC #### [facility] [address] [place] [address] Dr. Nina Jackson MCH (RBC) [Entitic mass] 29.7 pg Normal 25.9-34.0 [facility] Comment on above: Performed By: #### CBC #### [facility] [address] [place] [address] Dr. Nina Jackson MCHC (RBC) [Mass/Vol] 33.2 g/dL Normal 29.9-35.2 [facility] Comment on above: Performed By: #### CBC #### [facility] [address] [place] [address] Dr. Nina Jackson MCV (RBC) [Entitic vol] 89.5 fL Normal 80.0-94.0 [facility] Comment on above: Performed By: #### CBC #### [facility] [address] [place] [address] Dr. Nina Jackson MONO # 0.9 103/ul Critically high 0.3-0.8 [facility] Comment on above: Performed By: #### CBC #### [facility] [address] [place] [address] Dr. Nina Jackson Monocytes/100 WBC (Bld) 12.2 % Critically high 1.7-12.0 [facility] Comment on above: Performed By: #### CBC #### [facility] [address] [place] [address] Dr. Nina Jackson NEUT # 4.7 103/ul Normal 1.4-6.5 [facility] Comment on above: Performed By: #### CBC #### [facility] [address] [place] [address] Dr. Nina Jacksno Neutrophils/100 WBC (Bld) 65.5 % Normal 43.0-75.0 [facility] Comment on above: Performed By: #### CBC #### [facility] [address] [address] [address] Nina Jackson Platelet mean volume (Bld) [Entitic vol] 11.3 fL Normal 9.5-13.5 [facility] Comment on above: Performed By: #### CBC #### [facility] [address] [place] [address] Dr. Nina Jackson PLT 184 103/ul Normal 150-450 [facility] Comment on above: Performed By: #### CBC #### [facility] [address] [address] [address] Nina Jackson RBC 4.21 106/ul Critically low 4.70-6.10 [facility] Comment on above: Performed By: #### CBC #### [facility] [address] [place] [address] Dr. Nina Jackson WBC 7.2 103/ul Normal 4.0-11.0 [facility] Comment on above: Performed By: #### CBC #### [facility] [address] [place] [address] Dr. Nina Jackson [facility]-24 SARS-CoV-2 (COVID-19) RNA CAROLINE+probe Ql (Unsp spec) Not detected Normal NOT DETECTED [facility] Comment on above: Result Comment: This test is not yet chuy roved or cleared by the [place] FDA. When there are no FDA-approved or cleared tests available, and other criteria are met, FDA can make tests available under an emergency access mechanism called an Emergency Use Authorization (EUA). The EUA for this test is supported by the [employer] Operator of Health and Human Service's (HHS's) declaration [...] SARS-CoV-2. Performed By: #### C VDTB #### [facility] [address] [place] [address] Dr. Nina Jackson PROF 14(COMP METB)on 022 Albumin [Mass/Vol] 3.5 g/dL Normal 3.4-5.0 [facility] Comment on above: Performed By: #### CMP #### [facility] [address] [place] [address] Dr. Nina Jackson Albumin/Globulin [Mass ratio] 1.0 {ratio} Normal [facility] Comment on above: Performed By: #### CMP #### [facility] [address] [place] [address] Dr. Nina Jackson ALP [Catalytic activity/Vol] 75 U/L Normal 46-116 [facility] Comment on above: Performed By: #### CMP #### [facility] [address] [place] [address] Dr. Nina Jackson ALT [Catalytic activity/Vol] 34 U/L Normal 16-63 [facility] Comment on above: Performed By: #### CMP #### [facility] [address] [place] [address] Dr. Nina Jackson Anion gap [Moles/Vol] 10.6 mmol/L Normal [facility] Comment on above: Performed By: #### CMP #### [facility] [address] [place] [address] Dr. Nina Jackson AST [Catalytic activity/Vol] 34 U/L Normal 15-37 [facility] Comment on above: Performed By: #### CMP #### [facility] [address] [place] [address] Dr. Nina Jackson Bilirubin [Mass/Vol] 0.3 mg/dL Normal 0.2-1.0 [facility] Comment on above: Performed By: #### CMP #### [facility] [address] [place] [address] Dr. Nina Jackson Calcium [Mass/Vol] 8.9 mg/dL Normal 8.5-10.1 [facility] Comment on above: Performed By: #### CMP #### [facility] [address] [place] [address] Dr. Nina Jackson Chloride [Moles/Vol] 102 mmol/L Normal 98-107 [facility] Comment on above: Performed By: #### CMP #### [facility] [address] [place] [address] Dr. Nina Jackson CO2 [Moles/Vol] 29.4 mmol/L Normal 21.0-32.0 [facility] Comment on above: Performed By: #### CMP #### [facility] [address] [place] [address] Dr. Nina Jackson Creatinine [Mass/Vol] 1.32 mg/dL Critically high 0.70-1.30 [facility] Comment on above: Performed By: #### CMP #### [facility] [address] [place] [address] Dr. Nina Jackson EGFR-AF ROMANIAN >60 Normal >=60 [facility] Comment on above: Performed By: #### CMP #### [facility] [address] [place] [address] Dr. Nina Jackson EGFR-NON AF ROMANIAN 52 mL/min/1.73m2 Critically low >=60 [facility] Comment on above: Performed By: #### CMP #### [facility] [address] [place] [address] Dr. Nina Jackson Globulin (S) [Mass/Vol] 3.6 g/dL Normal [facility] Comment on above: Performed By: #### CMP #### [facility] [address] [place] [address] Dr. Nina Jackson Glucose [Mass/Vol] 119 mg/dL Critically high 74-106 [facility] Comment on above: Performed By: #### CMP #### [facility] [address] [place] [address] Dr. Nina Jackson Potassium [Moles/Vol] 4.0 mmol/L Normal 3.5-5.1 [facility] Comment on above: Performed By: #### CMP #### [facility] [address] [place] [address] Dr. Nina Jackson Protein [Mass/Vol] 7.1 g/dL Normal 6.4-8.2 [facility] Comment on above: Performed By: #### CMP #### [facility] [address] [place] [address] Dr. Nina Jackson Sodium [Moles/Vol] 138 mmol/L Normal 136-145 [facility] Comment on above: Performed By: #### CMP #### [facility] [address] [place] [address] Dr. Nina Jackson Urea nitrogen [Mass/Vol] 17.0 mg/dL Normal 7.0-18.0 [facility] Comment on above: Performed By: #### CMP #### [facility] [address] [place] [address] Dr. Nina Jackson Urea nitrogen/Creatin ine [Mass ratio] 12.9 mg/mg Normal [facility] Comment on above: Performed By: #### CMP #### [facility] [address] [place] [address] Dr. Nina Jackson PROTIMEon 08-13-2022 INR Coag (PPP) [Relative time] 1.01 {INR} Normal [facility] Comment on above: Performed By: #### PT, PTT #### [facility] [address] [place] [address] Dr. Nina Jackson INR GUIDELINES SEE BELOW Normal [facility] Comment on above: Result Comment: DESIRED INR: 2.0 - 3.0 C ONDITIONS NOT LISTED BELOW 2.5 - 3.5 FOR PROSTHETIC HEART VALVE REPLACEMENT 2.5 - 3.5 RECURRENT THROMBOSIS Performed By: #### P T, PTT #### [facility] [address] [place] [address] Dr. Nina Jackson PT Coag (PPP) [Time] 10.9 s Normal 9.0-11.6 [facility] Comment on above: Performed By: #### PT, PTT #### [facility] Laboratory [address] [place] [address] Dr. Nina Jackson PTTon 08-13-2022 aPTT Coag (Bld) [Time] 27.1 s Normal 22.3-36.2 [facility] Comment on above: Performed By: #### PT, PTT #### [facility] [address] [place] [address] Dr. Nina Jackson AMYLASEon 04-22-2022 Amylase [Catalytic activity/Vol] 38 U/L Normal 25-115 [facility] Comment on above: Performed By: #### ERUR #### [facility] [address] [place] [address] Dr. Nina Jackson CARDIAC VIRAL ADMITon 022 CK [Catalytic activity/Vol] 160 U/L Normal 39-308 [facility] Comment on above: Performed By: #### ERUR #### [facility] [address] [place] [address] Dr. Nina Jackson CK.MB [Mass/Vol] 1.75 ng/mL Normal <=3.60 [facility] Comment on above: Performed By: #### ERUR #### [facility] [address] [place] [address] Dr. Nina Jackson HSTROP 11.7 pg/mL Normal 4.0-76.1 [facility] Comment on above: Result Comment: CUT-OFF POINTS HAVE BEEN ESTABLISHED BASED ON THE FOURTH UNIVERSAL DEFINITIONS OF MYOCARDIAL INFARCTION. THE UPPER REFERENCE LIMIT (URL) OF TROPONIN, DEFINED THE 99TH PERCENTILE OF cTnI DISTRIBUTION IN A REFERENCE POPULATION, HAS BEEN CONFIRMED THE DECISION THRESHOLD FOR OR DIAGNOSIS. Performed By: #### E RUR #### [facility] [address] [place] [address] Dr. Nina Jackson SHI 266 ng/mL Critically high 16-96 [facility] Comment on above: Performed By: #### ERUR #### [facility] [address] [place] [address] Dr. Nina Jackson CBC W MANUAL DIFFon 04-22-20 22 ATYPICAL LYMPH # Normal [facility] Comment on above: Performed By: #### ERUR #### [facility] [address] [place] [address] Dr. Nina Jackson ATYPICAL LYMPH % Normal [facility] Comment on above: Performed By: #### ERUR #### [facility] [address] [place] [address] Dr. Nina Jackson BAND # Normal 0.0-0.3 [facility] Comment on above: Performed By: #### ERUR #### [facility] [address] [place] [address] Dr. Nina Jackson BAND % Normal 0-5 [facility] Comment on above: Performed By: #### ERUR #### [facility] [address] [place] [address] Dr. Nina Jackson BASOM # 0.00 103/ul Normal 0.00-0.10 [facility] Comment on above: Performed By: #### ERUR #### [facility] [address] [place] [address] Dr. Nina Jackson BASOM % 0.0 % Critically low 0.2-2.0 [facility] Comment on above: Performed By: #### ERUR #### [facility] [address] [place] [address] Dr. Nina Jackson BLAST # Normal [facility] Comment on above: Performed By: #### ERUR #### [facility] [address] [place] [address] Dr. Nina Jackson BLAST % Normal [facility] Comment on above: Performed By: #### ERUR #### [facility] [address] [place] [address] Dr. Nina Jackson CORRECTED WBC Normal 4.0-11.0 [facility] Comment on above: Performed By: #### ERUR #### [facility] [address] [place] [address] Dr. Nina Jackson EOS # 0.00 103/ul Normal 0.00-0.70 [facility] Comment on above: Performed By: #### ERUR #### [facility] [address] [place] [address] Dr. Nina Jackson EOS% 0.0 % Critically low 0.9-7.0 [facility] Comment on above: Performed By: #### ERUR #### [facility] [address] [address] [address] Nina Jackson HCT 38.7 % Critically low 42.0-54.0 [facility] Comment on above: Performed By: #### ERUR #### [facility] [address] [place] [address] Dr. Nina Jackson HGB 13.2 g/dl Critically low 14.0-18.0 [facility] Comment on above: Performed By: #### ERUR #### [facility] [address] [place] [address] Dr. Nina Jackson LYMPHM # 0.74 103/ul Critically low 1.20-3.80 [facility] Comment on above: Performed By: #### ERUR #### [facility] [address] [place] [address] Dr. Nina Jackson LYMPHM% 4.0 % Critically low 20.5-60.0 [facility] Comment on above: Performed By: #### ERUR #### [facility] [address] [place] [address] Dr. Nina Jackson MCH 30.8 pg Normal 25.9-34.0 [facility] Comment on above: Performed By: #### ERUR #### [facility] [address] [place] [address] Dr. Nina Jackson MCHC 34.1 g/dl Normal 29.9-35.2 [facility] Comment on above: Performed By: #### ERUR #### [facility] [address] [place] [address] Dr. Nina Jackson MCV 90.2 fL Normal 80.0-94.0 [facility] Comment on above: Performed By: #### ERUR #### [facility] [address] [place] [address] Dr. Nina Jackson METAMYELOCYTE # Normal [facility] Comment on above: Performed By: #### ERUR #### [facility] [address] [place] [address] Dr. Nina Jackson METAMYELOCYTE % Normal [facility] Comment on above: Performed By: #### ERUR #### [facility] [address] [place] [address] Dr. Nina Jackson MONOM# 1.84 103/ul Critically high 0.30-0.80 [facility] Comment on above: Performed By: #### ERUR #### [facility] [address] [place] [address] Dr. Nina Jackson MONOM% 10.0 % Normal 1.7-12.0 [facility] Comment on above: Performed By: #### ERUR #### [facility] [address] [place] [address] Dr. Nina Jackson MPV 11.4 fL Normal 9.5-13.5 [facility] Comment on above: Performed By: #### ERUR #### [facility] [address] [place] [address] Dr. Nina Jackson MYELOCYTE # Normal [facility] Comment on above: Performed By: #### ERUR #### [facility] [address] [place] [address] Dr. Nina Jackson MYELOCYTE % Normal [facility] Comment on above: Performed By: #### ERUR #### [facility] [address] [place] [address] Dr. Nina Jackson NRBC Normal [facility] Comment on above: Performed By: #### ERUR #### [facility] [address] [place] [address] Dr. Nina Jackson PLT 172 103/ul Normal 150-450 [facility] Comment on above: Performed By: #### ERUR #### [facility] [address] [place] [address] Dr. Nina Jackson RBC 4.29 106/ul Critically low 4.70-6.10 [facility] Comment on above: Performed By: #### ERUR #### [facility] [address] [place] [address] Dr. Nina Jackson RDW 13.0 % Normal 11.0-15.0 [facility] Comment on above: Performed By: #### ERUR #### [facility] [address] [address] [address] Nina Jackson SEG # 15.82 103/ul Critically high 1.40-6.50 [facility] Comment on above: Performed By: #### ERUR #### [facility] [address] [address] [address] Nina Jackson SEG % 86.0 % Critically high 43.0-75.0 [facility] Comment on above: Performed By: #### ERUR #### [facility] [address] [address] [address] Nina Jackson WBC 18.4 103/ul Critically high 4.0-11.0 [facility] Comment on above: Performed By: #### ERUR #### [facility] [address] [place] [address] ABD/PELV W CONon 04-22-20 CT ABD/PELV W CON EXAMINATION: CT ABD/PELV [...] WENDY PASCUAL Date: 2022-04-22 09:07 Normal [facility] ER URINE PROFILEon 2 Bilirubin Ql (U) Negative Normal NEGATIVE [facility] Comment on above: Performed By: #### ERUR #### [facility] [address] [place] [address] Dr. Nina Jackson Clarity (U) CLEAR Normal CLEAR [facility] Comment on above: Performed By: #### ERUR #### [facility] [address] [place] [address] Dr. Nina Jackson Color (U) LT. YELLOW Normal YELLOW [facility] Comment on above: Performed By: #### ERUR #### [facility] [address] [place] [address] Dr. Nina ZARAGOZA A micrscopic examination will be performed if indicated. Normal [facility] Comment on above: Performed By: #### ERUR #### [facility] [address] [place] [address] Dr. Nina Jackson Glucose Ql (U) Negative Normal NEGATIVE [facility] Comment on above: Performed By: #### ERUR #### [facility] [address] [place] [address] Dr. Nina Jackson Hemoglobin Ql (U) Negative Normal NEGATIVE [facility] Comment on above: Performed By: #### ERUR #### [facility] [address] [place] [address] Dr. Nina Jackson Ketones Ql (U) Negative Normal NEGATIVE [facility] Comment on above: Performed By: #### ERUR #### [facility] [address] [place] [address] Dr. Nina Jackson LEUKOCYTES Negative Normal NEGATIVE [facility] Comment on above: Performed By: #### ERUR #### [facility] [address] [place] [address] Dr. Nina Jackson Nitrite Ql (U) Negative Normal NEGATIVE [facility] Comment on above: Performed By: #### ERUR #### [facility] [address] [place] [address] Dr. Nina Jackson pH (U) 7.5 [pH] Normal 5-9 [facility] Comment on above: Performed By: #### ERUR #### [facility] [address] [place] [address] Dr. Nina Jackson SPEC GRAVITY 1.010 Normal 1.005-<=1.025 [facility] Comment on above: Performed By: #### ERUR #### [facility] [address] [place] [address] Dr. Nina Jackson UA PROTEIN Negative Normal NEGATIVE/ TRACE [facility] Comment on above: Performed By: #### ERUR #### [facility] [address] [place] [address] Dr. Nina Jackson UR MICRO IND NOT INDICATED Normal [facility] Comment on above: Performed By: #### ERUR #### [facility] [address] [place] [address] Dr. Nina Jackson Urobilinogen Qn (U) 0.2 {Kurtis'U}/dL Normal 0.2 - 1.0 [facility] Comment on above: Performed By: #### ERUR #### [facility] [address] [place] [address] Dr. Nina Jackson LACTATE/LACTIC ACIDon 2021 Lactate [Moles/Vol] 1.0 mmol/L Normal 0.4-1.9 [facility] Comment on above: Performed By: #### ERUR #### [facility] [address] [place] [address] Dr. Nina Jackson LIPASEon 04-22-2022 Lipase [Catalytic activity/Vol] 189.0 U/L Normal 73.0-393.0 [facility] Comment on above: Performed By: #### ERUR #### [facility] [address] [place] [address] Dr. Nina Jackson PROF 14(COMP METB)on 022 Albumin [Mass/Vol] 3.5 g/dL Normal 3.4-5.0 [facility] Comment on above: Performed By: #### ERUR #### [facility] [address] [place] [address] Dr. Nina Jackson Albumin/Globulin [Mass ratio] 0.9 {ratio} Normal [facility] Comment on above: Performed By: #### ERUR #### [facility] [address] [place] [address] Dr. Nina Jackson ALP [Catalytic activity/Vol] 79 U/L Normal 46-116 [facility] Comment on above: Performed By: #### ERUR #### [facility] [address] [place] [address] Dr. Nina Jackson ALT [Catalytic activity/Vol] 28 U/L Normal 16-63 [facility] Comment on above: Performed By: #### ERUR #### [facility] [address] [place] [address] Dr. Nina Jackson Anion gap [Moles/Vol] 13.8 mmol/L Normal [facility] Comment on above: Performed By: #### ERUR #### [facility] [address] [place] [address] Dr. Nina Jackson AST [Catalytic activity/Vol] 26 U/L Normal 15-37 [facility] Comment on above: Performed By: #### ERUR #### [facility] [address] [place] [address] Dr. Nina Jackson Bilirubin [Mass/Vol] 0.6 mg/dL Normal 0.2-1.0 [facility] Comment on above: Performed By: #### ERUR #### [facility] [address] [place] [address] Dr. Nina Jackson Calcium [Mass/Vol] 9.1 mg/dL Normal 8.5-10.1 [facility] Comment on above: Performed By: #### ERUR #### [facility] [address] [place] [address] Dr. Nina Jackson Chloride [Moles/Vol] 100 mmol/L Normal 98-107 [facility] Comment on above: Performed By: #### ERUR #### [facility] [address] [place] [address] Dr. Nina Jackson CO2 [Moles/Vol] 26.9 mmol/L Normal 21.0-32.0 [facility] Comment on above: Performed By: #### ERUR #### [facility] [address] [address] [address] Nina Jackson Creatinine [Mass/Vol] 1.34 mg/dL Critically high 0.70-1.30 [facility] Comment on above: Performed By: #### ERUR #### [facility] [address] [address] [address] Nina Jackson EGFR-AF ROMANIAN >60 Normal >=60 [facility] Comment on above: Performed By: #### ERUR #### [facility] [address] [place] [address] Dr. Nina Jackson EGFR-NON AF ROMANIAN 51 mL/min/1.73m2 Critically low >=60 [facility] Comment on above: Performed By: #### ERUR #### [facility] [address] [address] [address] Nina Jackson Globulin (S) [Mass/Vol] 3.9 g/dL Normal [facility] Comment on above: Performed By: #### ERUR #### [facility] [address] [place] [address] Dr. Nina Jackson Glucose [Mass/Vol] 140 mg/dL Critically high 74-106 [facility] Comment on above: Performed By: #### ERUR #### [facility] [address] [address] [address] Nina Jackson Potassium [Moles/Vol] 3.7 mmol/L Normal 3.5-5.1 [facility] Comment on above: Performed By: #### ERUR #### [facility] [address] [address] [address] Nina Jackson Protein [Mass/Vol] 7.4 g/dL Normal 6.4-8.2 [facility] Comment on above: Performed By: #### ERUR #### [facility] [address] [address] [address] Nina Jackson Sodium [Moles/Vol] 137 mmol/L Normal 136-145 [facility] Comment on above: Performed By: #### ERUR #### [facility] [address] [place], [place] [address] Dr. Nina Jackson Urea nitrogen [Mass/Vol] 15.0 mg/dL Normal 7.0-18.0 [facility] Comment on above: Performed By: #### ERUR #### [facility] [address] [address] [address] Nina Jackson Urea nitrogen/Creatin ine [Mass ratio] 11.2 mg/mg Normal [facility] Comment on above: Performed By: #### ERUR #### [facility] [id number] Nina Jackson US SINGLE QUAD RT [...] by: JESSENIA CORTES Date: 2022-04-22 10:55 Normal [facility] XR CHEST 1 Von 04-22-2022 XR CHEST 1 V EXAM: Chest x-ray. HISTORY: . UNSPECIFIED ABDOMINAL PAIN . COMPARISON: None. TECHNIQUE: Single view of the chest FINDINGS: Heart and vascularity are unremarkable. Lungs are expanded and free of focal infiltrates. Median sternotomy sutures are noted. IMPRESSION: No acute heart or lung disease identified. Electronically authenticated by: JESSENIA CUTLER Date: 2022-04-22 08:57 Normal [facility] Vital Signs Date Time Vital Sign Value Performing Clinician Facility 01-26-2024 07:23-0400 Blood Pressure Location Sylvester ZALDIVAR [facility] 01-26-2024 07:23-0400 Body temperature 98.6 [degF] Sylvester ZALDIVAR [facility] 01-26-2024 07:23-0400 Diastolic blood pressure 66 mm[Hg] Sylvester ZALDIVAR [facility] 01-26-2024 07:23-0400 Heart rate 69 /min Sylvester ZALDIVAR [facility] 01-26-2024 07:23-0400 Respiratory rate 16 /min Sylvester ZALDIVAR [facility] 01-26-2024 07:23-0400 Systolic blood pressure 137 mm[Hg] Sylvester ZALDIVAR [facility] 09-24-2023 10:37-0500 Blood Pressure Location Sylvester ZALDIVAR [facility] 09-24-2023 10:37-0500 Diastolic blood pressure 72 mm[Hg] Sylvester ZALDIVAR [facility] 09-24-2023 10:37-0500 Heart rate 68 /min Sylvester ZALDIVAR [facility] 09-24-2023 10:37-0500 Respiratory rate 16 /min Sylvester ZALDIVAR [facility] 09-24-2023 10:37-0500 Systolic blood pressure 128 mm[Hg] Sylvester ZALDIVAR [facility] 07-28-2023 07:42-0500 Blood Pressure Location Sylvester ZALDIVAR [facility] 07-28-2023 07:42-0500 Diastolic blood pressure 78 mm[Hg] Sylvester ZALDIVAR [facility] 07-28-2023 07:42-0500 Heart rate 70 /min Sylvester ZALDIVAR [facility] 07-28-2023 07:42-0500 Respiratory rate 16 /min Sylvester ZALDIVAR [facility] 07-28-2023 07:42-0500 Systolic blood pressure 129 mm[Hg] Sylvester ZALDIVAR [facility] 06-22-2023 08:53-0400 Blood Pressure Location KAREN ORTEZRY [facility] 06-22-2023 08:53-0400 Diastolic blood pressure 70 mm[Hg] KAREN LURDES [facility] 06-22-2023 08:53-0400 Heart rate 72 /min KAREN LURDES [facility] 06-22-2023 08:53-0400 Respiratory rate 16 /min KAREN LURDES [facility] 06-22-2023 08:53-0400 Systolic blood pressure 146 mm[Hg] KAREN LURDES [facility] 06-15-2023 09:16-0400 Blood Pressure Location KAREN LURDES [facility] 06-15-2023 09:16-0400 Diastolic blood pressure 82 mm[Hg] KAREN LUDRES [facility] 06-15-2023 09:16-0400 Heart rate 82 /min KAREN LURDES [facility] 06-15-2023 09:16-0400 Respiratory rate 16 /min KAREN LURDES [facility] 06-15-2023 09:16-0400 Systolic blood pressure 130 mm[Hg] KAREN LURDES [facility] 05-25-2023 09:03-0400 Blood Pressure Location KAREN LURDES [facility] 05-25-2023 09:03-0400 Diastolic blood pressure 66 mm[Hg] KAREN LURDES [facility] 05-25-2023 09:03-0400 Heart rate 70 /min KAREN LURDES [facility] 05-25-2023 09:03-0400 Respiratory rate 16 /min KAREN LURDES [facility] 05-25-2023 09:03-0400 Systolic blood pressure 133 mm[Hg] KAREN LURDES [facility] 04-20-2023 09:26-0400 Blood Pressure Location Sylvester ZALDIVAR [facility] 04-20-2023 09:26-0400 Body temperature 98.78 [degF] Sylvester ZALDIVAR [facility] 04-20-2023 09:26-0400 Diastolic blood pressure 88 mm[Hg] Sylvester ZALDIVAR [facility] 04-20-2023 09:26-0400 Heart rate 78 /min Sylvester ZALDIVAR [facility] 04-20-2023 09:26-0400 Systolic blood pressure 132 mm[Hg] Sylvester ZALDIVAR [facility] 03-23-2023 07:21-0400 Blood Pressure Location Sylvester ZALDIVAR [facility] 03-23-2023 07:21-0400 Diastolic blood pressure 81 mm[Hg] Sylvester ZALDIVAR [facility] 03-23-2023 07:21-0400 Heart rate 80 /min Sylvester ZALDIVAR [facility] 03-23-2023 07:21-0400 Respiratory rate 16 /min Sylvester ZALDIVAR [facility] 03-23-2023 07:21-0400 Systolic blood pressure 129 mm[Hg] Sylvester ZALDIVAR [facility] 07-20-2022 14:35-0500 Blood Pressure Location Sylvester ZALDIVAR [facility] 07-20-2022 14:35-0500 Diastolic blood pressure 78 mm[Hg] Sylvester ZALDIVAR [facility] 07-20-2022 14:35-0500 Heart rate 68 /min Sylvester ZALDIVAR [facility] 07-20-2022 14:35-0500 Respiratory rate 16 /min Sylvester ZALDIVAR [facility] 07-20-2022 14:35-0500 Systolic blood pressure 128 mm[Hg] Sylvester ZALDIVAR [facility] Encounters Encounter Date Encounter Type Care Provider Facility Start: 03-10-2024 ambulatory Sylvester ZALDIVAR Facili ty:[facility] [place] Start: 03-02-2024 ambulatory Syvlester ZALDIVAR Facili ty:[id number] Start: 01-26-2024 End: 01-26-2024 Lab Drop off Sylvester ZALDIVAR [facility] Start: 01-26-2024 End: 01-26-2024 ambulatory Sylvester ZALDIVAR Facility:[facility] Start: 01-26-2024 End: 01-26-2024 Patient encounter procedure Sylvester ZALDIVAR [facility] Start: 09-24-2023 End: 09-24-2023 ambulatory Sylvester ZALDIVAR Facility:[facility] [place] Start: 09-24-2023 End: 09-24-2023 Patient encounter procedure Sylvester R IVAN [facility] Start: 09-16-2023 End: 09-16-2023 ambulatory Av Regalado Facility:[facility] Start: 09-16-2023 End: 09-16-2023 [address] Regalado Work Phone: [facility] Work Phone: Start: 09-16-2023 End: 09-16-2023 Departed Referred JR Av Regalado Work Phone: [facility] Start: 09-16-2023 End: 09-16-2023 ambulatory Sylvester ZALDIVAR Facility:[id number] Start: 07-28-2023 End: 07-28-2023 ambulatory Sylvester ZALDIVAR Facility:[facility] Start: 07-28-2023 End: 07-28-2023 Lab Drop off Sylvester ZALDIVAR [facility] Start: 07-28-2023 End: 07-28-2023 ambulatory Sylvester ZALDIVAR Facility:[facility] Start: 07-28-2023 End: 07-28-2023 Patient encounter procedure Sylvester ZALDIVAR [facility] Start: 07-26-2023 ambulatory Sylvester ZALDIVAR Facili ty:[facility] Start: 06-29-2023 End: 06-29-2023 ambulatory KAREN E LURDES Facility:[facility] Start: 06-29-2023 End: 06-29-2023 Patient encounter procedure KAREN E LURDES [facility] Start: 06-22-2023 End: 06-22-2023 ambulatory KAREN E LURDES Facility:[facility] Start: 06-22-2023 End: 06-22-2023 Patient encounter procedure KAREN E LURDES [facility] Start: 06-15-2023 End: 06-15-2023 ambulatory KAREN E LURDES Facility:[facility] [place] Start: 06-15-2023 End: 06-15-2023 Patient encounter procedure KAREN E LURDES [facility] Start: 06-08-2023 End: 06-08-2023 ambulatory KAREN E LURDES Facility:[facility] [place] Start: 06-08-2023 End: 06-08-2023 Patient encounter procedure KAREN Aries CHATMAN [facility] [place] Start: 06-01-2023 End: 06-01-2023 ambulatory KAREN Aries CHATMAN Facility:[facility] Start: 05-25-2023 End: 05-25-2023 ambulatory KAREN Aries CHATMAN Facility:[facility] Start: 05-25-2023 End: 05-25-2023 Patient encounter procedure KAREN CHATMAN [facility] Start: 05-18-2023 End: 05-18-2023 ambulatory KAREN Aries CHATMAN Facility:[facility] Start: 05-11-2023 End: 05-11-2023 ambulatory KAREN Aries CHATMAN Facility:[facility] Start: 04-20-2023 End: 04-20-2023 ambulatory Sylvester Christopher ZALDIVAR Facility:[facility] Start: 04-20-2023 End: 04-20-2023 Patient encounter procedure Sylvester ZALDIVAR [facility] Start: 04-14-2023 ambulatory Sylvester ZALDIVAR Facili ty:[facility] Start: 04-08-2023 End: 04-08-2023 ambulatory Sylvester ZALDIVAR Facility:[id number] Start: 03-23-2023 End: 03-23-2023 ambulatory Sylvestermichelle ZALDIVAR Facility:[facility] Start: 03-23-2023 End: 03-23-2023 Patient encounter procedure Sylvester ZALDIVAR [facility] Start: 03-15-2023 ambulatory Sylvester ZALDIVAR Facili ty:[id number] Start: 03-12-2023 End: 03-12-2023 ambulatory Sylvester ZALDIVAR Facility:[facility] Start: 03-12-2023 End: 03-12-2023 ambulatory Sylvester ZALDIAVR Facility:[facility] Start: 02-08-2023 End: 02-08-2023 Patient encounter procedure Sylvester ZALDIVAR [facility] Start: 11-30-2022 End: 11-30-[address] SYLVESTER ZALDIVAR . Facility:[facility] Start: 11-23-2022 End: 11-23-2022 Patient encounter procedure SHANELL ZALDIVAR [facility] Start: 10-26-2022 End: 10-26-[address] SYLVESTER ZALDIVAR . Facility: Start: 10-20-2022 End: 10-20-2022 Patient encounter procedure Sylvester ZALDIVAR [facility] Start: 09-28-2022 End: 09-28-[address] SYLVESTER ZALDIVAR . Facility: Start: 09-22-2022 End: 09-22-2022 Lab Drop off KAREN CHATMAN [facility] Start: 09-22-2022 End: 09-22-2022 Patient encounter procedure KAREN CHATMAN [facility] Start: 08-27-2022 End: 08-27-2022 Patient encounter procedure Sylvester ZALDIVAR [facility] Start: 08-20-2022 Encounter for preprocedural laboratory examination DR SYLVESTER ZALDIVAR . [facility] Start: 08-20-2022 End: 08-20-[address] SYLVESTER ZALDIVAR . Facility: Start: 08-13-2022 End: 08-14-[address] SYLVESTER ZALDIVAR . Facility:[facility] Start: 08-13-2022 End: 08-14-2022 Encounter for preprocedural laboratory examination DR SYLVESTER ZALDIVAR . Facility:[facility] Start: 07-28-2022 End: 07-28-2022 Patient encounter procedure Sylvester ZALDIVAR [facility] Start: 07-20-2022 End: 07-20-2022 Patient encounter procedure Sylvester ZALDIVAR [facility] Start: 04-22-2022 End: 04-22-[address] CARRASQUILLO LISTED REQUEST Facility:[facility] Procedures Date Procedure Procedure Detail Performing Clinician Start: 01-26-2024 Flexible cystoscopy Jumana ZALDIVAR Start: 09-16-2023 Transurethral resect ion of bladder neoplasm Sylvester ZALDIVAR Start: 07-28-2023 Transurethral cystoscopy Sylvester ZALDIVAR Start: 04-08-2023 Transurethral resect ion of bladder neoplasm Sylvester ZALDIVAR Start: 03-23-2023 Cystoscopy Sylvester NELSON Start: 08-20-2022 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 KAREN CHATMAN Start: 08-23-2016 Coronary artery bypa ss graft Sylvester ZALDIVAR Immunizations Immunization Date Immunization Notes Care Provider Fa cili 06-29-2023 bacillus calmette-mookie vaccine KAREN CHATMAN [facility] 06-29-2023 bacillus calmette-mookie vaccine KAREN CHATMAN [facility] 06-22-2023 bacillus calmette-mookie vaccine KAREN CHATMAN [facility] 06-15-2023 bacillus calmette-mookie vaccine KAREN CHATMAN [facility] 06-08-2023 bacillus calmette-mookie vaccine KAREN CHATMAN [facility] 05-25-2023 bacillus calmette-mookie vaccine KAREN CHATMAN [facility] 05-22-2023 influenza virus vaccine, unspecified formulation KAREN CHATMAN [facility] 05-18-2023 bacillus calmette-mookie vaccine KAREN CHATMAN [facility] 08-29-2022 SARS-CoV-2 (COVID-19 ) [id number] Sylvester ZALDIVAR [facility] 02-14-2022 SARS-CoV-2 (COVID-19 ) mRNA-1273 vaccine Sylvester Gojee [facility] 08-05-2021 SARS-CoV-2 (COVID-19 ) mRNA-1273 vaccine Sylvester Gojee [facility] 11-18-2020 SARS-CoV-2 (COVID-19 ) mRNA-1273 vaccine Sylvester Gojee [facility] Comment on above: Result Comment: 2021: [id number] 10-18-2020 SARS-CoV-2 (COVID-19 ) mRNA-1273 vaccine Sylvester Gojee [facility] Comment on above: Result Comment: 2021: [id number] Payers Date Payer Category Payer Medicare [id number] 2023 Self-pay 2019 Unknown [id number] 1940 Unknown [id number] 2.16.84 0.1.926969.3.579.2.593 1942 Unknown [id number] 2.16.84 0.1.239334.3.579.2.593 1942 Unknown [id number] 2.16.84 0.1.077384.3.579.2.593 1942 Unknown [id number] 2.16.84 0.1.435383.3.579.2.593 1942 Unknown [id number] 2.16.84 0.1.350875.3.579.2.593 1942 Unknown [id number] 2.16.84 0.1.854087.3.579.2.593 1942 Unknown [id number] 2.16.8 40.1.122835.3.579.2.727 1942 Unknown [id number] 2.16.8 40.1.394148.3.579.2.727 1942 Unknown [id number] 2.16.8 40.1.356076.3.579.2.727 1942 Unknown [id number] 2.16.8 40.1.714866.3.579.2.727 1942 Unknown [id number] 2.16.8 40.1.974868.3.579.2.727 1942 Unknown [id number] 2.16.8 40.1.035399.3.579.2.727 1942 Unknown [id number] 2.16.8 40.1.864186.3.579.2.727 1942 Unknown [id number] 2.16.8 40.1.981301.3.579.2.72 1942 Unknown [id number] 2.16.8 40.1.204132.3.579.2 1942 Unknown [id number] 2.16.8 40.1.922886.3.579.2 1942 Unknown [id number] 2.16.8 40.1.272335.3.579.2 1942 Unknown [id number] 2.16.8 40.1.219958.3.579.2 1942 Unknown [id number] 2.16.8 40.1.506399.3.579.2 1942 Unknown [id number] 2.16.8 40.1.360780.3.579.2 1942 Unknown [id number] 2.16.8 40.1.314726.3.579.2 1942 Unknown [id number] 2.16.8 40.1.626943.3.579.2 1942 Unknown [id number] 2.16.8 40.1.185026.3.579.2 1942 Unknown [id number] 2.16.8 40.1.655098.3.579.2 1942 Unknown [id number] 2.16.8 40.1.337738.3.579.2 1942 Unknown [id number] 2.16.8 40.1.803266.3.579.2 1942 Unknown [id number] 2.16.8 40.1.346188.3.579.2 1942 Unknown [id number] 2.16.8 40.1.269881.3.579.2 1942 Unknown [id number] 2.16.8 40.1.816730.3.579.2.727 1942 Unknown [id number] 2.16.8 40.1.075992.3.579.2.727 1942 Unknown [id number] 2.16.8 40.1.723599.3.579.2.727 1942 Unknown [id number] 2.16.8 40.1.299866.3.579.2.727 Medicare Medicare [id number] Unknown [facility] Health Claims [id number] Unknown [id number] 2.16.8 40.1.556331.3.579.2.531 Social History Date Type Detail Facility Start: 07-20-2022 End: 01-26-2024 Tobacco smoking status Never smoked tobacco (finding) [facility] Sex Assigned At Male [facility] Tobacco smoking status Never [facility] Start: 1940 Sex Assigned At Male [facility] Functional Status Date Assessment Result Facility 01-26-2024 Functional Status N/A [facility] 09-24-2023 Functional Status N/A [facility] 07-28-2023 Functional Status N/A [facility] 06-29-2023 Functional Status N/A [facility] 06-22-2023 Functional Status N/A [facility] 06-15-2023 Functional Status N/A [facility] 06-08-2023 Functional Status N/A [facility] 05-25-2023 Functional Status N/A [facility] 04-20-2023 Functional Status N/A [facility] 03-23-2023 Functional Status N/A [facility] 07-20-2022 Functional Status N/A [facility] [place] Clinical Notes 07-20-2022 to 01-26-2024 Note Date & Type Note Facility 01-26-2024 Hospital Discharge instructions Patient Education 01/26/2024 07:33:38 Cancer Screening for Men Cancer Screening for [...] if anything looks unusual. Men with a nvdtvo-qwba-ikaxig risk for skin cancer may want to see a retail service specialist (supervisor pre wave) for an annual body check. What are the benefits of screening? Cancer screening is done to look for cancer in the very early stages, before it spreads and becomes harder to treat and before you would start to notice symptoms. Finding cancer early improves the chances of successful treatment. It may save your life. Where to find more information [place] [employer] Cancer Society: www.cancer.org Centers for Disease Control and Prevention: www.cdc.gov National Cancer [place]: www.cancer.gov Contact a health care provider if: [...] provider. Document Revised: 01/05/2022 Document Reviewed: 07/05/2020 [employer] Patient Education 2022 [employer]. Follow Up Care 12/29/2023 11:05:24 With:IVAN GAO, Sylvester White, URL Address: [facility] [address] , [place] [address]- When: Unknown [facility] [place] 09-24-2023 Hospital Discharge instructions Patient Education 09/24/2023 11:24:35 BMI for Adults BMI for Adults What is BMI? Body mass index (BMI) is a number that is calculated from a person's weight and height. BMI can help estimate how much of a person's weight is composed of fat. BMI does not measure body fat directly. Rather, it is an alternative to procedures that directly measure body fat, which can be difficult and expensive. BMI can help identify people who may be at higher risk for certain medical problems. What are BMI measurements used for? BMI is used as a screening tool to identify possible weight problems. It helps determine whether a person is obese, overweight, a healthy weight, or underweight. BMI is useful for: Identifying a weight problem that may be related to a medical condition or may increase the risk for medical problems. Promoting changes, such as changes in diet and exercise, to help reach a healthy weight. BMI screening can be repeated to see if these changes are working. How is BMI calculated? BMI involves measuring your weight in relation to your height. Both height and weight are measured, and the BMI is calculated from those numbers. This can be done either in [place] ([place] or metric measurements. Note that charts and online BMI calculators are available to help you find your BMI quickly and easily without having to do these calculations yourself. To calculate your BMI in [place] ([place] measurements: 1.Measure your weight in pounds (lb). 2.Multiply the number of pounds by 703. For example, for a person who weighs 180 lb, multiply that number by 703, which equals 126,540. 3.Measure your height in inches. Then multiply that number by itself to get a measurement called inches squared. For example, for a person who is 70 inches tall, the inches squared measurement is 70 inches x 70 inches, which equals 4,900 inches squared. 4.Divide the total from step 2 (number of lb x 703) by the total from step 3 (inches squared): 126,540 4,900 = 25.8. This is your BMI. To calculate your BMI in metric measurements: 1.Measure your weight in kilograms (kg). 2.Measure your height in meters (m). Then multiply that number by itself to get a measurement called meters squared. For example, for a person who is 1.75 m tall, the meters squared measurement is 1.75 m x 1.75 m, which is equal to 3.1 meters squared. 3.Divide the number of kilograms (your weight) by the meters squared number. In this example: 70 3.1 = 22.6. This is your BMI. What do the results mean? BMI charts are used to identify whether you are underweight, normal weight, overweight, or obese. The following guidelines will be used: Underweight: BMI less than 18.5. Normal weight: BMI between 18.5 and 24.9. Overweight: BMI between 25 and 29.9. Obese: BMI of 30 or above. Keep these notes in mind: Weight includes both fat and muscle, so someone with a muscular build, such as an athlete, may have a BMI that is higher than 24.9. In cases like these, BMI is not an accurate measure of body fat. To determine if excess body fat is the cause of a BMI of 25 or higher, further assessments may need to be done by a health care provider. BMI is usually interpreted in the same way for men and women. Where to find more information For more information about BMI, including tools to quickly calculate your BMI, go to these websites: Centers for Disease Control and Prevention: www.cdc.gov [place] Heart Association: www.heart.org National Heart, Lung, and Blood [place]: www.nhlbi.nih.gov Summary Body mass index (BMI) is a number that is calculated from a person's weight and height. BMI may help estimate how much of a person's weight is composed of fat. BMI can help identify those who may be at higher risk for certain medical problems. BMI can be measured using [place]i measurements or metric measurements. BMI charts are used to identify whether you are underweight, normal weight, overweight, or obese. This information is not intended to replace advice given to you by your health care provider. Make sure you discuss any questions you have with your health care provider. Document Revised: 05/01/2020 Document Reviewed: 03/08/2020 [employer] Patient Education 2022 [employer]. Follow Up Care 08/26/2023 11:59:24 With:IVAN GAO, Sylvester White, URL Address: [address] [place] [address]- When: Unknown [facility] 07-28-2023 Evaluation + Plan note Diagnostic Tests PendingUroVysion Fish and Urine Cyto ([facility]) 07/28/23 [facility] 07-28-2023 Hospital Discharge instructions Patient Education [...] if anything looks unusual. Men with a zoivmg-bgnh-qurltx risk for skin cancer may want to see a retail service specialist (supervisor pre wave) for an annual body check. What are the benefits of screening? Cancer screening is done to look for cancer in the very early stages, before it spreads and becomes harder to treat and before you would start to notice symptoms. Finding cancer early improves the chances of successful treatment. It may save your life. Where to find more information [employer] Cancer Society: www.cancer.org Centers for Disease Control and Prevention: www.cdc.gov National Cancer [place]: www.cancer.gov Contact a health care provider if: [...] provider. Document Revised: 01/05/2022 Document Reviewed: 07/05/2020 [employer] Patient Education 2022 [employer]. Follow Up Care 06/29/2023 13:41:58 With:IVAN GAO, Sylvester White, URL Address: [facility] [address] , [place] [address]- When: Unknown [facility] 06-29-2023 Hospital Discharge instructions Patient Education 06/29/2023 [...] cells. Follow these instructions at home: Take svwb-ulb-rpdcvdu and prescription medicines only as told by [...] is important. Where to find more information [place] [employer] Cancer Society (ACS): cancer.org National Cancer [place] (NCI): cancer.gov Contact a health care provider [...] provider. Document Revised: 07/20/2022 Document Reviewed: 07/20/2022 [employer] Patient Education 2022 [employer]. Follow Up Care 06/01/2023 09:37:12 With:KAREN CHATMAN PA-C, URL Address: [address] [place] [address] [phone] When: Unknown Comments:has cysto 08/02/23 [facility] 06-22-2023 Hospital Discharge instructions Patient Education 06/22/2023 [...] cells. Follow these instructions at home: Take xjoc-ngr-hskokhq and prescription medicines only as told by [...] is important. Where to find more information [place] [employer] Cancer Society (ACS): cancer.org National Cancer [place] (NCI): cancer.gov Contact a health care provider [...] provider. Document Revised: 07/20/2022 Document Reviewed: 07/20/2022 [employer] Patient Education 2022 [employer]. Follow Up Care 05/10/2023 10:08:09 With:KAREN CHATMAN PA-C, URL Address: [address] [place] [address] [phone] When: Unknown Comments:BCG #6/ on 06/29/23 [facility] 06-15-2023 Hospital Discharge instructions Patient Education 06/15/2023 [...] cells. Follow these instructions at home: Take usct-rik-ufounxe and prescription medicines only as told by [...] is important. Where to find more information [employer] Cancer Society (ACS): cancer.org National Cancer [place] (NCI): cancer.gov Contact a health care provider [...] provider. Document Revised: 07/20/2022 Document Reviewed: 07/20/2022 [employer] Patient Education 2022 [employer]. Follow Up Care 05/03/2023 14:47:16 With:KAREN CHATMAN PA-C, URL Address: [address] [place] [address]. [place] [address] When: Unknown [facility] 06-08-2023 Hospital Discharge instructions Patient Education 06/08/2023 [...] cells. Follow these instructions at home: Take fhaf-gqj-qitkbpe and prescription medicines only as told by [...] is important. Where to find more information [employer] Cancer Society (ACS): cancer.org National Cancer [place] (NCI): cancer.gov Contact a health care provider [...] provider. Document Revised: 07/20/2022 Document Reviewed: 07/20/2022 [employer] Patient Education 2022 [employer]el. Follow Up Care 05/03/2023 14:45:53 With:KAREN CHATMAN PA-C, URL Address: [address] [place] [address] [phone] When: Unknown Comments:BCG #4/6 on 06/15/23 [facility] 05-25-2023 Hospital Discharge instructions Patient Education 05/25/2023 [...] cells. Follow these instructions at home: Take iumw-egh-bvykgxl and prescription medicines only as told by [...] is important. Where to find more information [employer] Cancer Society (ACS): cancer.org National Cancer [place] (NCI): cancer.gov Contact a health care provider [...] provider. Document Revised: 07/20/2022 Document Reviewed: 07/20/2022 [employer] Patient Education 2022 [employer]. Follow Up Care 05/03/2023 14:43:06 With:KAREN CHATMAN PA-C, URL Address: [address] [place] [place] [address] [phone] When: Unknown Comments:BCG #3/6 on 06/01/23 [facility] 04-20-2023 Hospital Discharge instructions Patient Education 04/20/2023 [...] if anything looks unusual. Men with a moygph-nary-qvwksi risk for skin cancer may want to see a retail service specialist (supervisor pre wave) for an annual body check. What are the benefits of screening? Cancer screening is done to look for cancer in the very early stages, before it spreads and becomes harder to treat and before you would start to notice symptoms. Finding cancer early improves the chances of successful treatment. It may save your life. Where to find more information [employer] Cancer Society: www.cancer.org Centers for Disease Control and Prevention: www.cdc.gov National Cancer [place]: www.cancer.gov Contact a health care provider if: [...] provider. Document Revised: 01/05/2022 Document Reviewed: 07/05/2020 [employer] Patient Education 2022 [employer]el. Follow Up Care 03/23/2023 08:32:37 With:IVAN GAO, Sylvester White, URL Address: [facility] [address] , [place] [address]- When: Unknown [facility] 03-23-2023 Hospital Discharge instructions Patient Education 03/23/2023 [...] Follow these instructions at home: Medicines Take rtpy-dgm-tuagabn and prescription medicines only as told by [...] to keep your urine pale yellow. ?Take onym-fdh-yvfrsuq or prescription medicines. ?Eat foods that are [...] and pain in your lower abdomen. Take xngp-zna-xfxljfb and prescription medicines only as told by [...] provider. Document Revised: 08/14/2022 Document Reviewed: 08/14/2022 [employer] Patient Education 2022 [employer] 03/23/2023 08:18:15 Transurethral Resection of Bladder Tumor [...] including vitamins, herbs, eye drops, creams, and udyy-wum-gukjoou medicines. Any problems you or family members [...] provider tells you to take them. Taking rngg-mbo-zjapknv medicines, vitamins, herbs, and supplements. General instructions [...] provider. Document Revised: 08/14/2022 Document Reviewed: 08/14/2022 [employer] Patient Education 2022 [employer]. Follow Up Care 03/15/2023 11:06:53 With:IVAN GAO, Sylvester White, URL Address: [facility] [address] , [place] [address]- When: Unknown [facility] 11-23-2022 Evaluation + Plan note Diagnostic Tests PendingUroVysion Fish and Urine Cyto ([facility]) 11/23/22 [facility] 09-22-2022 Evaluation + Plan note Diagnostic Tests PendingUrine Culture 09/22/22 [facility] 08-14-2022 Note EXAM: XR CHEST 2 [...] authenticated by: JESSENIA CUTLER Date: 2022-08-13 22:42 [facility] 07-28-2022 Hospital Discharge instructions Patient Education 07/28/2022 [...] 100 degrees. Follow Up Care 07/20/2022 16:22:07 With:Sylvester ZALDIVAR Address: [facility] [address], [place] [address] Business (1) When: Unknown Comments:Office will call to schedule follow up [facility] 07-28-2022 Evaluation + Plan note Extrac [...] of bladder tumors and a subsequent TURP. [facility]11-28-2022 Hospital Discharge instructions Patient Education 07/20/2022 [...] including vitamins, herbs, eye drops, creams, and wmtn-qfq-bnurjzr medicines. Any problems you or family members [...] provider tells you to take them. Taking yimz-duy-gpnlpud medicines, vitamins, herbs, and supplements. Eating and [...] 08/09/2006 Document Revised: 11/29/2019 Document Reviewed: 05/10/2019 [employer] Patient Education 2020 [employer]. 07/20/2022 16:09:10 Transurethral Resection of the Prostate [...] including vitamins, herbs, eye drops, creams, and bjob-kwk-rhegjot medicines. Any problems you or family members [...] provider tells you to take them. Taking lnjp-ilp-yprtfxd medicines, vitamins, herbs, and supplements. Eating and [...] 08/09/2006 Document Revised: 11/29/2019 Document Reviewed: 05/10/2019 [employer] Patient Education 2020 [employer]. 07/20/2022 15:43:46 Benign Prostatic Hyperplasia Benign Prostatic [...] urethra. Follow these instructions at home: Take xjos-qnq-fwcfcex and prescription medicines only as told by [...] 08/09/2006 Document Revised: 07/04/2019 Document Reviewed: 09/13/2017 [employer] Patient Education [employer]. Follow Up Care 06/22/2022 16:05:07 With:Sylvester ZALDIVAR MD, URL Address: [facility] [address], [place] [id number] When: Unknown [facility] evaluation + Plan note Future Appointments Appointment Date:07/22/2022 10:45:00 AM Scheduled Provider: Location:[facility] Appointment Type:Urology CALL PAT FT Appointment Date:07/28/2022 02:30:00 PM Scheduled Provider: Location:[facility] Appointment Type:Urology FT Appointment Date:07/29/2022 09:30:00 AM Scheduled Provider: Location:[facility] Appointment Type:Urology FT [facility] evaluation + Plan note Future Appointments Appointment Date:08/31/2022 03:00:00 PM Scheduled Provider:Sylvester ZALDIVAR MD Location:[facility] Appointment Type:URO Office Visit [facility] evaluation + Plan note Future Appointments Appointment Date:04/14/2023 08:00:00 AM Scheduled Provider: Location:[facility] Appointment Type:URO Nurse Visit Appointment Date:04/20/2023 09:45:00 AM Scheduled Provider:Sylvester ZALDIVAR MD Location:[facility] Appointment Type:URO Office Visit [facility] Evaluation + Plan note Future Appointments Appointment Date:06/28/2023 11:45:00 AM Scheduled Provider: Location:[facility] Appointment Type:URO Nurse Visit [facility] Evaluation + Plan note Future Appointments Appointment Date:06/01/2023 09:15:00 AM Scheduled Provider:KAREN CHATMAN PA-C Location:[facility] [place] Appointment Type:URO Office Visit Appointment Date:06/08/2023 09:15:00 AM Scheduled Provider:KAREN CHATMAN PA-C Location:[facility] [place] Appointment Type:URO Office Visit Appointment Date:06/15/2023 09:15:00 AM Scheduled Provider:KAREN CHATMAN PA-C Location:[facility] [place] Appointment Type:URO Office Visit Appointment Date:06/22/2023 09:00:00 AM Scheduled Provider:KAREN CHATMAN PA-C Location:[facility] [place] Appointment Type:URO Office Visit Appointment Date:06/28/2023 11:45:00 AM Scheduled Provider: Location:[facility] Appointment Type:URO Nurse Visit [facility] evaluation + Plan note Future Appointments Appointment Date:06/15/2023 09:15:00 AM Scheduled Provider:KAREN CHATMAN PA-C Location:[facility] [place] Appointment Type:URO Office Visit Appointment Date:06/22/2023 09:00:00 AM Scheduled Provider:KAREN CHATMAN PA-C Location:[facility] [place] Appointment Type:URO Office Visit Appointment Date:06/29/2023 09:15:00 AM Scheduled Provider:KAREN CHATMAN PA-C Location:[facility] [place] Appointment Type:URO Office Visit Appointment Date:07/05/2023 09:00:00 AM Scheduled Provider: Location:[facility] Appointment Type:URO Nurse Visit [facility] evaluation + Plan note Future Appointments Appointment Date:06/22/2023 09:00:00 AM Scheduled Provider:KAREN CHATMAN PA-C Location:[facility] Appointment Type:URO Office Visit Appointment Date:06/29/2023 09:15:00 AM Scheduled Provider:KAREN CHATMAN PA-C [facility] Appointment Type:URO Office Visit Appointment Date:07/26/2023 09:00:00 AM Scheduled Provider: Location:[facility] Appointment Type:URO Nurse Visit [facility] evaluation + Plan note Future Appointments Appointment Date:06/29/2023 09:15:00 AM Scheduled Provider:KAREN CHATMAN PA-C [facility] Appointment Type:URO Office Visit Appointment Date:07/26/2023 09:00:00 AM Scheduled Provider: Location:[facility] Appointment Type:URO Nurse Visit [facility] evaluation + Plan note Future Appointments Appointment Date:07/28/2023 07:45:00 AM Scheduled Provider:Sylvester ZALDIVAR MD Location:[facility] Appointment Type:URO Procedure 15 min [facility] evaluation + Plan note Future Appointments Appointment Date:03/10/2024 09:45:00 AM Scheduled Provider:Sylvester ZALDIVAR MD Location:[facility] Appointment Type:URO Office Visit [facility] Evaluation + Plan note Future Appointments Appointment Date:03/10/2024 09:45:00 AM Scheduled Provider:Sylvester ZALDIVAR MD [facility] Appointment Type:URO Office Visit Diagnostic Tests Pending * [facility] Fish and Urine Cyto ([facility]) [facility] Work Phone: Hospital course Narrative No data available for this section [facility] Hospital Discharge instructions No data available for this section [facility] Progress note No data available for this section [facility] Summary Purpose Family History No Family History Records Found No data available for this section No data available for this section No data available for this section No data available for this section No data available for this section No data available for this section No data available for this section No Family History Records Found No data available for this section No data available for this section No data available for this section No Family History Records FoundNo Family History Records Found Advance Directives No Advanced Directives Records FoundNo Advanced Directives Records FoundNo Advanced Directives Records FoundNo Advanced Directives Records Found Additional Source Comments Patient Care team informatio n (unrecognized section and content) Team Status: Active Member Role Status Dates Av Regalado JR DO Primary Care Provider Active Team Status: Inactive Member Role Status Dates Av Regalado JR DO Primary Care Provider Active Start: September 16, 2023 End: September 16, 2023 Sylvester Zaldivar MD Attending Provider Active St art: September 16, 2023 End: September 16, 2023 (unrecognized sect ion and content) No Status Records FoundNo Status Records FoundNo Status Records FoundNo Status Records Found INFORMATION SOURCE (unrecogn ized section and content) DATE CREATED AUTHOR 01/02/2023 [facility] DATE CREATED AUTHOR AUTHOR'S ORGANIZ ATION 09/23/2023 [facility] DATE CREATED AUTHOR AUTHOR'S ORGANIZ ATION 02/02/2024 [facility] DATE CREATED AUTHOR AUTHOR'S ORGANIZ ATION 02/16/2024 [facility] Goals (unrecognized section and content) Goals may be documented in a n alternate section FOR RECORDS PERTAINING TO PATIENTS WHO ARE [...] BE BASED ON THE PRIMARY CLINICAL RECORDS. [facility]. provides no warranty or guarantee of the accuracy or completeness of information in this document.
--- NOTE | 2024-02-18 08:38 | P.GSHP_ITS ---
History of Present Illness History of Present Illness Chief complaint: bladder tumor, history of bladder cancer Narrative: Patient presents for preadmission testing. The patient states he has a history of bladder cancer and a bladder tumor, his last procedure was done here in August. He had a follow-up cysto recently. He states he does have nocturia and incomplete emptying with difficulty starting stream. He denies abdominal pain, nausea, vomiting, fever, or any other complaints. Review of Systems ROS Narrative REVIEW OF SYSTEMS: Negative except as stated in HPI, ten or more systems reviewed. Constitutional: No fever, chills, weakness ENT: No sore throat or epistaxis Cardiovascular: No edema, chest pain, palpitations, or activity intolerance Respiratory: No shortness of breath, cough, or wheezing Musculoskeletal: No joint pain or swelling Gastrointestinal: No abdominal pain, constipation, diarrhea, or vomiting Genitourinary: No dysuria or hematuria Neurological: No numbness, tingling, weakness, or headache Psychiatric: No mood changes PFSH PFSH Medical History (Updated 04/08/23 @ 12:53 by Jade Plaza) Bladder tumor ?D49.4 - Neoplasm of unspecified behavior of bladder (ICD-10) High cholesterol ?E78.00 - Pure hypercholesterolemia, unspecified (ICD-10) Urinary hesitancy ?R39.11 - Hesitancy of micturition (ICD-10) Nocturia ?R35.1 - Nocturia (ICD-10) Coronary arteriosclerosis ?I25.10 - Atherosclerotic heart disease of [place] coronary artery without angina pectoris (ICD-10) AAA (abdominal aortic aneurysm) ?I71.40 - Abdominal aortic aneurysm, without rupture, unspecified (ICD-10) BPH (benign prostatic hyperplasia) ?N40.0 - Benign prostatic hyperplasia without lower urinary tract symptoms (ICD-10) GERD (gastroesophageal reflux disease) ?K21.9 - Gastro-esophageal reflux disease without esophagitis (ICD-10) HTN (hypertension) ?I10 - Essential (primary) hypertension (ICD-10) CAD (coronary artery disease) ?I25.10 - Atherosclerotic heart disease of [place] coronary artery without angina pectoris (ICD-10) TIA (transient ischemic attack) ?G45.9 - Transient cerebral ischemic attack, unspecified (ICD-10) Bladder cancer ?C67.9 - Malignant neoplasm of bladder, unspecified (ICD-10) Surgical History (Updated 02/18/24 @ 08:21 by Shantel Mascorro NP) H/O cystoscopy (09/16/23) ?Z98.890 - Other specified postprocedural states (ICD-10) H/O cystoscopy (04/08/23) ?Z98.890 - Other specified postprocedural states (ICD-10) S/P cataract extraction and insertion of intraocular lens ?Z98.49 - Cataract extraction status, unspecified eye (ICD-10) ?Z96.1 - Presence of intraocular lens (ICD-10) History of colonoscopy ?Z98.890 - Other specified postprocedural states (ICD-10) H/O cystoscopy ?Z98.890 - Other specified postprocedural states (ICD-10) Hx of CABG ?Z95.1 - Presence of aortocoronary bypass graft (ICD-10) History of transurethral resection of bladder tumor (TURBT) ?Z98.890 - Other specified postprocedural states (ICD-10) ?Z86.03 - Personal history of neoplasm of uncertain behavior (ICD-10) Social History (Updated 04/08/23 @ 12:52 by Jade Plaza) Within the past year, how often did you have a drink containing alcohol: never Score interpretation: A score less than 4 is consistent with normal alcohol consumption. Smoking status: Former smoker Non-prescribed substance use: denies use Previous occupational history: [employer] (RETIRED) Known occupational exposures/hazards: No Highest level of school completed/degree received: high school graduate Meds Home Medications and Allergies Home Medications ?Medication ?Instructions ?Recorded ?Confirmed ?Type aspirin 81 mg chewable tablet 81 mg PO DAILY 03/11/23 02/18/24 History atorvastatin 80 mg tablet 80 mg PO QPM 03/11/23 02/18/24 History famotidine 20 mg tablet 20 mg PO DAILY 03/11/23 02/18/24 History finasteride 5 mg tablet 5 mg PO DAILY 03/11/23 02/18/24 History montelukast 10 mg tablet 10 mg PO DAILY 03/11/23 02/18/24 History tamsulosin 0.4 mg capsule 0.4 mg PO DAILY 03/11/23 02/18/24 History multivitamin (Multiple Vitamins 1 tab PO DAILY 04/01/23 02/18/24 History tablet) lisinopril 20 mg tablet 20 mg PO DAILY 04/08/23 02/18/24 History Allergies Allergy/AdvReac Type Severity Reaction Status Date / Time metoprolol Allergy Intermediate ITCHING Verified 02/18/24 08:24 Exam Narrative Exam Narrative: Constitutional: Awake, alert, comfortable, well-appearing, nontoxic, interactive, vital signs as charted Head: Normocephalic, atraumatic Neck: Supple, normal appearance, normal range of motion, no meningeal signs, no lymphadenopathy Respiratory: No respiratory distress, breath sounds clear Cardiovascular: Regular rate and rhythm, strong and regular heart tones Abdomen: Nontender, normal bowel sounds, soft, no CVA tenderness Musculoskeletal: Normal gait, no swelling or edema Skin: No rashes or induration, Multiple scattered mole like lesions, only visible skin inspected Neuro: No neurological deficits, normal sensation Psychiatric: Oriented ?3, normal affect Assessment and Plan Assessment and Plan (1) Bladder tumor: (2) Bladder cancer: Plan Cystoscopy, TURBT scheduled with Dr. Zaldivar March 02, 2024.
[2024-02-18 08:49] LABS: Basophils Percent Auto 0.6 % (0.2-2.0); Eosinophils Absolute Auto 0.3 10^3/uL (0.0-0.7); Eosinophils Percent Auto 3.6 % (0.9-7.0); Hematocrit 37.8 % (42.0-54.0); Hemoglobin 12.6 g/dL (14.0-18.0); Immature Granulocytes Abs Auto 0.02 10^3/uL (0.00-0.03); Immature Granulocytes Pct Auto 0.3 % (0.0-0.5); Lymphocytes Absolute Auto 0.9 10^3/uL (1.2-3.8); Lymphocytes Percent Auto 12.6 % (20.5-60.0); Mean Corpuscular HGB Conc 33.3 g/dL (29.9-35.2); Mean Platelet Volume 11.9 fL (9.5-13.5); Monocytes Percent Auto 13.9 % (1.7-12.0); Neutrophils Absolute Auto 4.8 10^3/uL (1.4-6.5); Platelet Count 163 10^3/uL (150-450); Red Cell Distribution Width 13.4 % (11.0-15.0)
[2024-02-18 09:01] LABS: Anion Gap 9.8; Calcium 9.1 mg/dL (8.5-10.1); Carbon Dioxide 29.5 mmol/L (21.0-32.0); Chloride 104 mmol/L (98-107); Estimated GFR (African America 59 (>=60); Estimated GFR (Non-African Ame 49 (>=60); Glucose 116 mg/dL (74-106); Potassium 4.3 mmol/L (3.5-5.1); Sodium 139 mmol/L (136-145)
[2024-02-18 09:24] LABS: Partial Thromboplastin Time 27.9 sec (22.3-36.2); Prothrombin Time 10.6 sec (9.0-11.6)
== END 2024-02-18 07:50 | disposition home or self-care (01) ==
LOC: PST 07:49
PROVIDERS: Visit Provider Urology
DX: Z01.810 Encounter for preprocedural cardiovascular examination (principal); Z01.812 Encounter for preprocedural laboratory examination; Z01.818 Encounter for other preprocedural examination; N41.4 Granulomatous prostatitis
CPT/HCPCS: 80048; 85025; 85610; 85730; 93005; G0463

== ENCOUNTER 2024-03-02 10:09 | Day surgery (SDC) | payer OTHER, SELFPAY ==
[2024-02-18 08:35] VITALS: BP 130/60; PULSE 72; O2SAT 99; BMI 28.3
[2024-03-02] VITALS (13 sets, daily range): BP systolic 111–152; BP diastolic 36–96; PULSE 73–91; TEMP 35.8–36.7; O2SAT 95–100; BMI 28.1
[2024-03-02] MEDS: LACTATED RINGER'S SOLUTION 1,000 ML 50 ML IV (10:42)
[2024-03-02] MEDS: CEFAZOLIN SODIUM/DEXTROSE,ISO 1 GM/50 ML IV.SOLN IV (12:07)
[2024-03-02] MEDS: MITOMYCIN 40 MG in WATER FOR INJECTION,STERILE 20 ML 20 MG INTRAVESIC (13:20)
--- NOTE | 2024-03-02 13:26 | P.URON_ITS ---
Urology Surgery Operative Note Operative Note Procedure Date: 03/02/24 Time Out Performed: yes Pre-op Diagnosis: Recurrent bladder tumors Post-op Diagnosis: same as pre-op Procedures performed: 1. Cystoscopy. 2. Transurethral resection of bladder tumors approximately 6 cm. 3. Intravesical instillation of Mitomycin-C 40 mg. 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 On recent surveillance cystoscopy he was found to have recurrent tumors. He now presents for TURBT. He has signed an informed consent after risks were explained. Detailed description of Procedure: The patient was brought to the operating room and placed on the operating room table in the supine position. SCDs were placed on the lower extremities and turned on and functioning during the entire case. Timeout was done by all parties in the room. We all agreed upon the patient's identification and the planned procedures for this patient. Genn. Endotracheal anesthesia was then administered. The patient was then repositioned into the modified dorsal lithotomy position. All pressure points were satisfactorily padded. Genitalia were sterilely prepped and draped in usual fashion.I started by passing a 26 Sammarinese Olympus resectoscope with a standard bipolar loop electrode per urethra and into the bladder.Anterior urethra was normal. Prostatic urethra showed bilobar obstruction. Panendoscopy in the bladder revealed quite a bit of papillary TCC appearing sheets of tumors on the back left wall anteriorly.I then began uniformly resecting these tumors while simultaneously applying suprapubic pressure. All of the tumors were removed. I then coagulated the resection bed with the loop electrode.The Ilich evacuator was used to get all the tumor pieces out and these were sent for permanent sections. Upon completion there was no evidence of bleeding. There were no tumors remaining. The rest of the bladder appeared unremarkable. The scope was then removed. I then placed a 20 Sammar[place] Ingram catheter in the bladder and 10 cc of fluid was placed in the balloon. It drained clearly. I then passed the mitomycin through the catheter into the bladder and kept a catheter plug in place. The anesthetic was then reversed. He was then transferred to a gurney bed and wheeled to PACU in stable condition. He will stay in PACU and change positions for the next 2 hours.
== END 2024-03-02 15:30 | disposition home or self-care (01) ==
PROVIDERS: Visit Provider Urology
PROC: (CPT 912; principal; 2024-03-02 11:30)
DX: C67.9 Malignant neoplasm of bladder, unspecified (principal); Z85.51 Personal history of malignant neoplasm of bladder; N40.1 Benign prostatic hyperplasia with lower urinary tract symptoms; R33.9 Retention of urine, unspecified; I25.10 Atherosclerotic heart disease of native coronary artery without angina pectoris; Z87.891 Personal history of nicotine dependence; E78.5 Hyperlipidemia, unspecified; I10 Essential (primary) hypertension; I71.40 Abdominal aortic aneurysm, without rupture, unspecified; Z95.1 Presence of aortocoronary bypass graft; Z86.73 Personal history of transient ischemic attack (TIA), and cerebral infarction without residual deficits
CPT/HCPCS: 52235; 36415; 88307; J0690; J9280

== ENCOUNTER 2024-08-28 07:35 | Outpatient (OUT) | payer OTHER, SELFPAY ==
--- NOTE | 2024-08-28 07:56 | XR_ITS ---
The [address] [address] Patient Name: GERTRUDIS PÉREZ MRN: [id number] date: 1940 Sex: M Assigned Patient Location: [facility] Current Patient Location: [facility] Accession/Order Number: [id number] Exam Date: 08/28/2024 08:35 Report Date: 08/28/2024 08:50 At the request of: SYLVESTER LOVE Procedure: XR chest 2V PROCEDURE: XR chest 2V DATE: 08/28/2024 8:35 AM EST COMPARISONS: 04/01/2023 CLINICAL INDICATION: 83 years Male Preop exam FINDINGS: The cardiomediastinal silhouette and pulmonary vasculature are within normal limits. Poststernotomy changes are again identified The lungs are clear. There is no evidence of pleural effusion or pneumothorax. XR/XR chest 2V IMPRESSION: Poststernotomy chest radiograph is within normal limits. Electronically authenticated by: BRYON LARSON Date: 08/28/2024 08:50
--- NOTE | 2024-08-28 07:56 | ECG_ITS ---
The [facility] Test Date: 2024-08-28 Pat Name: GERTRUDIS PÉREZ Department: Room: - Gender: Male [employer]: : 1940 Requested By: SYLVESTER LOVE Order Number: [id number] Reading MD: SHANELL PACHECO Measurements Intervals [place] Rate: 74 P: 31 PA: 170 QRS: 3 QRSD: 91 T: 66 QT: 370 QTc: 411 Interpretive Statements SINUS RHYTHM Compared to ECG 02/18/2024 08:35:50 No significant changes Electronically Signed On 08-28-2024 20:26:45 EST by SHANELL PACHECO
[2024-08-28 08:37] LABS: Basophils Percent Auto 0.6 % (0.2-2.0); Eosinophils Absolute Auto 0.2 10^3/uL (0.0-0.7); Eosinophils Percent Auto 3.1 % (0.9-7.0); Hematocrit 37.7 % (42.0-54.0); Hemoglobin 12.4 g/dL (14.0-18.0); Immature Granulocytes Abs Auto 0.01 10^3/uL (0.00-0.03); Immature Granulocytes Pct Auto 0.1 % (0.0-0.5); Lymphocytes Absolute Auto 0.7 10^3/uL (1.2-3.8); Lymphocytes Percent Auto 10.4 % (20.5-60.0); Mean Corpuscular HGB Conc 32.9 g/dL (29.9-35.2); Mean Corpuscular Hemoglobin 30.1 pg (25.9-34.0); Mean Corpuscular Volume 91.5 fL (80.0-94.0); Mean Platelet Volume 11.5 fL (9.5-13.5); Monocytes Absolute Auto 0.9 10^3/uL (0.3-0.8); Monocytes Percent Auto 13.3 % (1.7-12.0); Neutrophils Absolute Auto 5.1 10^3/uL (1.4-6.5); Neutrophils Percent Auto 72.5 % (43.0-75.0); Platelet Count 180 10^3/uL (150-450); Red Blood Count 4.12 10^6/uL (4.70-6.10); Red Cell Distribution Width 12.3 % (11.0-15.0); White Blood Count 7.1 10^3/uL (4.0-11.0)
[2024-08-28 08:44] LABS: Calcium 8.9 mg/dL (8.5-10.1); Carbon Dioxide 27.6 mmol/L (21.0-32.0); Chloride 106 mmol/L (98-107); Estimated GFR (African America 56 (>=60 mL/min/1.73m^2); Estimated GFR (Non-African Ame 46 (>=60 mL/min/1.73m^2); Glucose 122 mg/dL (74-106); Potassium 3.6 mmol/L (3.5-5.1); Sodium 140 mmol/L (136-145)
[2024-08-28 08:49] LABS: INR 1.02; Partial Thromboplastin Time 25.6 sec (22.3-36.2); Prothrombin Time 10.8 sec (9.0-11.6)
== END 2024-08-28 07:36 | disposition home or self-care (01) ==
LOC: PST 07:35
PROVIDERS: Visit Provider Urology
DX: Z01.810 Encounter for preprocedural cardiovascular examination (principal); Z01.812 Encounter for preprocedural laboratory examination; D49.4 Neoplasm of unspecified behavior of bladder
CPT/HCPCS: 36415; 71046; 80048; 85025; 85610; 85730; 93005

== ENCOUNTER 2024-09-14 10:20 | Day surgery (SDC) | payer OTHER, SELFPAY ==
[2024-08-28 07:59] VITALS: BP 156/72; PULSE 81; TEMP 36.2; O2SAT 100; BMI 28.7
[2024-09-14] VITALS (13 sets, daily range): BP systolic 104–163; BP diastolic 48–75; PULSE 69–93; TEMP 36.6; O2SAT 96–99; BMI 28.7
--- OUTSIDE RECORDS SUMMARY | 2024-09-14 10:32 | XMS_ITS | CCD ---
Author Organization [facility] Care Team Providers Care Assessment Counselor Name Role Phone SHAYLEE WARREN Primary Care Physician [phone] IV[address] ., DR PHAN Admitting Unavailable ZALDIVAR [...] Admitting Unavailable KADEN ., LILY Attending Unavailable CANDIA, DR JESSEINA Voss Consulting Unavailable OMAYRA, JESSENIA Consulting Unavailable KADEN ., LILY Consulting [...] Unavailable ZALDIVAR ., DR PHAN Consulting Unavailable [facility] Primary Care Unavailable JR Av Regalado Primary Care Provider MD Sylvester Zaldivar Attending Provider [phone] Primary Care Provider [phone] MD Sylvester Zaldivar Attending Provider [phone] Sylvester Zaldivar Admitting Unavailable Sylvester Zaldivar Attending Unavailable Av Regalado Primary Care Unavailable Sylvester Zaldivar Admitting Unavailable Sylvester Zaldivar Attending Unavailable Av Regalado Primary Care Unavailable KAREN CHATMAN Attending Unavailable KAREN CHATMAN Attending Unavailable LURDES, KRAEN E Attending Unavailable LURDES, KAREN E Admitting Unavailable LURDES, KAREN E Attending Unavailable LURDES, KAREN E Attending Unavailable LURDES, KAREN E Attending Unavailable LURDES, KAREN E Attending Unavailable LURDES, KAREN E Attending Unavailable ZALDIVAR, Sylvester R Admitting Unavailable ZALDIVAR, Sylvester R Attending Unavailable ZALDIVAR, Sylvester R Attending Unavailable ZALDIVAR, Sylvester R Attending Unavailable ZALDIVAR, Sylvester R Attending Unavailable LURDES, RICKI MCMAHAN E Attending Unavailab le LURDES, RICKI MCMAHAN E Attending Unavailab le ZALDIVAR, Sylvester R Attending Unavailable ZALDIVAR, Sylvester R Attending Unavailable ZALDIVAR, Sylvester R Attending Unavailable ZALDIVAR, Sylvester R Attending Unavailable ZALDIVAR, Sylvester R Admitting Unavailable ZALDIVAR, Sylvester R Attending Unavailable ZALDIVAR, Sylvester R Attending Unavailable ZALDIVAR, Sylvester R Attending Unavailable Allergies Allergy Classification Reported Allergen(s) Allergy Type Date of Onset Reaction(s) Facility Metoprolol (1 source) Metoprolol; Translations: [metoprolol] Drug Allergy 0 Itching (finding) [facility] (20 sources) Metoprolol; Translations: [metoprolol] Drug Allergy 0 Itching (finding) [facility] (1 source) Metoprolol Drug Allergy [facility] Repository Medications Current Medications Medication Drug Class(es) Dates Sig (Normalized) Sig (Original) acetaminophen 194 mg / aspirin 227 mg / caffeine 33 mg oral tablet (10 sources) Platelet Aggregation Inhibitor, Nonsteroidal Anti-inflammatory Drug, Central Nervous System Stimulant, Methylxanthine Start: 07-20-2022 acetaminophen/a spirin/caffeine 194 mg-227 mg-33 mg oral tablet Refill(s) 0, ORAL Start Date: 07/20/22 Status: Ordered amoxicillin 875 mg oral tablet (1 source) Penicillin-class Antibacterial Start: 04-08-2024 End: 04-15-2024 take 1 tablet by mouth twice daily amoxicillin 875 mg Tab 875 mg = 1 tab(s), Oral, BID, X 7 day(s), # 14 tab(s), Refills(s) 0, Pharmacy: [email or web address] #[id number] 167, cm, 04/06/24 9:03:00 EDT, Height/Length Dosing, 84, kg, 04/06/24 9:03:00 EDT, Weight Dosing Start Date: 04/08/24 Stop Date: 04/15/24 Status: Ordered aspirin 81 mg chewable tablet (20 sources) Platelet Aggregation Inhibitor, Nonsteroidal Anti-inflammatory Drug Start: 07-20-2022 cephalexin 500 mg oral capsule (2 sources) Cephalosporin Antibacterial Start: 09-22-2022 End: 10-02-2022 take 1 capsule by mouth every twelve hours Keflex 500 mg Cap 500 mg = 1 cap(s), Oral, q12hr, X 10 day(s), # 20 cap(s), Refills(s) 0, Pharmacy: [facility] #72, 167, cm, 08/31/22 15:00:00 EST, Height/Length [...] Refills(s) 0 Start Date: 08/31/22 Status: Ordered sulfamethoxazole 800 mg / trimethoprim 160 mg oral tablet (2 sources) Dihydrofolate Reductase Inhibitor Antibacterial, Sulfonamide Antimicrobial Start: 04-20-2024 End: 04-27-2024 Bactrim D.S. 800 mg-160 mg Tab 1 tab(s), Oral, BID for 7 day(s), 14 tab(s), Refill(s) 0, [facility] #72, 174, cm, 04/20/24 9:08:00 EDT, Height/Length Dosing, 84, kg, 04/20/24 9:08:00 EDT, Weight Dosing Start Date: 04/20/24 Stop Date: 04/27/24 Status: Ordered tamsulosin hydrochloride 0.4 mg oral capsule (20 sources) alpha-Adrenergic Kenji Start: 07-20-2022 Completed/Discontinued Medications Medication Drug Class(es) Dates Sig (Normalized) Sig (Original) atorvastatin 80 mg oral tablet (20 sources) HMG-CoA Reductase Inhibitor Start: 07-20-2022 ciprofloxacin 500 mg oral tablet (15 sources) Quinolone Antimicrobial Start: 06-01-2024 take 1 tablet by mouth every three months Cipro 500 mg Tab 500 mg = 1 tab(s), Oral, Daily, Take 1 tablet the day before the procedure and 1 tablet after the procedure, every 3 months, # 8 tab(s), Refills(s) 0, Pharmacy: [facility] #72, 170, cm, 05/25/24 9:28:00 EDT, Height/Length Dosing, 84, kg, 05/25/24 9:28:00 EDT, Weight Dosing Start Date: 06/01/24 Status: Ordered Start: 06-29-2023 take 1 tablet by [facility] once daily Cipro 500 mg Tab 500 mg = 1 tab(s), Oral, Daily, Take 1 tablet the day before the procedure and 1 tablet after the procedure, # 7 tab(s), Refills(s) 0, Pharmacy: [facility] #72, 167, cm, 06/29/23 9:15:00 EST, Height/Length Dosing, 83, kg, 06/29/23 9:15:00 EST, Weight Dosing Start Date: 06/29/23 Status: Ordered Start: 03-12-2023 take 1 tablet by marylin once daily Cipro 500 mg Tab 500 mg = 1 tab(s), Oral, Daily, Take 1 tablet the day before the procedure and 1 tablet after the procedure, # 6 tab(s), Refills(s) 0, Pharmacy: [facility] #72, 167, cm, 08/31/22 15:00:00 EST, Height/Length Dosing, 84, kg, 08/31/22 15:00:0... Start Date: 03/12/23 Status: Ordered Start: 11-13-2022 take 1 tablet by marylin once daily Cipro 500 mg Tab 500 mg = 1 tab(s), Oral, Daily, Take 1 tablet the day before the procedure and 1 tablet after the procedure, # 6 tab(s), Refills(s) 0, Pharmacy: [facility] #72, 167, cm, 08/31/22 15:00:00 EST, Height/Length Dosing, 84, kg, 08/31/22 15:00:0... Start Date: 11/13/22 Status: Ordered Start: 07-20-2022 take 1 tablet by [facility] once daily Cipro 500 mg Tab 500 mg = 1 tab(s), Oral, Daily, Take 1 tablet the day before the procedure and 1 tablet after the procedure, # 2 tab(s), Refills(s) 0, Pharmacy: [facility] #72, 172, cm, 07/20/22 14:37:00 EST, Height/Length Dosing, 84, kg, 07/20/22 14:37:0... 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] Onset: 04-23-2022 07-20-2022 Chronic Cancer of bladder (20 sources) Malignant neoplasm of bladder, unspecified; Translations: [Malignant tumor of urinary bladder] Onset: 09-02-2022 Chronic Cancer of bladder (14 sources) History of malignant neoplasm of bladder; Translations: [Personal history of malignant neoplasm of bladder] Onset: 09-29-2022 Episodic Cancer; other and unspecified primary (20 sources) H/O: malignant neoplasm 11-23-2022 Episodic Coronary atherosclerosis and other heart disease (20 sources) Coronary arteriosclerosis; Translations: [Atherosclerotic heart disease of [place] coronary artery without angina pectoris] Onset: 12-01-2022 [...] Neoplasms of unspecified nature or uncertain behavior (20 sources) Neoplasm of unspecified behavior of bladder; Translations: [Neoplasm of uncertain behavior of bladder] Onset: 08-20-2022 Episodic Occlusion or stenosis of precerebral arteries (20 sources) Carotid artery stenosis 07-20-2022 Chronic Other aftercare (1 source) 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; Translations: [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 CURRENT USE OF ASPIRIN] Onset: 12-01-2022 Episodic Other aftercare (1 source) Other termite renewal inspector (current) drug therapy; Translations: [OTH SNF CURRENT DRUG THERAPY] Onset: 12-01-2022 Episodic Other circulatory disease (1 source) Personal history of transient ischemic attack (TIA), and cerebral infarction without residual deficits; Translations: [PERS HX TIA AND CI NO RESID DEFICIT] Onset: 12-01-2022 Episodic Other diseases of bladder and urethra (1 source) Other specified disorders of bladder; Translations: [OTHER SPECIFIED DISORDERS BLADDER] Onset: 09-29-2022 Chronic Other diseases of bladder and urethra (20 sources) Male urethral stricture; Translations: [Unspecified urethral stricture, male, unspecified site] Onset: 03-23-2023 Episodic Other diseases of bladder and urethra (20 sources) Urethral stricture 03-23-2023 Episodic Screening and history of mental health and substance abuse codes (1 source) Personal history of nicotine dependence; Translations: [PERSONAL HISTORY OF NICOTINE DEPEND] Onset: 12-01-2022 Episodic Transient cerebral ischemia (20 sources) Transient cerebral ischemia 07-20-2022 Chronic Unclassified (1 source) CONTACT W/AND (SUSP) EXPOS COVID-19; Translations: [CONTACT W/AND (SUSP) EXPOS COVID-19] Onset: 08-20-2022 Urinary tract infections (20 sources) Urinary tract infectious disease; Translations: [Urinary [...] Onset: 09-29-2022 Episodic Other aftercare (1 source) 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 anticoagulants; Translations: [SNF CURRNT USE ANTICOAGULANTS] Onset: 08-20-2022 Episodic Other [...] Results Test Name Value Interpretation Reference Range Facility Reminderson 08-29-2024 Reminders Reminders From: Brianna Rivero To: [facility] - Recalls Zaldivar; Sent: 06/14/2024 16:15:08 EDT Show up: 08/23/2024 16:15:00 EST Subject: cysto/fish/cytol Due Date/Time: 09/18/2024 16:15:00 EST Reminder/Recall Patient is due in October for 3 month cysto/fish/cytol, bt ck Patient having TURBT done 09/14/24.LG Normal [facility] UroVysion Fish and Urine Cyt o ([facility])on 08-17-2024 UVFISH & UC Diagnosis Info Invalid Interpretation Code [facility] Comment on above: Result Comment: A:Ur ine,Urine:Voided Diagnosis Summary - Adequate cellularity for evaluation. Diagnosis Summary - The UroVysion FISH study detected normal copy numbers for chromosomes 3, 7, 17, and 9p21. 200 cells were analyzed in this evaluation. No evidence of aneuploidy for chromosomes 3, 7, or 17 or deletion of the 9p21 locus was found in cells present in this specimen. This test does not rule out the possibility of a low grade non-invasive papillary urothelial carcinoma. These findings should be correlated with cytology and cystoscopy results. * CPT: 14177, 82572. Microscopic Notes - Microscopic Notes - Abnormal cells 9p21 deletions: Abnormal cells aneploid events: Total cells analyzed: 200 Hematuria: Gross Description Site ID:A color Yellow fixative Alcohol Received 100 mls of clear yellow fluid with the patient's name and, Urine on the vial. Electronically signed by : on: 08/17/2024 11:33:31 Performed By: #### 1 [id number] #### [facility] [address] [place] [address] Ambulatory Visit Summaryon 1 10-10-2023 Ambulatory Visit Summary Ambulatory Visit Summary NILESH PÉREZ :1940 Visit Date:08/09/2024 Ambulatory Visit Instructions Your Diagnosis History of bladder cancer BPH with urinary obstruction Incomplete bladder emptying Bladder neoplasm of uncertain malignant potential Your Care Team Attending Physician - IVAN GAO, Sylvester White Primary Care Physician - SHAYLEE WARREN MD This Is Your Medications List ciprofloxacin (Cipro 500 mg Tab) Contact prescribing physician if questions or concerns aspirin (aspirin 81 mg Chew Tab) atorvastatin (atorvastatin 80 mg Tab) famotidine (famotidine 20 mg Tab) finasteride (finasteride 5 mg Tab) hydrochlorothiazide-l isinopril (hydrochlorothiazide- lisinopril 12.5 mg-20 mg Tab) montelukast (montelukast 10 mg Tab) tamsulosin (tamsulosin 0.4 mg Cap) Procedures Performed Cystoscopy (08/09/2024), TURBT - Transurethral resection of bladder tumor (03/02/2024), Flexible cystoscopy (01/26/2024), TURBT - Transurethral resection of bladder tumor (09/16/2023), Cystoscopy (07/28/2023), TURBT - Transurethral resection of bladder tumor (04/08/2023), Cystoscopy (03/23/2023), 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 (08/20/2022), CABG - Coronary artery bypass graft (2016). Discharge Vitals Temperature (Temporal Artery) 37 ???C Heart Rate (Peripheral) 70 Respiratory Rate 17 Blood Pressure 134/72 Height 173 cm Height 68 in Weight 84 kg Weight 185.188 lb BMI 28.07 What to do next You Need to Schedule the Following Appointments Follow Up with IVAN GAO, COLLINS De When: Where: [facility] [address] , [place] [address]- Medications What How Much When Instructions Unchanged ciprofloxacin (Cipro 500 mg Tab) 1 Tablets By Mouth Every day Take 1 tablet the day before the procedure and 1 tablet after the procedure, every 3 months Unchanged aspirin (aspirin 81 mg Chew Tab) [...] prescribing physician if questions or concerns Unchanged hydrochlorothiazide-l isinopril (hydrochlorothiazide- lisinopril 12.5 mg-20 mg Tab) ORAL, 3 Refill(s) [...] cancer, BPH with urinary obstruction, Incomplete bladder emptying Allergies metoprolol (Itching) Problems Ongoing - Any problem that you are currently receiving treatment for. Abdominal aortic aneurysm Bladder cancer Bladder neoplasm of uncertain malignant potential BPH with urinary obstruction Carotid artery stenosis Coronary arteriosclerosis Difficulty urinating Gastroesophageal reflux disease History of bladder cancer Hyperlipidemia Hyperlipidemia Hypertensive disorder Incomplete bladder emptying Intermittent urinary stream Nocturia Transient cerebral ischemia Unspecified urethral stricture, male, unspecified site Urethral stricture Urinary hesitancy UTI (urinary tract infection) Patient Survey You may receive a survey via text or e-mail asking about your office visit. Please share your experience with us by completing your survey. We appreciate your feedback and thank you for choosing us for your care. Education Materials Transurethral Resection of Bladder Tumor, Care After The following information offers guidance on how to care for yourself after your procedure. Your health care provider may also give you more specific instructions. If you have problems or questions, contact your health care provider. What can I expect after the procedure? After the procedure, it is common to have: ??? A small amount of blood or small blood clots in your urine for up to 2 weeks. ??? Soreness or mild pain from your catheter. After your catheter is removed, you may have mild soreness, especially when urinating. ??? A need to urinate often. ??? Pain in your lower abdomen. Follow these instructions at home: Medicines ??? Take [id number] and prescription medicines only as told by your health care provider. ??? If you were prescribed an antibiotic medicine, take it as told by your health care provider. Do not stop taking the antibiotic even if you start to feel (more content not included)... Normal [facility] UroVysion Fish and Urine Cyt o ([facility])on 08-09-2024 [facility] Method of Extraction Voided Normal [facility] Comment on above: Performed By: #### 1 [id number] #### [facility] [address] [place] [address] [facility] Number of Jars 1 Invalid Interpretation Code [facility] Comment on above: Performed By: #### 1 [id number] #### [facility] [address] [place] [address] [facility] Specimen Urine Normal [facility] Comment on above: Performed By: #### 1 [id number] #### [facility] [address] [place] [address] [facility] Type of Service Technical Only Normal [facility] Comment on above: Performed By: #### 1 [id number] #### [facility] [address] [place] [address] Urology Office/Clinic Noteon 08-09-2024 Urology Office/Clinic Note Urology Office/Clinic Note Chief Complaint hx of bladder cancer HPI Staff Pt here for a cysto due to hx of bladder ca. Abx taken. S/p BCG #01/2606/01/24. History of Present Illness Tests reviewed: I have reviewed the previous health record information and history for this patient from Dr. Zaldivar. I have reviewed and verified the staff HPI to be accurate for this encounter. Review of Systems PHQ Score Initial [...] Physical Exam Vitals & Measurements T: 37 ???C(Temporal Artery) HR: 70(Peripheral) RR: 17 BP: 134/72 HT: 68 in HT: 173 cm WT: 84 kg WT: 185.188 lb BMI: 28.07 General Appearance: alert, no distress, well nourished, [...] large high median lobe. The Bladder: _Back wall near the dome there is a 3 cm flat red area with a central papillary tumor about 1-2 cm in size. Trabeculated: Moderate (2), no tics. The Ureteral [...] renal washings 09/16/23 - Neg for malignancy. S/p cysto 01/26/24 ~black L wall there is a patch of 3-4 cm of papillary TCC appearing lesions, red and raised. Cytology neg. FISH positive 01/2024. 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 pT1. At least mild papillary urothelial hyperplasia with mid urothelial atypia in most other fragments. No features of high-grade urothelial CIS. Muscularis propria muscle are present in at least 6 fragments without tumor involvement. S/p BCG #6/6 06/01/24. Pt had IO cysto to check for bladder tumor recurrence without complications today. Pt took prophylactic abx prior to procedure. Will send voided specimen for FISH/cytol and call pt if positive. 2. BPH with urinary obstruction (N40.1: Benign prostatic hyperplasia with lower urinary tract symptoms) Cysto 01/26/24 ~trilobar obstruction, large high median lobe. ~Prior plans for TURP but pt was dx'd with bladder CA in the meantime [1] Taking Tamsulosin 0.8 mg qd and Finasteride 5 mg qd. 3. Incomplete bladder emptying (R33.9: Retention of urine, unspecified) PVR (cc): 07/20/22 - 173 09/14/22 - 179 04/20/23 - 201 4. Bladder neoplasm of uncertain malignant potential (D41.4: [...] General anesthesia. Follow-up With When Contact Information Sylvester ZALDIVAR MD, URL [facility] [address], [place] [address]- A (more content not included)... Normal [facility] Comment on above: Result Comment: Elec tronically Signed By: Sylvester ZALDIVAR MD\.br\Date and Time Signed: 08/09/24 07:58 EST\.br\Electronically Co-Signed By: Mayra Moy\.br\Date and Time Co-Signed: 08/09/24 07:56 EST Reminderson 06-14-2024 Reminders Reminders From: Brianna Rivero To: FIDELINA - Heribertos Ivan; Sent: 05/03/2024 20:55:39 EDT Show up: 05/03/2024 20:55:00 EDT Subject: Cysto/fish/cytol Due Date/Time: 05/22/2024 20:55:00 EDT Reminder/Recall Patient needs cysto after bcg completion (2023 Patient sched for 08/09/24 in [place] office.LG Normal [facility] Ambulatory Visit Summaryon 1 Ambulatory Visit Summary Ambulatory Visit Summary NILESH PÉREZ :1940 Visit Date:06/01/2024 Ambulatory Visit Instructions Your Diagnosis Bladder cancer Your Care Team Attending Physician - KAREN CHATMAN PA-C Primary Care Physician - SHAYLEE WARREN MD This Is Your Medications List ciprofloxacin (Cipro 500 mg Tab) finasteride (finasteride 5 mg Tab) tamsulosin (tamsulosin 0.4 mg Cap) Contact prescribing physician if questions or concerns aspirin (aspirin 81 mg Chew Tab) atorvastatin (atorvastatin 80 mg Tab) famotidine (famotidine 20 mg Tab) hydrochlorothiazide-l isinopril (hydrochlorothiazide- lisinopril 12.5 mg-20 mg Tab) montelukast (montelukast 10 mg Tab) Procedures Performed TURBT - Transurethral resection of bladder tumor (03/02/2024), Flexible cystoscopy (01/26/2024), TURBT - Transurethral resection of bladder tumor (09/16/2023), Cystoscopy (07/28/2023), TURBT - Transurethral resection of bladder tumor (04/08/2023), Cystoscopy (03/23/2023), 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 (08/20/2022), CABG - Coronary artery bypass graft (2016). What to do next Scheduled Follow-Up Appointments Wednesday 7:30 AM EST With: Sylvester ZALDIVAR MD Where: [facility] [address] [place] [address]- You Need to Schedule the Following Appointments Follow Up with [facility] When: Comments: for procedure as scheduled Where: [address] [place] [id number] Business (1) Medications What How Much When Instructions Unchanged ciprofloxacin (Cipro 500 mg Tab) 1 Tablets By Mouth Every day Take 1 tablet the day before the procedure and 1 tablet after the procedure, every 3 months Unchanged finasteride (finasteride 5 mg Tab) 5 Unknown, ORAL, 3 Refill(s) Unchanged tamsulosin (tamsulosin 0.4 mg Cap) 0.8 Unknown, ORAL, 3 Refill(s) Unchanged aspirin (aspirin 81 mg Chew Tab) 81 Unknown, CHEWABLE/ ORAL Contact prescribing physician if questions or concerns Unchanged atorvastatin (atorvastatin 80 mg Tab) 80 Unknown, ORAL, 3 Refill(s) Contact prescribing physician if questions or concerns Unchanged famotidine (famotidine 20 mg Tab) 20 Unknown, ORAL, 3 Refill(s) Contact prescribing physician if questions or concerns Unchanged hydrochlorothiazide-l isinopril (hydrochlorothiazide- lisinopril 12.5 mg-20 mg Tab) ORAL, 3 Refill(s) Contact prescribing physician if questions or concerns Unchanged montelukast (montelukast 10 mg Tab) 10 Unknown, ORAL, 3 Refill(s) Contact prescribing physician if questions or concerns Medications and Immunizations Administered Given [place] BCG Live (for intravesical use), 50 mg, IntraVesical. For: Bladder cancer BCG, IntraVesical Allergies metoprolol (Itching) Problems Ongoing - Any problem that you are currently receiving treatment for. Abdominal aortic aneurysm Bladder cancer Bladder neoplasm of uncertain malignant potential BPH with urinary obstruction Carotid artery stenosis Coronary arteriosclerosis Difficulty urinating Gastroesophageal reflux disease History of bladder cancer Hyperlipidemia Hyperlipidemia Hypertensive disorder Incomplete bladder emptying Intermittent urinary stream Nocturia Transient cerebral ischemia Unspecified urethral stricture, male, unspecified site Urethral stricture Urinary hesitancy UTI (urinary tract infection) Patient Survey You may receive a survey via text or e-mail asking about your office visit. Please share your experience with us by completing your survey. We appreciate your feedback and thank you for choosing us for your care. Education Materials Bladder Cancer Bladder cancer is a condition [...] What are the signs or symptoms? Early sympto (more content not included)... Normal [facility] Urology Office/Clinic Noteon 06-01-2024 Urology Office/Clinic Note Urology Office/Clinic Note Chief Complaint BCG #6 HPI Staff BCG #6 of 6 Dx: bladder cancer Review of Systems no fever, chills, malaise, myalgia. no rash/lesions. no chest pain, palpitations, or SOB. no abdominal pain, nausea, vomiting. no unilateral calf swelling, redness, pain Physical Exam General: nontoxic, NAD Mouth: moist mucosa Lungs: normal respiratory effort Cardio: regular rate, good distal perfusion Abdomen: nondistended, no suprapubic distention or tenderness, no CVA tenderness Neurologic: Grossly normal Skin: No rashes or suspicious lesions Assessment/Plan 1. Bladder cancer (C67.9: Malignant neoplasm of bladder, unspecified) S/p original TURBT 08/20/22 - High-grade, noninvasive papillary urothelial carcinoma. S/p Mitomycin 09/28/22 and 10/26/22, 01/14/23 and 02/11/23. S/p TURBT 04/08/23 - Neg for malignancy. Bladder mucosa with cystitis and reactive atypia. S/p BCG #6/6 07/05/23. S/p cysto, TURBT and renal washings 09/16/23 - Neg for malignancy. S/p cysto 01/26/24 ~black L wall there is a patch of 3-4 cm of papillary TCC appearing lesions, red and raised. Cytology neg. FISH positive 01/2024. S/p TURBT and mitomycin installation 03/02/24. Path ~high-grade papillary urothelial carcinoma in at least 1 fragment, and with minute foci of microinvasion in lamina propria. pT1. At least mild papillary urothelial hyperplasia with mid urothelial atypia in most other fragments. No features of high-grade urothelial CIS. Muscularis propria muscle are present in at least 6 fragments without tumor involvement. [1] 04/06 UA sm hgb, mod leuk. BCG postponed. Cx shows Staph. Tx w Amox x 7d. 04/13 UA sm hgb, sm leuk. BCG #1. 04/20 UA trace hgb, sm leuk, +nit. Bactrim x 7d empiric. Cx neg. 04/27 UA sm leuk only. BCG #2. 05/11 UA trace hgb, mod leuks. Pt asx. Prefers to continue since last cx was neg. Received BCG #3. 05/18 UA trace hgb, mod leuks. Pt asx. BCG #4. 05/25 UA sm hgb, sm leuks. Pt asx. BCG #5. TODAY: UA sm hgb, mod leuks. Pt asx. Received #6 of 6 today. Will schedule cysto. Ordered: BCG, 50 mg, IntraVesical, Once, Stop date 06/01/24 10:03:00 EDT, Routine, Start date 06/01/24 10:03:00 EDT, 06/01/24 10:03:00 EDT Urnls Dip Stick Auto w/o Microscopy POC [id number] Follow-up With When Contact Information [facility] [address] [place] [address] Business (1) Additional Instructions: for procedure as scheduled Patient Education Bladder Cancer Problem List/Past Medical History Ongoing Abdominal aortic aneurysm Bladder cancer Bladder neoplasm of uncertain malignant potential BPH with urinary obstruction Carotid artery stenosis Coronary arteriosclerosis Difficulty urinating Gastroesophageal reflux disease History of bladder cancer Hyperlipidemia Hyperlipidemia Hypertensive disorder Incomplete bladder emptying Intermittent urinary stream Nocturia Transient cerebral ischemia Unspecified urethral stricture, male, unspecified site Urethral stricture Urinary hesitancy UTI (urinary tract infection) Historical No qualifying data Procedure/Surgical History TURBT - Transurethral resection of bladder tumor (03/02/2024), Flexible cystoscopy (01/26/2024), TURBT - Transurethral resection of bladder tumor (09/16/2023), Cystoscopy (07/28/2023), TURBT - Transurethral resection of bladder tumor (04/08/2023), Cystoscopy (03/23/2023), 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 (08/20/2022), CABG - Coronary artery bypass graft (2017). Medications aspirin 81 mg Chew Tab atorvastatin 80 mg Tab famotidine 20 mg Tab finasteride 5 mg Tab hydrochlorothiazide-l isinopril 12.5 mg-20 mg Tab montelukast 10 mg Tab tamsulosin 0.4 mg Cap Romy BCG Live (for intravesical use), 50 mg, IntraVesical, Once Allergies metoprolol (Itching) Social History Tobacco Never (less than 100 in lifetime) Tobacco Use:. Never Smokeless Tobacco Use:. Cigarettes, Stopped age 71 Years. Household tobacco concerns: No. Yes, 05/25/2024 Family History Family history is negative Immunizations Vaccine Date Status Comments BCG 05/25/2024 Given BCG 05/18/2024 Given BCG 05/11/2024 Given BCG 04/27/2024 Given BCG 04/13/2024 Given BCG 06/29/2023 Given BCG 06/29/2023 Given BCG 06/29/2023 Given BCG 06/22/2023 Given BCG 06/15/2023 Given BCG 06/08/2023 Given BCG 05/25/2023 Given influenza virus vaccine, inactivated 05/22/2023 Recorded BCG 05/18/2023 Given SARS-CoV-2 (COVID-19) [id number] 08/29/2022 Recorded SARS-CoV-2 (COVID-19) mRNA-1273 vaccine 02/14/2022 Recorded SARS-CoV-2 (COVID-19) mRNA-1273 vaccine 08/05/2021 Recorded SARS-CoV-2 (COVID-19) mRNA-1273 vaccine 11/18/2020 Recorded 2022-07-20: [id number] SARS-CoV-2 (COVID-19) mRNA-1273 vaccine 10/18/2020 Recorded 2022-07-20: [id number] Lab Results Ambulatory Point of Care Results Bilirubin Urine Dipstick: Negative (06/01/24 09:11 (more content not included)... [facility] Comment on above: Result Comment: Elec tronically Signed By: KAREN CHATMAN PA-C\.br\Date and Time Signed: 06/01/24 10:07 EDT Ambulatory Visit Summaryon 1 Ambulatory Visit Summary Ambulatory Visit Summary NILESH PÉREZ :1940 Visit Date:05/25/2024 Ambulatory Visit Instructions Your Diagnosis Bladder cancer Your Care Team Attending Physician - KAREN CHATMAN PA-C Primary Care Physician - SHAYLEE WARREN MD This Is Your Medications List Contact prescribing physician if questions or concerns aspirin (aspirin 81 mg Chew Tab) atorvastatin (atorvastatin 80 mg Tab) famotidine (famotidine 20 mg Tab) finasteride (finasteride 5 mg Tab) hydrochlorothiazide-l isinopril (hydrochlorothiazide- lisinopril 12.5 mg-20 mg Tab) montelukast (montelukast 10 mg Tab) tamsulosin (tamsulosin 0.4 mg Cap) Procedures Performed TURBT - Transurethral resection of bladder tumor (03/02/2024), Flexible cystoscopy (01/26/2024), TURBT - Transurethral resection of bladder tumor (09/16/2023), Cystoscopy (07/28/2023), TURBT - Transurethral resection of bladder tumor (04/08/2023), Cystoscopy (03/23/2023), 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 (08/20/2022), CABG - Coronary artery bypass graft (2016). Discharge Vitals Temperature (Temporal Artery) 37 ?C Heart Rate (Peripheral) 76 Respiratory Rate 18 Blood Pressure 136/84 Height 170 cm Height 67 in Weight 84 kg Weight 184.8 lb BMI 29.07 What to do next Scheduled Follow-Up Appointments 2023 9:20 AM EDT With: KAREN CHATMAN PA-C Where: [facility] [address] [place] [address]- Medications What When Instructions Unchanged aspirin (aspirin 81 mg [...] prescribing physician if questions or concerns Unchanged hydrochlorothiazide-l isinopril (hydrochlorothiazide- lisinopril 12.5 mg-20 mg Tab) ORAL, 3 Refill(s) Contact prescribing physician if questions or concerns Unchanged montelukast (montelukast 10 mg Tab) 10 Unknown, ORAL, 3 Refill(s) Contact prescribing physician if questions or concerns Unchanged tamsulosin (tamsulosin 0.4 mg Cap) 0.8 Unknown, ORAL, 3 Refill(s) Contact prescribing physician if questions or concerns Allergies metoprolol (Itching) Problems Ongoing - Any problem that you are currently receiving treatment for. Abdominal aortic aneurysm Bladder cancer Bladder neoplasm of uncertain malignant potential BPH with urinary obstruction Carotid artery stenosis Coronary arteriosclerosis Difficulty urinating Gastroesophageal reflux disease History of bladder cancer Hyperlipidemia Hyperlipidemia Hypertensive disorder Incomplete bladder emptying Intermittent urinary stream Nocturia Transient cerebral ischemia Unspecified urethral stricture, male, unspecified site Urethral stricture Urinary hesitancy UTI (urinary tract infection) Patient Survey You may receive a survey via text or e-mail asking about your office visit. Please share your experience with us by completing your survey. We appreciate your feedback and thank you for choosing us for your care. [facility] Urology Office/Clinic Noteon 05-25-2024 Urology Office/Clinic Note Urology Office/Clinic Note Chief Complaint BCG 5 of 6 HPI Staff BCG #5 of 6 Dx: bladder cancer Dysuria: denies Incomplete bladder emptying: denies Hematuria: denies Frequency: denies Urgency: denies Nocturia: 1-2x Stream: good steady no straining or intermittency Leaking: denies Post void dripping: denies Wearing pads/ Depends: denies Urge incontinence: denies Stress incontinence: denies Incontinence without Sensory Awareness: denies Abdominal pain: denies Flank pain: denies Sexual complaints: denies Review of Systems PHQ Score Initial Depression Screen Score: 0 SCORE no fever, chills, malaise, myalgia. no rash/lesions. no chest pain, palpitations, or SOB. no abdominal pain, nausea, vomiting. no unilateral calf swelling, redness, pain Physical Exam Vitals & Measurements T: 37 ?C(Temporal Artery) HR: 76(Peripheral) RR: 18 BP: 136/84 HT: 67 in HT: 170 cm WT: 84 kg WT: 184.8 lb BMI: 29.07 General: nontoxic, NAD Mouth: moist mucosa Lungs: [...] other bladder irritation symptoms are expected. Assessment/Plan 1. Bladder cancer (C67.9: Malignant neoplasm of bladder, unspecified) S/p original TURBT 08/20/22 - High-grade, noninvasive papillary urothelial carcinoma. S/p Mitomycin 09/28/22 and 10/26/22, 01/14/23 and 02/11/23. S/p TURBT 04/08/23 - Neg for malignancy. Bladder mucosa with cystitis and reactive atypia. S/p BCG #6/6 07/05/23. S/p cysto, TURBT and renal washings 09/16/23 - Neg for malignancy. S/p cysto 01/26/24 ~black L wall there is a patch of 3-4 cm of papillary TCC appearing lesions, red and raised. Cytology neg. FISH positive 01/2024. S/p TURBT and mitomycin installation 03/02/24. Path ~high-grade papillary urothelial carcinoma in at least 1 fragment, and with minute foci of microinvasion in lamina propria. pT1. At least mild papillary urothelial hyperplasia with mid urothelial atypia in most other fragments. No features of high-grade urothelial CIS. Muscularis propria muscle are present in at least 6 fragments without tumor involvement. [1] 8/15 UA sm hgb, mod leuk. BCG postponed. Cx shows Staph. Tx w Amox x 7d. 04/13 UA sm hgb, sm leuk. BCG #1. 04/20 UA trace hgb, sm leuk, +nit. Bactrim x 7d empiric. Cx neg. 04/27 UA sm leuk only. BCG #2. 05/11 UA trace hgb, mod leuks. Pt asx. Prefers to continue since last cx was neg. Received BCG #3. 05/18 UA trace hgb, mod leuks. Pt asx. BCG #4. TODAY: UA sm hgb, sm leuks. Pt asx. Received #5 of 6 today. Return in 1 week for #6 of 6. Ordered: BCG, 50 mg, IntraVesical, Once, Stop date 05/25/24 10:11:00 EDT, Routine, Start date 05/25/24 10:11:00 EDT, 05/25/24 10:11:00 EDT Urnls Dip Stick Auto w/o Microscopy POC [id number] Follow-up With When Contact Information LURDES ROBISON, KAREN Chris, URL In 1 week [address] [place] [address] Additional Instructions: Patient Education Bladder Cancer Problem List/Past Medical History Ongoing Abdominal aortic aneurysm Bladder cancer Bladder neoplasm of uncertain malignant potential BPH with urinary obstruction Carotid artery stenosis Coronary arteriosclerosis Difficulty urinating Gastroesophageal reflux disease History of bladder cancer Hyperlipidemia Hyperlipidemia Hypertensive disorder Incomplete bladder emptying Intermittent urinary stream Nocturia Transient cerebral ischemia Unspecified urethral stricture, male, unspecified site Urethral stricture Urinary hesitancy UTI (urinary tract infection) Historical No qualifying data Procedure/Surgical History TURBT - Transurethral resection of bladder tumor (03/02/2024), Flexible cystoscopy (01/26/2024), TURBT - Transurethral resection of bladder tumor (09/16/2023), Cystoscopy (07/28/2023), TURBT - Transurethral resection of bladder tumor (04/08/2023), Cystoscopy (03/23/2023), 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 (08/20/2022), CABG - Coronary artery bypass graft (2016). Medications aspirin 81 mg Chew Tab atorvastatin 80 mg Tab famotidine 20 mg Tab finasteride 5 mg Tab hydrochlorothiazide-l isinopril 12.5 mg-20 mg Tab montelukast 10 (more content not included)... [facility] Comment on above: Result Comment: Elec tronically Signed By: KAREN CHATMAN PA-C\.br\Date and Time Signed: 05/25/24 10:11 EDT Ambulatory Visit Summaryon 0 05-18-2024 Ambulatory Visit Summary Ambulatory Visit Summary NILESH PÉREZ :1940 Visit Date:05/18/2024 Ambulatory Visit Instructions Your Diagnosis Bladder cancer Your Care Team Attending Physician - KAREN CHATMAN PA-C Primary Care Physician - SHALYEE WARREN MD This Is Your Medications List Contact prescribing physician if questions or concerns aspirin (aspirin 81 mg Chew Tab) atorvastatin (atorvastatin 80 mg Tab) famotidine (famotidine 20 mg Tab) finasteride (finasteride 5 mg Tab) hydrochlorothiazide-l isinopril (hydrochlorothiazide- lisinopril 12.5 mg-20 mg Tab) montelukast (montelukast 10 mg Tab) tamsulosin (tamsulosin 0.4 mg Cap) Procedures Performed TURBT - Transurethral resection of bladder tumor (03/02/2024), Flexible cystoscopy (01/26/2024), TURBT - Transurethral resection of bladder tumor (09/16/2023), Cystoscopy (07/28/2023), TURBT - Transurethral resection of bladder tumor (04/08/2023), Cystoscopy (03/23/2023), 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 (08/20/2022), CABG - Coronary artery bypass graft (2016). Discharge Vitals Heart Rate (Peripheral) 78 Blood Pressure 146/86 Height 170 cm Height 67 in Weight 84 kg Weight 184.8 lb BMI 29.07 What to do next Scheduled Follow-Up Appointments 2023 9:20 AM EDT With: KAREN CHATMAN PA-C Where: [facility] [address] [place] [address]- 2023 9:20 AM EDT With: KAREN CHATMAN PA-C Where: [facility] [address] [place] [address] [place] [address]- You Need to Schedule the Following Appointments Follow Up with KAREN CHATMAN PA-C, URL When: In 1 week Where: [address] [place] [address] Medications What When Instructions Unchanged aspirin (aspirin 81 mg [...] prescribing physician if questions or concerns Unchanged hydrochlorothiazide-l isinopril (hydrochlorothiazide- lisinopril 12.5 mg-20 mg Tab) ORAL, 3 Refill(s) Contact prescribing physician if questions or concerns Unchanged montelukast (montelukast 10 mg Tab) 10 Unknown, ORAL, 3 Refill(s) Contact prescribing physician if questions or concerns Unchanged tamsulosin (tamsulosin 0.4 mg Cap) 0.8 Unknown, ORAL, 3 Refill(s) Contact prescribing physician if questions or concerns Medications and Immunizations Administered Given [place] BCG Live (for intravesical use), 50 mg, IntraVesical. For: Bladder cancer BCG, IntraVesical Allergies metoprolol (Itching) Problems Ongoing - Any problem that you are currently receiving treatment for. Abdominal aortic aneurysm Bladder cancer Bladder neoplasm of uncertain malignant potential BPH with urinary obstruction Carotid artery stenosis Coronary arteriosclerosis Difficulty urinating Gastroesophageal reflux disease History of bladder cancer Hyperlipidemia Hyperlipidemia Hypertensive disorder Incomplete bladder emptying Intermittent urinary stream Nocturia Transient cerebral ischemia Unspecified urethral stricture, male, unspecified site Urethral stricture Urinary hesitancy UTI (urinary tract infection) Patient Survey You may receive a survey via text or e-mail asking about your office visit. Please share your experience with us by completing your survey. We appreciate your feedback and thank you for choosing us for your care. Education Materials Bladder Cancer Bladder cancer is a condition [...] cells (chemotherapy). ? Strong X-ray beams or high-ener (more content not included)... [facility] Urology Office/Clinic Noteon 05-18-2024 Urology Office/Clinic Note Urology Office/Clinic Note Chief Complaint BCG #4 HPI Staff BCG # 4 of 6 pt has no complaints today Review of Systems PHQ Score Initial Depression Screen Score: 0 SCORE no fever, chills, malaise, myalgia. no rash/lesions. no chest pain, palpitations, or SOB. no abdominal pain, nausea, vomiting. no unilateral calf swelling, redness, pain Physical Exam Vitals & Measurements HR: 78(Peripheral) BP: 146/86 HT: 67 in HT: 170 cm WT: 84 kg WT: 184.8 lb BMI: 29.07 General: nontoxic, NAD Mouth: moist mucosa Lungs: [...] other bladder irritation symptoms are expected. Assessment/Plan 1. Bladder cancer (C67.9: Malignant neoplasm of bladder, unspecified) S/p original TURBT 08/20/22 - High-grade, noninvasive papillary urothelial carcinoma. S/p Mitomycin 09/28/22 and 10/26/22, 01/14/23 and 02/11/23. S/p TURBT 04/08/23 - Neg for malignancy. Bladder mucosa with cystitis and reactive atypia. S/p BCG #6/6 07/05/23. S/p cysto, TURBT and renal washings 09/16/23 - Neg for malignancy. S/p cysto 01/26/24 ~black L wall there is a patch of 3-4 cm of papillary TCC appearing lesions, red and raised. Cytology neg. FISH positive 01/2024. S/p TURBT and mitomycin installation 03/02/24. Path ~high-grade papillary urothelial carcinoma in at least 1 fragment, and with minute foci of microinvasion in lamina propria. pT1. At least mild papillary urothelial hyperplasia with mid urothelial atypia in most other fragments. No features of high-grade urothelial CIS. Muscularis propria muscle are present in at least 6 fragments without tumor involvement. [1] 04/06 UA sm hgb, mod leuk. BCG postponed. Cx shows Staph. Tx w Amox x 7d. 04/13 UA sm hgb, sm leuk. BCG #1. 04/20 UA trace hgb, sm leuk, +nit. Bactrim x 7d empiric. Cx neg. 04/27 UA sm leuk only. BCG #2. 05/11 UA trace hgb, mod leuks. Pt asx. Prefers to continue since last cx was neg. Received BCG #3. TODAY: UA unchanged - trace hgb, mod leuks. Pt asx. Received #4 of 6 today. Return in 1 week for #5 of 6. Ordered: BCG, 50 mg, IntraVesical, Once, Stop date 05/18/24 9:40:00 EDT, Routine, Start date 05/18/24 9:40:00 EDT, 05/18/24 9:40:00 EDT Urnls Dip Stick Auto w/o Microscopy POC [id number] Follow-up With When Contact Information LURDES ROBISON, KAREN Chris, URL In 1 week [address] [place] [address] Additional Instructions: Patient Education Bladder Cancer Problem List/Past Medical History Ongoing Abdominal aortic aneurysm Bladder cancer Bladder neoplasm of uncertain malignant potential BPH with urinary obstruction Carotid artery stenosis Coronary arteriosclerosis Difficulty urinating Gastroesophageal reflux disease History of bladder cancer Hyperlipidemia Hyperlipidemia Hypertensive disorder Incomplete bladder emptying Intermittent urinary stream Nocturia Transient cerebral ischemia Unspecified urethral stricture, male, unspecified site Urethral stricture Urinary hesitancy UTI (urinary tract infection) Historical No qualifying data Procedure/Surgical History TURBT - Transurethral resection of bladder tumor (03/02/2024), Flexible cystoscopy (01/26/2024), TURBT - Transurethral resection of bladder tumor (09/16/2023), Cystoscopy (07/28/2023), TURBT - Transurethral resection of bladder tumor (04/08/2023), Cystoscopy (03/23/2023), 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 (08/20/2022), CABG - Coronary artery bypass graft (2016). Medications aspirin 81 mg Chew Tab atorvastatin 80 mg Tab famotidine 20 mg Tab finasteride 5 mg Tab hydrochlorothiazide-l isinopril 12.5 mg-20 mg Tab montelukast 10 mg Tab tamsulosin 0.4 mg Cap Romy BCG Live (for intravesical use), 50 mg, IntraVesical, Once Allergies metoprolol (Itching) Social History Tobacco Never (less than 100 in lifetime) Tobacco Use:. Never Smokeless Tobacco Use:. Cigarettes, Stopped age 71 Years. Household tobacco concerns: No. Yes, 05/18/2024 Family History Family history is negative Immunizations Vaccine Date Status Comments BCG 05/11/2024 Given BCG 04/27/2024 Given BCG 04/13/2024 Given BCG 06/29/2023 Given (more content not included)... [facility] Comment on above: Result Comment: Elec tronically Signed By: KAREN CHATMAN PA-C\Date and Time Signed: 05/18/24 09:42 EDT Urology Office/Clinic Noteon 05-11-2024 Urology Office/Clinic Note Urology Office/Clinic Note Chief Complaint bladde cancer BCG #3 of 6 HPI Staff BCG #3 out of 6 Full dose. Dx: bladder cancer, UTI Dysuria: denies Incomplete bladder emptying: denies Hematuria: denies Frequency: denies Urgency: denies Nocturia: 3-4x Stream: intermittency at night Leaking: denies Post void dripping: denies Wearing pads/ Depends: denies Urge incontinence: denies Stress incontinence: denies Incontinence without Sensory Awareness: denies Abdominal pain: denies Flank pain: denies Sexual complaints: denies Review of Systems PHQ Score Initial Depression Screen Score: 0 SCORE no fever, chills, malaise, myalgia. no rash/lesions. no chest pain, palpitations, or SOB. no abdominal pain, nausea, vomiting. no unilateral calf swelling, redness, pain Physical Exam Vitals & Measurements T: 37 ?C(Temporal Artery) HR: 68(Peripheral) RR: 16 BP: 135/74 HT: 67 in HT: 170 cm WT: 84 kg WT: 184.8 lb BMI: 29.07 General: nontoxic, NAD Mouth: moist mucosa Lungs: normal respiratory effort Cardio: regular rate, good distal perfusion Abdomen: nondistended, no suprapubic distention or tenderness, no CVA tenderness Neurologic: Grossly normal Skin: No rashes or suspicious lesions Assessment/Plan The patient was placed in the appropriate [...] and other bladder irritation symptoms are expected. 1. Bladder cancer (C67.9: Malignant neoplasm of bladder, unspecified) S/p original TURBT 08/20/22 - High-grade, noninvasive papillary urothelial carcinoma. S/p Mitomycin 09/28/22 and 10/26/22, 01/14/23 and 02/11/23. S/p TURBT 04/08/23 - Neg for malignancy. Bladder mucosa with cystitis and reactive atypia. S/p BCG #6/6 07/05/23. S/p cysto, TURBT and renal washings 09/16/23 - Neg for malignancy. S/p cysto 01/26/24 ~black L wall there is a patch of 3-4 cm of papillary TCC appearing lesions, red and raised. Cytology neg. FISH positive 01/2024. S/p TURBT and mitomycin installation 03/02/24. Path ~high-grade papillary urothelial carcinoma in at least 1 fragment, and with minute foci of microinvasion in lamina propria. pT1. At least mild papillary urothelial hyperplasia with mid urothelial atypia in most other fragments. No features of high-grade urothelial CIS. Muscularis propria muscle are present in at least 6 fragments without tumor involvement. [1] 04/06 UA sm hgb, mod leuk. BCG postponed. Cx shows Staph. Tx w Amox x 7d. 04/13 UA sm hgb, sm leuk. BCG #1. 04/20 UA trace hgb, sm leuk, +nit. Bactrim x 7d empiric. Cx neg. 04/27 UA sm leuk only. BCG #2. UA today shows trace hgb, mod leuks. Pt asx. Prefers to continue since last cx was neg. Received BCG #3 without complications. Return in 1 week for #4. Ordered: Urnls Dip Stick Auto w/o Microscopy POC [id number] Follow-up With When Contact Information KAREN CHATMAN PA-C, URL In 1 week [address] [place] [address] Additional Instructions: Patient Education Bladder Cancer Problem List/Past Medical History Ongoing Abdominal aortic aneurysm Bladder cancer Bladder neoplasm of uncertain malignant potential BPH with urinary obstruction Carotid artery stenosis Coronary arteriosclerosis Difficulty urinating Gastroesophageal reflux disease History of bladder cancer Hyperlipidemia Hyperlipidemia Hypertensive disorder Incomplete bladder emptying Intermittent urinary stream Nocturia Transient cerebral ischemia Unspecified urethral stricture, male, unspecified site Urethral stricture Urinary hesitancy UTI (urinary tract infection) Historical No qualifying data Procedure/Surgical History TURBT - Transurethral resection of bladder tumor (03/02/2024), Flexible cystoscopy (01/26/2024), TURBT - Transurethral resection of bladder tumor (09/16/2023), Cystoscopy (07/28/2023), TURBT - Transurethral resection of bladder tumor (04/08/2023), Cystoscopy (03/23/2023), 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 (08/20/2022), CABG - Coronary artery bypass graft (2017). Medications aspirin 81 mg Chew Tab atorvastatin 80 mg Tab famotidine 20 mg Tab finasteride 5 mg Tab hydrochlorothiazide-l isinopril 12.5 mg-20 mg Tab montelukast 10 mg Tab tamsulosin 0.4 mg Cap Allergies metoprolol (Itching) Social History Tobacco Never (less than 100 in lifetime) Tobacco Use:. Never Smokeless Tobacco Use:. Cigarettes, Stopped age 71 Years. Househ (more content not included)... [facility] Comment on above: Result Comment: Elec tronically Signed By: KAREN CHATMAN PA-C\.br\Date and Time Signed: 05/11/24 09:45 EDT Ambulatory Visit Summaryon 0 04-27-2024 Ambulatory Visit Summary Ambulatory Visit Summary NILESH PÉREZ :1940 Visit Date:04/27/2024 Ambulatory Visit Instructions Your Diagnosis Bladder cancer UTI (urinary tract infection) Your Care Team Attending Physician - KAREN CHATMAN PA-C Primary Care Physician - SHAYLEE WARREN MD This Is Your Medications List finasteride (finasteride 5 mg Tab) tamsulosin (tamsulosin 0.4 mg Cap) Contact prescribing physician if questions or concerns aspirin (aspirin 81 mg Chew Tab) atorvastatin (atorvastatin 80 mg Tab) famotidine (famotidine 20 mg Tab) hydrochlorothiazide-l isinopril (hydrochlorothiazide- lisinopril 12.5 mg-20 mg Tab) montelukast (montelukast 10 mg Tab) [Image Removed: STOP]Stop taking these medications sulfamethoxazole-trim ethoprim (Bactrim D.S. 800 mg-160 mg Tab) Procedures Performed TURBT - Transurethral resection of bladder tumor (03/02/2024), Flexible cystoscopy (01/26/2024), TURBT - Transurethral resection of bladder tumor (09/16/2023), Cystoscopy (07/28/2023), TURBT - Transurethral resection of bladder tumor (04/08/2023), Cystoscopy (03/23/2023), 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 (08/20/2022), CABG - Coronary artery bypass graft (2016). Discharge Vitals Temperature (Temporal Artery) 36.6 ?C Heart Rate (Peripheral) 75 Respiratory Rate 16 Blood Pressure 105/55 Weight 84 kg Weight 184.8 lb What to do next Scheduled Follow-Up Appointments 2023 9:00 AM EDT With: KAREN CHATMAN PA-C Where: [facility] [address] [place] [address] [place] [address] 2023 9:00 AM EDT With: KAREN CHATMAN PA-C Where: [facility] [address] [place] [address]- You Need to Schedule the Following Appointments Follow Up with KAREN CHATMAN PA-C, URL When: In 1 week Where: [address] [place] [address] Medications What When Instructions Unchanged finasteride (finasteride 5 mg Tab) 5 Unknown, ORAL, 3 Refill(s) Unchanged tamsulosin (tamsulosin 0.4 mg Cap) 0.8 Unknown, ORAL, 3 Refill(s) Unchanged aspirin (aspirin 81 mg Chew Tab) 81 Unknown, CHEWABLE/ ORAL Contact prescribing physician if questions or concerns Unchanged atorvastatin (atorvastatin 80 mg Tab) 80 Unknown, ORAL, 3 Refill(s) Contact prescribing physician if questions or concerns Unchanged famotidine (famotidine 20 mg Tab) 20 Unknown, ORAL, 3 Refill(s) Contact prescribing physician if questions or concerns Unchanged hydrochlorothiazide-l isinopril (hydrochlorothiazide- lisinopril 12.5 mg-20 mg Tab) ORAL, 3 Refill(s) Contact prescribing physician if questions or concerns Unchanged montelukast (montelukast 10 mg Tab) 10 Unknown, ORAL, 3 Refill(s) Contact prescribing physician if questions or concerns What How Much When Comments Stop Taking sulfamethoxazole-trim ethoprim (Bactrim D.S. 800 mg-160 mg Tab) 1 Tablets By Mouth 2 times a day Duration: 7 Days Medications and Immunizations Administered Given [place] BCG Live (for intravesical use), 50 mg, IntraVesical. For: Bladder cancer, UTI (urinary tract infection) BCG, IntraVesical Allergies metoprolol (Itching) Problems Ongoing - Any problem that you are currently receiving treatment for. Abdominal aortic aneurysm Bladder cancer Bladder neoplasm of uncertain malignant potential BPH with urinary obstruction Carotid artery stenosis Coronary arteriosclerosis Difficulty urinating Gastroesophageal reflux disease History of bladder cancer Hyperlipidemia Hyperlipidemia Hypertensive disorder Incomplete bladder emptying Intermittent urinary stream Nocturia Transient cerebral ischemia Unspecified urethral stricture, male, unspecified site Urethral stricture Urinary hesitancy UTI (urinary tract infection) Patient Survey You may receive a survey via text or e-mail asking about your office visit. Please share your experience with us by completing your survey. We appreciate your feedback and thank you for choosing us for your care. Education Materials Bladder Cancer Bladder cancer is a condition [...] inflammation. ? Having a history of cancer. Thi (more content not included)... Normal [facility] Urology Office/Clinic Noteon 04-27-2024 Urology Office/Clinic Note Urology Office/Clinic Note Chief Complaint BCG 2 out of 6 HPI Staff BCG # 2 out of 6 Full dose. Pt was not able to do BCG last week due to abnormal UA. Denies hematuria. denies dysuria. Denies abdominal/flank pain. Review of Systems PHQ Score Initial Depression Screen Score: 0 SCORE no fever, chills, malaise, myalgia. no rash/lesions. no chest pain, palpitations, or SOB. no abdominal pain, nausea, vomiting. no unilateral calf swelling, redness, pain Physical Exam Vitals & Measurements T: 36.6 ?C(Temporal Artery) HR: 75(Peripheral) RR: 16 BP: 105/55 WT: 84 kg WT: 184.8 lb General: nontoxic, NAD Mouth: moist mucosa Lungs: [...] other bladder irritation symptoms are expected. Assessment/Plan 1. Bladder cancer (C67.9: Malignant neoplasm of bladder, unspecified) S/p original TURBT 08/20/22 - High-grade, noninvasive papillary urothelial carcinoma. S/p Mitomycin 09/28/22 and 10/26/22, 01/14/23 and 02/11/23. S/p TURBT 04/08/23 - Neg for malignancy. Bladder mucosa with cystitis and reactive atypia. S/p BCG #6/6 07/05/23. S/p cysto, TURBT and renal washings 09/16/23 - Neg for malignancy. S/p cysto 01/26/24 ~black L wall there is a patch of 3-4 cm of papillary TCC appearing lesions, red and raised. Cytology neg. FISH positive 01/2024. S/p TURBT and mitomycin installation 03/02/24. Path ~high-grade papillary urothelial carcinoma in at least 1 fragment, and with minute foci of microinvasion in lamina propria. pT1. At least mild papillary urothelial hyperplasia with mid urothelial atypia in most other fragments. No features of high-grade urothelial CIS. Muscularis propria muscle are present in at least 6 fragments without tumor involvement. [1] BCG #1 on 04/13 Pt received BCG #2 of 6 IO today wo complications. -BCG #3 of 6 in 1 week -Cysto following BCG tx completion Ordered: BCG, 50 mg, IntraVesical, Once, Stop date 04/27/24 9:33:00 EDT, Routine, Start date 04/27/24 9:33:00 EDT, 04/27/24 9:33:00 EDT Urnls Dip Stick Auto w/o Microscopy POC 92126 2. UTI (urinary tract infection) (N39.0: Urinary tract infection, site not specified) 04/06/24 - UA small blood and moderate leuks. Asx. UCx 50k S. schleiferi subsp. schleiferi. tx'd w/ Amoxicillin bid x 7d. BCG #1/6 was postponed. 04/13/24 - UA trace-intact blood and small leuks. BCG #1/6 given. 04/20/24 - UA trace-intact blood, small leuks, and positive nitrites. Asx. BCG #2 of 6 postponed today and started empiric Bactrim. Cx neg. But pt finished Bactrim anyhow. TODAY - UA sm leuk neg nit/hgb Ordered: BCG, 50 mg, IntraVesical, Once, Stop date 04/27/24 9:33:00 EDT, Routine, Start date 04/27/24 9:33:00 EDT, 04/27/24 9:33:00 EDT Urnls Dip Stick Auto w/o Microscopy POC [id number] Follow-up With When Contact Information KAREN CHATMAN PA-C, URL In 1 week [address] [place] [address] Additional Instructions: Patient Education Bladder Cancer Problem List/Past Medical History Ongoing Abdominal aortic aneurysm Bladder cancer Bladder neoplasm of uncertain malignant potential BPH with urinary obstruction Carotid artery stenosis Coronary arteriosclerosis Difficulty urinating Gastroesophageal reflux disease History of bladder cancer Hyperlipidemia Hyperlipidemia Hypertensive disorder Incomplete bladder emptying Intermittent urinary stream Nocturia Transient cerebral ischemia Unspecified urethral stricture, male, unspecified site Urethral stricture Urinary hesitancy UTI (urinary tract infection) Historical No qualifying data Procedure/Surgical History TURBT - Transurethral resection of bladder tumor (03/02/2024), Flexible cystoscopy (01/26/2024), TURBT - Transurethral resection of bladder tumor (09/16/2023), Cystoscopy (07/28/2023), TURBT - Transurethral resection of bladder tumor (04/08/2023), Cystoscopy (03/23/2023), 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 (08/20/2022), CABG - Coronary artery bypass graft (2016). Medications aspirin 81 mg Chew Tab atorvastatin 80 mg Tab famotidine 20 mg Tab finasteride 5 mg Tab hydrochlorothiazide-l isinopril 12.5 m (more content not included)... [facility] Comment on above: Result Comment: Elec tronically Signed By: KAREN CHATMAN PA-C\.br\Date and Time Signed: 04/27/24 09:34 EDT C Urineon 04-22-2024 Bacteria identified Cx Nom (U) Microbiology PROCEDURE: Urine Culture [R1] SOURCE: U CleanCatch BODY SITE: COLLECTED DATE/TIME: 04/20/2024 09:25 EDT RECEIVED DATE/TIME: 04/20/2024 18:15 EDT START DATE/TIME: 04/20/2024 18:15 EDT FREE TEXT SOURCE: KAREN CHATMAN PA-C, PA-C, JENNIFER E FINAL REPORTS Final Report [] Verified Date/Time: 04/22/2024 09:24 EDT <10,000 cfu/ml Mixed skin contaminants Performing Locations R1: This test was performed at: [facility], [address] [place] [address], [address] , , [facility] Comment on above: Performed By: #### [id number] #### [facility] [address] [place] [address] Ambulatory Visit Summaryon 0 04-20-2024 Ambulatory Visit Summary Ambulatory Visit Summary NILESH PÉREZ :1940 Visit Date:04/20/2024 Ambulatory Visit Instructions Your Diagnosis UTI (urinary tract infection) Bladder cancer Your Care Team Attending Physician - KAREN CHATMAN PA-C Primary Care Physician - SHAYLEE WARREN MD This Is Your Medications List sulfamethoxazole-trim ethoprim (Bactrim D.S. 800 mg-160 mg Tab) Contact prescribing physician if questions or concerns aspirin (aspirin 81 mg Chew Tab) atorvastatin (atorvastatin 80 mg Tab) famotidine (famotidine 20 mg Tab) finasteride (finasteride 5 mg Tab) hydrochlorothiazide-l isinopril (hydrochlorothiazide- lisinopril 12.5 mg-20 mg Tab) montelukast (montelukast 10 mg Tab) tamsulosin (tamsulosin 0.4 mg Cap) Procedures Performed TURBT - Transurethral resection of bladder tumor (03/02/2024), Flexible cystoscopy (01/26/2024), TURBT - Transurethral resection of bladder tumor (09/16/2023), Cystoscopy (07/28/2023), TURBT - Transurethral resection of bladder tumor (04/08/2023), Cystoscopy (03/23/2023), 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 (08/20/2022), CABG - Coronary artery bypass graft (2016). Discharge Vitals Heart Rate (Peripheral) 70 Blood Pressure 122/68 Height 174 cm Height 69 in Weight 84 kg Weight 184.8 lb BMI 27.74 What to do next Scheduled Follow-Up Appointments 2023 9:00 AM EDT With: KAREN CHATMAN PA-C Where: [facility] [address] [place] [address] 2023 9:00 AM EDT With: KAREN CHATMAN PA-C Where: [facility] [address] [place] [address]- 2023 9:00 AM EDT With: KAREN CHATMAN PA-C Where: [facility] [address] [place] [address] [place] [address]- You Need to Schedule the Following Appointments Follow Up with KAREN CHATMAN PA-C, URL When: Comments: BCG #2/6 on 04/27/24 Where: [address] [place] [phone] Medications What How Much When Instructions New sulfamethoxazole-trim ethoprim (Bactrim D.S. 800 mg-160 mg Tab) 1 Tablets By Mouth 2 times a day Duration: 7 Days Pickup at [facility] Unchanged aspirin (aspirin 81 mg Chew Tab) [...] prescribing physician if questions or concerns Unchanged hydrochlorothiazide-l isinopril (hydrochlorothiazide- lisinopril 12.5 mg-20 mg Tab) ORAL, 3 Refill(s) Contact prescribing physician if questions or concerns Unchanged montelukast (montelukast 10 mg Tab) 10 Unknown, ORAL, 3 Refill(s) Contact prescribing physician if questions or concerns Unchanged tamsulosin (tamsulosin 0.4 mg Cap) 0.8 Unknown, ORAL, 3 Refill(s) Contact prescribing physician if questions or concerns Pharmacy Information [facility]: [address] [place], [place] [id number] [phone] Allergies metoprolol (Itching) Problems Ongoing - Any problem that you are currently receiving treatment for. Abdominal aortic aneurysm Bladder cancer Bladder neoplasm of uncertain malignant potential BPH with urinary obstruction Carotid artery stenosis Coronary arteriosclerosis Difficulty urinating Gastroesophageal reflux disease History of bladder cancer Hyperlipidemia Hyperlipidemia Hypertensive disorder Incomplete bladder emptying Intermittent urinary stream Nocturia Transient cerebral ischemia Unspecified urethral stricture, male, unspecified site Urethral stricture Urinary hesitancy UTI (urinary tract infection) Patient Survey You may receive a survey via text or e-mail asking about your office visit. Please share your experience with us by completing your survey. We appreciate your feedback and thank you for choosing us for your care. Education Materials Urinary Tract Infection, Adult A urinary tract infection (UTI) is an infection of any part of the urinary tract. The urinary tract includes the kidneys, ureters, bladder, and urethra. These organs make, store, and get rid of urine in the body. An upper UTI affects the ureters and kidneys. A lower UTI affects the bladder and urethra. What are the causes? Most urinary tract infections are caused by bacteria in your genital area around your urethra, where urine leaves your body. These bacteria grow and cause inflammation of your urinary tract. What (more content not included)... Normal [facility] Urology Office/Clinic Noteon 04-20-2024 Urology Office/Clinic Note Urology Office/Clinic Note Chief Complaint Abnormal UA HPI Staff Pt here for BCG treatment #2 of 6. Dx: bladder cancer No hematuria, denies abdominal/flank pain. Denies dysuria. History of Present Illness staff HPI reviewed and agree. Review of Systems PHQ Score Initial Depression Screen Score: 0 SCORE no fever, chills, malaise, myalgia. no rash/lesions. no chest pain, palpitations, or SOB. no abdominal pain, nausea, vomiting. no unilateral calf swelling, redness, pain Physical Exam Vitals & Measurements HR: 70(Peripheral) BP: 122/68 HT: 69 in HT: 174 cm WT: 84 kg WT: 184.8 lb BMI: 27.74 General: nontoxic, NAD Mouth: moist mucosa Lungs: normal respiratory effort Cardio: regular rate, good distal perfusion Abdomen: nondistended, no suprapubic distention or tenderness, no CVA tenderness Neurologic: Grossly normal Skin: No rashes or suspicious lesions Assessment/Plan PRW pt 1. UTI (urinary tract infection) (N39.0: Urinary tract infection, site not specified) 04/06/24 - UA small blood and moderate leuks. Asx. UCx 50k S. schleiferi subsp. schleiferi. tx'd w/ Amoxicillin bid x 7d. BCG #/ was postponed. 04/13/24 - UA trace-intact blood and small leuks. BCG #1/6 given. 04/20/24 - UA trace-intact blood, small leuks, and positive nitrites. Asx. BCG #2 of 6 will be postponed today and will treat infection. -Urine sample to be sent for cx. Take Bactrim DS bid x7 days. Rx sent to [facility]. -BCG #2 of 6 in 1 wk given bx coverage -Pt has to take off of work for BCG tx so pt to submit urine sample 1-2 days prior to BCG #3 2. Bladder cancer (C67.9: Malignant neoplasm of bladder, unspecified) S/p original TURBT 08/20/22 - High-grade, noninvasive papillary urothelial carcinoma. S/p Mitomycin 09/28/22 and 10/26/22, 01/14/23 and 02/11/23. S/p TURBT 04/08/23 - Neg for malignancy. Bladder mucosa with cystitis and reactive atypia. S/p BCG #6/6 07/05/23. S/p cysto, TURBT and renal washings 09/16/23 - Neg for malignancy. S/p cysto 01/26/24 ~black L wall there is a patch of 3-4 cm of papillary TCC appearing lesions, red and raised. Cytology neg. FISH positive 01/2024. S/p TURBT and mitomycin installation 03/02/24. Path ~high-grade papillary urothelial carcinoma in at least 1 fragment, and with minute foci of microinvasion in lamina propria. pT1. At least mild papillary urothelial hyperplasia with mid urothelial atypia in most other fragments. No features of high-grade urothelial CIS. Muscularis propria muscle are present in at least 6 fragments without tumor involvement. [1] -BCG #2 of 6 in 1 wk given bx coverage, see #1 Follow-up With When Contact Information LURDES ROBISON, KARNE Chris, URL [address] [place] [phone] Additional Instructions: BCG #2/6 on 04/27/24 Patient Education Urinary Tract Infection, Adult Documentation recorded by the scribaries Rick accurately reflects the services(s) I performed and decisions made by me. Authenticated by Karen Chatman PA-C on 04/20/2024 10:03:00. Cassi Whitten, personally scribed for Karen Chatman PA-C on 04/20/2024 09:24:43. . Problem List/Past Medical History Ongoing Abdominal aortic aneurysm Bladder cancer Bladder neoplasm of uncertain malignant potential BPH with urinary obstruction Carotid artery stenosis Coronary arteriosclerosis Difficulty urinating Gastroesophageal reflux disease History of bladder cancer Hyperlipidemia Hyperlipidemia Hypertensive disorder Incomplete bladder emptying Intermittent urinary stream Nocturia Transient cerebral ischemia Unspecified urethral stricture, male, unspecified site Urethral stricture Urinary hesitancy UTI (urinary tract infection) Historical No qualifying data Procedure/Surgical History TURBT - Transurethral resection of bladder tumor (03/02/2024), Flexible cystoscopy (01/26/2024), TURBT - Transurethral resection of bladder tumor (09/16/2023), Cystoscopy (07/28/2023), TURBT - Transurethral resection of bladder tumor (04/08/2023), Cystoscopy (03/23/2023), 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 (08/20/2022), CABG - Coronary artery bypass graft (2017). Medications aspirin 81 mg Chew Tab atorvastatin 80 mg Tab famotidine 20 mg Tab finasteride 5 mg Tab hydrochlorothiazide-l isinopril 12.5 mg-20 mg Tab montelukast 10 mg Tab tamsulosin 0.4 mg Cap Allergies metoprolol (Itching) Social History Tobacco Never (less than 100 in lifetime) Tobacco Use:. Never Smokeless Tobacco Use:. Cigarettes, Stopped age 71 Years. Household tobacco concerns: No. Yes, 04/20/2024 Family History Family history is negative Immunizations Vaccine Date Status Comments BCG 04/13/2024 Given BCG 06/29/2023 Given BCG 06/29/2023 Given BCG 06/29/2023 Given BCG 06/22/2023 Given BCG 06/15/2023 Given BCG 06/08/2023 Given BCG 05/25/2023 Given influenza virus vaccine, inacti (more content not included)... Normal [facility] Comment on above: Result Comment: Elec tronically Signed By: LURDES ROBISON, KAREN Chris\.br\Date and Time Signed: 04/20/24 10:03 EDT\.br\Electronically Co-Signed By: Cassi Rick\Xavierbr\Date and Time Co-Signed: 04/20/24 09:25 EDT Urology Office/Clinic Noteon 04-13-2024 Urology Office/Clinic Note Urology Office/Clinic Note HPI Staff BCG #1 of 6 Full dose. Pt. could not have first BCG due to UA shows small blood and moderate leuks at last visit. Dx: bladder cancer, BPH with urinary obstruction, incomplete bladder emptying and urethral strict C&S 50,000 cfu/ml Staphylococcus schleiferi subsp. schleiferi treated with Amoxicillin 875 BID x 7days Dysuria: no Incomplete bladder emptying: no Hematuria: UA shows trace today Frequency: every couple hours Urgency: no Nocturia: every couple hours Stream: Pt. states stream starts and stops Post void dripping: no Wearing pads/ Depends: no Urge incontinence: no Stress incontinence: no Incontinence without Sensory Awareness: no Abdominal pain: no Flank pain: no History of Present Illness Tests reviewed: reviewed UA I have reviewed the previous health record information and history for this patient from [facility]. I have reviewed and verified the staff HPI to be accurate for this encounter. Review of Systems No fever, chills, malaise, myalgia. No rash/lesions. No chest pain, palpitations, or SOB. No abdominal pain, nausea, vomiting. No unilateral calf swelling, redness, pain Physical Exam General: nontoxic, NAD Mouth: moist mucosa Lungs: [...] other bladder irritation symptoms are expected. Assessment/Plan 1. Bladder cancer (C67.9: Malignant neoplasm of bladder, unspecified) S/p original TURBT 08/20/22 - High-grade, noninvasive papillary urothelial carcinoma. S/p Mitomycin 09/28/22 and 10/26/22, 01/14/23 and 02/11/23. S/p TURBT 04/08/23 - Neg for malignancy. Bladder mucosa with cystitis and reactive atypia. S/p BCG #6/6 07/05/23. S/p cysto, TURBT and renal washings 09/16/23 - Neg for malignancy. S/p cysto 01/26/24 ~black L wall there is a patch of 3-4 cm of papillary TCC appearing lesions, red and raised. Cytology neg. FISH positive 01/2024. S/p TURBT and mitomycin installation 03/02/24. Path ~high-grade papillary urothelial carcinoma in at least 1 fragment, and with minute foci of microinvasion in lamina propria. pT1. At least mild papillary urothelial hyperplasia with mid urothelial atypia in most other fragments. No features of high-grade urothelial CIS. Muscularis propria muscle are present in at least 6 fragments without tumor involvement. Results reviewed with pt. UA on 04/06/24 showed small blood and moderate leuks, previously only showed trace or negative blood/leuks throughout BCG x6 in fall. Asx. Postponed BCG. UCx: 50k Staphylococcus schleiferi subsp. schleiferi treated with Amoxicillin 875 BID x 7days. UA today shows trace-intact blood, negative nitrites and small leuks. Pt received BCG #1 of 6 IO today wo complications. -BCG #2 of 6 in 1 week -Cysto following BCG tx completion Follow-up With When Contact Information KAREN CHATMAN PA-C, URL [address] [place] [address] Additional Instructions: BCG #2 of 6 in 1 week Patient Education Bladder Cancer Documentation recorded by the scribaries De La Garza accurately reflects the services(s) I performed and decisions made by me. Authenticated by Karen Chatman PA-C on 04/13/2024 09:53:14. Josh Whitten, personally scribed for Karen Chatman PA-C on 04/13/2024 09:28:17. . Problem List/Past Medical History Ongoing Abdominal aortic aneurysm Bladder cancer Bladder neoplasm of uncertain malignant potential BPH with urinary obstruction Carotid artery stenosis Coronary arteriosclerosis Difficulty urinating Gastroesophageal reflux disease History of bladder cancer Hyperlipidemia Hyperlipidemia Hypertensive disorder Incomplete bladder emptying Intermittent urinary stream Nocturia Transient cerebral ischemia Unspecified urethral stricture, male, unspecified site Urethral stricture Urinary hesitancy UTI (urinary tract infection) Historical No qualifying data Procedure/Surgical History TURBT - Transurethral resection of bladder tumor (03/02/2024), Flexible cystoscopy (01/26/2024), TURBT - Transurethral resection of bladder t (more content not included)... Normal [facility] Comment on above: Result Comment: Elec tronically Signed By: KAREN CHATMAN PA-C\.br\Date and Time Signed: 04/13/24 09:53 EDT\.br\Electronically Co-Signed By: Josh De La Garza\.br\Date and Time Co-Signed: 04/13/24 09:28 EDT C Urineon 04-08-2024 Bacteria identified Cx Nom (U) Microbiology PROCEDURE: Urine Culture [R1] SOURCE: U CleanCatch BODY SITE: COLLECTED DATE/TIME: 04/06/2024 09:10 EDT RECEIVED DATE/TIME: 04/06/2024 18:19 EDT START DATE/TIME: 04/06/2024 18:19 EDT FREE TEXT SOURCE: KAREN CHATMAN PA-C, PA-C, JENNIFER E FINAL REPORTS Final Report [] Verified Date/Time: 04/08/2024 15:58 EDT 50,000 cfu/ml Staphylococcus schleiferi subsp. schleiferi SUSCEPTIBILITY RESULTS LEGEND: S=Susceptible, N/R=Not Reported, Blank=Data not available, or drug not advisable or tested, I=Intermediate, ESBL=Extended spectrum beta-lactamase, R=Resistant, TFG=Thymidine-depende nt strain, MYLA=Beta-lactamase positive, ROSANNA=mcg/m;(mg/L), S*=Predicted susceptible interp, R*=Predicted resistant interp Staschs Antibiotic ROSANNA Dilutn ROSANNA Interp Amoxicillin/ <=4/2 S Clavulanate Ampicillin >8 MYLA Ampicillin/ <=8/4 S Sulbactam Cefazolin <=8 S Ciprofloxacin <=1 S Daptomycin <=1 S Gentamicin <=4 S Levofloxacin <=1 S Linezolid <=2 S Nitrofurantoin <=32 S Oxacillin <=0.25 S Penicillin >8 MYLA Rifampin <=1 S Tetracycline <=4 S Trimethoprim/ <=0.5/9.5 S Sulfa Vancomycin <=0.5 S Performing Locations R1: This test was performed at: [facility], [address] [place] [address], [facility] , , [facility] Comment on above: Performed By: #### [id number] #### [facility] [address] [place] [address] Ambulatory Visit Summaryon 0 04-06-2024 Ambulatory Visit Summary Ambulatory Visit Summary NILESH PÉREZ :1940 Visit Date:04/06/2024 Ambulatory Visit Instructions Your Diagnosis Abnormal urinalysis Bladder cancer BPH with urinary obstruction Incomplete bladder emptying Unspecified urethral stricture, male, unspecified site Your Care Team Attending Physician - KAREN CHATMAN PA-C Primary Care Physician - SHAYLEE WARREN MD This Is Your Medications List Contact prescribing physician if questions or concerns aspirin (aspirin 81 mg Chew Tab) atorvastatin (atorvastatin 80 mg Tab) famotidine (famotidine 20 mg Tab) finasteride (finasteride 5 mg Tab) hydrochlorothiazide-l isinopril (hydrochlorothiazide- lisinopril 12.5 mg-20 mg Tab) montelukast (montelukast 10 mg Tab) tamsulosin (tamsulosin 0.4 mg Cap) Procedures Performed TURBT - Transurethral resection of bladder tumor (03/02/2024), Flexible cystoscopy (01/26/2024), TURBT - Transurethral resection of bladder tumor (09/16/2023), Cystoscopy (07/28/2023), TURBT - Transurethral resection of bladder tumor (04/08/2023), Cystoscopy (03/23/2023), 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 (08/20/2022), CABG - Coronary artery bypass graft (2016). Discharge Vitals Temperature (Temporal Artery) 37 ?C Heart Rate (Peripheral) 59 Respiratory Rate 16 Blood Pressure 135/73 Height 167 cm Height 66 in Weight 84 kg Weight 184.8 lb BMI 30.12 What to do next Scheduled Follow-Up Appointments 2023 9:00 AM EDT With: KAREN CHATMAN PA-C Where: [facility] [address] [place] [address]- 2023 9:00 AM EDT With: KAREN CHATMAN PA-C Where: [facility] [address] [place] [address]- 2023 9:00 AM EDT With: KAREN CHATMAN PA-C Where: [facility] [address] [place] [address]- 2023 9:00 AM EDT With: KAREN CHATMAN PA-C Where: [facility] [address] [place] [address]- 2023 9:00 AM EDT With: KAREN CHATMAN PA-C Where: [facility] [address] [place] [address]- You Need to Schedule the Following Appointments Follow Up with KAREN CHATMAN PA-C, URL When: Comments: 1 week for BCG #1 of 6 Where: [address] [place] [address] Medications What When Instructions Unchanged aspirin (aspirin 81 mg [...] prescribing physician if questions or concerns Unchanged hydrochlorothiazide-l isinopril (hydrochlorothiazide- lisinopril 12.5 mg-20 mg Tab) ORAL, 3 Refill(s) Contact prescribing physician if questions or concerns Unchanged montelukast (montelukast 10 mg Tab) 10 Unknown, ORAL, 3 Refill(s) Contact prescribing physician if questions or concerns Unchanged tamsulosin (tamsulosin 0.4 mg Cap) 0.8 Unknown, ORAL, 3 Refill(s) Contact prescribing physician if questions or concerns Allergies metoprolol (Itching) Problems Ongoing - Any problem that you are currently receiving treatment for. Abdominal aortic aneurysm Bladder cancer Bladder neoplasm of uncertain malignant potential BPH with urinary obstruction Carotid artery stenosis Coronary arteriosclerosis Difficulty urinating Gastroesophageal reflux disease History of bladder cancer Hyperlipidemia Hyperlipidemia Hypertensive disorder Incomplete bladder emptying Intermittent urinary stream Nocturia Transient cerebral ischemia Unspecified urethral stricture, male, unspecified site Urethral stricture Urinary hesitancy UTI (urinary tract infection) Patient Survey You may receive a survey via text or e-mail asking about your office visit. Please share your experience with us by completing your survey. We appreciate your feedback and thank you for choosing us for your care. Education Materials Bladder Cancer Bladder cancer is a condition where abnormal tissue (a tumor) grows in the bladder. The bladder is the organ that holds urine. Two tubes (ureters) carry urine from the kidneys to the bladder. The bladder wall is made of layers of tissue. Cancer that spreads through these layers of the bladder wall becomes more (more content not included)... Normal [facility] Urology Office/Clinic Noteon 04-06-2024 Urology Office/Clinic Note Urology Office/Clinic Note Chief Complaint BCG HPI Staff BCG #1 out of 3 Full dose. Dx: bladder cancer, BPH with urinary obstruction, incomplete bladder emptying and urethral stricture Dysuria: no Incomplete bladder emptying: no Hematuria: no Frequency: no Urgency: no Nocturia: multiple x Stream: intermittency Leaking: no Post void dripping: no Wearing pads/ Depends: no Urge incontinence: no Stress incontinence: no Incontinence without Sensory Awareness: no Abdominal pain: no Flank pain: no Sexual complaints: no History of Present Illness Tests reviewed: none I have reviewed the previous health record information and history for this patient from Dr. Zaldivar. I have reviewed and verified the staff HPI to be accurate for this encounter. Review of Systems PHQ Score Initial Depression Screen Score: 0 SCORE no fever, chills, malaise, myalgia. no rash/lesions. no chest pain, palpitations, or SOB. no abdominal pain, nausea, vomiting. no unilateral calf swelling, redness, pain Physical Exam Vitals & Measurements T: 37 ?C(Temporal Artery) HR: 59(Peripheral) RR: 16 BP: 135/73 HT: 66 in HT: 167 cm WT: 84 kg WT: 184.8 lb BMI: 30.12 General: nontoxic, NAD Mouth: moist mucosa Lungs: normal respiratory effort Cardio: regular rate, good distal perfusion Abdomen: nondistended, no suprapubic distention or tenderness, no CVA tenderness Neurologic: Grossly normal Skin: No rashes or suspicious lesions Assessment/Plan 1. Abnormal urinalysis (R82.90: Unspecified abnormal findings in urine) UA today shows small blood and moderate leuks, previously only showed trace or negative blood/leuks throughout BCG x6 in fall. Asx. -Hold BCG tx for today. Start next week. -UA sent for culture. Hold on empiric abx since asx. But if cx+ start jean so he gets as many doses in before next week's BCG as possible. 2. Bladder cancer (C67.9: Malignant neoplasm of bladder, unspecified) S/p original TURBT 08/20/22 - High-grade, noninvasive papillary urothelial carcinoma. S/p Mitomycin 09/28/22 and 10/26/22, 01/14/23 and 02/11/23. S/p TURBT 04/08/23 - Neg for malignancy. Bladder mucosa with cystitis and reactive atypia. S/p BCG #6/6 07/05/23. S/p cysto, TURBT and renal washings 09/16/23 - Neg for malignancy. S/p cysto 01/26/24 ~black L wall there is a patch of 3-4 cm of papillary TCC appearing lesions, red and raised. Cytology neg. FISH positive 01/2024. S/p TURBT and mitomycin installation 03/02/24. Path ~high-grade papillary urothelial carcinoma in at least 1 fragment, and with minute foci of microinvasion in lamina propria. pT1. At least mild papillary urothelial hyperplasia with mid urothelial atypia in most other fragments. No features of high-grade urothelial CIS. Muscularis propria muscle are present in at least 6 fragments without tumor involvement. Results reviewed with pt. Lutz removed IO today without complications. Pt needs scheduled for BCG #6 (high grade recurrence) and a cystoscopy to follow completion of BCG tx. Pt did NOT received BCG #1 of 6 IO today due to UA. See #1. -BCG #1 of 6 in 1 week -Cysto following BCG tx completion Follow-up With When Contact Information LURDES ROBISON, KAREN Chris, URL [address] [place] [address] Additional Instructions: 1 week for BCG #1 of 6 Patient Education Bladder Cancer Documentation recorded by the ariane De La Garza accurately reflects the services(s) I performed and decisions made by me. Authenticated by Karen Chatman PA-C on 04/06/2024 09:18:37. Josh Whitten, personally scribed for Karen Chatman PA-C on 04/06/2024 09:14:00. . Problem List/Past Medical History Ongoing Abdominal aortic aneurysm Bladder cancer Bladder neoplasm of uncertain malignant potential BPH with urinary obstruction Carotid artery stenosis Coronary arteriosclerosis Difficulty urinating Gastroesophageal reflux disease History of bladder cancer Hyperlipidemia Hyperlipidemia Hypertensive disorder Incomplete bladder emptying Intermittent urinary stream Nocturia Transient cerebral ischemia Unspecified urethral stricture, male, unspecified site Urethral stricture Urinary hesitancy UTI (urinary tract infection) Historical No qualifying data Procedure/Surgical History TURBT - Transurethral resection of bladder tumor (03/02/2024), Flexible cystoscopy (01/26/2024), TURBT - Transurethral resection of bladder tumor (09/16/2023), Cystoscopy (07/28/2023), TURBT - Transurethral resection of bladder tumor (04/08/2023), Cystoscopy (03/23/2023), 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 (08/20/2022), CABG - Coronary artery bypass graft (2016). Medications aspirin 81 mg Chew Tab atorvastatin 80 mg Tab famotidine 20 mg Tab finasteride 5 mg Tab hydrochlorothiazide-l isinopril 12.5 mg-20 mg Tab montelukast 10 mg Tab tamsulosin 0 (more content not included)... [facility] Comment on above: Result Comment: Elec tronically Signed By: KAREN CHATMAN PA-C\.br\Date and Time Signed: 04/06/24 09:18 EDT\.br\Electronically Co-Signed By: Josh De La Garza\.br\Date and Time Co-Signed: 04/06/24 09:14 EDT Ambulatory Visit Summaryon 0 03-10-2024 Ambulatory Visit Summary Ambulatory Visit Summary NILESH PÉREZ :1940 Visit Date:03/10/2024 Ambulatory Visit Instructions Your Diagnosis Bladder cancer BPH with urinary obstruction Incomplete bladder emptying Unspecified urethral stricture, male, unspecified site Your Care Team Attending Physician - IVAN GAO, Sylvester White Primary Care Physician - SHAYLEE WARRNE MD This Is Your Medications List Contact prescribing physician if questions or concerns aspirin (aspirin 81 mg Chew Tab) atorvastatin (atorvastatin 80 mg Tab) famotidine (famotidine 20 mg Tab) finasteride (finasteride 5 mg Tab) hydrochlorothiazide-l isinopril (hydrochlorothiazide- lisinopril 12.5 mg-20 mg Tab) montelukast (montelukast 10 mg Tab) tamsulosin (tamsulosin 0.4 mg Cap) Procedures Performed TURBT - Transurethral resection of bladder tumor (03/02/2024), Flexible cystoscopy (01/26/2024), TURBT - Transurethral resection of bladder tumor (09/16/2023), Cystoscopy (07/28/2023), TURBT - Transurethral resection of bladder tumor (04/08/2023), Cystoscopy (03/23/2023), 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 (08/20/2022), CABG - Coronary artery bypass graft (2016). Discharge Vitals Heart Rate (Peripheral) 77 Respiratory Rate 16 Blood Pressure 127/74 Height 167 cm Height 66 in Weight 84 kg Weight 184.8 lb BMI 30.12 What to do next Scheduled Follow-Up Appointments 2023 9:00 AM EDT With: KAREN CHATMAN PA-C Where: [facility] Invalid Interpretation Code [address] [place] [address]- \.br\ 2023 9:00 AM EDT \.br\ With: KAREN CHATMAN PA-C\.br\ Where: [facility] Urology Office/Clinic Noteon 03-10-2024 Urology Office/Clinic Note Urology Office/Clinic Note Chief Complaint S/P TURBT HPI Staff F/u to TURBT, rev path, and lutz removal. S/p TURBT 03/02/24 - Path pending. Previous Dx: HX of Bladder Cancer, Bladder Neoplasm, BPH, Incomplete Bladder Emptying, & Urethral Stricture. S/P TURBT & Renal washings 09/16/23, BCG #6/6 07/05/23. *Tamsulosin 0.8 mg & Finasteride 5 mg qd. Pt still has catheter. Denies visible blood. No concerns at this time, other than wanting catheter removed. (Catheter removed) History of Present Illness Tests reviewed: reviewed path. I have reviewed the previous health [...] HPI. Physical Exam Vitals & Measurements HR: 77(Peripheral) RR: 16 BP: 127/74 HT: 66 in HT: 167 cm WT: 84 kg WT: 184.8 lb BMI: 30.12 General Appearance: alert, no distress, well nourished, well developed male. Assessment/Plan 1. Bladder cancer (C67.9: Malignant neoplasm of bladder, unspecified) S/p original TURBT 08/20/22 - High-grade, noninvasive papillary urothelial carcinoma. S/p Mitomycin 09/28/22 and 10/26/22, 01/14/23 and 02/11/23. S/p TURBT 04/08/23 - Neg for malignancy. Bladder mucosa with cystitis and reactive atypia. S/p BCG #6/6 07/05/23. S/p cysto, TURBT and renal washings 09/16/23 - Neg for malignancy. S/p cysto 01/26/24 black L wall there is a patch of 3-4 cm of papillary TCC appearing lesions, red and raised. Cytology neg. FISH positive 01/2024. S/p TURBT and mitomycin installation 03/02/24. Path high-grade papillary urothelial carcinoma in at least 1 fragment, and with minute foci of microinvasion in lamina propria. pT1. At least mild papillary urothelial hyperplasia with mid urothelial atypia in most other fragments. No features of high-grade urothelial CIS. Muscularis propria muscle are present in at least 6 fragments without tumor involvement. Results reviewed with pt. Lutz removed IO today without complications. Pt needs scheduled for BCG #6 and a cystoscopy to follow completion of BCG tx. -BCG #6 of 6, currently has #3 sched w/ ELENA...will change this to 6 treatments and then a cysto. -Cysto to follow 2. BPH with urinary obstruction (N40.1: Benign prostatic hyperplasia with lower urinary tract symptoms) S/p cysto 01/26/24 trilobar obstruction, large high median lobe. Prior plans for TURP but pt was dx'd with bladder CA in the meantime Taking Tamsulosin 0.8 mg qd and Finasteride 5 mg qd. 3. Incomplete bladder emptying (R33.9: Retention of urine, unspecified) PVR (cc): 07/20/22 - 173 09/14/22 - 179 04/20/23 - 201 See #2. 4. Unspecified urethral stricture, male, unspecified site (N35.919: Unspecified urethral stricture, male, unspecified site) S/p cysto 03/23/23 - Minor stricture in penile urethra. Follow-up With When Contact Information IVAN GAO, Sylvester White, URL [address] [place], [place] [id number]- Additional Instructions: BCG #6 of 6 Cysto to follow Patient Education Bladder Cancer IAmy, personally scribed for Dr. Zaldivar on 03/10/2024 10:48:32. . Documentation recorded by the scribeAmy, accurately reflects the services(s) I performed and decisions made by me. Authenticated by Dr. Zaldivar on 03/10/2024 10:51:48. Problem List/Past Medical History Ongoing Abdominal aortic aneurysm Bladder cancer Bladder neoplasm of uncertain malignant potential BPH with urinary obstruction Carotid artery stenosis Coronary arteriosclerosis Difficulty urinating Gastroesophageal reflux disease History of bladder cancer Hyperlipidemia Hyperlipidemia Hypertensive disorder Incomplete bladder emptying Intermittent urinary stream Nocturia Transient cerebral ischemia Unspecified urethral stricture, male, unspecified site Urethral stricture Urinary hesitancy UTI (urinary tract infection) Historical No qualifying data Procedure/Surgical History TURBT - Transurethral resection of bladder tumor (03/02/2024), Flexible cystoscopy (01/26/2024), TURBT - Transurethral resection of bladder tumor (09/16/2023), Cystoscopy (07/28/2023), TURBT - Transurethral res (more content not included)... [facility] Comment on above: Result Comment: Elec tronically Signed By: IVAN GAO, Sylvester White\.br\Date and Time Signed: 03/10/24 10:51 EDT\.br\Electronically Co-Signed By: Amy Glover\.br\Date and Time Co-Signed: 03/10/24 10:48 EDT Branden 03-02-2024 L Specimen: [id number] Received: 03/03/24 Status: SOUT Req Num: [id number] Spec Type: Surgical Subm Dr: Sylvester Zaldivar MD Tissues: A Urinary Bladder - TUR (BLADDER TUMORS) Procedures: HE/3, Gross/Micro L5 Age/ Patient Sex Location Account Attending Physician Nilesh Pérez 83/M [place] [id number] Sylvester Zaldivar MD SPEC NUM: [id number] RECD: 03/03/24 STATUS: MARCELLUS REOmari NUM: [id number] LEANA: 03/02/[address]: Sylvester Zaldivar MD ENTERED: 03/03/[address] [facility] [address]: Ty [place] SPEC TYPE: Surgical DEPT: NORIS BENZ ORDERED: HE/3, Gross/Micro L5 ORDERED: HE/3, Gross/Micro L5 Pathological Diagnosis Urinary bladder tumors, TURBT: -High-grade papillary urothelial carcinoma in at least 1 fragment, and with minute foci of microinvasion in lamina propria (pT1) -At least mild papillary urothelial hyperplasia with mild urothelial atypia in most other fragments -No features of high-grade urothelial CIS -Muscularis propria muscle are present in at least 6 fragments without tumor involvement Clinical Information Bladder tumor/lesions Gross Description Received in formalin labeled with the patient's name, date of and bladder tumors are multiple fragments of soft, rubbery shannon-yoo tissue measuring in aggregate 2.0 x 0.6 x 0.3 cm. The specimen is entirely submitted in A1. -------- Specimen: [id number] Received: 03/03/24 Status: MARCELLUS Hooks Num: [id number] Spec Type: Surgical Subm Dr: Sylvester Zaldivar MD Tissues: A Urinary Bladder - TUR (BLADDER TUMORS) Procedures: /3, Gross/Micro L5 -------- Patient: Nilesh Pérez [id number] (Continued) -------- Specimen: [id number] Received: 03/03/24 (Continued) Signed (signature on file) Aron Jackson MD 03/08/24 1220 -------- Specimen: [id number] Received: 03/03/24 Status: MARCELLUS Hooks Num: [id number] Spec Type: Surgical Subm Dr: Sylvester Zaldivar MD Tissues: A Urinary Bladder - TUR (BLADDER TUMORS) Procedures: HE/3, Gross/Micro L5 -------- Patient: Nilesh Pérez [id number] (Continued) -------- Specimen: [id number] Received: 03/03/24 (Continued) Microscopic Description Microscopic examinations are performed supporting the above interpretation CPT Codes 52543 -------- -------- Specimen: [id number] Received: 03/03/24 Status: MARCELLUS Hooks Num: [id number] Spec Type: Surgical Subm Dr: Sylvester Zaldivar MD Tissues: A Urinary Bladder - TUR (BLADDER TUMORS) Procedures: HE/3, Gross/Micro L5 -------- Patient: Nilesh Pérez [id number] (Continued) -------- Signed (signature on file) Aron Jackson MD 03/08/24 1220 Normal [facility] Reminderson 02-22-2024 Reminders Reminders From: Brianna Rivero To: [place] - Hola Zaldivar; Sent: 12/09/2023 14:25:15 EDT Show up: 02/21/2024 14:25:00 EDT Subject: Cysto/FISH/cytol Due Date/Time: 03/13/2024 14:25:00 EDT Reminder/Recall Patient needs Cysto/fish/cytol in Apr 2024, 3 month Patient having TURBT 02/29/24.LG Normal [facility] Physician Referralon 024 Physician Referral [id number]#1. 00TIFF Normal [facility] UroVysion Fish and Urine Cyt o ([facility])on 02-01-2024 UVFISH & UC Diagnosis Info Invalid Interpretation Code [facility] Comment on above: Result Comment: A:Ur ine,Urine:Voided Diagnosis Summary - Diagnosis Summary - The [...] on: 02/01/2024 15:51:27 Performed By: #### 1 [id number] ####[facility] [address] [place] [address] Consent for Procedure/Surger yon 01-28-2024 Consent for Procedure/Surgery [id number] .00TIFF Normal [facility] Consent for Procedure/Surger yon 01-27-2024 Consent for Procedure/Surgery [id number]#1. 00TIFF [facility] Ambulatory Visit Summaryon 0 01-26-2024 Ambulatory Visit Summary NILESH PÉREZ :1940 Visit Date:01/26/2024 Ambulatory Visit Instructions Your [...] mg Tab) finasteride (finasteride 5 mg Tab) hydrochlorothiazide-l isinopril (hydrochlorothiazide- lisinopril 12.5 mg-20 mg Tab) montelukast (montelukast 10 mg Tab) tamsulosin (tamsulosin 0.4 mg Cap) Procedures Performed Flexible cystoscopy (01/26/2024), TURBT - Transurethral resection of bladder tumor (09/16/2023), Cystoscopy (07/28/2023), TURBT - Transurethral resection of bladder tumor (04/08/2023), Cystoscopy (03/23/2023), 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 (08/20/2022), CABG - Coronary artery bypass graft (2016). Discharge Vitals Temperature (Temporal Artery) 37 ?C Heart Rate (Peripheral) 69 Respiratory Rate 16 Blood Pressure 137/66 Height 167 cm Height 66 in Weight 83 kg Weight 182.6 lb BMI 29.76 What to do next Scheduled Follow-Up Appointments Wednesday 9:45 AM EDT With: IVAN GAO, Sylvester White Where: [facility] Patient Educationon 01-26-20 Patient Education Oncology Cancer [...] if anything looks unusual. Men with a rjvxux-igrs-zatgdt risk for skin cancer may want to see a lambskin trimmer (primer charging tool setter) for an annual body check. What are the benefits of screening? Cancer screening is done to look for cancer in the very early stages, before it spreads and becomes harder to treat and before you would start to notice symptoms. Finding cancer early improves the chances of successful treatment. It ma (more content not included)... Normal [facility] UroVysion Fish and Urine Cyt o ([facility])on 01-26-2024 [facility] Method of Extraction Voided Normal [facility] Comment on above: Performed By: #### 1 [id number] ####[facility] [address] [place] [address] [facility] Number of Jars 1 Invalid Interpretation Code [facility] Comment on above: Performed By: #### 1 [id number] ####[facility] [address] [place] [address] [facility] Specimen Urine Normal [facility] Comment on above: Performed By: #### 1 [id number] ####[facility] [address] [place] [address] [facility] Type of Service Technical Only Normal [facility] Comment on above: Performed By: #### 1 [id number] ####[facility] [address] [place] [address] Urology Office/Clinic Noteon 01-26-2024 Urology Office/Clinic Note [...] General anesthesia. Follow-up With When Contact Information Sylvester ZALDIVAR MD, URL [facility] [address], [place] [address]- Additional Instructions: schedule TURBT Patient Education Cancer Screening for Men I, Mayra Moy, personally scribed for Dr. Zaldivar on 01/26/2024 07:56:53. . Documentation recorded by the scribe, Mayra Moy, accurately reflects the services(s) I performed and decisions made by me. Authenticated by Dr. Zaldivar on 01/26/2024 08:02:11. Problem List/Past Medical History Ongoing Abdominal aortic aneurysm Bladder cancer Bladd (more content not included)... [facility] Comment on above: Result Comment: Elec tronically Signed By: Sylvester ZALDIVAR MD\.br\Date and Time Signed: 01/26/24 08:02 EDT\.br\Electronically Co-Signed By: Mayra Moy\.br\Date and Time Co-Signed: 01/26/24 07:58 EDT Pathology Noteon 10-14-2023 Pathology Note [id number] .00TIFF [facility] Patient Educationon 09-24-19 Patient Education Nutrition BMI [...] numbers. This can be done either in [place]ese ([place] or metric measurements. Note that charts and online BMI calculators are available to help you find your BMI quickly and easily without having to do these calculations yourself. To calculate your BMI in Burmese ([place] measurements: 1. Measure your weight in [...] for Disease Control and Prevention: www.cdc.gov ? [place] Heart Association: www.heart.org ? National Heart, Lung, and Blood Honor: www.nhlbi.nih.gov Summary ? Body mass index (BMI) is a number that is calculated from a person's weight and height. ? BMI may help estimate how much of a person's weight is composed of fat. BMI can help identify those who may be at higher risk for certain medical problems. ? BMI can be measured using Burmese measurements or metric measurements. ? BMI charts are used to identify whether you are underweight, normal weight, overweight, or obese. This information is not intended to replace advice given to you by your health care provider. Make sure you discuss any questions you have with your health care provider. Document Revised: 05/01/2020 Document Reviewed: 03/08/2020 [employer] Patient Education ? 2022 [employer] [facility] Urology Office/Clinic Noteon 09-24-2023 Urology Office/Clinic Note [...] identified, and cannot completely exclude possibility of [id number] malignancy requiring clinical correlations. TURBT path: follicular [...] Contact Information IVAN GAO, Sylvester White, URL [address] [place] [address] Additional Instructions: Bt check 11/2023 Patient Education BMI for Adults I, Amy Glover, personally scribed for Dr. Zaldivar on 09/24/2023 11:24:55. . Documentation recorded by the scribe, Amy Glover, accurately reflects the services(s) I [...] History TURB (more content not included)... Normal [facility] Comment on above: Result Comment: Elec tronically Signed By: Sylvester ZALDIVAR MD\.br\Date and Time Signed: 09/24/23 11:27 EST\.br\Electronically Co-Signed By: Amy Glover\Date and Time Co-Signed: 09/24/23 11:25 EST Pathology Noteon 09-23-2023 Pathology Note [id number] .00TIFF Normal [facility] Pathology Note [id number] .00TIFF Normal [facility] Pathology Note [id number] .00TIFF Normal [facility] Operative Reporton Operative Report [id number]. 00TIFF Normal [facility] Pathology Noteon 09-20-2023 Pathology Note [id number] .00TIFF Normal [facility] RAD - MISCon 09-20-2023 RAD - MISC [id number]. 00TIFF Normal [facility] Branden 09-16-2023 L Specimen: [id number] Received: 09/16/23 Status: MARCELLUS Hooks Num: [id number] Spec Type: Surgical Subm Dr: Sylvester Zaldivar MD Tissues: A Urinary Bladder - biopsy (BLADDER TUMOR) Procedures: HE/2, Gross/Micro L4 Age/ Patient Sex Location Account Attending Physician Nilesh Pérez 83/M [facility] [id number] Sylvester Zaldivar MD SPEC NUM: [id number] RECD: 09/16/23 STATUS: MARCELLUS HOOKS NUM: [id number] LEANA: 09/16/[address]: Sylvester Zaldivar MD ENTERED: 09/16/[address] [facility] [address]: Ty Mendez SPEC TYPE: Surgical DEPT: [facility] ORDERED: HE/2, Gross/Micro L4 ORDERED: HE/2, Gross/Micro L4 Pathological Diagnosis Bladder tumor, biopsy: Follicular cystitis with overlying urothelial atypia, reactive vs. urothelial dysplasia. - Follow up is recommended. Clinical Information Bladder tumors and/or lesions Gross Description Received fresh labeled with the patient's name, date of and bladder tumor is one shannon tissue fragment, 0.9 x 0.2 x 0.1 cm. Entirely submitted in one cassette labeled A1. CPT Codes 21637 -------- -------- Specimen: [id number] Received: 09/16/23 Status: MARCELLUS Hooks Num: [id number] Spec Type: Surgical Subm Dr: Sylvester Zaldivar MD Tissues: A Urinary Bladder - biopsy (BLADDER TUMOR) Procedures: ALEXIS/Jocy Maravilla/Saran L4 -------- Patient: Nilesh Pérez [id number] (Continued) -------- Signed (signature on file) Janessa Castillo MD 09/18/23 1151 Normal [facility] Specimen: Received: 09/16/23 Status: MARCELLUS Hooks Num: [id number] Spec Type: Cytology Subm Dr: Sylvester Zaldivar MD Tissues: A WASHING (RIGHT RENAL) B WASHING (LEFT RENAL) Procedures: Gross/Micro L4/2, Cyto Prepstain/2, PAPSTN/2 Age/ Patient Sex Location Account Attending Physician Nilesh Pérez 83/M [facility] [id number] Sylvester Zaldivar MD SPEC NUM: [id number] RECD: 09/16/23 STATUS: MARCELLUS HOOKS NUM: [id number] LEANA: 09/16/[address]: Sylvester Zaldivar MD ENTERED: 09/16/[address] [facility] [address]: SPEC TYPE: Cytology DEPT: [facility] ENTERED BY: [id number] RECV BY: [id number] ORDERED: Gross/Micro L4/2, Cyto Prepstain/2, PAPSTN/2 ORDERED: [...] noted urothelial cell atypia requiring clinical correlations -------- Specimen: [id number] Received: 09/16/23 Status: MARCELLUS Hooks Num: [id number] Spec Type: Cytology Subm Dr: Sylvester Zaldivar MD Tissues: A WASHING (RIGHT RENAL) B WASHING (LEFT RENAL) Procedures: Gross/Micro L4/2, Cyto Prepstain/2, PAPSTN/2 -------- Patient: Nilesh Pérez [id number] (Continued) -------- Specimen: [id number] Received: 09/16/23 (Continued) Signed (signature on file) Aron Jackson MD 09/22/23 052 -------- Specimen: [id number] Received: 09/16/23 Status: MARCELLUS Hooks Num: [id number] Spec Type: Cytology Subm Dr: Sylvester Zaldivar MD Tissues: A WASHING (RIGHT RENAL) B WASHING (LEFT RENAL) Procedures: Gross/Micro L4/2, Cyto Prepstain/2, PAPSTN/2 -------- Patient: Nilesh Pérez [id number] (Continued) -------- Specimen: [id number] Received: 09/16/23-0598 (Continued) Clinical Information Bladder tumors and /or [...] Description Microscopic examinations are performed CPT Codes 10375 x 2 -------- -------- Specimen: [id number] Received: 09/16/23-1353 Status: MARCELLUS Hooks Num: [id number] Spec Type: Cytology Subm Dr: Sylvester Zaldivar MD Tissues: A WASHING (RIGHT RENAL) B WASHING (LEFT RENAL) Procedures: Gross/Micro L4/2, Cyto Prepstain/2, PAPSTN/2 -------- Patient: Nilesh Pérez [id number] (Continued) -------- Signed (signature on file) Aron Jackson MD 09/22/23 1359 Normal [facility] Lab Reportson 09-09-2023 Lab Reports [id number] .[id number] Normal [facility] Lab Reports [id number] .00TIFF Normal [facility] Lab Reports [id number] .00TIFF Normal [facility] CBC AUTO DIFFon 08-13-2022 BASO # 0.1 103/ul Normal 0.0-0.1 [facility] Comment on above: Performed By: #### C BC #### [facility] [address] [place] [address] Dr. Nina Jackson Basophils/100 WBC (Bld) 0.7 % Normal 0.2-2.0 [facility] Comment on above: Performed By: #### C BC #### [facility] [address] [place] [address] Dr. Nina Jackson EO # 0.4 103/ul Normal 0.0-0.7 [facility] Comment on above: Performed By: #### C BC #### [facility] [address] [place] [address] Dr. Nina Jackson Eosinophils/100 WBC (Bld) 5.0 % Normal 0.9-7.0 [facility] Comment on above: Performed By: #### C BC #### [facility] [address] [place] [address] Dr. Nina Jackson Erythrocyte distribution width (RBC) [Ratio] 13.0 % Normal 11.0-15.0 [facility] Comment on above: Performed By: #### C BC #### [facility] [address] [place] [address] Dr. Nina Jackson Hematocrit (Bld) [Volume fraction] 37.7 % Critically low 42.0-54.0 [facility] Comment on above: Performed By: #### C BC #### [facility] [address] [place] [address] Dr. Nina Jackson Hemoglobin (Bld) [Mass/Vol] 12.5 g/dL Critically low 14.0-18.0 [facility] Comment on above: Performed By: #### C BC #### [facility] [address] [place] [address] Dr. Nina Jackson IG # 0.02 10e3/ul Normal 0.00-0.03 [facility] Comment on above: Performed By: #### C BC #### [facility] [address] [place] [address] Dr. Nina Jackson IG % 0.3 % Normal 0.0-0.5 [facility] Comment on above: Performed By: #### C BC #### [facility] [address] [address] [address] Nina Jackson LYMPH # 1.2 103/ul Normal 1.2-3.8 [facility] Comment on above: Performed By: #### C BC #### [facility] [address] [place] [address] Dr. Nina Jackson Lymphocytes/100 WBC (Bld) 16.3 % Critically low 20.5-60.0 [facility] Comment on above: Performed By: #### C BC #### [facility] [address] [place] [address] Dr. Nina Jackson MANUAL DIFF REQ NO Normal [facility] Comment on above: Performed By: #### C BC #### [facility] [address] [place] [address] Dr. Nina Jackson MCH (RBC) [Entitic mass] 29.7 pg Normal 25.9-34.0 [facility] Comment on above: Performed By: #### C BC #### [facility] [address] [place] [address] Dr. Nina Jackson MCHC (RBC) [Mass/Vol] 33.2 g/dL Normal 29.9-35.2 [facility] Comment on above: Performed By: #### C BC #### [facility] [address] [place] [address] Dr. Nina Jackson MCV (RBC) [Entitic vol] 89.5 fL Normal 80.0-94.0 [facility] Comment on above: Performed By: #### C BC #### [facility] [address] [place] [address] Dr. Nina Jackson MONO # 0.9 103/ul Critically high 0.3-0.8 [facility] Comment on above: Performed By: #### C BC #### [facility] [address] [place] [address] Dr. Nina Jackson Monocytes/100 WBC (Bld) 12.2 % Critically high 1.7-12.0 [facility] Comment on above: Performed By: #### C BC #### [facility] [address] [place] [address] Dr. Nina Jackson NEUT # 4.7 103/ul Normal 1.4-6.5 [facility] Comment on above: Performed By: #### C BC #### [facility] [address] [place] [address] Dr. Nina Jackson Neutrophils/100 WBC (Bld) 65.5 % Normal 43.0-75.0 [facility] Comment on above: Performed By: #### C BC #### [facility] [address] [place] [address] Dr. Nina Jackson Platelet mean volume (Bld) [Entitic vol] 11.3 fL Normal 9.5-13.5 [facility] Comment on above: Performed By: #### C BC #### [facility] [address] [place] [address] Dr. Nina Jackson PLT 184 103/ul Normal 150-450 [facility] Comment on above: Performed By: #### C BC #### [facility] [address] [place] [address] Dr. Nina Jackson RBC 4.21 106/ul Critically low 4.70-6.10 [facility] Comment on above: Performed By: #### C BC #### [facility] [address] [place] [address] Dr. Nina Jackson WBC 7.2 103/ul Normal 4.0-11.0 [facility] Comment on above: Performed By: #### C BC #### [facility] [address] [place] [address] Dr. Nina Jackson [facility] SARS-CoV-2 (COVID-19) RNA CAROLINE+probe Ql (Unsp spec) Not detected Normal NOT DETECTED [facility] Comment on above: Result Comment: This test is not yet approved or cleared by the [place] FDA. When there are no FDA-approved or cleared tests available, and other criteria are met, FDA can make tests available under an emergency access mechanism called an Emergency Use Authorization (EUA). The EUA for this test is supported by the [place] of Health and Human Service's (HHS's) declaration [...] SARS-CoV-2. Performed By: #### C VDTB #### [facility] [address] [place] [address] Dr. Nina Jackson PROF 14(COMP METB)on 022 Albumin [Mass/Vol] 3.5 g/dL Normal 3.4-5.0 [facility] Comment on above: Performed By: #### C MP #### [facility] [address] [place] [address] Dr. Nina Jackson Albumin/Globulin [Mass ratio] 1.0 {ratio} Normal [facility] Comment on above: Performed By: #### C MP #### [facility] [address] [place] [address] Dr. Nina Jackson ALP [Catalytic activity/Vol] 75 U/L Normal 46-116 [facility] Comment on above: Performed By: #### C MP #### [facility] [address] [place] [address] Dr. Nina Jackson ALT [Catalytic activity/Vol] 34 U/L Normal 16-63 [facility] Comment on above: Performed By: #### C MP #### [facility] [address] [place] [address] Dr. Nina Jackson Anion gap [Moles/Vol] 10.6 mmol/L Normal [facility] Comment on above: Performed By: #### C MP #### [facility] [address] [place] [address] Dr. Nina Jackson AST [Catalytic activity/Vol] 34 U/L Normal 15-37 [facility] Comment on above: Performed By: #### C MP #### [facility] [address] [address] [address] Nina Jackson Bilirubin [Mass/Vol] 0.3 mg/dL Normal 0.2-1.0 [facility] Comment on above: Performed By: #### C MP #### [facility] [address] [address] [address] Nina Jackson Calcium [Mass/Vol] 8.9 mg/dL Normal 8.5-10.1 [facility] Comment on above: Performed By: #### C MP #### [facility] [address] [address] [address] Nina Jackson Chloride [Moles/Vol] 102 mmol/L Normal 98-107 [facility] Comment on above: Performed By: #### C MP #### [facility] [address] [address] [address] Nina Jackson CO2 [Moles/Vol] 29.4 mmol/L Normal 21.0-32.0 [facility] [place] [facility] Comment on above: Performed By: #### C MP #### [facility] [address] [address] [address] Nina Jackson Creatinine [Mass/Vol] 1.32 mg/dL Critically high 0.70-1.30 [facility] Comment on above: Performed By: #### C MP #### [facility] [address] [place] [address] Dr. Nina Jackson EGFR-AF PRYDEINIG >60 Normal >=60 [facility] Comment on above: Performed By: #### C MP #### [facility] [address] [place] [address] Dr. Nina Jackson EGFR-NON AF PRYDEINIG 52 mL/min/1.73m2 Critically low >=60 [facility] Comment on above: Performed By: #### C MP #### [facility] [address] [place] [address] Dr. Nina Jackson Globulin (S) [Mass/Vol] 3.6 g/dL Normal [facility] Comment on above: Performed By: #### C MP #### [facility] [address] [address] [address] Nina Jackson Glucose [Mass/Vol] 119 mg/dL Critically high 74-106 [facility] Comment on above: Performed By: #### C MP #### [facility] [address] [address] [address] Nina Jackson Potassium [Moles/Vol] 4.0 mmol/L Normal 3.5-5.1 [facility] Comment on above: Performed By: #### C MP #### [facility] [address] [address] [address] Nina Jackson Protein [Mass/Vol] 7.1 g/dL Normal 6.4-8.2 [facility] Comment on above: Performed By: #### C MP #### [facility] [address] [address] [address] Nina Jackson Sodium [Moles/Vol] 138 mmol/L Normal 136-145 [facility] Comment on above: Performed By: #### C MP #### [facility] [address] [address] [address] Nina Jackson Urea nitrogen [Mass/Vol] 17.0 mg/dL Normal 7.0-18.0 [facility] Comment on above: Performed By: #### C MP #### [facility] [address] [address] [address] Nina Jackson Urea nitrogen/Creatinin e [Mass ratio] 12.9 mg/mg Normal [facility] Comment on above: Performed By: #### C MP #### [facility] [address] [address] [address] Nina Jackson PROTIMEon 08-13-2022 INR Coag (PPP) [Relative time] 1.01 {INR} Normal [facility] Comment on above: Performed By: #### P T, PTT #### [facility] [address] [place] [address] Dr. Nina Jackson INR GUIDELINES SEE BELOW Normal [facility] Comment on above: Result Comment: ADRIAN RED INR: 2.0 - 3.0 CONDITIONS NOT LISTED BELOW 2.5 - 3.5 FOR PROSTHETIC HEART VALVE REPLACEMENT 2.5 - 3.5 RECURRENT THROMBOSIS Performed By: #### P T, PTT #### [facility] [address] [place] [address] Dr. Nina Jackson PT Coag (PPP) [Time] 10.9 s Normal 9.0-11.6 [facility] Comment on above: Performed By: #### P T, PTT #### [facility] [address] [place] [address] Dr. Nina Jackson PTTon 08-13-2022 aPTT Coag (Bld) [Time] 27.1 s Normal 22.3-36.2 [facility] Comment on above: Performed By: #### P T, PTT #### [facility] [address] [place] [address] Dr. Nina Jackson AMYLASEon 04-22-2022 Amylase [Catalytic activity/Vol] 38 U/L Normal 25-115 [facility] Comment on above: Performed By: #### E RUR #### [facility] [address] [place] [address] Dr. Nina Jackson CARDIAC VIRAL ADMITon 022 CK [Catalytic activity/Vol] 160 U/L Normal 39-308 [facility] Comment on above: Performed By: #### E RUR #### [facility] [address] [place] [address] Dr. Nina Jackson CK.MB [Mass/Vol] 1.75 ng/mL Normal <=3.60 [facility] Comment on above: Performed By: #### E RUR #### [facility] [address] [place] [address] Dr. Nina Jackson HSTROP 11.7 pg/mL Normal 4.0-76.1 [facility] Comment on above: Result Comment: CUT- OFF POINTS HAVE BEEN ESTABLISHED BASED ON THE FOURTH UNIVERSAL DEFINITIONS OF MYOCARDIAL INFARCTION. THE UPPER REFERENCE LIMIT (URL) OF TROPONIN, DEFINED THE 99TH PERCENTILE OF cTnI DISTRIBUTION IN A REFERENCE POPULATION, HAS BEEN CONFIRMED THE DECISION THRESHOLD FOR MT DIAGNOSIS. Performed By: #### E RUR #### [facility] [address] [place] [address] Dr. Nina Jackson SHI 266 ng/mL Critically high 16-96 [facility] Comment on above: Performed By: #### E RUR #### [facility] [address] [place] [address] Dr. Nina Jackson CBC W MANUAL DIFFon 04-22-20 22 ATYPICAL LYMPH # Normal [facility] [place] [facility] Comment on above: Performed By: #### E RUR #### [facility] [address] [place] [address] Dr. Nina Jackson ATYPICAL LYMPH % Normal [facility] [place] [facility] Comment on above: Performed By: #### E RUR #### [facility] [address] [place] [address] Dr. Nina Jackson BAND # Normal 0.0-0.3 [facility] Comment on above: Performed By: #### E RUR #### [facility] [address] [place] [address] Dr. Nina Jackson BAND % Normal 0-5 [facility] Comment on above: Performed By: #### E RUR #### [facility] [address] [place] [address] Dr. Nina Jackson BASOM # 0.00 103/ul Normal 0.00-0.10 [facility] Comment on above: Performed By: #### E RUR #### [facility] [address] [place] [address] Dr. iNna Jackson BASOM % 0.0 % Critically low 0.2-2.0 [facility] Comment on above: Performed By: #### E RUR #### [facility] [address] [place] [address] Dr. Nina Jackson BLAST # Normal [facility] Comment on above: Performed By: #### E RUR #### [facility] [address] [place] [address] Dr. Nina Jackson BLAST % Normal [facility] Comment on above: Performed By: #### E RUR #### [facility] [address] [place] [address] Dr. Nina Jackson CORRECTED WBC Normal 4.0-11.0 [facility] Comment on above: Performed By: #### E RUR #### [facility] [address] [address] [address] Nina Jackson EOS # 0.00 103/ul Normal 0.00-0.70 [facility] Comment on above: Performed By: #### E RUR #### [facility] [address] [address] [address] Nina Jackson EOS% 0.0 % Critically low 0.9-7.0 [facility] Comment on above: Performed By: #### E RUR #### [facility] [address] [address] [address] Nina Jackson HCT 38.7 % Critically low 42.0-54.0 [facility] Comment on above: Performed By: #### E RUR #### [facility] [address] [place] [address] Dr. Nina Jackson HGB 13.2 g/dl Critically low 14.0-18.0 [facility] Comment on above: Performed By: #### E RUR #### [facility] [address] [address] [address] Nina Jackson LYMPHM # 0.74 103/ul Critically low 1.20-3.80 [facility] Comment on above: Performed By: #### E RUR #### [facility] [address] [address] [address] Nina Jackson LYMPHM% 4.0 % Critically low 20.5-60.0 [facility] Comment on above: Performed By: #### E RUR #### [facility] [address] [address] [address] Nina Jackson MCH 30.8 pg Normal 25.9-34.0 [facility] Comment on above: Performed By: #### E RUR #### [facility] [address] [address] [address] Nina Jackson MCHC 34.1 g/dl Normal 29.9-35.2 [facility] Comment on above: Performed By: #### E RUR #### [facility] [address] [place] [address] Dr. Nina Jackson MCV 90.2 fL Normal 80.0-94.0 [facility] Comment on above: Performed By: #### E RUR #### [facility] [address] [place] [address] Dr. Nina Jackson METAMYELOCYTE # Normal [facility] Comment on above: Performed By: #### E RUR #### [facility] [address] [place] [address] Dr. Nina Jackson METAMYELOCYTE % Normal [facility] Comment on above: Performed By: #### E RUR #### [facility] [address] [place] [address] Dr. Nina Jackson MONOM# 1.84 103/ul Critically high 0.30-0.80 [facility] Comment on above: Performed By: #### E RUR #### [facility] [address] [place] [address] Dr. Nina Jackson MONOM% 10.0 % Normal 1.7-12.0 [facility] Comment on above: Performed By: #### E RUR #### [facility] [address] [place] [address] Dr. Nina Jackson MPV 11.4 fL Normal 9.5-13.5 [facility] Comment on above: Performed By: #### E RUR #### [facility] [address] [place] [address] Dr. Nina Jackson MYELOCYTE # Normal [facility] Comment on above: Performed By: #### E RUR #### [facility] [address] [place] [address] Dr. Nina Jackson MYELOCYTE % Normal [facility] Comment on above: Performed By: #### E RUR #### [facility] [address] [place] [address] Dr. Nina Jackson NRBC Normal [facility] Comment on above: Performed By: #### E RUR #### [facility] [address] [place] [address] Dr. Nina Jackson PLT 172 103/ul Normal 150-450 [facility] Comment on above: Performed By: #### E RUR #### [facility] [address] [place], [place] [address] Dr. Nina Jackson RBC 4.29 106/ul Critically low 4.70-6.10 [facility] Comment on above: Performed By: #### E RUR #### [facility] [address] [address] [address] Nina Jackson RDW 13.0 % Normal 11.0-15.0 [facility] Comment on above: Performed By: #### E RUR #### [facility] [address] [address] [address] Nina Jackson SEG # 15.82 103/ul Critically high 1.40-6.50 [facility] Comment on above: Performed By: #### E RUR #### [facility] [address] [place] [address] Dr. Nina Jackson SEG % 86.0 % Critically high 43.0-75.0 [facility] Comment on above: Performed By: #### E RUR #### [facility] [address] [place], [place] [id number] Dr. Nina Jackson WBC 18.4 103/ul Critically high 4.0-11.0 [facility] [place] [facility] Comment on above: Performed By: #### E RUR #### [facility] [address] [place], [place] [id number] Dr. Nina Jackson CT ABD/PELV W CONon [...] at the renal hilum are likely vascular. Gastrointestinal/Flavia toneum: No dilated loops of bowel. Moderate colonic [...] WENDY PASCUAL Date: 2022-04-22 09:07 Normal [facility] ER URINE PROFILEon 2 Bilirubin Ql (U) Negative Normal NEGATIVE [facility] Comment on above: Performed By: #### E RUR #### [facility] [address] [place] [address] Dr. Nina Jackson Clarity (U) CLEAR Normal CLEAR [facility] Comment on above: Performed By: #### E RUR #### [facility] [address] [place] [address] Dr. Nina Jackson Color (U) LT. YELLOW Normal YELLOW [facility] Comment on above: Performed By: #### E RUR #### [facility] [address] [place] [address] Dr. Nina Jackson ERUJULITO A micrscopic examination will be performed if indicated. Normal [facility] Comment on above: Performed By: #### E RUR #### [facility] [address] [place] [address] Dr. Nina Jackson Glucose Ql (U) Negative Normal NEGATIVE [facility] Comment on above: Performed By: #### E RUR #### [facility] [address] [place] [address] Dr. Nina Jackson Hemoglobin Ql (U) Negative Normal NEGATIVE [facility] Comment on above: Performed By: #### E RUR #### [facility] [address] [place] [address] Dr. Nina Jackson Ketones Ql (U) Negative Normal NEGATIVE [facility] Comment on above: Performed By: #### E RUR #### [facility] [address] [place] [address] Dr. Nina Jackson LEUKOCYTES Negative Normal NEGATIVE [facility] Comment on above: Performed By: #### E RUR #### [facility] [address] [place] [address] Dr. Nina Jackson Nitrite Ql (U) Negative Normal NEGATIVE [facility] Comment on above: Performed By: #### E RUR #### [facility] [address] [place] [address] Dr. Nina Jackson pH (U) 7.5 [pH] Normal 5-9 [facility] Comment on above: Performed By: #### E RUR #### [facility] [address] [place] [address] Dr. Nina Jackson SPEC GRAVITY 1.010 Normal 1.005-<=1.025 [facility] Comment on above: Performed By: #### E RUR #### [facility] [address] [place] [address] Dr. Nina Jackson UA PROTEIN Negative Normal NEGATIVE/ TRACE [facility] Comment on above: Performed By: #### E RUR #### [facility] [address] [place] [address] Dr. Nina Jackson UR MICRO IND NOT INDICATED Normal [facility] Comment on above: Performed By: #### E RUR #### [facility] [address] [place] [address] Dr. Nina Jackson Urobilinogen Qn (U) 0.2 {Kurtis'U}/dL Normal 0.2 - 1.0 [facility] Comment on above: Performed By: #### E RUR #### [facility] [address] [place] [address] Dr. Nina Jackson LACTATE/LACTIC ACIDon 2021 Lactate [Moles/Vol] 1.0 mmol/L Normal 0.4-1.9 [facility] Comment on above: Performed By: #### E RUR #### [facility] [address] [place] [address] Dr. Nina Jackson LIPASEon 04-22-2022 Lipase [Catalytic activity/Vol] 189.0 U/L Normal 73.0-393.0 [facility] Comment on above: Performed By: #### E RUR #### [facility] [address] [place] [address] Dr. Nina Jackson PROF 14(COMP METB)on 022 Albumin [Mass/Vol] 3.5 g/dL Normal 3.4-5.0 [facility] Comment on above: Performed By: #### E RUR #### [facility] [address] [place] [address] Dr. Nina Jackson Albumin/Globulin [Mass ratio] 0.9 {ratio} Normal [facility] Comment on above: Performed By: #### E RUR #### [facility] [address] [place] [address] Dr. Nina Jackson ALP [Catalytic activity/Vol] 79 U/L Normal 46-116 [facility] Comment on above: Performed By: #### E RUR #### [facility] [address] [place] [address] Dr. Nina Jackson ALT [Catalytic activity/Vol] 28 U/L Normal 16-63 [facility] Comment on above: Performed By: #### E RUR #### [facility] [address] [place] [address] Dr. Nina Jackson Anion gap [Moles/Vol] 13.8 mmol/L Normal [facility] Comment on above: Performed By: #### E RUR #### [facility] [address] [place] [address] Dr. Nina Jackson AST [Catalytic activity/Vol] 26 U/L Normal 15-37 [facility] Comment on above: Performed By: #### E RUR #### [facility] [address] [place] [address] Dr. Nina Jackson Bilirubin [Mass/Vol] 0.6 mg/dL Normal 0.2-1.0 [facility] Comment on above: Performed By: #### E RUR #### [facility] [address] [place] [address] Dr. iNna Jackson Calcium [Mass/Vol] 9.1 mg/dL Normal 8.5-10.1 [facility] Comment on above: Performed By: #### E RUR #### [facility] [address] [place] [address] Dr. Nina Jackson Chloride [Moles/Vol] 100 mmol/L Normal 98-107 [facility] Comment on above: Performed By: #### E RUR #### [facility] [address] [place] [address] Dr. Nina Jackson CO2 [Moles/Vol] 26.9 mmol/L Normal 21.0-32.0 [facility] Comment on above: Performed By: #### E RUR #### [facility] [address] [place] [address] Dr. Nina Jackson Creatinine [Mass/Vol] 1.34 mg/dL Critically high 0.70-1.30 [facility] Comment on above: Performed By: #### E RUR #### [facility] [address] [place] [address] Dr. Nina Jackson EGFR-AF PRYDEINIG >60 Normal >=60 [facility] Comment on above: Performed By: #### E RUR #### [facility] [address] [place] [address] Dr. Nina Jackson EGFR-NON AF PRYDEINIG 51 mL/min/1.73m2 Critically low >=60 [facility] Comment on above: Performed By: #### E RUR #### [facility] [address] [place] [address] Dr. Nina Jackson Globulin (S) [Mass/Vol] 3.9 g/dL Normal [facility] Comment on above: Performed By: #### E RUR #### [facility] [address] [place] [address] Dr. Nina Jackson Glucose [Mass/Vol] 140 mg/dL Critically high 74-106 [facility] Comment on above: Performed By: #### E RUR #### [facility] [address] [address] [address] Nina Jackson Potassium [Moles/Vol] 3.7 mmol/L Normal 3.5-5.1 [facility] Comment on above: Performed By: #### E RUR #### [facility] [address] [address] [address] Nina Jackson Protein [Mass/Vol] 7.4 g/dL Normal 6.4-8.2 [facility] Comment on above: Performed By: #### E RUR #### [facility] [address] [place] [address] Dr. Nina Jackson Sodium [Moles/Vol] 137 mmol/L Normal 136-145 [facility] Comment on above: Performed By: #### E RUR #### [facility] [address] [place] [address] Dr. Nina Jackson Urea nitrogen [Mass/Vol] 15.0 mg/dL Normal 7.0-18.0 [facility] Comment on above: Performed By: #### E RUR #### [facility] [address] [place] [address] Dr. Nina Jackson Urea nitrogen/Creatinin e [Mass ratio] 11.2 mg/mg Normal [facility] Comment on above: Performed By: #### E RUR #### [facility] [address] [place] [address] Dr. Nina Jackson US SINGLE QUAD RT [...] by: JESSENIA CORTES Date: 2022-04-22 10:55 Normal [facility] XR CHEST 1 Von 04-22-2022 XR CHEST 1 V EXAM: Chest x-ray. HISTORY: . UNSPECIFIED ABDOMINAL PAIN . COMPARISON: None. TECHNIQUE: Single view of the chest FINDINGS: Heart and vascularity are unremarkable. Lungs are expanded and free of focal infiltrates. Median sternotomy sutures are noted. IMPRESSION: No acute heart or lung disease identified. Electronically authenticated by: JESSENIA CUTLER Date: 2022-04-22 08:57 Normal [facility] Vital Signs Date Time Vital Sign Value Performing Clinician Facility 08-09-2024 07:29-0500 Blood Pressure Location Sylvestermichelle ZALDIVAR [facility] 08-09-2024 07:29-0500 Body temperature 98.6 [degF] Sylvester ZALDIVAR [facility] 08-09-2024 07:29-0500 Diastolic blood pressure 72 mm[Hg] Sylvester ZALDIVAR [facility] 08-09-2024 07:29-0500 Heart rate 70 /min Sylvester ZALDIVAR [facility] 08-09-2024 07:29-0500 Respiratory rate 17 /min Sylvester ZALDIVAR [facility] 08-09-2024 07:29-0500 Systolic blood pressure 134 mm[Hg] Sylvester ZALDIVAR [facility] 05-25-2024 09:13-0400 Blood Pressure Location KAREN CHATMAN [facility] 05-25-2024 09:13-0400 Body temperature 98.6 [degF] KAREN LURDES [facility] 05-25-2024 09:13-0400 Diastolic blood pressure 84 mm[Hg] KAREN LURDES [facility] 05-25-2024 09:13-0400 Heart rate 76 /min KAREN LURDES [facility] 05-25-2024 09:13-0400 Respiratory rate 18 /min KAREN LURDES [facility] 05-25-2024 09:13-0400 Systolic blood pressure 136 mm[Hg] KAREN LURDES [facility] 05-18-2024 09:09-0400 Blood Pressure Location KAREN LURDES [facility] 05-18-2024 09:09-0400 Diastolic blood pressure 86 mm[Hg] KAREN LURDES [facility] 05-18-2024 09:09-0400 Heart rate 78 /min KAREN LURDES [facility] 05-18-2024 09:09-0400 Systolic blood pressure 146 mm[Hg] KAREN LURDES [facility] 05-11-2024 09:01-0400 Blood Pressure Location KAREN LURDES [facility] 05-11-2024 09:01-0400 Body temperature 98.6 [degF] KAREN LURDES [facility] 05-11-2024 09:01-0400 Diastolic blood pressure 74 mm[Hg] KAREN LURDES [facility] 05-11-2024 09:01-0400 Heart rate 68 /min KAREN LURDES [facility] 05-11-2024 09:01-0400 Respiratory rate 16 /min KAREN LURDES [facility] 05-11-2024 09:01-0400 Systolic blood pressure 135 mm[Hg] KAREN LURDES [facility] 04-27-2024 09:04-0400 Blood Pressure Location KAREN LURDES [facility] 04-27-2024 09:04-0400 Body temperature 97.88 [degF] KAREN LURDES [facility] 04-27-2024 09:04-0400 Diastolic blood pressure 55 mm[Hg] KAREN LURDES [facility] 04-27-2024 09:04-0400 Heart rate 75 /min KAREN LURDES [facility] 04-27-2024 09:04-0400 Respiratory rate 16 /min KAREN LURDES [facility] 04-27-2024 09:04-0400 Systolic blood pressure 105 mm[Hg] KAREN LURDES [facility] 04-20-2024 09:02-0400 Blood Pressure Location KAREN LURDES [facility] 04-20-2024 09:02-0400 Diastolic blood pressure 68 mm[Hg] KAREN LURDES [facility] 04-20-2024 09:02-0400 Heart rate 70 /min KAREN LURDES [facility] 04-20-2024 09:02-0400 Systolic blood pressure 122 mm[Hg] KAREN LURDES [facility] 04-06-2024 08:55-0400 Blood Pressure Location KAREN LURDES [facility] 04-06-2024 08:55-0400 Body temperature 98.6 [degF] KAREN LURDES [facility] 04-06-2024 08:55-0400 Diastolic blood pressure 73 mm[Hg] KAREN LURDES [facility] 04-06-2024 08:55-0400 Heart rate 59 /min KAREN LURDES [facility] 04-06-2024 08:55-0400 Respiratory rate 16 /min KAREN LURDES [facility] 04-06-2024 08:55-0400 Systolic blood pressure 135 mm[Hg] KAREN LURDES [facility] 03-10-2024 10:09-0400 Blood Pressure Location Sylvester ZALDIVAR [facility] 03-10-2024 10:09-0400 Diastolic blood pressure 74 mm[Hg] Sylvester ZALDIVAR [facility] 03-10-2024 10:09-0400 Heart rate 77 /min Sylvester ZALDIVAR [facility] 03-10-2024 10:09-0400 Respiratory rate 16 /min Sylvester ZALDIVAR [facility] 03-10-2024 10:09-0400 Systolic blood pressure 127 mm[Hg] Sylvester ZALDIVAR [facility] 01-26-2024 07:23-0400 Blood Pressure Location Sylvester ZALDIVAR [facility] 01-26-2024 07:23-0400 Body temperature 98.6 [degF] Sylvester ZALDIVAR [facility] 01-26-2024 07:23-0400 Diastolic blood pressure 66 mm[Hg] Sylvester ZALDIVAR [facility] 01-26-2024 07:23-0400 Heart rate 69 /min Sylvester ZALDIVAR [facility] 01-26-2024 07:23-0400 Respiratory rate 16 /min Sylvester ZALDIVAR [facility] 01-26-2024 07:23-0400 Systolic blood pressure 137 mm[Hg] Sylvester ZALDIVAR [facility] 09-24-2023 10:37-0500 Blood Pressure Location Sylvester ZALDIVAR [facility] 09-24-2023 10:37-0500 Diastolic blood pressure 72 mm[Hg] Sylvester ZALDIVAR [facility] 09-24-2023 10:37-0500 Heart rate 68 /min Sylvester ZALDIVAR [facility] 09-24-2023 10:37-0500 Respiratory rate 16 /min Sylvester ZALDIVAR [facility] 09-24-2023 10:37-0500 Systolic blood pressure 128 mm[Hg] Sylvester ZALDIVAR [facility] 07-28-2023 07:42-0500 Blood Pressure Location Sylvester ZALDIVAR [facility] 07-28-2023 07:42-0500 Diastolic blood pressure 78 mm[Hg] Sylvester ZALDIVAR [facility] 07-28-2023 07:42-0500 Heart rate 70 /min Sylvester ZALDIVAR [facility] 07-28-2023 07:42-0500 Respiratory rate 16 /min Sylvester ZALDIVAR [facility] 07-28-2023 07:42-0500 Systolic blood pressure 129 mm[Hg] Sylvester ZALDIVAR [facility] 06-22-2023 08:53-0400 Blood Pressure Location KAREN CHATMAN [facility] 06-22-2023 08:53-0400 Diastolic blood pressure 70 mm[Hg] KAREN CHATMAN [facility] 06-22-2023 08:53-0400 Heart rate 72 /min KAREN LURDES [facility] 06-22-2023 08:53-0400 Respiratory rate 16 /min KAREN LURDES [facility] 06-22-2023 08:53-0400 Systolic blood pressure 146 mm[Hg] KAREN LURDES [facility] 06-15-2023 09:16-0400 Blood Pressure Location KAREN LURDES [facility] 06-15-2023 09:16-0400 Diastolic blood pressure 82 mm[Hg] KAREN LURDES [facility] 06-15-2023 09:16-0400 Heart rate 82 /min KAREN LURDES [facility] 06-15-2023 09:16-0400 Respiratory rate 16 /min KAREN LURDES [facility] 06-15-2023 09:16-0400 Systolic blood pressure 130 mm[Hg] KAREN LURDES [facility] 05-25-2023 09:03-0400 Blood Pressure Location KAREN LURDES [facility] 05-25-2023 09:03-0400 Diastolic blood pressure 66 mm[Hg] KAREN LURDES [facility] 05-25-2023 09:03-0400 Heart rate 70 /min KAREN LURDES [facility] 05-25-2023 09:03-0400 Respiratory rate 16 /min KAREN CHATMAN [facility] 05-25-2023 09:03-0400 Systolic blood pressure 133 mm[Hg] KAREN CHATMAN [facility] 04-20-2023 09:26-0400 Blood Pressure Location Sylvester ZALDIVAR [facility] 04-20-2023 09:26-0400 Body temperature 98.78 [degF] Sylvester ZALDIVAR [facility] 04-20-2023 09:26-0400 Diastolic blood pressure 88 mm[Hg] Sylvester ZALDIVAR [facility] 04-20-2023 09:26-0400 Heart rate 78 /min Sylvester ZALDIVAR [facility] 04-20-2023 09:26-0400 Systolic blood pressure 132 mm[Hg] Sylvester ZALDIVAR [facility] 03-23-2023 07:21-0400 Blood Pressure Location Sylvester ZALDIVAR [facility] 03-23-2023 07:21-0400 Diastolic blood pressure 81 mm[Hg] Sylvester ZALDIVAR [facility] 03-23-2023 07:21-0400 Heart rate 80 /min Sylvester ZALDIVAR [facility] 03-23-2023 07:21-0400 Respiratory rate 16 /min Sylvester ZALDIVAR [facility] 03-23-2023 07:21-0400 Systolic blood pressure 129 mm[Hg] Sylvester ZALDIVAR [facility] 07-20-2022 14:35-0500 Blood Pressure Location Sylvestermichelle ZALDIVAR [facility] 07-20-2022 14:35-0500 Diastolic blood pressure 78 mm[Hg] Sylvestermichelle ZALDIVAR [facility] 07-20-2022 14:35-0500 Heart rate 68 /min Sylvestermichelle ZALDIVAR [facility] 07-20-2022 14:35-0500 Respiratory rate 16 /min Sylvestermichelle ZALDIVAR [facility] 07-20-2022 14:35-0500 Systolic blood pressure 128 mm[Hg] Sylvester ZALDIVAR [facility] Encounters Encounter Date Encounter Type Care Provider Facility Start: 09-20-2024 ambulatory Sylvester Fraseri ty:[facility] Start: 09-14-2024 ambulatory Sylvester ZALDIVAR Facili ty:[id number] Start: 08-09-2024 End: 08-09-2024 Lab Drop off Sylvester ZALDIVAR [facility] Start: 08-09-2024 End: 08-09-2024 ambulatory Sylvester Z[place]DIVAR [place] [place]: 08-09-2024 End: 08-09-2024 Patient encounter procedure Sylvester ZALDIVAR [facility] Start: 06-01-2024 End: 06-01-2024 ambulatory PA-C KAREN E LURDES Facility:[facility] Start: 06-01-2024 End: 06-01-2024 Patient encounter procedure [facility]UR[facility] Start: 05-25-2024 End: 05-25-2024 ambulatory PA-C KAREN E LURDES Facility:[facility] Start: 05-25-2024 End: 05-25-2024 Patient encounter procedure KAREN E LURDES [facility] Start: 05-18-2024 End: 05-18-2024 ambulatory KAREN E LURDES Facility:[facility] Start: 05-18-2024 End: 05-18-2024 Patient encounter procedure [email or web address] Start: 05-11-2024 End: 05-11-2024 ambulatory KAREN E LURDES Facility:[facility] Start: 05-11-2024 End: 05-11-2024 Patient encounter procedure [email or web address] Start: 04-27-2024 End: 04-27-2024 ambulatory KAREN E LURDES Facility:[facility] Start: 04-27-2024 End: 04-27-2024 Patient encounter procedure KAREN E LURDES [facility] Start: 04-20-2024 End: 04-20-2024 Lab Drop off KAREN E LURDES [facility] Start: 04-20-2024 End: 04-20-2024 ambulatory [facility]AR[facility] E [facility]DES [facility] Start: 04-20-2024 End: 04-20-2024 Patient encounter procedure KAREN E LURDES [facility] Start: 04-13-2024 End: 04-13-2024 ambulatory KAREN E LURDES Facility:[facility] Start: 04-13-2024 End: 04-13-2024 Patient encounter procedure KAREN E LURDES [facility] Start: 04-06-2024 End: 04-06-2024 Lab Drop off KAREN Aries LURDES [facility] Start: 04-06-2024 End: 04-06-2024 ambulatory KAREN E LURDES [place] Start: 04-06-2024 End: 04-06-2024 Patient encounter procedure KAREN E LURDES [facility] Start: 03-30-2024 ambulatory KAREN Aries LURDES Facili ty:[facility] Start: 03-10-2024 End: 03-10-2024 ambulatory Sylvester ZALDIVAR Facility:[facility] Start: 03-10-2024 End: 03-10-2024 Patient encounter procedure Sylvester ZALDIVAR [facility] Start: 03-02-2024 End: 03-02-[address] Regalado Work Phone: [facility] Work Phone: Start: 03-02-2024 End: 03-02-2024 Departed Referred JR Av Regalado Work Phone: [facility] Start: 03-02-2024 End: 03-02-2024 ambulatory Sylvester R IVAN Facility:CD:[id number] Start: 01-26-2024 End: 01-26-2024 Lab Drop off Sylvester ZALDIVAR [facility] Start: 01-26-2024 End: 01-26-2024 ambulatory Sylvester Christopher IVAN [place] Start: 01-26-2024 End: 01-26-2024 Patient encounter procedure Sylvester Christopher IVAN [facility] [place] Start: 09-24-2023 End: 09-24-2023 ambulatory Sylvester Christopher IVAN Facility: [facility] Start: 09-24-2023 End: 09-24-2023 Patient encounter procedure Sylvester R IVAN [facility] Start: 09-16-2023 End: 09-16-[address] Regalado Work Phone: [facility] Work Phone: Start: 09-16-2023 End: 09-16-2023 Departed [address]erred JR Av Regalado Work Phone: [facility] Start: 09-16-2023 End: 09-16-2023 ambulatory Sylvester R IVAN Facility:CD:[id number] Start: 07-28-2023 End: 07-28-2023 Lab Drop off Sylvester R ZALDIVAR [facility] Start: 07-28-2023 End: 07-28-2023 Patient encounter procedure Sylvester Christopher IVAN [facility] [place] Start: 06-29-2023 End: 06-29-2023 Patient encounter procedure KAREN CHATMAN [facility] Start: 06-22-2023 End: 06-22-2023 Patient encounter procedure KAREN CHATMAN [facility] Start: 06-15-2023 End: 06-15-2023 Patient encounter procedure KAREN CHATMAN [facility] Start: 06-08-2023 End: 06-08-2023 Patient encounter procedure KAREN CHATMAN [facility] Start: 05-25-2023 End: 05-25-2023 Patient encounter procedure KAREN CHATMAN [facility] Start: 04-20-2023 End: 04-20-2023 Patient encounter procedure Sylvester ZALDIVAR [facility] [place] [facility] Start: 03-23-2023 End: 03-23-2023 Patient encounter procedure Sylvester ZALDIVAR [facility] [place] Start: 02-08-2023 End: 02-08-2023 Patient encounter procedure Sylvester ZALDIVAR [facility] [place] Start: 11-30-2022 End: 11-30-[address] SYLVESTER ZALDIVAR . Facility:[facility] Start: 11-23-2022 End: 11-23-2022 Patient encounter procedure SHANELL ZALDIVAR [facility] Start: 10-26-2022 End: 10-26-[address] SYLVESTER ZALDIVAR . Facility:[facility] Start: 10-20-2022 End: 10-20-2022 Patient encounter procedure Sylvester ZALDIVAR [facility] Start: 09-28-2022 End: 09-28-[address] SYLVESTER ZALDIVAR . Facility:[facility] Start: 09-22-2022 End: 09-22-2022 Lab Drop off KAREN Aries ORTEZRY [facility] Start: 09-22-2022 End: 09-22-2022 Patient encounter procedure KAREN ORTEZRY [facility] Start: 08-27-2022 End: 08-27-2022 Patient encounter procedure Sylvester ZALDIVAR [facility] Start: 08-20-2022 Encounter for preprocedural laboratory examination DR SYLVESTER ZALDIVAR . [facility] Start: 08-20-2022 End: 08-20-[address] SYLVESTER ZALDIVAR . Facility:[facility] Start: 08-13-2022 End: 08-14-[address] SYLVESTER ZALDIAVR . Facility:[facility] Start: 08-13-2022 End: 08-14-2022 Encounter for preprocedural laboratory examination DR SYLVESTER ZALDIVAR . Facility:[facility] Start: 07-28-2022 End: 07-28-2022 Patient encounter procedure ySlvester ZALDIVAR [facility] Start: 07-20-2022 End: 07-20-2022 Patient encounter procedure Sylvester ZALDIVAR [facility] Start: 04-22-2022 End: 04-22-[address] NONE LISTED REQUEST Facility: Procedures Date Procedure Procedure Detail Performing Clinician Start: 08-09-2024 Cystoscopy Sylvester LEN NELSON Start: 03-02-2024 Transurethral resect ion of bladder neoplasm Sylvester ZALDIVAR Start: 01-26-2024 Flexible cystoscopy Jumana ZALDIVAR Start: [...] Immunizations Immunization Date Immunization Notes Care Provider Miguel [facility]ngel [facility] 06-01-2024 bacillus calmette-mookie vaccine KAREN CHATMAN [facility] 05-25-2024 bacillus calmette-mookie vaccine KARNE CHATMAN [facility] 05-18-2024 bacillus calmette-mookie vaccine KAREN CHATMAN [facility] 05-11-2024 bacillus calmette-mookie vaccine KAREN LURDES [facility] 04-27-2024 bacillus calmette-mookie vaccine KAREN LURDES [facility] 04-13-2024 bacillus calmette-mookie vaccine KAREN LURDES [facility] 06-29-2023 bacillus calmette-mookie vaccine KAREN LURDES [facility] 06-29-2023 bacillus calmette-mookie vaccine KAREN LURDES [facility] 06-22-2023 bacillus calmette-mookie vaccine KAREN LURDES [facility] 06-15-2023 bacillus calmette-mookie vaccine KAREN LURDES [facility] 06-08-2023 bacillus calmette-mookie vaccine KAREN LURDES [facility] 05-25-2023 bacillus calmette-mookie vaccine KAREN LURDES [facility] 05-22-2023 influenza virus vaccine, unspecified formulation KAREN LURDES [facility] 05-18-2023 bacillus calmette-mookie vaccine KAREN LURDES [facility] 08-29-2022 SARS-CoV-2 (COVID-19 ) [id number] Sylvester ZALDIVAR [facility] 02-14-2022 SARS-CoV-2 (COVID-19 ) mRNA-1273 vaccine Sylvester ZALDIVAR [facility] 08-05-2021 SARS-CoV-2 (COVID-19 ) mRNA-1273 vaccine Sylvester ZALDIVAR [facility] 11-18-2020 SARS-CoV-2 (COVID-19 ) mRNA-1273 vaccine Sylvester ZALDIVAR [facility] Comment on above: Result Comment: 2021: [id number] 10-18-2020 SARS-CoV-2 (COVID-19 ) mRNA-1273 vaccine Sylvester ZALDIVAR [facility] Comment on above: Result Comment: 2021: [id number] Payers Date Payer Category Payer Medicare [id number] 2023 Self-pay 2019 Unknown [id number] 1942 Unknown [id number] 2.16.84 0.1.681818.3.579.2.593 1942 Unknown [id number] 2.16.84 0.1.198197.3.579.2.593 1942 Unknown [id number] 2.16.84 0.1.925914.3.579.2.593 1942 Unknown [id number] 2.16.84 0.1.048573.3.579.2.593 1942 Unknown [id number] 2.16.84 0.1.009874.3.579.2.593 1942 Unknown [id number] 2.16.84 0.1.417624.3.579.2.593 1942 Unknown [id number] 2.16.8 40.1.638220.3.579.2.727 1942 Unknown [id number] 2.16.8 40.1.103729.3.579.2.72 1942 Unknown [id number] 2.16.8 40.1.917902.3.579.2 1942 Unknown [id number] 2.16.8 40.1.311795.3.579.2 1942 Unknown [id number] 2.16.8 40.1.737854.3.579.2 1942 Unknown [id number] 2.16.8 40.1.193776.3.579.2 1942 Unknown [id number] 2.16.8 40.1.853347.3.579.2 1942 Unknown [id number] 2.16.8 40.1.358737.3.579.2 1942 Unknown [id number] 2.16.8 40.1.224928.3.579.2 1942 Unknown [id number] 2.16.8 40.1.012175.3.579.2 1942 Unknown [id number] 2.16.8 40.1.085990.3.579.2 1942 Unknown [id number] 2.16.8 40.1.707703.3.579.2 1942 Unknown [id number] 2.16.8 40.1.646461.3.579.2 1942 Unknown [id number] 2.16.8 40.1.875736.3.579.2 1942 Unknown [id number] 2.16.8 40.1.621331.3.579.2 1942 Unknown [id number] 2.16.8 40.1.275265.3.579.2 1942 Unknown [id number] 2.16.8 40.1.009357.3.579.2.727 1942 Unknown [id number] 2.16.8 40.1.919272.3.579.2.727 1942 Unknown [id number] 2.16.8 40.1.486237.3.579.2.727 1942 Unknown [id number] 2.16.8 40.1.380269.3.579.2.727 Medicare Medicare [id number] Unknown [facility] Health Claims [id number] 2.16.8 40.1.867267.3.579.2.531 Unknown [id number] 2.16.8 40.1.894348.3.579.2.531 Social History Date Type Detail Facility Start: 07-20-2022 End: 05-25-2024 Tobacco smoking status Never smoked tobacco (finding) [facility] Sex Assigned At Male [facility] Tobacco smoking status Never [facility] Start: 1940 Sex Assigned At Male [facility] Start: 08-09-2024 Tobacco smoking status Ex-smoker (fi nding) [facility] Functional Status Date Assessment Result Facility 08-09-2024 Functional Status N/A [facility] 05-25-2024 Functional Status N/A [facility] 05-18-2024 Functional Status N/A [facility] 05-11-2024 Functional Status N/A [facility] 04-27-2024 Functional Status N/A [facility] 04-20-2024 Functional Status N/A [facility] 04-06-2024 Functional Status N/A [facility] 03-10-2024 Functional Status N/A [facility] 01-26-2024 Functional Status N/A [facility] 09-24-2023 Functional Status N/A [facility] 07-28-2023 Functional Status N/A [facility] 06-29-2023 Functional Status N/A [facility] 06-22-2023 Functional Status N/A [facility] 06-15-2023 Functional Status N/A [facility] 06-08-2023 Functional Status N/A [facility] 05-25-2023 Functional Status N/A [facility] 04-20-2023 Functional Status N/A [facility] 03-23-2023 Functional Status N/A [facility] 07-20-2022 Functional Status N/A [facility] Clinical Notes 07-20-2022 to 08-09-2024 Note Date & Type Note Facility 08-09-2024 Hospital Discharge instructions Patient Education 08/09/2024 07:54:14 Transurethral Resection of Bladder Tumor, Care After [...] Follow these instructions at home: Medicines Take nosl-wih-imrvklq and prescription medicines only as told by [...] to keep your urine pale yellow. ?Take xvwl-dgt-edodhel or prescription medicines. ?Eat foods that are [...] and pain in your lower abdomen. Take rkgv-ttu-rbwgyoz and prescription medicines only as told by [...] provider. Document Revised: 08/14/2022 Document Reviewed: 08/14/2022 [employer] Patient Education 2023 [employer]. 08/09/2024 07:54:13 Transurethral Resection of Bladder Tumor Transurethral Resection [...] including vitamins, herbs, eye drops, creams, and jpgy-tez-zzytvwp medicines. Any problems you or family members [...] provider tells you to take them. Taking ygmy-waw-xjulncd medicines, vitamins, herbs, and supplements. General instructions [...] provider. Document Revised: 08/14/2022 Document Reviewed: 08/14/2022 [employer] Patient Education 2023 [employer]. Follow Up Care 06/01/2024 10:00:24 With:IVAN GAO, Sylvester White, URL Address: [facility] [address] , [place] [address]- When: Unknown [facility] 08-09-2024 Note Patient Education Oncology Transurethral Resection of Bladder Tumor, Care After The following information offers guidance on how to care for yourself after your procedure. Your health care provider may also give you more specific instructions. If you have problems or questions, contact your health care provider. What can I expect after the procedure? After the procedure, it is common to have: ??? A small amount of blood or small blood clots in your urine for up to 2 weeks. ??? Soreness or mild pain from your catheter. After your catheter is removed, you may have mild soreness, especially when urinating. ??? A need to urinate often. ??? Pain in your lower abdomen. Follow these instructions at home: Medicines ??? Take eqvc-lpw-vpfgbgq and prescription medicines only as told by your health care provider. ??? If you were prescribed an antibiotic medicine, take it as told by your health care provider. Do not stop taking the antibiotic even if you start to feel better. ??? Ask your health care provider if the medicine prescribed to you: ? Requires you to avoid driving or using machinery. ? Can cause constipation. You may need to take these actions to prevent or treat constipation: ? Drink enough fluid to keep your urine pale yellow. ? Take ijxj-maj-lqsqsku or prescription medicines. ? Eat foods that are high in fiber, such as beans, whole grains, and fresh fruits and vegetables. ? Limit foods that are high in fat and processed sugars, such as fried or sweet foods. Activity ??? If you were given a sedative during the procedure, it can affect you for several hours. Do not drive or operate machinery until your health care provider says that it is safe. ??? Rest as told by your health care provider. ??? Avoid sitting for a long time without moving. Get up to take short walks every 1?2 hours. This is important to improve blood flow and breathing. Ask for help if you feel weak or unsteady. ??? Do not lift anything that is heavier than 10 lb (4.5 kg), or the limit that you are told, until your health care provider says that it is safe. ??? Avoid intense physical activity for as long as told by your health care provider. ??? Do not have sex until your health care provider approves. ??? Return to your normal activities as told by your health care provider. Ask your health care provider what activities are safe for you. General instructions ??? If you have a catheter, follow instructions from your health care provider about caring for your catheter and your drainage bag. ??? Do not drink alcohol for as long as told by your health care provider. This is especially important if you are taking prescription pain medicines. ??? Do not use any products that contain nicotine or tobacco. These products include cigarettes, chewing tobacco, and vaping devices, such as e-cigarettes. If you need help quitting, ask your health care provider. ??? Wear compression stockings as told by your health care provider. These stockings help to prevent blood clots and reduce swelling in your legs. ??? Keep all follow-up visits. This is important. ? You will need to be followed closely with regular checks of your bladder and urethra (cystoscopies) to make sure that the cancer does not come back. Contact a health care provider if: ??? You have blood in your urine for more than 2 weeks. ??? You become constipated. Signs of constipation may include: ? Having fewer than three bowel movements in a week. ? Difficulty having a bowel movement. ? Stools that are dry, hard, or larger than normal. ??? You have a urinary catheter in place, and you have: ? Spasms or pain. ? Problems with your catheter or your catheter is blocked. ??? Your catheter has been taken out but you are unable to urinate. ??? You have signs of infection, such as: ? Fever or chills. ? Cloudy or bad-smelling urine. Get help right away if: ??? You have severe abdominal pain that gets worse or does not improve with medicine. ??? You have a lot of large blood clots in your urine. ??? You develop swelling or pain in your leg. ??? You have difficulty breathing. These symptoms may be an emergency. Get help right away. Call 911. ??? Do not wait to see if the symptoms will go away. ??? Do not drive yourself to the hospital. Summary ??? After your procedure, it is common to have a small amount of blood or small blood clots in your urine, soreness or mild pain from your catheter, and pain in your lower abdomen. ??? Take jojw-pkm-xoaojsq and prescription medicines only as told by your health care provider. ??? Rest as told by your health care provider. Follow your health care provider's instructions about returning to normal activities. Ask what activities are safe for you. ??? If you have a catheter, follow instructions from your health care provider about caring for your catheter and your drainage bag. (more content not included)... [facility] 06-01-2024 Hospital Discharge instructions Patient Education 06/01/2024 10:05:39 Bladder Cancer Bladder Cancer Bladder cancer is [...] cells. Follow these instructions at home: Take vonw-acj-ugixxvy and prescription medicines only as told by [...] is important. Where to find more information [employer] Society (ACS): cancer.org National Cancer Honor (NCI): cancer.gov Contact a health care provider [...] provider. Document Revised: 07/20/2022 Document Reviewed: 07/20/2022 [employer] Patient Education 2023 Vis[employer]rise. Follow Up Care 05/18/2024 09:26:44 With:[facility] [place] Address: [address] [place] [address] Business (1) When: Unknown Comments:for procedure as scheduled [facility] 06-01-2024 Note Patient Education Oncology Bladder Cancer Bladder cancer [...] Follow these instructions at home: ? Take rfrt-nrs-cannmvw and prescription medicines only as told by [...] important. Where to find more information ? [employer] (ACS): cancer.org ? National Cancer Honor (NCI): cancer.gov Contact a health care provider [...] care provider. Make sure you discuss any q (more content not included)... [facility] 05-25-2024 Hospital Discharge instructions Patient Education 05/25/2024 10:10:52 Bladder Cancer Bladder Cancer Bladder cancer is [...] cells. Follow these instructions at home: Take lwbe-xey-kezmzyb and prescription medicines only as told by [...] is important. Where to find more information [employer] (ACS): cancer.org National Cancer Honor (NCI): cancer.gov Contact a health care provider [...] provider. Document Revised: 07/20/2022 Document Reviewed: 07/20/2022 [employer] Patient Education 2023 Vis[employer]rise. Follow Up Care 05/18/2024 09:25:14 With:LURDES ROBISON KAREN Aries, URL Address: [address] [place] [place] [address] When:Within 1 Week(s) [facility] [employer] 05-25-2024 Note Patient Education Oncology Bladder Cancer Bladder cancer [...] Follow these instructions at home: ? Take hjur-dey-eoizikc and prescription medicines only as told by [...] important. Where to find more information ? [employer] (ACS): cancer.org ? National Cancer Honor (NCI): cancer.gov Contact a health care provider [...] care provider. Make sure you discuss any q (more content not included)... [facility] 05-18-2024 Hospital Discharge instructions Patient Education 05/18/2024 09:42:18 Bladder Cancer Bladder Cancer Bladder cancer is [...] cells. Follow these instructions at home: Take wujz-pty-clnflsl and prescription medicines only as told by [...] is important. Where to find more information [employer] (ACS): cancer.org National Cancer Honor (NCI): cancer.gov Contact a health care provider [...] provider. Document Revised: 07/20/2022 Document Reviewed: 07/20/2022 [employer] Patient Education 2023 Vis[employer]rise. Follow Up Care 03/10/2024 11:30:56 With:LURDES ROBISON, KAREN Chris, URL Address: [address] [place] [address]. [place] [address] When:Within 1 Week(s) [facility] 05-18-2024 Note Patient Education Oncology Bladder Cancer Bladder cancer [...] Follow these instructions at home: ? Take grhc-uvq-ojewnbi and prescription medicines only as told by [...] important. Where to find more information ? [employer] (ACS): cancer.org ? National Cancer Honor (NCI): cancer.gov Contact a health care provider [...] care provider. Make sure you discuss any q (more content not included)... [facility] 05-10-2024 Hospital Discharge instructions Patient Education 05/10/2024 14:31:37 Bladder Cancer Bladder Cancer Bladder cancer is [...] cells. Follow these instructions at home: Take nlsu-opm-fhcvxjt and prescription medicines only as told by [...] is important. Where to find more information [employer] (ACS): cancer.org National Cancer Honor (NCI): cancer.gov Contact a health care provider [...] provider. Document Revised: 07/20/2022 Document Reviewed: 07/20/2022 [employer] Patient Education 2023 [employer]rise. Follow Up Care 03/10/2024 11:29:38 With:KAREN CHATMAN PA-C, URL Address: [address] [place] [address] When:Within 1 Week(s) [facility] 05-10-2024 Note Patient Education Oncology Bladder Cancer Bladder cancer [...] Follow these instructions at home: ? Take zosk-ukq-cdsvdps and prescription medicines only as told by [...] important. Where to find more information ? [employer] (ACS): cancer.org ? National Cancer Honor (NCI): cancer.gov Contact a health care provider [...] care provider. Make sure you discuss any q (more content not included)... [facility] 04-26-2024 Hospital Discharge instructions Patient Education 04/26/2024 13:22:09 Bladder Cancer Bladder Cancer Bladder cancer is [...] cells. Follow these instructions at home: Take tyqz-jre-mgcafty and prescription medicines only as told by [...] is important. Where to find more information [employer] (ACS): cancer.org National Cancer Honor (NCI): cancer.gov Contact a health care provider [...] provider. Document Revised: 07/20/2022 Document Reviewed: 07/20/2022 [employer] Patient Education 2023 Visiprise. Follow Up Care 03/10/2024 11:28:20 With:LURDES ROBISON, KAREN Chris, URL Address: [address] [place] [place] [address] When:Within 1 Week(s) [facility] 04-26-2024 Note Patient Education Oncology Bladder Cancer Bladder cancer [...] Follow these instructions at home: ? Take bjwl-thk-kueecde and prescription medicines only as told by [...] important. Where to find more information ? [employer] Cancer Society (ACS): cancer.org ? National Cancer Honor (NCI): cancer.gov Contact a health care provider [...] care provider. Make sure you discuss any q (more content not included)... [facility] 04-20-2024 Hospital Discharge instructions Patient Education 04/20/2024 09:23:51 Urinary Tract Infection, Adult Urinary Tract Infection, Adult A urinary tract infection (UTI) is an infection of any part of the urinary tract. The urinary tract includes the kidneys, ureters, bladder, and urethra. These organs make, store, and get rid of urine in the body. An upper UTI affects the ureters and kidneys. A lower UTI affects the bladder and urethra. What are the causes? Most urinary tract infections are caused by bacteria in your genital area around your urethra, where urine leaves your body. These bacteria grow and cause inflammation of your urinary tract. What increases the risk? You are more likely to develop this condition if: You have a urinary catheter that stays in place. You are not able to control when you urinate or have a bowel movement (incontinence). You are female and you: ?Use a spermicide or diaphragm for control. ?Have low estrogen levels. ?Are . You have certain genes that increase your risk. You are sexually active. You take antibiotic medicines. You have a condition that causes your flow of urine to slow down, such as: ?An enlarged prostate, if you are male. ?Blockage in your urethra. ?A kidney stone. ?A nerve condition that affects your bladder control (neurogenic bladder). ?Not getting enough to drink, or not urinating often. You have certain medical conditions, such as: ?Diabetes. ?A weak disease-fighting system (immunesystem). ?Sickle cell disease. ?Gout. ?Spinal cord injury. What are the signs or symptoms? Symptoms of this condition include: Needing to urinate right away (urgency). Frequent urination. This may include small amounts of urine each time you urinate. Pain or burning with urination. Blood in the urine. Urine that smells bad or unusual. Trouble urinating. Cloudy urine. Vaginal discharge, if you are female. Pain in the abdomen or the lower back. You may also have: Vomiting or a decreased appetite. Confusion. Irritability or tiredness. A fever or chills. Diarrhea. The first symptom in older adults may be confusion. In some cases, they may not have any symptoms until the infection has worsened. How is this diagnosed? This condition is diagnosed based on your medical history and a physical exam. You may also have other tests, including: Urine tests. Blood tests. Tests for STIs (sexually transmitted infections). If you have had more than one UTI, a cystoscopy or imaging studies may be done to determine the cause of the infections. How is this treated? Treatment for this condition includes: Antibiotic medicine. Omcz-iau-synhvgb medicines to treat discomfort. Drinking enough water to stay hydrated. If you have frequent infections or have other conditions such as a kidney stone, you may need to see a health care provider who specializes in the urinary tract (urologist). In rare cases, urinary tract infections can cause sepsis. Sepsis is a life-threatening condition that occurs when the body responds to an infection. Sepsis is treated in the hospital with IV antibiotics, fluids, and other medicines. Follow these instructions at home: Medicines Take tpfy-smz-jhhdwbn and prescription medicines only as told by your health care provider. If you were prescribed an antibiotic medicine, take it as told by your health care provider. Do not stop using the antibiotic even if you start to feel better. General instructions Make sure you: ?Empty your bladder often and completely. Do not hold urine for long periods of time. ?Empty your bladder after sex. ?Wipe from front to back after urinating or having a bowel movement if you are female. Use each tissue only one time when you wipe. Drink enough fluid to keep your urine pale yellow. Keep all follow-up visits. This is important. Contact a health care provider if: Your symptoms do not get better after 1 2 days. Your symptoms go away and then return. Get help right away if: You have severe pain in your back or your lower abdomen. You have a fever or chills. You have nausea or vomiting. Summary A urinary tract infection (UTI) is an infection of any part of the urinary tract, which includes the kidneys, ureters, bladder, and urethra. Most urinary tract infections are caused by bacteria in your genital area. Treatment for this condition often includes antibiotic medicines. If you were prescribed an antibiotic medicine, take it as told by your health care provider. Do not stop using the antibiotic even if you start to feel better. Keep all follow-up visits. This is important. This information is not intended to replace advice given to you by your health care provider. Make sure you discuss any questions you have with your health care provider. Document Revised: 03/21/2021 Document Reviewed: 03/21/2021 [employer] Patient Education 2022 Visiprise. Follow Up Care 03/10/2024 11:09:43 With:LURDES ROBISON, KAREN Chris, URL Address: [address] [place] [address]. [place] [address] [phone] When: Unknown Comments:DESTINEE #2/6 on 04/27/24 [facility] 04-20-2024 Note Patient Education Obstetrics and Gynecology Urinary Tract Infection, Adult A urinary tract infection (UTI) is an infection of any part of the urinary tract. The urinary tract includes the kidneys, ureters, bladder, and urethra. These organs make, store, and get rid of urine in the body. An upper UTI affects the ureters and kidneys. A lower UTI affects the bladder and urethra. What are the causes? Most urinary tract infections are caused by bacteria in your genital area around your urethra, where urine leaves your body. These bacteria grow and cause inflammation of your urinary tract. What increases the risk? You are more likely to develop this condition if: ? You have a urinary catheter that stays in place. ? You are not able to control when you urinate or have a bowel movement (incontinence). ? You are female and you: ? Use a spermicide or diaphragm for control. ? Have low estrogen levels. ? Are . ? You have certain genes that increase your risk. ? You are sexually active. ? You take antibiotic medicines. ? You have a condition that causes your flow of urine to slow down, such as: ? An enlarged prostate, if you are male. ? Blockage in your urethra. ? A kidney stone. ? A nerve condition that affects your bladder control (neurogenic bladder). ? Not getting enough to drink, or not urinating often. ? You have certain medical conditions, such as: ? Diabetes. ? A weak disease-fighting system (immunesystem). ? Sickle cell disease. ? Gout. ? Spinal cord injury. What are the signs or symptoms? Symptoms of this condition include: ? Needing to urinate right away (urgency). ? Frequent urination. This may include small amounts of urine each time you urinate. ? Pain or burning with urination. ? Blood in the urine. ? Urine that smells bad or unusual. ? Trouble urinating. ? Cloudy urine. ? Vaginal discharge, if you are female. ? Pain in the abdomen or the lower back. You may also have: ? Vomiting or a decreased appetite. ? Confusion. ? Irritability or tiredness. ? A fever or chills. ? Diarrhea. The first symptom in older adults may be confusion. In some cases, they may not have any symptoms until the infection has worsened. How is this diagnosed? This condition is diagnosed based on your medical history and a physical exam. You may also have other tests, including: ? Urine tests. ? Blood tests. ? Tests for STIs (sexually transmitted infections). If you have had more than one UTI, a cystoscopy or imaging studies may be done to determine the cause of the infections. How is this treated? Treatment for this condition includes: ? Antibiotic medicine. ? Iozq-xhj-gsfbnlx medicines to treat discomfort. ? Drinking enough water to stay hydrated. If you have frequent infections or have other conditions such as a kidney stone, you may need to see a health care provider who specializes in the urinary tract (urologist). In rare cases, urinary tract infections can cause sepsis. Sepsis is a life-threatening condition that occurs when the body responds to an infection. Sepsis is treated in the hospital with IV antibiotics, fluids, and other medicines. Follow these instructions at home: Medicines ? Take nsnt-mps-vylfgfi and prescription medicines only as told by your health care provider. ? If you were prescribed an antibiotic medicine, take it as told by your health care provider. Do not stop using the antibiotic even if you start to feel better. General instructions ? Make sure you: ? Empty your bladder often and completely. Do not hold urine for long periods of time. ? Empty your bladder after sex. ? Wipe from front to back after urinating or having a bowel movement if you are female. Use each tissue only one time when you wipe. ? Drink enough fluid to keep your urine pale yellow. ? Keep all follow-up visits. This is important. Contact a health care provider if: ? Your symptoms do not get better after 1?2 days. ? Your symptoms go away and then return. Get help right away if: ? You have severe pain in your back or your lower abdomen. ? You have a fever or chills. ? You have nausea or vomiting. Summary ? A urinary tract infection (UTI) is an infection of any part of the urinary tract, which includes the kidneys, ureters, bladder, and urethra. ? Most urinary tract infections are caused by bacteria in your genital area. ? Treatment for this condition often includes antibiotic medicines. ? If you were prescribed an antibiotic medicine, take it as told by your health care provider. Do not stop using the antibiotic even if you start to feel better. ? Keep all follow-up visits. This is important. This information is not intended to replace advice given to you by your health care provider. Make sure you discuss any questions you have with your health care provider. Document Revised: 03/21 (more content not included)... [facility] 04-13-2024 Hospital Discharge instructions Patient Education 04/13/2024 09:26:09 Bladder Cancer Bladder Cancer Bladder cancer is [...] cells. Follow these instructions at home: Take gwom-xhk-atibgrh and prescription medicines only as told by [...] is important. Where to find more information [place] Cancer Society (ACS): cancer.org National Cancer Honor (NCI): cancer.gov Contact a health care provider [...] provider. Document Revised: 07/20/2022 Document Reviewed: 07/20/2022 [employer] Patient Education 2022 Visiprise. Follow Up Care 03/01/2024 09:32:38 With:KAREN CHATMAN PA-C, URL Address: [address] [place] [address] When: Unknown Comments:BCG #2 of 6 in 1 week [facility] 04-13-2024 Note Patient Education Oncology Bladder Cancer Bladder cancer [...] Follow these instructions at home: ? Take chln-pmh-uihyirp and prescription medicines only as told by [...] important. Where to find more information ? [place] Cancer Society (ACS): cancer.org ? National Cancer Honor (NCI): cancer.gov Contact a health care provider [...] care provider. Make sure you discuss any q (more content not included)... [facility] 04-06-2024 Hospital Discharge instructions Patient Education 04/06/2024 09:02:06 Bladder Cancer Bladder Cancer Bladder cancer is [...] cells. Follow these instructions at home: Take nscd-sob-yipfjbl and prescription medicines only as told by [...] is important. Where to find more information [place] Cancer Society (ACS): cancer.org National Cancer Honor (NCI): cancer.gov Contact a health care provider [...] provider. Document Revised: 07/20/2022 Document Reviewed: 07/20/2022 [employer] Patient Education 2022 Visiprise. Follow Up Care 03/01/2024 09:30:59 With:KAREN CHATMAN PA-C, URL Address: [address] [place] [place] [address] When: Unknown Comments:1 week for BCG #1 of 6 [facility] 04-06-2024 Note Patient Education Oncology Bladder Cancer Bladder cancer [...] Follow these instructions at home: ? Take nqsl-zoc-xjdpeye and prescription medicines only as told by [...] important. Where to find more information ? [place] Cancer Society (ACS): cancer.org ? National Cancer Honor (NCI): cancer.gov Contact a health care provider [...] care provider. Make sure you discuss any q (more content not included)... [facility] 03-10-2024 Hospital Discharge instructions Patient Education 03/10/2024 10:47:41 Bladder Cancer Bladder Cancer Bladder cancer is [...] cells. Follow these instructions at home: Take xura-qrb-evzzplr and prescription medicines only as told by [...] is important. Where to find more information [place] Cancer Society (ACS): cancer.org National Cancer Honor (NCI): cancer.gov Contact a health care provider [...] provider. Document Revised: 07/20/2022 Document Reviewed: 07/20/2022 [employer] Patient Education 2022 Visiprise. Follow Up Care 01/26/2024 08:09:05 With:IVAN GAO, Sylvester White, URL Address: [address] [place] [id number] When: Unknown [facility] 03-10-2024 Note Patient Education Oncology Bladder Cancer Bladder cancer [...] Follow these instructions at home: ? Take nilb-rbx-nogkqbk and prescription medicines only as told by [...] important. Where to find more information ? [place] Cancer Society (ACS): cancer.org ? National Cancer Honor (NCI): cancer.gov Contact a health care provider [...] care provider. Make sure you discuss any q (more content not included)... [facility] 01-26-2024 Hospital Discharge instructions Patient Education 01/26/2024 [...] if anything looks unusual. Men with a yagjyh-lxny-goutqs risk for skin cancer may want to see a lambskin trimmer (primer charging tool setter) for an annual body check. What are the benefits of screening? Cancer screening is done to look for cancer in the very early stages, before it spreads and becomes harder to treat and before you would start to notice symptoms. Finding cancer early improves the chances of successful treatment. It may save your life. Where to find more information [place] Cancer Society: www.cancer.org Centers for Disease Control and Prevention: www.cdc.gov National Cancer Honor: www.cancer.gov Contact a health care provider if: [...] provider. Document Revised: 01/05/2022 Document Reviewed: 07/05/2020 [employer] Patient Education 2022 Visiprise. Follow Up Care 12/29/2023 11:05:24 With:IVAN GAO, Sylvester White, URL Address: [facility] [address] [place] [address]- When: Unknown [facility] 09-24-2023 Hospital Discharge instructions Patient Education 09/24/2023 [...] numbers. This can be done either in [place]mese [place] or metric measurements. Note that charts and online BMI calculators are available to help you find your BMI quickly and easily without having to do these calculations yourself. To calculate your BMI in Burmese ([place] measurements: 1.Measure your weight in pounds [...] Centers for Disease Control and Prevention: www.cdc.gov [place] Heart Association: www.heart.org National Heart, Lung, and Blood Honor: www.nhlbi.nih.gov Summary Body mass index (BMI) is a number that is calculated from a person's weight and height. BMI may help estimate how much of a person's weight is composed of fat. BMI can help identify those who may be at higher risk for certain medical problems. BMI can be measured using Burmese measurements or metric measurements. BMI charts are used to identify whether you are underweight, normal weight, overweight, or obese. This information is not intended to replace advice given to you by your health care provider. Make sure you discuss any questions you have with your health care provider. Document Revised: 05/01/2020 Document Reviewed: 03/08/2020 [employer] Patient Education 2022 Visiprise. Follow Up Care 08/26/2023 11:59:24 With:IVAN GAO, Sylvester White, URL Address: [address] [place] [address]- When: Unknown [facility] 07-28-2023 Evaluation + Plan note Diagnostic Tests PendingUroVysion Fish and Urine Cyto ([facility]) 07/28/[address] [facility] 07-28-2023 Hospital Discharge instructions Patient Education [...] if anything looks unusual. Men with a vbhjbx-akfg-nhlzwc risk for skin cancer may want to see a lambskin trimmer (primer charging tool setter) for an annual body check. What are the benefits of screening? Cancer screening is done to look for cancer in the very early stages, before it spreads and becomes harder to treat and before you would start to notice symptoms. Finding cancer early improves the chances of successful treatment. It may save your life. Where to find more information [place] Cancer Society: www.cancer.org Centers for Disease Control and Prevention: www.cdc.gov National Cancer Honor: www.cancer.gov Contact a health care provider if: [...] provider. Document Revised: 01/05/2022 Document Reviewed: 07/05/2020 [employer] Patient Education 2022 Visiprise. Follow Up Care 06/29/2023 13:41:58 With:IVAN GAO, Sylvester White, URL Address: [facility] [address] , [place] [address]- When: Unknown [facility] 06-29-2023 Hospital Discharge instructions Patient Education [...] cells. Follow these instructions at home: Take yblw-eix-ggnpill and prescription medicines only as told by [...] is important. Where to find more information [place] Cancer Society (ACS): cancer.org National Cancer Honor (NCI): cancer.gov Contact a health care provider [...] provider. Document Revised: 07/20/2022 Document Reviewed: 07/20/2022 [employer] Patient Education 2022 Visiprise. Follow Up Care 06/01/2023 09:37:12 With:LURDES ROBISON, KAREN Chris, URL Address: [address] [facility] [place] [phone] When: Unknown Comments:has cysto 08/02/23 [facility] 06-22-2023 Hospital Discharge instructions Patient Education [...] cells. Follow these instructions at home: Take keik-zts-pjwbudg and prescription medicines only as told by [...] is important. Where to find more information [place] Cancer Society (ACS): cancer.org National Cancer Honor (NCI): cancer.gov Contact a health care provider [...] provider. Document Revised: 07/20/2022 Document Reviewed: 07/20/2022 [employer] Patient Education 2022 Visiprise. Follow Up Care 05/10/2023 10:08:09 With:KAREN CHATMAN PA-C, URL Address: [address] [place] [phone] When: Unknown Comments:BCG #6/ on 06/29/23 [facility] 06-15-2023 Hospital Discharge instructions Patient Education [...] cells. Follow these instructions at home: Take vinc-pnd-wyuhzgk and prescription medicines only as told by [...] is important. Where to find more information [place] Cancer Society (ACS): cancer.org National Cancer Honor (NCI): cancer.gov Contact a health care provider [...] provider. Document Revised: 07/20/2022 Document Reviewed: 07/20/2022 [employer] Patient Education 2022 [employer] Follow Up Care 05/03/2023 14:47:16 With:KAREN CHATMAN PA-C, URL Address: [address] [place] [address] When: Unknown [facility] [place] 06-08-2023 Hospital Discharge instructions Patient Education 06/08/2023 [...] cells. Follow these instructions at home: Take qaas-nrq-qgyweqe and prescription medicines only as told by [...] is important. Where to find more information [place] Cancer Society (ACS): cancer.org National Cancer Honor (NCI): cancer.gov Contact a health care provider [...] provider. Document Revised: 07/20/2022 Document Reviewed: 07/20/2022 [employer] Patient Education 2022 Visiprise. Follow Up Care 05/03/2023 14:45:53 With:KAREN CHATMAN PA-C, URL Address: [address] [place] [phone] When: Unknown Comments:BCG #4/6 on 06/15/23 [facility] 05-25-2023 Hospital Discharge instructions Patient Education [...] cells. Follow these instructions at home: Take qvwg-ich-oqxaino and prescription medicines only as told by [...] is important. Where to find more information [place] Cancer Society (ACS): cancer.org National Cancer Honor (NCI): cancer.gov Contact a health care provider [...] provider. Document Revised: 07/20/2022 Document Reviewed: 07/20/2022 [employer] Patient Education 2022 Visiprise. Follow Up Care 05/03/2023 14:43:06 With:KAREN CHATMAN PA-C, URL Address: [address] [place] [address] [phone] When: Unknown Comments:DESTINEE #3/6 on 06/01/23 [facility] 04-20-2023 Hospital Discharge instructions Patient Education [...] if anything looks unusual. Men with a deboko-xgto-acpwuf risk for skin cancer may want to see a lambskin trimmer (primer charging tool setter) for an annual body check. What are the benefits of screening? Cancer screening is done to look for cancer in the very early stages, before it spreads and becomes harder to treat and before you would start to notice symptoms. Finding cancer early improves the chances of successful treatment. It may save your life. Where to find more information [place] Cancer Society: www.cancer.org Centers for Disease Control and Prevention: www.cdc.gov National Cancer Honor: www.cancer.gov Contact a health care provider if: [...] provider. Document Revised: 01/05/2022 Document Reviewed: 07/05/2020 [employer] Patient Education 2022 Visiprise. Follow Up Care 03/23/2023 08:32:37 With:IVAN GAO, Sylvester White, URL Address: [facility] [address], [place] [address]- When: Unknown [facility] [place] 03-23-2023 Hospital Discharge instructions Patient Education 03/23/2023 [...] Follow these instructions at home: Medicines Take gesq-vuz-qulwfoc and prescription medicines only as told by [...] to keep your urine pale yellow. ?Take srak-xlg-ihmhdwz or prescription medicines. ?Eat foods that are [...] and pain in your lower abdomen. Take wtku-vts-lrfclwk and prescription medicines only as told by [...] provider. Document Revised: 08/14/2022 Document Reviewed: 08/14/2022 [employer] Patient Education 2022 Visiprise. 03/23/2023 08:18:15 Transurethral Resection of Bladder Tumor [...] including vitamins, herbs, eye drops, creams, and jrsg-swq-ouifwjm medicines. Any problems you or family members [...] provider tells you to take them. Taking kihg-tar-dxybpzn medicines, vitamins, herbs, and supplements. General instructions [...] provider. Document Revised: 08/14/2022 Document Reviewed: 08/14/2022 [employer] Patient Education 2022 Visiprise. Follow Up Care 03/15/2023 11:06:53 With:IVAN GAO, Sylvester White, URL Address: [facility] [address] , [place] [address]- When: Unknown [facility] [place] 11-23-2022 Evaluation + Plan note Diagnostic Tests PendingUroVysion Fish and Urine Cyto ([facility]) 11/23/22 [facility] 09-22-2022 Evaluation + Plan note Diagnostic Tests PendingUrine Culture 09/22/[address] [facility] 08-14-2022 Note EXAM: XR CHEST 2 [...] authenticated by: JESSENIA CUTLER Date: 2022-08-13 22:42 [facility] 07-28-2022 Hospital Discharge instructions Patient Education 07/28/2022 [...] Address: [facility] [address], [place] [address]- Business (1) When: Unknown Comments:Office will call to schedule follow up [facility] 07-28-2022 Evaluation + Plan note Extrac paulie from: Title:Urology Progress Note Author:Dami ZALDIVAR MD Date:07/28/22 Impression and Plan Impression: #1. This gentleman seems to have bladder lesions which are likely bladder cancer. 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 2. 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 He is obstructed urodynamically and endoscopically. Plan: #1. We will get him scheduled for cystoscopy and transurethral resection of bladder tumors and a subsequent TURP. [facility]22 Hospital Discharge instructions Patient Education 07/20/2022 [...] including vitamins, herbs, eye drops, creams, and tali-pjo-mtnwsas medicines. Any problems you or family members [...] provider tells you to take them. Taking iyog-nro-agzqrre medicines, vitamins, herbs, and supplements. Eating and [...] 08/09/2006 Document Revised: 11/29/2019 Document Reviewed: 05/10/2019 [employer] Patient Education 2020 [employer] 07/20/2022 16:09:10 Transurethral Resection of the Prostate [...] including vitamins, herbs, eye drops, creams, and wlmd-uwj-ofzaqei medicines. Any problems you or family members [...] provider tells you to take them. Taking cdjx-roa-ghbnxed medicines, vitamins, herbs, and supplements. Eating and [...] 08/09/2006 Document Revised: 11/29/2019 Document Reviewed: 05/10/2019 [employer] Patient Education 2020 Visiprise. 07/20/2022 15:43:46 Benign Prostatic Hyperplasia Benign Prostatic [...] urethra. Follow these instructions at home: Take zfak-tlv-bcnpzzf and prescription medicines only as told by [...] 08/09/2006 Document Revised: 07/04/2019 Document Reviewed: 09/13/2017 [employer] Patient Education 2020 Visiprise. Follow Up Care 06/22/2022 16:05:07 With:IVAN GAO, COLLINS De Address: [facility] [address] , [place] [address]- When: Unknown [facility] evaluation + Plan note Future Appointments Appointment Date:07/22/2022 10:45:00 AM Scheduled Provider: Location:[facility] Appointment Type:Urology CALL PAT FT Appointment Date:07/28/2022 02:30:00 PM Scheduled Provider: Location:[facility] Appointment Type:Urology FT Appointment Date:07/29/2022 09:30:00 AM Scheduled Provider: Location:[facility] Appointment Type:Urology FT [facility] evaluation + Plan note Future Appointments Appointment Date:08/31/2022 03:00:00 PM Scheduled Provider:Sylvester ZALDIVAR MD Location:[facility] Appointment Type:URO Office Visit [facility] evaluation + Plan note Future Appointments Appointment Date:04/14/2023 08:00:00 AM Scheduled Provider: Location:[facility] Appointment Type:URO Nurse Visit Appointment Date:04/20/2023 09:45:00 AM Scheduled Provider:Sylvester ZALDIVAR MD [facility] Appointment Type:URO Office Visit [facility] evaluation + Plan note Future Appointments Appointment Date:06/28/2023 11:45:00 AM Scheduled Provider: Location:[facility] Appointment Type:URO Nurse Visit [facility] evaluation + Plan note Future Appointments Appointment Date:06/01/2023 09:15:00 AM Scheduled Provider:KAREN CHATMAN PA-C [facility] Type:[facility] Office Visit Appointment Date:06/08/2023 09:15:00 AM Scheduled Provider:KAREN CHATMAN PA-C [facility] App[facility] Type:URO Office Visit Appointment Date:06/15/2023 09:15:00 AM Scheduled Provider:KAREN CHATMAN PA-C [facility] App[facility] Type:URO Office Visit Appointment Date:06/22/2023 09:00:00 AM Scheduled Provider:KAREN CHATMAN PA-C [facility] Office Visit Appointment Date:06/28/2023 11:45:00 AM Scheduled Provider: [facility] App[facility] Type:URO Nurse Visit [facility] evaluation + Plan note Future Appointments Appointment Date:06/15/2023 09:15:00 AM Scheduled Provider:KAREN CHATMAN PA-C [facility] App[facility] Type:URO Office Visit Appointment Date:06/22/2023 09:00:00 AM Scheduled Provider:KAREN CHATMAN PA-C [facility] Appoint[facility] Type:URO Office Visit Appointment Date:06/29/2023 09:15:00 AM Scheduled Provider:KAREN CHATMAN PA-C [facility] App[facility] Type:URO Office Visit Appointment Date:07/05/2023 09:00:00 AM Scheduled Provider: Location:[facility] Appointment Type:URO Nurse Visit [facility] evaluation + Plan note Future Appointments Appointment Date:06/22/2023 09:00:00 AM Scheduled Provider:KAREN CHATMAN PA-C [facility] App[facility] Type:URO Office Visit Appointment Date:06/29/2023 09:15:00 AM Scheduled Provider:KAREN CHATMAN PA-C [facility] Office Visit Appointment Date:07/26/2023 09:00:00 AM Scheduled Provider: [facility] App[facility] Type:URO Nurse Visit [facility] evaluation + Plan note Future Appointments Appointment Date:06/29/2023 09:15:00 AM Scheduled Provider:KAREN CHATMAN PA-C Location:[facility] Appointment Type:URO Office Visit Appointment Date:07/26/2023 09:00:00 AM Scheduled Provider: Location:[facility] Appointment Type:URO Nurse Visit [facility] evaluation + Plan note Future Appointments Appointment Date:07/28/2023 07:45:00 AM Scheduled Provider:[facility]DIVAR MD [facility] Procedure 15 min [facility] evaluation + Plan note Future Appointments Appointment Date:03/10/2024 09:45:00 AM Scheduled Provider:Sylvester ZALDIVAR MD Location:[facility] Appointment Type:URO Office Visit [facility] evaluation + Plan note Future Appointments Appointment Date:03/10/2024 09:45:00 AM Scheduled Provider:Sylvester ZALDIVAR MD Location:[facility] Appointment Type:URO Office Visit Diagnostic Tests Pending * UroVysion Fish and Urine Cyto ([facility] [facility] Appointment Date:04/06/2024 09:00:00 AM Scheduled Provider:KAREN CHATMAN PA-C [facility] App[facility] Type:URO Office Visit Appointment Date:04/13/2024 09:00:00 AM Scheduled Provider:KAREN CHATMAN PA-C [facility] App[facility] Type:URO Office Visit Appointment Date:04/20/2024 09:00:00 AM Scheduled Provider:KAREN CHATMAN PA-C [facility] Office Visit Appointment Date:04/27/2024 09:00:00 AM Scheduled Provider:KAREN CHATMAN PA-C [facility] Type:[facility] Office Visit Appointment Date:05/11/2024 09:00:00 AM Scheduled Provider:KAREN CHATMAN PA-C [facility] App[facility] Type:URO Office Visit Appointment Date:05/18/2024 09:00:00 AM Scheduled Provider:KAREN CHATMAN PA-C [facility] [facility] Appointment Type:URO Office Visit [facility] evaluation + Plan note Future Appointments Appointment Date:04/13/2024 09:00:00 AM Scheduled Provider:KAREN CHATMAN PA-C [facility] Appointment Type:URO Office Visit Appointment Date:04/20/2024 09:00:00 AM Scheduled Provider:KAREN CHATMAN PA-C [facility] Appointment Type:URO Office Visit Appointment Date:04/27/2024 09:00:00 AM Scheduled Provider:KAREN CHATMAN PA-C [facility] Office Visit Appointment Date:05/11/2024 09:00:00 AM Scheduled Provider:KAREN CHATMAN PA-C [facility] Appointment Type:URO Office Visit Appointment Date:05/18/2024 09:00:00 AM Scheduled Provider:KAREN CHATMAN PA-C Location[facility] Appointment Type:URO Office Visit [facility] evaluation + Plan note Future Appointments Appointment Date:04/13/2024 09:00:00 AM Scheduled Provider:KAREN CHATMAN PA-C [facility] Appointment Type:URO Office Visit Appointment Date:04/20/2024 09:00:00 AM Scheduled Provider:KAREN CHATMAN PA-C [facility] Type:[facility] Office Visit Appointment Date:04/27/2024 09:00:00 AM Scheduled Provider:KAREN CHATMAN PA-C [facility] Type:URO Office Visit Appointment Date:05/11/2024 09:00:00 AM Scheduled Provider:KAREN CHATMAN PA-C [facility] Type:URO Office Visit Appointment Date:05/18/2024 09:00:00 AM Scheduled Provider:KAREN CHATMAN PA-C Location:[facility] Appointment Type:URO Office Visit Diagnostic Tests Pending * Urine Culture 04/06/[address] [facility] Evaluation + Plan note Future Appointments Appointment Date:04/20/2024 09:00:00 AM Scheduled Provider:KAREN CHATMAN PA-C [facility] Appointment Type:URO Office Visit Appointment Date:04/27/2024 09:00:00 AM Scheduled Provider:KAREN CHATMAN PA-C Location[facility] Appointment Type:URO Office Visit Appointment Date:05/11/2024 09:00:00 AM Scheduled Provider:KAREN CHATMAN PA-C Location[facility] Appointment Type:URO Office Visit Appointment Date:05/18/2024 09:00:00 AM Scheduled Provider:KAREN CHATMAN PA-C Location:[facility] Appointment Type:URO Office Visit [facility] evaluation + Plan note Future Appointments Appointment Date:04/27/2024 09:00:00 AM Scheduled Provider:KAREN CHATMAN PA-C Location[facility] Appointment Type:URO Office Visit Appointment Date:05/11/2024 09:00:00 AM Scheduled Provider:KAREN CHATMAN PA-C Location[facility] Appointment Type:URO Office Visit Appointment Date:05/18/2024 09:00:00 AM Scheduled Provider:KAREN CHATMAN PA-C Location[facility] Appointment Type:URO Office Visit [facility] evaluation + Plan note Future Appointments Appointment Date:04/27/2024 09:00:00 AM Scheduled Provider:KAREN CHATMAN PA-C Location[facility] Appointment Type:URO Office Visit Appointment Date:05/11/2024 09:00:00 AM Scheduled Provider:KAREN CHATMAN PA-C Location[facility] Appointment Type:URO Office Visit Appointment Date:05/18/2024 09:00:00 AM Scheduled Provider:KAREN CHATMAN PA-C Location:[facility] Appointment Type:URO Office Visit Diagnostic Tests Pending * Urine Culture 04/20/[address] [facility] Evaluation + Plan note Future Appointments Appointment Date:05/11/2024 09:00:00 AM Scheduled Provider:KAREN CHATMAN PA-C Location:[facility] Appointment Type:URO Office Visit Appointment Date:05/18/2024 09:00:00 AM Scheduled Provider:KAREN CHATMAN PA-C Location:[facility] Appointment Type:URO Office Visit [facility] evaluation + Plan note Future Appointments Appointment Date:05/18/2024 09:00:00 AM Scheduled Provider:KAREN CHATMAN PA-C Location:[facility] Appointment Type:URO Office Visit [facility] evaluation + Plan note Future Appointments Appointment Date:05/25/2024 09:20:00 AM Scheduled Provider:KAREN CHATMAN PA-C Location:[facility] Appointment Type:URO Office Visit Appointment Date:06/01/2024 09:20:00 AM Scheduled Provider:KAREN CHATMAN PA-C Location:[facility] Appointment Type:URO Office Visit [facility] evaluation + Plan note Future Appointments Appointment Date:06/01/2024 09:20:00 AM Scheduled Provider:KAREN CHATMAN PA-C Location:[facility] Appointment Type:URO Office Visit [facility] evaluation + Plan note Future Appointments Appointment Date:08/09/2024 07:30:00 AM Scheduled Provider:Sylvester ZALDIVAR MD Location[facility] Appointment Type:URO Procedure 15 min [facility] evaluation + Plan note Future Appointments Appointment Date:09/20/2024 08:45:00 AM Scheduled Provider:Sylvester ZALDIVAR MD Location:[facility] hospital Appointment Type:URO Office Visit Diagnostic Tests Pending * Uro[facility] Fish and Urine Cyto ([facility]) 08/09/[address] [facility] Evaluation + Plan note Future Appointments Appointment Date:09/20/2024 08:45:00 AM Scheduled Provider:Sylvester ZALDIVAR MD Location:[facility] hospital Appointment Type:URO Office Visit [facility] Evaluation noteNo assessment information available [facility] Work Phone: Hospital course Narrative No data available for this section [facility] Hospital Discharge instructions No data available for this section [facility] Progress note No data available for this section [facility] Summary Purpose Family History No Family History [...] History Records FoundNo Family History Records Found No data available [...] Family History Records FoundNo Family History Records FoundNo Family History Records Found Advance Directives No Advanced Directives Records Found Advance Directive Response Recorded Date/ Time Advance Directives No March 03 12:06pm Additional Source Comments Patient Care team informatio n (unrecognized section and content) Team Status: Active Member Role Status Dates Av Regalado JR DO Primary Care Provider Active Team Status: Inactive Member Role Status Dates Av Regalado JR DO Primary Care Provider Active Start: September 16, 2023 End: September 16, 2023 Sylvester Zaldivar MD Attending Provider Active art: September 16, 2023 End: September 16, 2023 Team Status: Inactive Member Role Status Dates Av Regalado JR DO Primary Care Provider Active Start: March 02, 2024 End: March 02, 2024 Sylvester Zaldivar MD Attending Provider Active St art: March 02, 2024 End: March 02, 2024 (unrecognized sect ion and content) No Status Records FoundNo Status Records FoundNo Status Records FoundNo Status Records FoundNo Status Records FoundNo Status Records FoundNo Status Records FoundNo Status Records FoundNo Status Records Found INFORMATION SOURCE (unrecogn ized section and content) DATE CREATED AUTHOR 01/02/2023 [facility] DATE CREATED AUTHOR AUTHOR'S ORGANIZ ATION 03/12/2024 [facility] DATE CREATED AUTHOR AUTHOR'S ORGANIZ ATION 04/13/2024 Mohamud Emeka [facility] DATE CREATED AUTHOR AUTHOR'S ORGANIZ ATION 04/22/2024 Mohamud Sierra [facility] DATE CREATED AUTHOR AUTHOR'S ORGANIZ ATION 07/19/2024 Mohamud Sierra [facility] DATE CREATED AUTHOR AUTHOR'S ORGANIZ ATION 08/12/2024 [facility]ud Emeka [facility] DATE CREATED AUTHOR AUTHOR'S ORGANIZ ATION 08/18/2024 Mohamud Emeka [facility] DATE CREATED AUTHOR AUTHOR'S ORGANIZ ATION 09/04/20[facility] Goals (unrecognized section and content) Goals may [...] BE BASED ON THE PRIMARY CLINICAL RECORDS. [facility]. provides no warranty or guarantee of the accuracy or completeness of information in this document.
[2024-09-14] MEDS: CEFAZOLIN SODIUM 1 GM/50 ML D5W PREMIX IV (11:10)
[2024-09-14] MEDS: LACTATED RINGER'S SOLUTION 1,000 ML 50 ML IV (11:10)
--- NOTE | 2024-09-14 12:10 | PM.URSON ---
Urology Surgery Operative Note Operative Note Procedure Date: 09/14/24 Time Out Performed: yes Pre-op Diagnosis: History of high-grade TCC of the bladder; bladder lesions Post-op Diagnosis: same as pre-op Procedures performed: 1. Cystoscopy. 2. Transurethral resection of bladder lesions approximately 3 cm. 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 He has developed flame red raised lesions along the dome. He now presents for cystoscopy and transurethral resection of these lesions. He has signed an informed consent after risks were explained. Detailed description of Procedure: The patient was brought to the operating room and placed on the operating room table in the supine position. SCDs were placed on the lower extremities and turned on and functioning during the entire case. Timeout was done by all parties in the room. We all agreed upon the patient's identification and the planned procedures for this patient. Genn. anesthesia was then administered. The patient was then repositioned into the modified dorsal lithotomy position. All pressure points were satisfactorily padded. Genitalia were sterilely prepped and draped in usual fashion. I started by passing a 26 Tamazight Olympus resectoscope with a standard bipolar loop electrode per urethra and into the bladder. Panendoscopy in the bladder revealed no new tumors. While using suprapubic pressure I then slowly steadily carefully resected these red raised areas along the dome. There was about 3 cm of lesions. The entire resection bed and any other red areas were coagulated. The Ilich was used to get the specimen out of the bladder and these were sent for permanent sections. Upon completion, there was no evidence of bleeding. There were no red areas remaining. The bladder was drained of its contents. The scope was then removed. I elected not to place a Ingram catheter. The anesthetic was then reversed. He was then transferred to a [facility] bed and wheeled to PACU in stable condition.
--- NOTE | 2024-09-14 13:49 | PC.NURSE ---
patient attempted to urinate but only had a few squirts. Bladder scanned patient and there was only 53 ml in the bladder. Updated Dr Zaldivar and he would like the patient to urinate more than a squirt. Patient does not want a lutz placed
== END 2024-09-14 14:52 | disposition home or self-care (01) ==
PROVIDERS: Visit Provider Urology
PROC: (CPT 912; principal; 2024-09-14 12:30)
DX: D30.3 Benign neoplasm of bladder (principal); Z85.51 Personal history of malignant neoplasm of bladder; E78.5 Hyperlipidemia, unspecified; K21.9 Gastro-esophageal reflux disease without esophagitis; I10 Essential (primary) hypertension; Z86.73 Personal history of transient ischemic attack (TIA), and cerebral infarction without residual deficits; Z79.01 Long term (current) use of anticoagulants; I25.10 Atherosclerotic heart disease of native coronary artery without angina pectoris; Z87.891 Personal history of nicotine dependence; N40.0 Benign prostatic hyperplasia without lower urinary tract symptoms; I71.40 Abdominal aortic aneurysm, without rupture, unspecified; Z95.1 Presence of aortocoronary bypass graft
CPT/HCPCS: 52234; 36415; 88307; 88342; J0690; J1100; J2405; J2704; J3010